=== PATIENT | female | born 1965 | race Caucasian/White ===

== ENCOUNTER 2021-04-25 08:10 | Inpatient (IN) | payer OTHER, SELFPAY ==
[2021-04-25] VITALS (8 sets, daily range): BP systolic 104–138; BP diastolic 52–86; PULSE 75–104; RESP 14–18; TEMP 36.2–36.9; O2SAT 98–100; BMI 27.8
--- NOTE | ~2021-04-25 | US_ITS ---
EXAMINATION: BILATERAL LOWER EXTREMITY ARTERIAL DUPLEX CLINICAL INFORMATION: Chronic lesions, question vascular disease. COMPARISON: None TECHNIQUE: Technically limited exam due to agitated patient could not cooperate with the exam. Arterial duplex imaging with chacon scale, color Doppler and spectral Doppler imaging was performed in both lower extremities. FINDINGS: Right lower extremity: Atherosclerotic plaque throughout the right lower extremity. The right common femoral artery is patent with monophasic waveform. The profunda femoral artery is not visualized. Normal velocities in the SFA with monophasic waveforms. The popliteal artery is patent. The posterior tibial artery is not seen on the right. Left lower extremity: Atherosclerotic plaque is present. The common femoral artery, profunda femoral artery and proximal SFA could not be visualized due to patient positioning and limited access on the portable exam. There is monophasic flow visualized in the mid and distal SFA as well as the popliteal artery. Posterior tibial artery is not visualized. US/US arterial duplex LE BI IMPRESSION: Markedly limited exam due to examination done portably in an agitated patient with limited access. Atherosclerotic plaque is present. There is monophasic flow within the visualized arteries of both lower extremities. The presence of high-grade stenoses/occlusions cannot be excluded on the current exam. Repeated time to exam when the patient is able to tolerate and follow questions recommended.
--- NOTE | ~2021-04-25 | XR_ITS ---
EXAMINATION: XR CHEST CLINICAL INFORMATION: Chest symptoms. Assess for pneumonia. COMPARISON: Chest radiographs 02/16/2020 TECHNIQUE: Portable upright AP view of the chest was obtained. FINDINGS: Patient is slightly rotated to the right and there are low lung volumes with inspiration to the posterior eighth ribs. There is no lobar or segmental airspace consolidation or definite groundglass opacity. The costophrenic sulci are clear. The heart is within normal size. The vascularity is normal. The hilar and mediastinal contours are unremarkable. No acute bony abnormality. XR/XR chest 1V IMPRESSION: Low lung volumes, poor inspiration. No airspace consolidation or effusion.
--- NOTE | ~2021-04-25 | CT_ITS ---
EXAMINATION: CT ABDOMEN AND PELVIS WITHOUT CONTRAST CLINICAL INFORMATION: Deep sacral ulcers. Rule out abscess. COMPARISON: None TECHNIQUE: Multidetector volumetric imaging was performed from the superior aspect of the liver through the pubic symphysis. Sagittal and coronal reformatted images were obtained on the technologist's workstation. This CT examination was performed using dose optimization techniques as appropriate, variously including the following: *Automated exposure control *Adjustment of mA and/or kV according to patient size (this includes techniques or standardized protocols for targeted exams where dose is matched to indication/reason for exam; i.e. extremities or head) *Use of iterative reconstruction technique DLP: 815 mGy-cm FINDINGS: LUNG BASES: The heart size is normal. The lung bases are clear. LIVER, GALLBLADDER, AND BILIARY TREE: The liver is normal in size, shape, and attenuation. No focal hepatic lesion or biliary ductal dilatation is present. The gallbladder is unremarkable with no evidence of radiopaque gallstones, gallbladder wall thickening, or obvious pericholecystic inflammatory changes. There is dependent hyperdensity bile. PANCREAS: Unremarkable. SPLEEN: The spleen is unremarkable. There is vascular calcification in the splenic hilum. ADRENAL GLANDS: Unremarkable. KIDNEYS AND URETERS: The kidneys are normal in size, shape, and attenuation. No hydronephrosis, hydroureter, or calculi seen. No perinephric stranding. BLADDER: There is bladder is undistended is a Toth's catheter within GASTROINTESTINAL TRACT: There is scattered stool and gas seen throughout the entire colon without any significant distention. The small bowel loops and normal multiple caliber. Appendix is not seen. No free fluid or free air seen. ABDOMINAL WALL: There is diffuse mid and lower abdominal wall edema/cellulitis. LYMPH NODES: Normal. VASCULAR: Unremarkable. PELVIC VISCERA: There is moderate presacral soft tissue thickening. Diffuse edema seen in both posterior buttocks and lower anterior bowel wall. There are bilateral diffuse ulcers extending to the periosteum. There is slight irregularity involving left posterior ischial periosteum. Moderate soft tissue edema is seen in the right buttock. There is no air-fluid or focal fluid collection in the buttock region. There are reactive small lymph nodes in the iliac region and the inguinal regions bilaterally. OSSEOUS STRUCTURES: There is vacuum disc phenomena L4-L5 and L5-S1 disc levels with loss of joint space and ventral and posterior spondylosis. Rest of the disc levels, all vertebral heights and alignment is normal. CT/CT abdomen pelvis wo con IMPRESSION: Bilateral buttock decubitus ulcers extending to the periosteum of both the ACL regions. There is mild irregularity of the left ischial periosteum suspicious for cellulitis. There is diffuse edema and/or cellulitis but no focal abscess, mass or collection. They do not extends into the entire abdominal wall surrounding the pelvis as well as the presacral space There is mild constipation.
--- NOTE | 2021-04-25 08:53 | ED.AMS ---
HPI - Altered Mental Status General Chief Complaint: Altered Mental Status Stated Complaint: AMS Time Seen by Provider: 04/25/21 08:19 Source: EMS Mode of arrival: EMS Limitations: altered mental status History of Present Illness HPI narrative: Patient comes emergency room via EMS from [facility]. According to the staff, patient seems to be altered more than usual, appears to have full, complaining of a lot of pain. Patient states that ?everything hurts?. Unable to pinpoint a specific location. Apparently staff, Dr. Murphy normally, conversational and alert. Related Data Allergies Allergy/AdvReac Type Severity Reaction Status Date / Time acetaminophen [Percocet] Allergy Unknown rash Verified 04/25/19 00:00 morphine [MORPHINE] Allergy Unknown RASH Verified 09/03/20 11:24 oxycodone [From PERCOCET] Allergy Unknown ITCHY RASH Unverified 06/13/20 15:05 Penicillins [PENICILLINS] Allergy Unknown RASH Verified 09/03/20 11:24 Review of Systems Review of Systems: Complaining of pain, screening, unable to localize the source of pain, states everything hurts Yes Unobtainable due to mental condition [facility] Past Medical History Surgical History (Updated 09/03/20 @ 11:25 by REBEL Weiss) History of total abdominal hysterectomy and bilateral salpingo-oophorectomy Family History Family History (Updated 09/03/20 @ 11:26 by REBEL Weiss) Father Colon cancer Hypertension Prostate cancer Mother Diabetes Hypertension Family/Other FH: mental illness Social History Social History Alcohol intake: never Patient Tobacco Use Status: Never used Tobacco Use of substances other than those prescribed or required for medical reasons: No Advance Directives: No Advance Directives Information Provided: No Patient : No Physical Exam Vital Signs: Vital Signs: Last Vital Signs Temp 98.4 F 04/25/21 08:17 Pulse 98 04/25/21 10:33 Resp 16 04/25/21 10:33 BP 104/56 L 04/25/21 10:33 Pulse Ox 98 04/25/21 10:33 Body Mass Index 27.8 Appearance: Alert. Screaming in pain Eyes: Pupils equal, round and reactive to light. ENT: Dry oral mucosa Neck: Normal inspection. Neck supple. No lymph nodes noted. No crepitus CVS: Normal heart rate and rhythm. Pulses normal. Normal S1 and S2, plus 4 systolic murmur left sternal border Respiratory: No respiratory distress. Breath sounds normal. No Wheezing. No rales Abdomen: Soft and nontender. No rigidity. No distention. Skin: Skin warm. Patient has a very large ulcer in both buttocks and sacral area, deep into the gluteal muscles, draining pus, foul-smelling discharge Extremities: Chronic bilateral lymphedema, +4 pitting edema, patient has wet gangrene bilaterally in both heels. venous stasis Neuro: Cranial nerves 2-12 grossly intact, moves all extremities, no slurred speech Course Course Course Narrative: I discussed the patient with Dr. Louie the patient will need debridement of the buttocks decubitus wounds and the heels Patient will be admitted to our hospitalist. MDM - Altered Mental Status Lab Data Result diagrams: 04/25/21 09:31 04/25/21 09:31 Labs: Lab Results 04/25/21 04/25/21 04/25/21 Range/Units 09:31 09:31 09:31 WBC 23.0 H (4.8-10.8) X10*3/uL RBC 2.87 L (4.20-5.50) X10*6/uL Hgb 7.7 L (12.0-16.0) g/dl Hct 26.1 L (37-47) % MCV 90.9 (80-98) fL MCH 26.8 L (27.0-33.0) pg MCHC 29.5 L (31.0-35.0) g/dl RDW 14.9 (11.0-16.0) % Plt Count 462 H (160-400) X10*3/uL MPV 9.3 L (9.4-12.3) fL Immature Gran % (Auto) Cancelled Neut % (Auto) Cancelled Lymph % (Auto) Cancelled [place] % (Auto) Cancelled Eos % (Auto) Cancelled Baso % (Auto) Cancelled Lymph # (Auto) Cancelled [place] # (Auto) Cancelled Eos # (Auto) Cancelled Baso # (Auto) Cancelled Abs Immat Gran (auto) Cancelled Absolute Neuts (auto) Cancelled Absolute Nucleated RBC 0.000 (0.0-0.012) X10*3/uL Nucleated RBC % (auto) 0.0 (0.0-0.2) /100WBC Neutrophils % (Manual) 83 H (45-73) % Band Neutrophils % 13 H (3-5) % Lymphocytes % (Manual) 1 L (20-40) % Monocytes % (Manual) 2 (2-11) % Metamyelocytes % 1 % Abs Neuts (Manual) 22.1 H (2.2-7.9) X10*3/uL Lymphocytes # (Manual) 0.2 L (0.6-4.8) X10*3/uL Monocytes # (Manual) 0.5 (0.0-1.2) X10*3/uL Metamyelocytes # 0.2 X10*3/uL Toxic Vacuolation PRESENT Platelet Estimate INCREASED (NORMAL) Plt Morphology Comment NORMAL RBC Morphology NORMAL PT 17.3 H (9.9-13.0) SEC INR 1.5 H (0.9-1.1) Sodium 133 L (135-145) mmol/L Potassium 4.9 (3.3-5.1) mmol/L Chloride 104 (96-108) mmol/L Carbon Dioxide 18 L (22-29) mmol/L Anion Gap 16 (12-20) BUN 72 H (9-16) mg/dL Creatinine 2.55 H (0.5-1.4) mg/dL Estim Creat Clear Calc 26.9 Estimated GFR 20 Random Glucose 79 (60-115) mg/dL Lactic Acid (0.5-2.0) mmol/L Calcium 8.9 (8.4-10.2) mg/dL Total Bilirubin 1.0 (0.0-1.0) mg/dL Direct Bilirubin 0.7 H (0.0-0.5) mg/dL AST 14 (5-31) U/L ALT 8 (0-31) U/L Alkaline Phosphatase 193 H (39-117) U/L Total Protein 7.5 (6.5-8.0) g/dL Albumin 2.0 L (3.5-5.0) g/dL Lipase < 4 L (8-78) U/L Urine Color Urine Appearance Urine pH (5.0-8.0) Ur Specific [place] (1.005-1.025) Urine Protein (NEG-TRACE) MG/DL Urine Glucose (UA) (NEG) MG/DL Urine Ketones (NEG) MG/DL Urine Blood (NEG) Urine Nitrite (NEG) Ur Leukocyte Esterase (NEG) Urine RBC (0) /HPF Urine WBC (0-4) /HPF Ur Squamous Epith Cells /LPF Amorphous Sediment /LPF Urine Bacteria /LPF 04/25/21 04/25/21 Range/Units 09:31 10:21 WBC (4.8-10.8) X10*3/uL RBC (4.20-5.50) X10*6/uL Hgb (12.0-16.0) g/dl Hct (37-47) % MCV (80-98) fL MCH (27.0-33.0) pg MCHC (31.0-35.0) g/dl RDW (11.0-16.0) % Plt Count (160-400) X10*3/uL MPV (9.4-12.3) fL Immature Gran % (Auto) Neut % (Auto) Lymph % (Auto) [place] % (Auto) Eos % (Auto) Baso % (Auto) Lymph # (Auto) [place] # (Auto) Eos # (Auto) Baso # (Auto) Abs Immat Gran (auto) Absolute Neuts (auto) Absolute Nucleated RBC (0.0-0.012) X10*3/uL Nucleated RBC % (auto) (0.0-0.2) /100WBC Neutrophils % (Manual) (45-73) % Band Neutrophils % (3-5) % Lymphocytes % (Manual) (20-40) % Monocytes % (Manual) (2-11) % Metamyelocytes % % Abs Neuts (Manual) (2.2-7.9) X10*3/uL Lymphocytes # (Manual) (0.6-4.8) X10*3/uL Monocytes # (Manual) (0.0-1.2) X10*3/uL Metamyelocytes # X10*3/uL Toxic Vacuolation Platelet Estimate (NORMAL) Plt Morphology Comment RBC Morphology PT (9.9-13.0) SEC INR (0.9-1.1) Sodium (135-145) mmol/L Potassium (3.3-5.1) mmol/L Chloride (96-108) mmol/L Carbon Dioxide (22-29) mmol/L Anion Gap (12-20) BUN (9-16) mg/dL Creatinine (0.5-1.4) mg/dL Estim Creat Clear Calc Estimated GFR Random Glucose (60-115) mg/dL Lactic Acid 0.6 (0.5-2.0) mmol/L Calcium (8.4-10.2) mg/dL Total Bilirubin (0.0-1.0) mg/dL Direct Bilirubin (0.0-0.5) mg/dL AST (5-31) U/L ALT (0-31) U/L Alkaline Phosphatase (39-117) U/L Total Protein (6.5-8.0) g/dL Albumin (3.5-5.0) g/dL Lipase (8-78) U/L Urine Color YELLOW Urine Appearance CLOUDY Urine pH 8.5 H (5.0-8.0) Ur Specific [place] 1.015 (1.005-1.025) Urine Protein 3+ H (NEG-TRACE) MG/DL Urine Glucose (UA) NEG (NEG) MG/DL Urine Ketones NEG (NEG) MG/DL Urine Blood TRACE (NEG) Urine Nitrite NEG (NEG) Ur Leukocyte Esterase 3+ H (NEG) Urine RBC 0-2 (0) /HPF Urine WBC 30-49 H (0-4) /HPF Ur Squamous Epith Cells 1+ /LPF Amorphous Sediment 2+ /LPF Urine Bacteria 2+ /LPF Critical Care Time Critical Care Time Total Critical Care Time: 60 Discharge Plan Discharge Clinical Impression: Decubitus ulcer, Wet gangrene, Acute kidney injury, UTI (urinary tract infection) Patient Disposition: Admitted As Inpatient
[2021-04-25] MEDS: Morphine Sulfate 4 MG/ML CARTRIDGE IVPUSH (08:56)
[2021-04-25 09:38] LABS: Hematocrit 26.1 % (37-47); Hemoglobin 7.7 g/dl (12.0-16.0); Mean Corpuscular HGB Conc 29.5 g/dl (31.0-35.0); Mean Corpuscular Hemoglobin 26.8 pg (27.0-33.0); Mean Corpuscular Volume 90.9 fL (80-98); Mean Platelet Volume 9.3 fL (9.4-12.3); Platelet Count 462 X10*3/uL (160-400); Red Blood Count 2.87 X10*6/uL (4.20-5.50); Red Cell Distribution Width 14.9 % (11.0-16.0)
[2021-04-25 09:47] LABS: INTERNATIONAL NORM RATIO 1.5 (0.9-1.1); Prothrombin Time 17.3 SEC (9.9-13.0)
[2021-04-25] MEDS: 0.9 % Sodium Chloride 1,000 ML 999 ML IVCONT ×3 (09:54)
[2021-04-25 09:58] LABS: Band Neutrophils Percent 13 % (3-5); Lymphocytes Absolute Manual 0.2 X10*3/uL (0.6-4.8); Lymphocytes Percent Manual 1 % (20-40); Metamyelocytes Absolute 0.2 X10*3/uL; Metamyelocytes Percent 1 %; Monocytes Absolute Manual 0.5 X10*3/uL (0.0-1.2); Monocytes Percent Manual 2 % (2-11); Neutrophils Absolute Manual 22.1 X10*3/uL (2.2-7.9); Neutrophils Percent Manual 83 % (45-73); Platelet Estimate INCREASED (NORMAL); Platelet Morphology Comment NORMAL; Toxic Vacuolation PRESENT
[2021-04-25 09:59] LABS: RBC Morphology NORMAL
[2021-04-25 10:03] LABS: Lactic Acid 0.6 mmol/L (0.5-2.0)
[2021-04-25 10:10] LABS: Alanine Aminotransferase 8 U/L (0-31); Alkaline Phosphatase 193 U/L (39-117); Anion Gap 16 (12-20); Aspartate Amino Transferase 14 U/L (5-31); Bilirubin Direct 0.7 mg/dL (0.0-0.5); Blood Urea Nitrogen 72 mg/dL (9-16); Calcium 8.9 mg/dL (8.4-10.2); Carbon Dioxide 18 mmol/L (22-29); Chloride 104 mmol/L (96-108); Creatinine Clr Calc Pharmacy 26.9; Estimated Glomerular Filt Rate 20; Glucose Random 79 mg/dL (60-115); Lipase < 4 U/L (8-78); Potassium 4.9 mmol/L (3.3-5.1); Sodium 133 mmol/L (135-145); Total Protein 7.5 g/dL (6.5-8.0)
[2021-04-25 10:28] LABS: Glucose Urine UA NEG (NEG); Leukocyte Esterase Urine 3+ (NEG); Nitrite Urine NEG (NEG); PH 8.5 (5.0-8.0); Specific Gravity - Urine 1.015 (1.005-1.025); UACC Culture Trigger YES; Urine Blood TRACE (NEG); Urine Ketones NEG (NEG)
--- NOTE | 2021-04-25 10:28 | PC.NURSE ---
pt arriving by ambulance from [facility], has chronic coccyx/perineum wounds, provider at bedside for immediate eval. pt vss. pt has ems line that appears infiltrated, pt is very difficult iv stick, requiring several attempts by multiple staff members for iv access and blood labs. pt is very tearful and stating distress w current positioning, pt offered positioning assistance and options, pt asked by this rn which positioning assists help and what works in intermediate care, pt not able to tell this rn what helps. pt medicated for pain, behaviors indicate some relief, although pt intermittently will begin yelling out and crying about pain at wound sites. urine sample obtained and sent from catheter port. [facility] for medication effect. awaiting blood cultures to start antibiotics, pct at bedside to obtain.
[2021-04-25 10:29] LABS: Appearance Urine CLOUDY; Color Urine YELLOW; Urine Protein 3+ MG/DL (NEG-TRACE)
[2021-04-25 10:34] LABS: Amorphous Sediment Urine 2+ /LPF; Bacteria Urine 2+ /LPF; RBC Urine 0-2 /HPF (0); Squamous Epithelial Cell Urine 1+ /LPF; WBC Urine 30-49 /HPF (0-4)
[2021-04-25] MEDS: Morphine Sulfate 2 MG/ML CARTRIDGE IVPUSH ×3 (10:59→22:01)
--- NOTE | 2021-04-25 11:28 | PC.NURSE ---
Multiple RNs tried for blood cultures and were unsuccessful. Per MD start antibiotics before blood cultures due to patient condition.
[2021-04-25] MEDS: cefTRIAXone sodium 1 GM in 0.9 % Sodium Chloride 50 ML IV (11:29)
[2021-04-25] MEDS: vancomycin HCL 1,000 MG in 0.9 % Sodium Chloride 250 ML 270 MG IV (12:04)
--- NOTE | 2021-04-25 12:24 | P.CONGS_ITS ---
History of Present Illness Consult details Consult date: 04/25/21 Reason for consult: other (Decubitus ulcers of bilateral buttocks and heels) Narrative: This is a 55-year-old female who presented [facility] the emergency room [facility] facility today for evaluation of complaints of diffuse pain. The surgical service was called for evaluation of bilateral buttock and heel ulcers. She has a history of vulvar carcinoma and is followed by the geotechnical department manager Oncology se dong at [facility]. She received treatment with chemotherapy and radiation therapy subsequently, she has required treatment for anemia and has been transfused with packed red cells on a number of occasions. She had known bilateral buttock and heel ulcers. Progressive worsening of the buttock ulcers has been noted. Today, she reports diffuse pain that involves the area of the buttock decubitus ulcers, but is not limited to that area. She is unable to provide any more specific information regarding her pain, but reports that it is severe and constant. She does not report fever or chills, nausea or vomiting. She has a chronic indwelling Toth catheter. White blood count is elevated at 23.0. BUN and creatinine are elevated, [address] scan of the abdomen and pelvis was obtained in the emergency department and demonstrated: IMPRESSION: Bilateral buttock decubitus ulcers extending to the periosteum of both the ACL regions. There is mild irregularity of the left ischial periosteum suspicious for cellulitis. There is diffuse edema and/or cellulitis but no focal abscess, mass or collection. They do not extends into the entire abdominal wall surrounding the pelvis as well as the presacral space ? There is mild constipation.? Dictated By: TIM ABBOTT MD Signed By: <Electronically signed by TIM ABBOTT MD in OV> 04/25/21 1104 Review of Systems Constitutional: Constitutional: Denies chills and Denies fever(s) Cardiovascular: Cardiovascular: Denies Abdominal Distension, Denies chest pain and Denies dyspnea Respiratory: Respiratory: Denies cough, Denies dyspnea and Denies wheezing Gastrointestinal: Gastrointestinal: Denies abdominal pain, Denies nausea and Denies vomiting Genitourinary: Genitourinary: Reports pelvic pain Comments: Chronic Toth Integumentary/Breasts: Skin/Breast: Reports wounds (Painful, bilateral buttocks) Psychiatric: Psychiatric: Reports anxiety Hematologic/Lymphatic: Hematologic/Lymphatic: Reports lymphadenopathy (Prior history and large flaquito aortic and pelvic lymph nodes) Allergic/Immunologic: Allergic/Immunologic: Denies wheezing PMFSH Past Medical History Medical History (Updated 04/25/21 @ 14:10 by Nohelia Louie MD) Diabetes mellitus type 2 in nonobese History of cancer of vulva Lymphedema Family History Family History Father Colon cancer Hypertension Prostate cancer Mother Diabetes Hypertension Family/Other FH: mental illness Surgical History Surgical History History of total abdominal hysterectomy and bilateral salpingo-oophorectomy S/P recurrent ventral herniorrhaphy Social History Social History Alcohol intake: never Patient Tobacco Use Status: Never used Tobacco Use of substances other than those prescribed or required for medical reasons: No Advance Directives: No Advance Directives Information Provided: No Patient : No Meds Allergies Allergy/AdvReac Type Severity Reaction Status Date / Time acetaminophen [Percocet] Allergy Unknown rash Verified 04/25/19 00:00 morphine [MORPHINE] Allergy Unknown RASH Verified 09/03/20 11:24 oxycodone [From PERCOCET] Allergy Unknown ITCHY RASH Unverified 06/13/20 15:05 Penicillins [PENICILLINS] Allergy Unknown RASH Verified 09/03/20 11:24 Active Medications: Current Medications Generic Name Dose Route Start Last Admin Trade Name Freq PRN Reason Stop Dose Admin Pharmacy Consult 1 each 04/25/21 11:48 Consult Rx Perform Med Rec MISCELLANE ONCE PRN Consult order Home Medications Medication Instructions Recorded Confirmed Last Taken Type acetaminophen 325 mg tablet 650 mg PO Q6H PRN 04/25/21 04/25/21 Unknown History ammonium lactate 12 % topical cream 1 appl TOPICAL BID 04/25/21 04/25/21 Unknown History ascorbic acid (vitamin C) 500 mg 500 mg PO DAILY 04/25/21 04/25/21 Unknown History tablet bisacodyl 10 mg rectal suppository 10 mg UT DAILY PRN 04/25/21 04/25/21 Unknown History diltiazem HCl 60 mg tablet 60 mg PO BID 04/25/21 04/25/21 Unknown History docusate sodium 50 mg capsule 50 mg PO BEDTIME PRN 04/25/21 04/25/21 Unknown History ferrous sulfate 325 mg (65 mg 325 mg PO TID 04/25/21 04/25/21 Unknown History iron) tablet insulin glargine 100 unit/mL 3 unit SUBCUT QPM 04/25/21 04/25/21 Unknown History subcutaneous solution lactulose 10 gram/15 mL oral 20 g PO BID PRN 04/25/21 04/25/21 Unknown History solution lorazepam 0.5 mg tablet 0.5 mg PO Q6H PRN 04/25/21 04/25/21 Unknown History magnesium citrate (Citrate of 150 ml PO DAILY PRN 04/25/21 04/25/21 Unknown History Magnesia) mirtazapine 30 mg tablet 30 mg PO BEDTIME 04/25/21 04/25/21 Unknown History morphine 15 mg tablet,extended 1 tab PO BID 04/25/21 04/25/21 Unknown History release (MS Contin) oxycodone 5 mg tablet 1 tab PO Q6H PRN 04/25/21 04/25/21 Unknown History polyethylene glycol 3350 17 gram 17 g PO DAILY PRN 04/25/21 04/25/21 Unknown History oral powder packet (Miralax) sennosides 8.6 mg tablet (senna) 17.2 mg PO BEDTIME PRN 04/25/21 04/25/21 Unknown History sodium hypochlorite 0.125 % 1 appl TOPICAL DAILY 04/25/21 04/25/21 Unknown History solution (Dakin's Solution) tamsulosin 0.4 mg capsule (Flomax) 0.4 mg PO DAILY 04/25/21 04/25/21 Unknown History Physical Exam Vital Signs: Vital Signs: Last Vital Signs Temp 98.4 F 04/25/21 08:17 Pulse 98 04/25/21 10:33 Resp 16 04/25/21 10:33 BP 104/56 L 04/25/21 10:33 Pulse Ox 98 04/25/21 10:33 Body Mass Index 27.8 Const: General: anxious and ill appearing Nutritional Appearance: thin HENMT: Head: Yes normocephalic and Yes atraumatic Neck: Neck: Yes trachea midline and Yes supple Resp: Effort & Inspection: normal respiratory effort Auscultation: clear to auscultation bilaterally Cardio: Other: Bilateral lower extremity lymphedema, pedal pulses not palpable Rate: regular rate Rhythm: regular rhythm GI: Other: Soft, nondistended, nontender Skin: Other: Bilateral stage IV buttock ulcers with patchy necrotic tissue present, area of tunneling on right with drainage of thick bloody and purulent- appearing material; bilateral posterior heel ulcers, unstageable, with moist, necrotic eschar present Extrem: Other: Bilateral lower extremity lymphedema, bilateral posterior heel ulcers as noted, unstageable Results Labs Result diagrams: 04/25/21 09:31 04/25/21 09:31 Labs: Abnormal lab results 04/25/21 04/25/21 04/25/21 Range/Units 09:31 09:31 09:31 WBC 23.0 H (4.8-10.8) X10*3/uL RBC 2.87 L (4.20-5.50) X10*6/uL Hgb 7.7 L (12.0-16.0) g/dl Hct 26.1 L (37-47) % MCH 26.8 L (27.0-33.0) pg MCHC 29.5 L (31.0-35.0) g/dl Plt Count 462 H (160-400) X10*3/uL MPV 9.3 L (9.4-12.3) fL Neutrophils % (Manual) 83 H (45-73) % Band Neutrophils % 13 H (3-5) % Lymphocytes % (Manual) 1 L (20-40) % Abs Neuts (Manual) 22.1 H (2.2-7.9) X10*3/uL Lymphocytes # (Manual) 0.2 L (0.6-4.8) X10*3/uL PT 17.3 H (9.9-13.0) SEC INR 1.5 H (0.9-1.1) Sodium 133 L (135-145) mmol/L Carbon Dioxide 18 L (22-29) mmol/L BUN 72 H (9-16) mg/dL Creatinine 2.55 H (0.5-1.4) mg/dL Direct Bilirubin 0.7 H (0.0-0.5) mg/dL Alkaline Phosphatase 193 H (39-117) U/L Albumin 2.0 L (3.5-5.0) g/dL Lipase < 4 L (8-78) U/L Urine pH (5.0-8.0) Urine Protein (NEG-TRACE) MG/DL Ur Leukocyte Esterase (NEG) Urine WBC (0-4) /HPF 04/25/21 Range/Units 10:21 WBC (4.8-10.8) X10*3/uL RBC (4.20-5.50) X10*6/uL Hgb (12.0-16.0) g/dl Hct (37-47) % MCH (27.0-33.0) pg MCHC (31.0-35.0) g/dl Plt Count (160-400) X10*3/uL MPV (9.4-12.3) fL Neutrophils % (Manual) (45-73) % Band Neutrophils % (3-5) % Lymphocytes % (Manual) (20-40) % Abs Neuts (Manual) (2.2-7.9) X10*3/uL Lymphocytes # (Manual) (0.6-4.8) X10*3/uL PT (9.9-13.0) SEC INR (0.9-1.1) Sodium (135-145) mmol/L Carbon Dioxide (22-29) mmol/L BUN (9-16) mg/dL Creatinine (0.5-1.4) mg/dL Direct Bilirubin (0.0-0.5) mg/dL Alkaline Phosphatase (39-117) U/L Albumin (3.5-5.0) g/dL Lipase (8-78) U/L Urine pH 8.5 H (5.0-8.0) Urine Protein 3+ H (NEG-TRACE) MG/DL Ur Leukocyte Esterase 3+ H (NEG) Urine WBC 30-49 H (0-4) /HPF Short CBC 04/25/21 Range/Units 09:31 WBC 23.0 H (4.8-10.8) X10*3/uL Hgb 7.7 L (12.0-16.0) g/dl Hct 26.1 L (37-47) % Plt Count 462 H (160-400) X10*3/uL BMP 04/25/21 09:31 Sodium 133 L Potassium 4.9 Chloride 104 Carbon Dioxide 18 L BUN 72 H Creatinine 2.55 H Calcium 8.9 Liver Function 04/25/21 Range/Units 09:31 Total Bilirubin 1.0 (0.0-1.0) mg/dL Direct Bilirubin 0.7 H (0.0-0.5) mg/dL AST 14 (5-31) U/L ALT 8 (0-31) U/L Alkaline Phosphatase 193 H (39-117) U/L Albumin 2.0 L (3.5-5.0) g/dL Urine 04/25/21 Range/Units 10:21 Urine Color YELLOW Urine Appearance CLOUDY Urine pH 8.5 H (5.0-8.0) Ur Specific [place] 1.015 (1.005-1.025) Urine Protein 3+ H (NEG-TRACE) MG/DL Urine Glucose (UA) NEG (NEG) MG/DL All other labs normal. Imaging Chest x-ray: report reviewed Abdomen CT scan report/results: report reviewed and image reviewed CT scan - pelvis: report reviewed and image reviewed Assessment and Plan (1) Decubitus ulcer: Qualifiers: Pressure injury location: sacral region Pressure injury stage: unstageable Qualified Code(s): L89.150 - Pressure ulcer of sacral region, unstageable Status: Acute (2) Acute kidney injury: Status: Acute (3) UTI (urinary tract infection): Status: Acute (4) Protein-calorie malnutrition, severe: Status: Acute (5) Soft tissue radionecrosis: Status: Acute 55-year-old female with complicated past medical history including type 2 diabetes mellitus, lower extremity lymphedema, and vulvar carcinoma treated with chemoradiation therapy. She has a history of bilateral buttock and heel ulcers with documented buttock ulcers present at least 6 months ago, followed at [facility] and also [facility]. She has a history of radiation therapy for treatment of vulvar carcinoma, and secondary effects of radiation likely contributing to poor healing. Also has severe malnutrition, albumin 2.0. Necrotic tissue is present in patchy areas involving both buttock ulcers. There is exposed bone present bilaterally, consistent with ischeal osteomyelitis. Bilateral heel ulcers with moist necrotic tissue present. Vascular status is difficult to assess due to presence of bilateral lower extremity lymphedema. She will be admitted to the medical service for treatment of UTI and acute kidney injury. She may benefit from noninvasive arterial vascular studies of the lower extremities. Because of her level of pain, debridement of the bilateral buttock and heel ulcers will be done in the operating room with Anesthesia support. May benefit from low air loss mattress. Continue pressure relief with heel elevation and q2h repositioning, nutritional support. Procedures Date of Service Date of Service: 04/25/21
[2021-04-25 13:02] LABS: COVID-19 Test Negative (Negative)
[2021-04-25 13:13] LABS: C Reactive Protein 30.22 mg/dL (< or = 0.50)
--- NOTE | 2021-04-25 13:58 | PM.IMHP ---
History of Present Illness Date of Service: 04/25/21 <JOSE Arnold - Last Filed: 04/25/21 14:49> Chief Complaint: altered mental status <JOSE Arnold - Last Filed: 04/25/21 14:49> This is a 55-year-old female with history lymphedema sent from [facility] due to altered mental status. Patient has a history vulvar cancer status post total abdominal hysterectomy and chemoradiation with resulting chronic bilateral lower extremity lymphedema currently bed-bound with chronic decubitus ulcers of bilateral heels and buttocks She has been followed by wound care and has had recent admission at [facility]. MRI done on 04/17 confirmed osteomyelitis. Documents from facility indicate lack of cooperation with wound care as well as multiple allergies making pain control difficult. She was reportedly sent in from the facility today because she is not acting at her baseline and appears ?off.? Workup in the emergency department revealed leukocytosis of 23, H/H 7.7/26.1. Patient was tachycardic but afebrile, lactic acid was within normal limits. Creatinine was elevated at 2.55. Imaging showed bilateral buttock decubitus ulcers extending to the periosteum. Patient was emotional, intermittently crying, reporting significant pain. She received multiple doses of morphine in the emergency department as well as IV antibiotics and IV fluid. She was evaluated by General surgery who recommended that the patient be admitted to the hospitalist service. <JOSE Arnold - Last Filed: 04/25/21 14:49> Review of Systems Review of Systems: Reports generalized pain <JOSE Arnold Last Filed: 04/25/21 14:49> Yes all other systems are reviewed and are negative <JOSE Arnold - Last Filed: 04/25/21 14:49> Constitutional: Constitutional: Denies chills and Denies fever(s) <JOSE Arnold Last Filed: 04/25/21 14:49> Cardiovascular: Cardiovascular: Denies chest pain <JOSE Arnold Last Filed: 04/25/21 14:49> Respiratory: Respiratory: Denies cough <JOSE Arnold Last Filed: 04/25/21 14:49> Gastrointestinal: Gastrointestinal: Denies abdominal pain <JOSE Arnold - Last Filed: 04/25/21 14:49> [facility] Medical History: Medical History Anemia Anxiety Chronic pain Depression Diabetes mellitus type 2 in nonobese History of cancer of vulva Hypertension Lymphedema PVD (peripheral vascular disease) <JOSE Arnold - Last Filed: 04/25/21 14:49> Functional capacity: bed bound <JOSE Arnold - Last Filed: 04/25/21 14:49> Family History: Family History Father Colon cancer Hypertension Prostate cancer Mother Diabetes Hypertension Family/Other FH: mental illness <JOSE Arnold - Last Filed: 04/25/21 14:49> Surgical History: Surgical History History of total abdominal hysterectomy and bilateral salpingo-oophorectomy S/P recurrent ventral herniorrhaphy <JOSE Arnold - Last Filed: 04/25/21 14:49> Social History: Social History Household Members: None Housing: Shelter Do you presently have visiting nurse or other home services: No Alcohol intake: never Patient Tobacco Use Status: Never used Tobacco Second Hand Smoke Exposure: No service: No Current occupational status: unemployed <JOSE Arnold - Last Filed: 04/25/21 14:49> Meds Allergies/Adverse reactions: Allergies Allergy/AdvReac Type Severity Reaction Status Date / Time acetaminophen [Percocet] Allergy Unknown rash Verified 04/25/19 00:00 morphine [MORPHINE] Allergy Unknown RASH Verified 09/03/20 11:24 oxycodone [From PERCOCET] Allergy Unknown ITCHY RASH Verified 04/25/21 18:39 Penicillins [PENICILLINS] Allergy Unknown RASH Verified 09/03/20 11:24 <JOSE Arnold - Last Filed: 04/25/21 14:49> Active Medications: Current Medications Generic Name Dose Route Start Last Admin Trade Name Luiz PRN Reason Stop Dose Admin Pharmacy Consult 1 each 04/25/21 11:48 Consult Rx Perform Med Rec MISCELLANE ONCE PRN Consult order <JOSE Arnold - Last Filed: 04/25/21 14:49> Home medications: Home Medications Medication Instructions Recorded Confirmed Last Taken Type acetaminophen 325 mg tablet 650 mg PO Q6H PRN 04/25/21 04/25/21 Unknown History ammonium lactate 12 % topical cream 1 appl TOPICAL BID 04/25/21 04/25/21 Unknown History ascorbic acid (vitamin C) 500 mg 500 mg PO DAILY 04/25/21 04/25/21 Unknown History tablet bisacodyl 10 mg rectal suppository 10 mg ND DAILY PRN 04/25/21 04/25/21 Unknown History diltiazem HCl 60 mg tablet 60 mg PO BID 04/25/21 04/25/21 Unknown History docusate sodium 50 mg capsule 50 mg PO BEDTIME PRN 04/25/21 04/25/21 Unknown History ferrous sulfate 325 mg (65 mg 325 mg PO TID 04/25/21 04/25/21 Unknown History iron) tablet lactulose 10 gram/15 mL oral 20 g PO BID PRN 04/25/21 04/25/21 Unknown History solution magnesium citrate (Citrate of 150 ml PO DAILY PRN 04/25/21 04/25/21 Unknown History Magnesia) mirtazapine 30 mg tablet 30 mg PO BEDTIME 04/25/21 04/25/21 Unknown History polyethylene glycol 3350 17 gram 17 g PO DAILY PRN 04/25/21 04/25/21 Unknown History oral powder packet (Miralax) sennosides 8.6 mg tablet (senna) 17.2 mg PO BEDTIME PRN 04/25/21 04/25/21 Unknown History sodium hypochlorite 0.125 % 1 appl TOPICAL DAILY 04/25/21 04/25/21 Unknown History solution (Dakin's Solution) tamsulosin 0.4 mg capsule (Flomax) 0.4 mg PO DAILY 04/25/21 04/25/21 Unknown History <JOSE Arnold - Last Filed: 04/25/21 14:49> Physical Exam Vital Signs and Narrative: Vital Signs: Last Vital Signs Temp 97.9 F 04/25/21 13:34 Pulse 97 04/25/21 13:34 Resp 16 04/25/21 13:34 BP 119/58 L 04/25/21 13:36 Pulse Ox 100 04/25/21 13:34 Body Mass Index 27.8 <JOSE Arnold - Last Filed: 04/25/21 14:49> Const: Other: Appears uncomfortable <JOSE Arnold - Last Filed: 04/25/21 14:49> General: alert and awake <JOSE Arnold - Last Filed: 04/25/21 14:49> HENMT: Head: Yes normocephalic and Yes atraumatic <JOSE Arnold - Last Filed: 04/25/21 14:49> Eyes: Sclerae: sclerae normal <JOSE Arnold - Last Filed: 04/25/21 14:49> Pupils: Equal, round and reactive pupils present <JOSE Arnold - Last Filed: 04/25/21 14:49> EOM: EOMs intact bilaterally <JOSE Arnold - Last Filed: 04/25/21 14:49> Chest: Chest palpation & inspection: normal inspection of the chest <JOSE Arnold - Last Filed: 04/25/21 14:49> Resp: Effort & Inspection: normal respiratory effort and no respiratory distress <JOSE Arnold Last Filed: 04/25/21 14:49> Cardio: Rate: regular rate <JOSE Arnold - Last Filed: 04/25/21 14:49> Rhythm: regular rhythm <JOSE Arnold - Last Filed: 04/25/21 14:49> GI: Palpation (GI): Soft to palpation and nontender <JOSE Arnold - Last Filed: 04/25/21 14:49> Skin: Other: <JOSE Arnold - Last Filed: 04/25/21 14:49> Neuro: Cranial nerves: Yes CN's II-XII intact bilaterally, Yes Equal, round and reactive pupils present and Yes Bilaterally intact EOM present <JOSE Arnold - Last Filed: 04/25/21 14:49> Results Labs CBC and Chem 7: : 05/06/21 07:57 05/08/21 08:20 <JOSE Arnold - Last Filed: 04/25/21 14:49> Labs: Laboratory Results - last 24 hr 04/25/21 04/25/21 04/25/21 09:31 09:31 09:31 MCV 90.9 MCH 26.8 L MCHC 29.5 L RDW 14.9 Plt Count 462 H MPV 9.3 L Immature Gran % (Auto) Cancelled Neut % (Auto) Cancelled Lymph % (Auto) Cancelled Moca % (Auto) Cancelled Eos % (Auto) Cancelled Baso % (Auto) Cancelled Lymph # (Auto) Cancelled Moca # (Auto) Cancelled Eos # (Auto) Cancelled Baso # (Auto) Cancelled Abs Immat Gran (auto) Cancelled Absolute Neuts (auto) Cancelled Absolute Nucleated RBC 0.000 Nucleated RBC % (auto) 0.0 Neutrophils % (Manual) 83 H Band Neutrophils % 13 H Lymphocytes % (Manual) 1 L Monocytes % (Manual) 2 Metamyelocytes % 1 Abs Neuts (Manual) 22.1 H Lymphocytes # (Manual) 0.2 L Monocytes # (Manual) 0.5 Metamyelocytes # 0.2 Toxic Vacuolation PRESENT Platelet Estimate INCREASED Plt Morphology Comment NORMAL RBC Morphology NORMAL PT 17.3 H INR 1.5 H Anion Gap 16 Estim Creat Clear Calc 26.9 Estimated GFR 20 Random Glucose 79 Lactic Acid Calcium 8.9 Total Bilirubin 1.0 Direct Bilirubin 0.7 H AST 14 ALT 8 Alkaline Phosphatase 193 H C-Reactive Protein 30.22 H Total Protein 7.5 Albumin 2.0 L Lipase < 4 L Urine Color Urine Appearance Urine pH Ur Specific [place] Urine Protein Urine Glucose (UA) Urine Ketones Urine Blood Urine Nitrite Ur Leukocyte Esterase Urine RBC Urine WBC Ur Squamous Epith Cells Amorphous Sediment Urine Bacteria COVID-19 ([facility]) COVID-19 Clin Com 04/25/21 04/25/21 04/25/21 09:31 10:21 12:30 MCV MCH MCHC RDW Plt Count MPV Immature Gran % (Auto) Neut % (Auto) Lymph % (Auto) Moca % (Auto) Eos % (Auto) Baso % (Auto) Lymph # (Auto) Moca # (Auto) Eos # (Auto) Baso # (Auto) Abs Immat Gran (auto) Absolute Neuts (auto) Absolute Nucleated RBC Nucleated RBC % (auto) Neutrophils % (Manual) Band Neutrophils % Lymphocytes % (Manual) Monocytes % (Manual) Metamyelocytes % Abs Neuts (Manual) Lymphocytes # (Manual) Monocytes # (Manual) Metamyelocytes # Toxic Vacuolation Platelet Estimate Plt Morphology Comment RBC Morphology PT INR Anion Gap Estim Creat Clear Calc Estimated GFR Random Glucose Lactic Acid 0.6 Calcium Total Bilirubin Direct Bilirubin AST ALT Alkaline Phosphatase C-Reactive Protein Total Protein Albumin Lipase Urine Color YELLOW Urine Appearance CLOUDY Urine pH 8.5 H Ur Specific [place] 1.015 Urine Protein 3+ H Urine Glucose (UA) NEG Urine Ketones NEG Urine Blood TRACE Urine Nitrite NEG Ur Leukocyte Esterase 3+ H Urine RBC 0-2 Urine WBC 30-49 H Ur Squamous Epith Cells 1+ Amorphous Sediment 2+ Urine Bacteria 2+ COVID-19 ([facility]) Negative COVID-19 Clin Com See Note <JOSE Arnold - Last Filed: 04/25/21 14:49> Imaging Radiologist's Impressions: Impressions Abdomen/Pelvis CT 04/25/21 08:45 IMPRESSION: Bilateral buttock decubitus ulcers extending to the periosteum of both the ACL regions. There is mild irregularity of the left ischial periosteum suspicious for cellulitis. There is diffuse edema and/or cellulitis but no focal abscess, mass or collection. They do not extends into the entire abdominal wall surrounding the pelvis as well as the presacral space There is mild constipation. Chest X-Ray 04/25/21 08:45 IMPRESSION: Low lung volumes, poor inspiration. No airspace consolidation or effusion. <JOSE Arnold - Last Filed: 04/25/21 14:49> Assessment and Plan (1) Decubitus ulcer: Qualifiers: Pressure injury location: sacral region Pressure injury stage: unstageable Qualified Code(s): L89.150 - Pressure ulcer of sacral region, unstageable <JOSE Arnold - Last Filed: 04/25/21 14:49> Status: Acute <JOSE Arnold Last Filed: 04/25/21 14:49> (2) Acute kidney injury: Status: Acute <JOSE Arnold - Last Filed: 04/25/21 14:49> This is a 55-year-old female with history of vulvar cancer status post chemo radiation, chronic lymphadenopathy currently bedbound, hypertension, diabetes anxiety, depression, chronic decubitus ulcers of buttocks and bilateral heels sent from [facility] for altered mental status found to have sepsis and LEIGH Sepsis Meets sepsis criteria with leukocytosis, tachycardia related to underlying buttock/heel wounds; possible UTI sepsis focused exam completed Lactic acid within normal limits Has received 30cc/kg bolus -continue IV antibiotics -continue IV fluid -follow-up blood cultures Chronic wounds to buttock and bilateral heels Osteomyelitis confirmed by outpatient MRI -surgical consult -ID consult -IV abx -airloss bed, frequent repositioning -pain control -local wound care Possible UTI chronic cheng -follow up urine culture LEIGH SCr 2.55 up from 0.84 -IVF -follow renal function Metabolic encephalopathy In the setting of sepsis, LEIGH -treat underlying infection, renal insufficiency Anemia chronic. h/o recurrent transfusions has had outpatient workup including recent EGD and colonoscopy thought to be r/t malnutrition No evidence of active bleeding -follow CBC DM -hold Lantus -SSI, POCs -ada diet HTN -continue diltiazem protein calorie malnutrition -nutrition consult dvt ppx - lovenox code status - MOLST form - full code Attending-Dr. Carlson <JOSE Arnold - Last Filed: 04/25/21 14:49> Quality Stroke Does the patient have a stroke diagnosis?: No <JOSE Arnold - Last Filed: 04/25/21 14:49> VTE Prior VTE?: No <JOSE Arnold - Last Filed: 04/25/21 14:49> VTE Risk Level:: Medical - moderate - high <JOSE Arnold - Last Filed: 04/25/21 14:49> VTE Device Contraindication: N/A - Device Ordered <JOSE Arnold - Last Filed: 04/25/21 14:49> VTE Drug Contraindication: N/A - Med Ordered <JOSE Arnold - Last Filed: 04/25/21 14:49>
[2021-04-25 14:21] LABS: Erythrocyte Sedimentation Rate 116 MM/HR (0-20)
[2021-04-25] MEDS: Lactated Ringers 1,000 ML 80 ML IVCONT (14:58)
--- NOTE | 2021-04-25 15:39 | PC.NURSE ---
RETURNS FROM US. TECH WAS UNABLE TO PERFORM IMAGING SECONDARY PTS PAIN.
[2021-04-25 16:42] LABS: Glucose, Whole Blood 70 mg/dL (60-115)
[2021-04-25] MEDS: Enoxaparin Sodium 30 MG/0.3 ML SYRINGE SUBCUT (16:58)
[2021-04-25] MEDS: 0.9 % Sodium Chloride Flush 3 ML SYRINGE IVFLUSH ×2 (16:59→20:26)
--- NOTE | 2021-04-25 16:59 | P.EN_ITS ---
Event Note Date of Service: 04/25/21 Event Note: She continues to report significant pain, primarily related to pel eusebio area and buttock wounds. We discussed plans for debridement in operating room and reviewed the technique and risks of infection, bleeding and nonhealing. We discussed the likely contribution of radiation damage to the soft tissues in the delay in healing, and the need for improved nutrition to allow for her wounds to heal. She reports that her oral intake has been fairly poor recently. She agrees to proceed with surgery. Surgery has been scheduled for tomorrow morning.
--- NOTE | 2021-04-25 17:11 | P.EN_ITS ---
Event Note Date of Service: 04/25/21 Event Note: Patient came with multiple ulcers specially on the heels as well as in the sacrum area -came for further evaluation, in addition patient had similar situation recently went to [facility] : [facility] recommended outpatient MRI for ruling out osteomyelitis-unclear if that was completed. She has a history of vulvar carcinoma and is followed by the public safety director Oncology service at [facility].? She received treatment with chemotherapy and radiation therapy subsequently, she has required treatment for anemia and has been transfused with packed red cells on a number of occasions.? She had known bilateral buttock and heel ulcers.? Progressive worsening of the buttock ulcers has been noted. Patient lab imaging reviewed: BUN and creatinine elevated CT scan shows: Question of cellulitis but no abscess in the back area Patient says that she has chronic pain in that area because of ulcers in the back and the heel. Physical exam: Cvs: rrr, [id number] , no murmur res: clear to auscultation ,no rhonchii or wheezing abd: no rebound or guarding ,nt, bs present. ext : Bilateral stage probable IV buttock ulcers with patchy necrotic tissue present, area of tunneling on right with drainage of thick bloody and purulent- appearing material; bilateral posterior heel ulcers, unstageable, with moist, necrotic eschar present neuro: axo3 , nonfocal. Assessment and plan coordinated in H&P note APC and agree with the plan Continue IV antibiotic-sepsis/cellulitis Blood culture pending In addition we will also add arterial duplex since has question of peripheral artery disease and has significant heel ulcers. Surgical evaluation, id evaluation Air loss bed Frequent turning, nutrition support
[2021-04-25] MEDS: Morphine Sulfate ER 15 MG TABLET.ER PO (20:24)
[2021-04-25] MEDS: dilTIAZem HCL 60 MG TABLET PO (20:25)
[2021-04-25] MEDS: Mirtazapine 30 MG TABLET PO (20:25)
[2021-04-25] MEDS: vancomycin HCL 750 MG in 0.9 % Sodium Chloride 250 ML 265 MG IV (20:26)
[2021-04-25] MEDS: Ferrous Sulfate 324 MG TABLET.DR PO (20:26)
[2021-04-25 21:09] LABS: Glucose, Whole Blood 72 mg/dL (60-115)
[2021-04-26] VITALS (16 sets, daily range): BP systolic 97–118; BP diastolic 50–64; PULSE 89–104; RESP 15–20; TEMP 36.4–37.3; O2SAT 95–100
[2021-04-26] MEDS: Lactated Ringers 1,000 ML 80 ML IVCONT (04:38)
[2021-04-26] MEDS: Morphine Sulfate 2 MG/ML CARTRIDGE IVPUSH (05:38)
[2021-04-26 06:21] LABS: Hematocrit 23.8 % (37-47); Mean Corpuscular HGB Conc 29.4 g/dl (31.0-35.0); Mean Corpuscular Hemoglobin 26.6 pg (27.0-33.0); Mean Corpuscular Volume 90.5 fL (80-98); Mean Platelet Volume 9.7 fL (9.4-12.3); Platelet Count 408 X10*3/uL (160-400); Red Blood Count 2.63 X10*6/uL (4.20-5.50); White Blood Count 22.6 X10*3/uL (4.8-10.8)
[2021-04-26 06:39] LABS: Anion Gap 14 (12-20); Blood Urea Nitrogen 73 mg/dL (9-16); Carbon Dioxide 20 mmol/L (22-29); Chloride 107 mmol/L (96-108); Creatinine Clr Calc Pharmacy 28.5; Estimated Glomerular Filt Rate 21; Glucose Random 67 mg/dL (60-115); Potassium 4.6 mmol/L (3.3-5.1); Sodium 136 mmol/L (135-145)
--- NOTE | 2021-04-26 06:39 | PM.EVENT ---
Event Note Date of Service: 04/26/21 Event Note: pt Hgb 7 this Am. no active bleed shes undergoing I&D this Am. will transfuse 1 unit of prbc
[2021-04-26 07:20] LABS: Glucose, Whole Blood 78 mg/dL (60-115)
[2021-04-26] MEDS: Morphine Sulfate ER 15 MG TABLET.ER PO ×2 (07:55→20:35)
[2021-04-26] MEDS: Tamsulosin HCL 0.4 MG CAPSULE PO (07:56)
[2021-04-26] MEDS: Ascorbic Acid 500 MG TABLET PO (07:56)
[2021-04-26] MEDS: Ferrous Sulfate 324 MG TABLET.DR PO ×3 (07:56→20:34)
[2021-04-26] MEDS: dilTIAZem HCL 60 MG TABLET PO ×2 (07:56→20:34)
--- NOTE | 2021-04-26 08:49 | HO.PM.IMPN ---
Subjective Subjective Date of Service: 04/26/21 <JOSE Arnold - Last Filed: 04/26/21 09:16> 04/26/21 <Monty Mccloud MD - Last Filed: 04/26/21 09:51> Interval History: seen and examined this morning looks more comfortable, still reporting pain tearful <JOSE Arnold - Last Filed: 04/26/21 09:16> Review of Systems Review of Systems: Yes all other systems are reviewed and are negative <JOSE Arnold - Last Filed: 04/26/21 09:16> Constitutional Constitutional: Denies chills and Denies fever(s) <JOSE Arnold - Last Filed: 04/26/21 09:16> Cardiovascular Cardiovascular: Denies chest pain <JOSE Arnold Last Filed: 04/26/21 09:16> Respiratory Respiratory: Denies cough <JOSE Arnold - Last Filed: 04/26/21 09:16> Gastrointestinal Gastrointestinal: Denies abdominal pain <JOSE Arnold - Last Filed: 04/26/21 09:16> Genitourinary Genitourinary: Denies dysuria <JOSE Arnold Last Filed: 04/26/21 09:16> Physical Exam Vital Signs: Vital Signs: Last Vital Signs Temp 98.4 F 04/26/21 08:19 Pulse 96 04/26/21 08:19 Resp 15 04/26/21 08:19 BP 110/55 L 04/26/21 08:19 Pulse Ox 95 04/26/21 06:58 Body Mass Index 27.8 <JOSE Arnold - Last Filed: 04/26/21 09:16> Const: Other: Appears uncomfortable <JOSE Arnold Last Filed: 04/26/21 09:16> General: alert, awake, anxious and ill appearing <JOSE Arnold Last Filed: 04/26/21 09:16> Nutritional Appearance: thin <JOSE Arnold Last Filed: 04/26/21 09:16> HENMT: Head: Yes normocephalic and Yes atraumatic <JOSE Arnold Last Filed: 04/26/21 09:16> Eyes: Sclerae: sclerae normal <JOSE Arnold - Last Filed: 04/26/21 09:16> Pupils: Equal, round and reactive pupils present <JOSE Arnold Last Filed: 04/26/21 09:16> EOM: EOMs intact bilaterally <JOSE Arnold - Last Filed: 04/26/21 09:16> Neck: Neck: Yes trachea midline and Yes supple <JOSE Arnold Last Filed: 04/26/21 09:16> Chest: Chest palpation & inspection: normal inspection of the chest <JOSE Arnold Last Filed: 04/26/21 09:16> Resp: Effort & Inspection: normal respiratory effort and no respiratory distress <JOSE Arnold - Last Filed: 04/26/21 09:16> Cardio: Rate: regular rate <JOSE Arnold Last Filed: 04/26/21 09:16> Rhythm: regular rhythm <JOSE Arnold - Last Filed: 04/26/21 09:16> GI: Palpation (GI): Soft to palpation and nontender <JOSE Arnold - Last Filed: 04/26/21 09:16> Skin: Other: <JOSE Arnold - Last Filed: 04/26/21 09:16> Neuro: Cranial nerves: Yes CN's II-XII intact bilaterally, Yes Equal, round and reactive pupils present and Yes Bilaterally intact EOM present <JOSE Arnold Last Filed: 04/26/21 09:16> Objective Data Current Medications Generic Name Dose Route Start Last Admin Trade Name Freq PRN Reason Stop Dose Admin Ascorbic Acid 500 mg 04/26/21 09:00 04/26/21 07:56 Ascorbic Acid 500 Mg Tablet PO 500 mg DAILY SYLWIA Administration Bisacodyl 10 mg 04/25/21 16:27 Bisacodyl 10 Mg Supp.Rect AL DAILY PRN Constipation Diltiazem HCl 60 mg 04/25/21 21:00 04/26/21 07:56 Diltiazem Hcl 60 Mg Tablet PO 60 mg BID SYLWIA Administration Protocol Docusate Sodium 50 mg 04/25/21 16:27 Docusate Sodium 100 Mg/10 Ml Liquid PO BEDTIME PRN Constipation Enoxaparin Sodium 30 mg 04/25/21 18:00 04/25/21 16:58 Enoxaparin Sodium 30 Mg/0.3 Ml Syringe SUBCUT 30 mg Q24H SYLWIA Administration Ferrous Sulfate 324 mg 04/25/21 21:00 04/26/21 07:56 Ferrous Sulfate 324 Mg Tablet.Dr PO 324 mg TID SYLWIA Administration Lactated Ringer's 1,000 mls @ 80 mls/hr 04/25/21 15:00 04/26/21 04:38 Lr IVCONT 80 mls/hr .[id number] [facility] Administration Ceftriaxone Sodium 1 gm/ 50 mls @ 100 mls/hr 04/26/21 08:00 Sodium Chloride IV Q24H SYLWIA Vancomycin HCl 750 mg/ Sodium 265 mls @ 265 mls/hr 04/25/21 20:00 04/25/21 21:30 Chloride IV Infused Q24H [facility] Infusion Insulin Human Lispro 0 unit 04/25/21 16:30 04/26/21 07:48 Insulin Lispro 100 Unit/Ml 3 Ml Vial SUBCUT Not Given QIDACHS [facility] Protocol Lactulose 20 gm 04/25/21 16:27 Lactulose 20 Gm/30 Ml Solution PO BID PRN Constipation Lorazepam 0.5 mg 04/25/21 16:27 Lorazepam 0.5 Mg Tablet PO Q6H PRN Anxiety Mirtazapine 30 mg 04/25/21 21:00 04/25/21 20:25 Mirtazapine 30 Mg Tablet PO 30 mg BEDTIME SYLWIA Administration Morphine Sulfate 15 mg 04/25/21 21:00 04/26/21 07:55 Morphine Sulfate Er 15 Mg Tablet.Er PO 15 mg BID [facility] Administration Morphine Sulfate 2 mg 04/25/21 16:27 04/26/21 05:38 Morphine Sulfate 2 Mg/Ml Cartridge IVPUSH 2 mg Q4H PRN Administration Pain, Severe (Pain Scale 7-10) Ondansetron HCl 4 mg 04/25/21 16:27 Ondansetron Hcl 4 Mg/2 Ml Vial IVPUSH Q8H PRN Nausea and Vomiting Pharmacy Consult 1 each 04/25/21 11:48 Consult Rx Perform Med Rec MISCELLANE ONCE PRN Consult order Pharmacy Consult 1 each 04/25/21 16:27 Consult Rx Vancomycin Dosing MISCELLANE DAILY PRN Consult order Polyethylene Glycol 17 gm 04/25/21 16:27 Polyethylene Glycol 3350 17 Gm Powd.Pack PO DAILY PRN Constipation Senna 17.2 mg 04/25/21 16:27 Sennosides 8.6 Mg Tablet PO BEDTIME PRN Constipation Sodium Chloride 3 ml 04/25/21 16:27 04/26/21 07:48 0.9 % Sodium Chloride Flush 3 Ml Syringe IVFLUSH Not Given QSHIFT SYLWIA Sodium Hypochlorite 1 appl 04/25/21 21:00 04/25/21 22:17 Sodium Hypochlorite 0.125% 473 Ml Solution TOPICAL Not Given BID SYLWIA Tamsulosin HCl 0.4 mg 04/26/21 09:00 04/26/21 07:56 Tamsulosin Hcl 0.4 Mg Capsule PO 0.4 mg DAILY SYLWIA Administration <JOSE Arnold - Last Filed: 04/26/21 09:16> Labs CBC & Chem 7: : 04/26/21 05:47 04/26/21 05:47 <JOSE Arnold - Last Filed: 04/26/21 09:16> Labs: Laboratory Results - last 24 hr 04/25/21 04/25/21 04/25/21 09:31 09:31 09:31 MCV 90.9 MCH 26.8 L MCHC 29.5 L RDW 14.9 Plt Count 462 H MPV 9.3 L Immature Gran % (Auto) Cancelled Neut % (Auto) Cancelled Lymph % (Auto) Cancelled [place] % (Auto) Cancelled Eos % (Auto) Cancelled Baso % (Auto) Cancelled Lymph # (Auto) Cancelled [place] # (Auto) Cancelled Eos # (Auto) Cancelled Baso # (Auto) Cancelled Abs Immat Gran (auto) Cancelled Absolute Neuts (auto) Cancelled Absolute Nucleated RBC 0.000 Nucleated RBC % (auto) 0.0 Neutrophils % (Manual) 83 H Band Neutrophils % 13 H Lymphocytes % (Manual) 1 L Monocytes % (Manual) 2 Metamyelocytes % 1 Abs Neuts (Manual) 22.1 H Lymphocytes # (Manual) 0.2 L Monocytes # (Manual) 0.5 Metamyelocytes # 0.2 Toxic Vacuolation PRESENT Platelet Estimate INCREASED Plt Morphology Comment NORMAL RBC Morphology NORMAL ESR PT 17.3 H INR 1.5 H Anion Gap 16 Estim Creat Clear Calc 26.9 Estimated GFR 20 POC Glucose Random Glucose 79 Lactic Acid Calcium 8.9 Total Bilirubin 1.0 Direct Bilirubin 0.7 H AST 14 ALT 8 Alkaline Phosphatase 193 H C-Reactive Protein 30.22 H Total Protein 7.5 Albumin 2.0 L Lipase < 4 L Urine Color Urine Appearance Urine pH Ur Specific [place] Urine Protein Urine Glucose (UA) Urine Ketones Urine Blood Urine Nitrite Ur Leukocyte Esterase Urine RBC Urine WBC Ur Squamous Epith Cells Amorphous Sediment Urine Bacteria COVID-19 ([facility]) COVID-19 [facility]Cha Com Blood Type Antibody Screen Crossmatch 04/25/21 04/25/21 04/25/21 09:31 09:31 10:21 MCV MCH MCHC RDW Plt Count MPV Immature Gran % (Auto) Neut % (Auto) Lymph % (Auto) [place] % (Auto) Eos % (Auto) Baso % (Auto) Lymph # (Auto) [place] # (Auto) Eos # (Auto) Baso # (Auto) Abs Immat Gran (auto) Absolute Neuts (auto) Absolute Nucleated RBC Nucleated RBC % (auto) Neutrophils % (Manual) Band Neutrophils % Lymphocytes % (Manual) Monocytes % (Manual) Metamyelocytes % Abs Neuts (Manual) Lymphocytes # (Manual) Monocytes # (Manual) Metamyelocytes # Toxic Vacuolation Platelet Estimate Plt Morphology Comment RBC Morphology ESR 116 H PT INR Anion Gap Estim Creat Clear Calc Estimated GFR POC Glucose Random Glucose Lactic Acid 0.6 Calcium Total Bilirubin Direct Bilirubin AST ALT Alkaline Phosphatase C-Reactive Protein Total Protein Albumin Lipase Urine Color YELLOW Urine Appearance CLOUDY Urine pH 8.5 H Ur Specific [place] 1.015 Urine Protein 3+ H Urine Glucose (UA) NEG Urine Ketones NEG Urine Blood TRACE Urine Nitrite NEG Ur Leukocyte Esterase 3+ H Urine RBC 0-2 Urine WBC 30-49 H Ur Squamous Epith Cells 1+ Amorphous Sediment 2+ Urine Bacteria 2+ COVID-19 ([facility]) COVID-19 Clin Com Blood Type Antibody Screen Crossmatch 04/25/21 04/25/21 04/25/21 12:30 14:32 16:26 MCV MCH MCHC RDW Plt Count MPV Immature Gran % (Auto) Neut % (Auto) Lymph % (Auto) [place] % (Auto) Eos % (Auto) Baso % (Auto) Lymph # (Auto) [place] # (Auto) Eos # (Auto) Baso # (Auto) Abs Immat Gran (auto) Absolute Neuts (auto) Absolute Nucleated RBC Nucleated RBC % (auto) Neutrophils % (Manual) Band Neutrophils % Lymphocytes % (Manual) Monocytes % (Manual) Metamyelocytes % Abs Neuts (Manual) Lymphocytes # (Manual) Monocytes # (Manual) Metamyelocytes # Toxic Vacuolation Platelet Estimate Plt Morphology Comment RBC Morphology ESR PT INR Anion Gap Estim Creat Clear Calc Estimated GFR POC Glucose 70 Random Glucose Lactic Acid Calcium Total Bilirubin Direct Bilirubin AST ALT Alkaline Phosphatase C-Reactive Protein Total Protein Albumin Lipase Urine Color Urine Appearance Urine pH Ur Specific [place] Urine Protein Urine Glucose (UA) Urine Ketones Urine Blood Urine Nitrite Ur Leukocyte Esterase Urine RBC Urine WBC Ur Squamous Epith Cells Amorphous Sediment Urine Bacteria COVID-19 ([facility]) Negative COVID-19 Clin Com See Note Blood Type O Positive Antibody Screen NEGATIVE Crossmatch See Detail 04/25/21 04/26/21 04/26/21 21:05 05:47 05:47 MCV 90.5 MCH 26.6 L MCHC 29.4 L RDW 15.0 Plt Count 408 H MPV 9.7 Immature Gran % (Auto) Neut % (Auto) Lymph % (Auto) [place] % (Auto) Eos % (Auto) Baso % (Auto) Lymph # (Auto) [place] # (Auto) Eos # (Auto) Baso # (Auto) Abs Immat Gran (auto) Absolute Neuts (auto) Absolute Nucleated RBC 0.000 Nucleated RBC % (auto) 0.0 Neutrophils % (Manual) Band Neutrophils % Lymphocytes % (Manual) Monocytes % (Manual) Metamyelocytes % Abs Neuts (Manual) Lymphocytes # (Manual) Monocytes # (Manual) Metamyelocytes # Toxic Vacuolation Platelet Estimate Plt Morphology Comment RBC Morphology ESR PT INR Anion Gap 14 Estim Creat Clear Calc 28.5 Estimated GFR 21 POC Glucose 72 Random Glucose 67 Lactic Acid Calcium 8.0 L D Total Bilirubin Direct Bilirubin AST ALT Alkaline Phosphatase C-Reactive Protein Total Protein Albumin Lipase Urine Color Urine Appearance Urine pH Ur Specific [place] Urine Protein Urine Glucose (UA) Urine Ketones Urine Blood Urine Nitrite Ur Leukocyte Esterase Urine RBC Urine WBC Ur Squamous Epith Cells Amorphous Sediment Urine Bacteria COVID-19 ([facility]) COVID-19 ChaCha Com Blood Type Antibody Screen Crossmatch 04/26/21 06:58 MCV MCH MCHC RDW Plt Count MPV Immature Gran % (Auto) Neut % (Auto) Lymph % (Auto) [place] % (Auto) Eos % (Auto) Baso % (Auto) Lymph # (Auto) [place] # (Auto) Eos # (Auto) Baso # (Auto) Abs Immat Gran (auto) Absolute Neuts (auto) Absolute Nucleated RBC Nucleated RBC % (auto) Neutrophils % (Manual) Band Neutrophils % Lymphocytes % (Manual) Monocytes % (Manual) Metamyelocytes % Abs Neuts (Manual) Lymphocytes # (Manual) Monocytes # (Manual) Metamyelocytes # Toxic Vacuolation Platelet Estimate Plt Morphology Comment RBC Morphology ESR PT INR Anion Gap Estim Creat Clear Calc Estimated GFR POC Glucose 78 Random Glucose Lactic Acid Calcium Total Bilirubin Direct Bilirubin AST ALT Alkaline Phosphatase C-Reactive Protein Total Protein Albumin Lipase Urine Color Urine Appearance Urine pH Ur Specific [place] Urine Protein Urine Glucose (UA) Urine Ketones Urine Blood Urine Nitrite Ur Leukocyte Esterase Urine RBC Urine WBC Ur Squamous Epith Cells Amorphous Sediment Urine Bacteria COVID-19 ([facility]) COVID-19 ChaCha Com Blood Type Antibody Screen Crossmatch <JOSE Arnold - Last Filed: 04/26/21 09:16> Microbiology Microbiology Results: Microbiology 04/25/21 00:00 Urine Culture - Preliminary Urine Catheterized - Straight Catheter Culture in progress. 04/25/21 10:21 Blood Culture - Final Blood - Venous 04/25/21 10:08 Blood Culture - Final Blood - Venous <JOSE Arnold - Last Filed: 04/26/21 09:16> Assessment and Plan (1) Decubitus ulcer: Status: Acute <JOSE Arnold - Last Filed: 04/26/21 09:16> (2) Acute kidney injury: Status: Acute <JOSE Arnold - Last Filed: 04/26/21 09:16> Assessment and Plan: This is a 55-year-old female with history of vulvar cancer status post chemo radiation, chronic lymphadenopathy currently bedbound, hypertension, diabetes anxiety, depression, chronic decubitus ulcers of buttocks and bilateral heels sent from [facility] for altered mental status found to have sepsis and LEIGH Sepsis.poa Meets sepsis criteria with leukocytosis, tachycardia related to underlying buttock/heel wounds; possible UTI sepsis focused exam completed Lactic acid within normal limits Has received 30cc/kg bolus -continue IV antibiotics -continue IV fluid -follow-up blood cultures Chronic wounds to buttock and bilateral heels. poa Osteomyelitis confirmed by outpatient MRI -seen by surgery, plan for debridement today -ID consult -continue IV ceftriazone, vanco -airloss bed, frequent repositioning -pain control. continue home ms contin, will continue morphine for severe pain -local wound care -pt declined arterial dopplers Possible UTI chronic cheng -follow up urine culture LEIGH SCr trending down slightly to 2.41 (no baseline labs since 03/2020) -Continue IVF -follow renal function -if no significant improvement by tomorrow will get nephrology consult Metabolic encephalopathy Resolved, seems at baseline In the setting of sepsis, LEIGH -treat underlying infection, renal insufficiency Anemia H/H trending down, will transfuse 1 unit chronic. h/o recurrent transfusions has had outpatient workup including recent EGD and colonoscopy thought to be r/t malnutrition No evidence of active bleeding -follow CBC Mood pt tearful, seems depressed -care team consult -continue ativan, remeron DM -Lantus on hold -SSI, POCs -ada diet HTN -continue diltiazem protein calorie malnutrition -formal nutrition consult dvt ppx - [facility] Attending-Dr. Mccloud <JOSE Arnold - Last Filed: 04/26/21 09:16> Quality Stroke Does the patient have a stroke diagnosis?: No <JOSE Arnold - Last Filed: 04/26/21 09:16> VTE Prior VTE?: No <JOSE Arnold - Last Filed: 04/26/21 09:16> VTE Risk Level:: Medical - moderate - high <JOSE Arnold - Last Filed: 04/26/21 09:16> VTE Device Contraindication: N/A - Device Ordered <JOSE Arnold - Last Filed: 04/26/21 09:16> VTE Drug Contraindication: N/A - Med Ordered <JOSE Arnold - Last Filed: 04/26/21 09:16>
--- NOTE | 2021-04-26 08:52 | P.CONAN_ITS ---
[facility] Active Problems Active Problems: All Active Problems (Updated 04/25/21 @ 14:29 by JOSE Zamudio) Soft tissue radionecrosis (Acute) Protein-calorie malnutrition, severe (Acute) Decubitus ulcer (Acute) Wet gangrene (Acute) Acute kidney injury (Acute) UTI (urinary tract infection) (Acute) Past Medical History Medical History (Updated 04/25/21 @ 14:29 by JOSE Arnold) Anemia Anxiety Chronic pain Depression Diabetes mellitus type 2 in nonobese History of cancer of vulva Hypertension Lymphedema PVD (peripheral vascular disease) Functional capacity: bed bound Family History Family History Father Colon cancer Hypertension Prostate cancer Mother Diabetes Hypertension Family/Other FH: mental illness Family history of problems with anesthesia: No Surgical History Surgical History History of total abdominal hysterectomy and bilateral salpingo-oophorectomy S/P recurrent ventral herniorrhaphy History of Problems with Anesthesia: No Social History Social History Household Members: None Housing: Skilled Nursing Do you presently have visiting nurse or other home services: No Alcohol intake: never Patient Tobacco Use Status: Never used Tobacco Meds Allergies Allergy/AdvReac Type Severity Reaction Status Date / Time acetaminophen [Percocet] Allergy Unknown rash Verified 04/25/19 00:00 morphine [MORPHINE] Allergy Unknown RASH Verified 09/03/20 11:24 oxycodone [From PERCOCET] Allergy Unknown ITCHY RASH Verified 04/25/21 18:39 Penicillins [PENICILLINS] Allergy Unknown RASH Verified 09/03/20 11:24 Active Medications: Current Medications Generic Name Dose Route Start Last Admin Trade Name Freq PRN Reason Stop Dose Admin Ascorbic Acid 500 mg 04/26/21 09:00 04/26/21 07:56 Ascorbic Acid 500 Mg Tablet PO 500 mg DAILY SYLWIA Administration Bisacodyl 10 mg 04/25/21 16:27 Bisacodyl 10 Mg Supp.Rect [place] DAILY PRN Constipation Diltiazem HCl 60 mg 04/25/21 21:00 04/26/21 07:56 Diltiazem Hcl 60 Mg Tablet PO 60 mg BID SYLWIA Administration Protocol Docusate Sodium 50 mg 04/25/21 16:27 Docusate Sodium 100 Mg/10 Ml Liquid PO BEDTIME PRN Constipation Enoxaparin Sodium 30 mg 04/25/21 18:00 04/25/21 16:58 Enoxaparin Sodium 30 Mg/0.3 Ml Syringe SUBCUT 30 mg Q24H SYLWIA Administration Ferrous Sulfate 324 mg 04/25/21 21:00 04/26/21 07:56 Ferrous Sulfate 324 Mg Tablet.Dr PO 324 mg TID SYLWIA Administration Lactated Ringer's 1,000 mls @ 80 mls/hr 04/25/21 15:00 04/26/21 04:38 Lr IVCONT 80 mls/hr .[id number] [facility] Administration Ceftriaxone Sodium 1 gm/ 50 mls @ 100 mls/hr 04/26/21 08:00 Sodium Chloride IV Q24H SYLWIA Vancomycin HCl 750 mg/ Sodium 265 mls @ 265 mls/hr 04/25/21 20:00 04/25/21 21:30 Chloride IV Infused Q24H [facility] Infusion Insulin Human Lispro 0 unit 04/25/21 16:30 04/26/21 07:48 Insulin Lispro 100 Unit/Ml 3 Ml Vial SUBCUT Not Given QIDACHS [facility] Protocol Lactulose 20 gm 04/25/21 16:27 Lactulose 20 Gm/30 Ml Solution PO BID PRN Constipation Lorazepam 0.5 mg 04/25/21 16:27 Lorazepam 0.5 Mg Tablet PO Q6H PRN Anxiety Mirtazapine 30 mg 04/25/21 21:00 04/25/21 20:25 Mirtazapine 30 Mg Tablet PO 30 mg BEDTIME SYLWIA Administration Morphine Sulfate 15 mg 04/25/21 21:00 04/26/21 07:55 Morphine Sulfate Er 15 Mg Tablet.Er PO 15 mg BID [facility] Administration Morphine Sulfate 2 mg 04/25/21 16:27 04/26/21 05:38 Morphine Sulfate 2 Mg/Ml Cartridge IVPUSH 2 mg Q4H PRN Administration Pain, Severe (Pain Scale 7-10) Ondansetron HCl 4 mg 04/25/21 16:27 Ondansetron Hcl 4 Mg/2 Ml Vial IVPUSH Q8H PRN Nausea and Vomiting Pharmacy Consult 1 each 04/25/21 11:48 Consult Rx Perform Med Rec MISCELLANE ONCE PRN Consult order Pharmacy Consult 1 each 04/25/21 16:27 Consult Rx Vancomycin Dosing MISCELLANE DAILY PRN Consult order Polyethylene Glycol 17 gm 04/25/21 16:27 Polyethylene Glycol 3350 17 Gm Powd.Pack PO DAILY PRN Constipation Senna 17.2 mg 04/25/21 16:27 Sennosides 8.6 Mg Tablet PO BEDTIME PRN Constipation Sodium Chloride 3 ml 04/25/21 16:27 04/26/21 07:48 0.9 % Sodium Chloride Flush 3 Ml Syringe IVFLUSH Not Given QSHIFT SYLWIA Sodium Hypochlorite 1 appl 04/25/21 21:00 04/25/21 22:17 Sodium Hypochlorite 0.125% 473 Ml Solution TOPICAL Not Given BID SYLWIA Tamsulosin HCl 0.4 mg 04/26/21 09:00 04/26/21 07:56 Tamsulosin Hcl 0.4 Mg Capsule PO 0.4 mg DAILY [facility] Administration Home Medications Medication Instructions Recorded Confirmed Last Taken Type acetaminophen 325 mg tablet 650 mg PO Q6H PRN 04/25/21 04/25/21 Unknown History ammonium lactate 12 % topical cream 1 appl TOPICAL BID 04/25/21 04/25/21 Unknown History ascorbic acid (vitamin C) 500 mg 500 mg PO DAILY 04/25/21 04/25/21 Unknown History tablet bisacodyl 10 mg rectal suppository 10 mg [place] DAILY PRN 04/25/21 04/25/21 Unknown History diltiazem HCl 60 mg tablet 60 mg PO BID 04/25/21 04/25/21 Unknown History docusate sodium 50 mg capsule 50 mg PO BEDTIME PRN 04/25/21 04/25/21 Unknown History ferrous sulfate 325 mg (65 mg 325 mg PO TID 04/25/21 04/25/21 Unknown History iron) tablet insulin glargine 100 unit/mL 3 unit SUBCUT QPM 04/25/21 04/25/21 Unknown History subcutaneous solution lactulose 10 gram/15 mL oral 20 g PO BID PRN 04/25/21 04/25/21 Unknown History solution lorazepam 0.5 mg tablet 0.5 mg PO Q6H PRN 04/25/21 04/25/21 Unknown History magnesium citrate (Citrate of 150 ml PO DAILY PRN 04/25/21 04/25/21 Unknown History Magnesia) mirtazapine 30 mg tablet 30 mg PO BEDTIME 04/25/21 04/25/21 Unknown History morphine 15 mg tablet,extended 1 tab PO BID 04/25/21 04/25/21 Unknown History release (MS Contin) oxycodone 5 mg tablet 1 tab PO Q6H PRN 04/25/21 04/25/21 Unknown History polyethylene glycol 3350 17 gram 17 g PO DAILY PRN 04/25/21 04/25/21 Unknown History oral powder packet (Miralax) sennosides 8.6 mg tablet (senna) 17.2 mg PO BEDTIME PRN 04/25/21 04/25/21 Unkno wn History sodium hypochlorite 0.125 % 1 appl TOPICAL DAILY 04/25/21 04/25/21 Unknown History solution (Dakin's Solution) tamsulosin 0.4 mg capsule (Flomax) 0.4 mg PO DAILY 04/25/21 04/25/21 Unknown History Exam Exam Date and Time: April 26, 2021 0852 Height,Weight and Vital Signs: Height 5 ft 6 in Weight 78.4 kg Last Vital Signs Temp 98.4 F 04/26/21 08:19 Pulse 96 04/26/21 08:19 Resp 15 04/26/21 08:19 BP 110/55 L 04/26/21 08:19 Pulse Ox 95 04/26/21 06:58 Pertinent Lab Results Pertinent Lab Results: Laboratory Tests 04/25/21 04/25/21 04/25/21 09:31 09:31 09:31 WBC 23.0 H RBC 2.87 L Hgb 7.7 L Hct 26.1 L MCV 90.9 MCH 26.8 L MCHC 29.5 L RDW 14.9 Plt Count 462 H MPV 9.3 L Immature Gran % (Auto) Cancelled Neut % (Auto) Cancelled Lymph % (Auto) Cancelled Wharton % (Auto) Cancelled Eos % (Auto) Cancelled Baso % (Auto) Cancelled Lymph # (Auto) Cancelled Wharton # (Auto) Cancelled Eos # (Auto) Cancelled Baso # (Auto) Cancelled Abs Immat Gran (auto) Cancelled Absolute Neuts (auto) Cancelled Absolute Nucleated RBC 0.000 Nucleated RBC % (auto) 0.0 Neutrophils % (Manual) 83 H Band Neutrophils % 13 H Lymphocytes % (Manual) 1 L Monocytes % (Manual) 2 Metamyelocytes % 1 Abs Neuts (Manual) 22.1 H Lymphocytes # (Manual) 0.2 L Monocytes # (Manual) 0.5 Metamyelocytes # 0.2 Toxic Vacuolation PRESENT Platelet Estimate INCREASED Plt Morphology Comment NORMAL RBC Morphology NORMAL ESR PT 17.3 H INR 1.5 H Sodium 133 L Potassium 4.9 Chloride 104 Carbon Dioxide 18 L Anion Gap 16 BUN 72 H Creatinine 2.55 H Estim Creat Clear Calc 26.9 Estimated GFR 20 POC Glucose Random Glucose 79 Lactic Acid Calcium 8.9 Total Bilirubin 1.0 Direct Bilirubin 0.7 H AST 14 ALT 8 Alkaline Phosphatase 193 H C-Reactive Protein 30.22 H Total Protein 7.5 Albumin 2.0 L Lipase < 4 L Urine Color Urine Appearance Urine pH Ur Specific [place] Urine Protein Urine Glucose (UA) Urine Ketones Urine Blood Urine Nitrite Ur Leukocyte Esterase Urine RBC Urine WBC Ur Squamous Epith Cells Amorphous Sediment Urine Bacteria COVID-19 ([facility]BEL) COVID-19 Clin Com Blood Type Antibody Screen Crossmatch 04/25/21 04/25/21 04/25/21 09:31 09:31 10:21 WBC RBC Hgb Hct MCV MCH MCHC RDW Plt Count MPV Immature Gran % (Auto) Neut % (Auto) Lymph % (Auto) Wharton % (Auto) Eos % (Auto) Baso % (Auto) Lymph # (Auto) Wharton # (Auto) Eos # (Auto) Baso # (Auto) Abs Immat Gran (auto) Absolute Neuts (auto) Absolute Nucleated RBC Nucleated RBC % (auto) Neutrophils % (Manual) Band Neutrophils % Lymphocytes % (Manual) Monocytes % (Manual) Metamyelocytes % Abs Neuts (Manual) Lymphocytes # (Manual) Monocytes # (Manual) Metamyelocytes # Toxic Vacuolation Platelet Estimate Plt Morphology Comment RBC Morphology ESR 116 H PT INR Sodium Potassium Chloride Carbon Dioxide Anion Gap BUN Creatinine Estim Creat Clear Calc Estimated GFR POC Glucose Random Glucose Lactic Acid 0.6 Calcium Total Bilirubin Direct Bilirubin AST ALT Alkaline Phosphatase C-Reactive Protein Total Protein Albumin Lipase Urine Color YELLOW Urine Appearance CLOUDY Urine pH 8.5 H Ur Specific [place]ray 1.015 Urine Protein 3+ H Urine Glucose (UA) NEG Urine Ketones NEG Urine Blood TRACE Urine Nitrite NEG Ur Leukocyte Esterase 3+ H Urine RBC 0-2 Urine WBC 30-49 H Ur Squamous Epith Cells 1+ Amorphous Sediment 2+ Urine Bacteria 2+ COVID-19 ([facility]BEL) COVID-19 Clin Com Blood Type Antibody Screen Crossmatch 04/25/21 04/25/21 04/25/21 12:30 14:32 16:26 WBC RBC Hgb Hct MCV MCH MCHC RDW Plt Count MPV Immature Gran % (Auto) Neut % (Auto) Lymph % (Auto) Wharton % (Auto) Eos % (Auto) Baso % (Auto) Lymph # (Auto) Wharton # (Auto) Eos # (Auto) Baso # (Auto) Abs Immat Gran (auto) Absolute Neuts (auto) Absolute Nucleated RBC Nucleated RBC % (auto) Neutrophils % (Manual) Band Neutrophils % Lymphocytes % (Manual) Monocytes % (Manual) Metamyelocytes % Abs Neuts (Manual) Lymphocytes # (Manual) Monocytes # (Manual) Metamyelocytes # Toxic Vacuolation Platelet Estimate Plt Morphology Comment RBC Morphology ESR PT INR Sodium Potassium Chloride Carbon Dioxide Anion Gap BUN Creatinine Estim Creat Clear Calc Estimated GFR POC Glucose 70 Random Glucose Lactic Acid Calcium Total Bilirubin Direct Bilirubin AST ALT Alkaline Phosphatase C-Reactive Protein Total Protein Albumin Lipase Urine Color Urine Appearance Urine pH Ur Specific [place]ray Urine Protein Urine Glucose (UA) Urine Ketones Urine Blood Urine Nitrite Ur Leukocyte Esterase Urine RBC Urine WBC Ur Squamous Epith Cells Amorphous Sediment Urine Bacteria COVID-19 (ANABEL) Negative COVID-19 Clin Com See Note Blood Type O Positive Antibody Screen NEGATIVE Crossmatch See Detail 04/25/21 04/26/21 04/26/21 21:05 05:47 05:47 WBC 22.6 H RBC 2.63 L Hgb 7.0 L* Hct 23.8 L MCV 90.5 MCH 26.6 L MCHC 29.4 L RDW 15.0 Plt Count 408 H MPV 9.7 Immature Gran % (Auto) Neut % (Auto) Lymph % (Auto) Wharton % (Auto) Eos % (Auto) Baso % (Auto) Lymph # (Auto) Wharton # (Auto) Eos # (Auto) Baso # (Auto) Abs Immat Gran (auto) Absolute Neuts (auto) Absolute Nucleated RBC 0.000 Nucleated RBC % (auto) 0.0 Neutrophils % (Manual) Band Neutrophils % Lymphocytes % (Manual) Monocytes % (Manual) Metamyelocytes % Abs Neuts (Manual) Lymphocytes # (Manual) Monocytes # (Manual) Metamyelocytes # Toxic Vacuolation Platelet Estimate Plt Morphology Comment RBC Morphology ESR PT INR Sodium 136 Potassium 4.6 Chloride 107 Carbon Dioxide 20 L Anion Gap 14 BUN 73 H Creatinine 2.41 H Estim Creat Clear Calc 28.5 Estimated GFR 21 POC Glucose 72 Random Glucose 67 Lactic Acid Calcium 8.0 L D Total Bilirubin Direct Bilirubin AST ALT Alkaline Phosphatase C-Reactive Protein Total Protein Albumin Lipase Urine Color Urine Appearance Urine pH Ur Specific [place] Urine Protein Urine Glucose (UA) Urine Ketones Urine Blood Urine Nitrite Ur Leukocyte Esterase Urine RBC Urine WBC Ur Squamous Epith Cells Amorphous Sediment Urine Bacteria COVID-19 ([facility]BEL) COVID-19 [facility] Com Blood Type Antibody Screen Crossmatch 04/26/21 06:58 WBC RBC Hgb Hct MCV MCH MCHC RDW Plt Count MPV Immature Gran % (Auto) Neut % (Auto) Lymph % (Auto) Wharton % (Auto) Eos % (Auto) Baso % (Auto) Lymph # (Auto) Wharton # (Auto) Eos # (Auto) Baso # (Auto) Abs Immat Gran (auto) Absolute Neuts (auto) Absolute Nucleated RBC Nucleated RBC % (auto) Neutrophils % (Manual) Band Neutrophils % Lymphocytes % (Manual) Monocytes % (Manual) Metamyelocytes % Abs Neuts (Manual) Lymphocytes # (Manual) Monocytes # (Manual) Metamyelocytes # Toxic Vacuolation Platelet Estimate Plt Morphology Comment RBC Morphology ESR PT INR Sodium Potassium Chloride Carbon Dioxide Anion Gap BUN Creatinine Estim Creat Clear Calc Estimated GFR POC Glucose 78 Random Glucose Lactic Acid Calcium Total Bilirubin Direct Bilirubin AST ALT Alkaline Phosphatase C-Reactive Protein Total Protein Albumin Lipase Urine Color Urine Appearance Urine pH Ur Specific [place]ray Urine Protein Urine Glucose (UA) Urine Ketones Urine Blood Urine Nitrite Ur Leukocyte Esterase Urine RBC Urine WBC Ur Squamous Epith Cells Amorphous Sediment Urine Bacteria COVID-19 (ANABEL) COVID-19 [facility] Com Blood Type Antibody Screen Crossmatch Airway Mallampati Class: II TM Dist: >3cm Loose/Missing/Broken Teeth: No Heart: RRR Lungs: CTA Assessment and Plan Assessment Anesthesia Assessment: Anesthesia Plan Discussed and Chart Reviewed Final Anesthetic Review Family History of Problems with Anesthesia: No History of Problems with Anesthesia: No NPO: Yes ASA Class: II Final Preanesthetic Review: No Changes in Pt Med Stat, Meds/Allgs Chart Reviewed, Consent Obtained/Reviewed and Anes Risks/Benef Reviewed Patient Risk: High Procedure Risk: Low Anesthetic Plan Anesthetic Plan: GA (LMA) Disposition: Standard PACU
--- NOTE | 2021-04-26 11:47 | P.OP_ITS ---
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 An eschar was also noted on examination in the operating room overlying the sacral area. Procedure in detail: With the patient in left lateral decubitus position after obtaining adequate general anesthesia, time-out procedure was performed. She was on scheduled antibiotic therapy and no additional antibiotics were administered. The lower back, sacral and buttock areas were prepped with Betadine solution and were draped sterilely. The right buttock wound was addressed initially. There was significant undermining superiorly and medially with a pocket of blood-tinged purulence material present. This area was easily opened with gentle finger dissection. The wound was irrigated with saline solution. Necrotic tissue was then excised from the wound surface using sharp dissection with Paige scissors and a dermal curette. Minimal bleeding was encountered and was controlled using the cautery and pressure. The ischial tuberosity was noted to be exposed. The tuberosity was debrided using a rongeur. Cultures were taken. Debridement was carried back to healthy appearing bone with good bleeding present. Wound measurement including undermining 14 x 9 by 0.5 cm. Next, the left buttock ulcer was debrided in the same fashion using excision all debridement with Paige scissors and a dermal curette. The ischial tuberosity was exposed on the left as well with some dark discoloration present and was debrided back to healthy appearing bone with good bleeding using the rongeur. 10 x 8 x 0.3 cm. The sacral eschar was sharply excised using a 15. Scalpel. Dissection extended into the subcutaneous tissue. 2.5 x 2.2 x 0.2 cm. Following this, the area was cleansed with saline solution. Extra thick protective cream was placed around tacked skin edges. An Alevyn foam dressing was placed over the sacral wound. The area of undermining on the right buttock was loosely packed with saline moistened Kerlix roll and saline moistened Kerlix gauze was placed over the remainder of the open wound followed by dry sterile dressing. A saline gauze dressing was applied to the left buttock wound and covered with dry sterile dressing. Following this, the bilateral heel ulcers and surrounding skin were prepped with Betadine solution and were draped sterilely. Gloves gowns and instruments were changed. The loose eschar and necrotic tissue was excised from both heels using sharp excisional technique with a 15. Scalpel and dermal curette. Minimal bleeding was encountered and was controlled using pressure and the electric cautery. Wounds were cleansed with saline solution. Silver alginate was applied to both heels followed by saline gauze and dry sterile dressings. Heel protectors were applied. She tolerated the procedure well and was transported to the recovery room in stable condition. There were no immediate complications. Sponge and instrument counts were correct.
[2021-04-26 13:06] LABS: Glucose, Whole Blood 71 mg/dL (60-115)
[2021-04-26] MEDS: cefTRIAXone sodium 1 GM in 0.9 % Sodium Chloride 50 ML IV (13:06)
--- NOTE | 2021-04-26 15:23 | MHC.CM.PN ---
PT IS A LTC RESIDENT OF [facility] [place]. [facility] HAS CONFIRMED PT IS A BEDHOLD. CM REQUESTED PT HCP TO BE FAXED, AWAITING RESPONSE FROM [facility] CURRENT DC PLAN IS RETURN TO [facility] [place] VIA S
[2021-04-26 16:09] LABS: Glucose, Whole Blood 70 mg/dL (60-115)
[2021-04-26] MEDS: Enoxaparin Sodium 30 MG/0.3 ML SYRINGE SUBCUT (16:47)
[2021-04-26] MEDS: 0.9 % Sodium Chloride Flush 3 ML SYRINGE IVFLUSH (16:48)
[2021-04-26] MEDS: LORazepam 0.5 MG TABLET PO (17:00)
[2021-04-26] MEDS: Morphine Sulfate 2 MG/ML CARTRIDGE 4 MG IVPUSH (17:00)
--- NOTE | 2021-04-26 17:14 | MHC.CARE ---
CARE team consult received. Per 1st shift- spoke with [facility] [place] [place] nurse Yumiko, pt had surgery this morning and is in pain and irritable. CARE team will follow up tomorrow 04/27/21.
[2021-04-26] MEDS: vancomycin HCL 750 MG in 0.9 % Sodium Chloride 250 ML 265 MG IV (20:34)
[2021-04-26 20:35] LABS: Glucose, Whole Blood 92 mg/dL (60-115)
[2021-04-26] MEDS: Mirtazapine 30 MG TABLET PO (20:35)
[2021-04-26] MEDS: Sennosides 8.6 MG TABLET 17.2 MG PO (20:36)
[2021-04-27] VITALS (10 sets, daily range): BP systolic 100–119; BP diastolic 52–61; PULSE 91–99; RESP 15–18; TEMP 36.1–37.1; O2SAT 94–98
[2021-04-27] MEDS: Morphine Sulfate 2 MG/ML CARTRIDGE 4 MG IVPUSH ×3 (00:11→10:59)
[2021-04-27] MEDS: Dextrose 5 % and Lactated Ring 1,000 ML 80 ML IVCONT ×2 (00:18→13:17)
[2021-04-27 05:34] LABS: Hematocrit 26.1 % (37-47); Hemoglobin 7.9 g/dl (12.0-16.0); Mean Corpuscular HGB Conc 30.3 g/dl (31.0-35.0); Mean Corpuscular Hemoglobin 27.6 pg (27.0-33.0); Mean Corpuscular Volume 91.3 fL (80-98); Mean Platelet Volume 9.4 fL (9.4-12.3); Platelet Count 370 X10*3/uL (160-400); Red Blood Count 2.86 X10*6/uL (4.20-5.50); Red Cell Distribution Width 15.1 % (11.0-16.0); White Blood Count 18.6 X10*3/uL (4.8-10.8)
[2021-04-27 06:05] LABS: Anion Gap 13 (12-20); Blood Urea Nitrogen 73 mg/dL (9-16); Calcium 7.9 mg/dL (8.4-10.2); Carbon Dioxide 19 mmol/L (22-29); Chloride 109 mmol/L (96-108); Creatinine Clr Calc Pharmacy 28.8; Estimated Glomerular Filt Rate 21; Glucose Random 90 mg/dL (60-115); Potassium 4.7 mmol/L (3.3-5.1); Sodium 136 mmol/L (135-145)
[2021-04-27 07:10] LABS: Glucose, Whole Blood 104 mg/dL (60-115)
[2021-04-27] MEDS: cefTRIAXone sodium 1 GM in 0.9 % Sodium Chloride 50 ML IV (07:52)
[2021-04-27] MEDS: Ferrous Sulfate 324 MG TABLET.DR PO ×3 (07:53→21:23)
[2021-04-27] MEDS: Morphine Sulfate ER 15 MG TABLET.ER PO ×2 (07:53→21:21)
[2021-04-27] MEDS: Tamsulosin HCL 0.4 MG CAPSULE PO (07:53)
[2021-04-27] MEDS: Ascorbic Acid 500 MG TABLET PO (07:53)
[2021-04-27] MEDS: dilTIAZem HCL 60 MG TABLET PO ×2 (07:54→21:23)
[2021-04-27] MEDS: 0.9 % Sodium Chloride Flush 3 ML SYRINGE IVFLUSH ×3 (07:57→23:41)
--- NOTE | 2021-04-27 09:03 | HO.PM.IMPN ---
Subjective Subjective Date of Service: 04/27/21 <JOSE Arnold - Last Filed: 04/27/21 09:26> 04/28/21 <Monty Mccloud MD - Last Filed: 04/28/21 16:02> Interval History: seen and examined this morning. s/p debridement yesterday denies fever/chills reports ongoing pain <JOSE Arnold - Last Filed: 04/27/21 09:26> Review of Systems Review of Systems: Yes all other systems are reviewed and are negative <JOSE Arnold - Last Filed: 04/27/21 09:26> Constitutional Constitutional: Denies chills and Denies fever(s) <JOSE Arnold - Last Filed: 04/27/21 09:26> Cardiovascular Cardiovascular: Denies chest pain <JOSE Arnold - Last Filed: 04/27/21 09:26> Respiratory Respiratory: Denies cough <JOSE Arnold Last Filed: 04/27/21 09:26> Gastrointestinal Gastrointestinal: Denies abdominal pain <JOSE Arnold Last Filed: 04/27/21 09:26> Physical Exam Vital Signs: Vital Signs: Last Vital Signs Temp 97 F 04/27/21 06:58 Pulse 94 04/27/21 07:54 Resp 18 04/27/21 06:58 BP 116/58 L 04/27/21 07:54 Pulse Ox 98 04/27/21 06:58 Body Mass Index 27.8 <JOSE Arnold - Last Filed: 04/27/21 09:26> Const: Other: Appears uncomfortable <JOSE Arnold Last Filed: 04/27/21 09:26> General: alert, awake, anxious and ill appearing <JOSE Arnold Last Filed: 04/27/21 09:26> Nutritional Appearance: thin <JOSE Arnold Last Filed: 04/27/21 09:26> HENMT: Head: Yes normocephalic and Yes atraumatic <JOSE Arnold Last Filed: 04/27/21 09:26> Eyes: Sclerae: sclerae normal <JOSE Arnold Last Filed: 04/27/21 09:26> Pupils: Equal, round and reactive pupils present <JOSE Arnold Last Filed: 04/27/21 09:26> EOM: EOMs intact bilaterally <JOSE Arnold Last Filed: 04/27/21 09:26> Neck: Neck: Yes trachea midline and Yes supple <JOSE Arnold Last Filed: 04/27/21 09:26> Chest: Chest palpation & inspection: normal inspection of the chest <JOSE Arnold Last Filed: 04/27/21 09:26> Resp: Effort & Inspection: normal respiratory effort and no respiratory distress <JOSE Arnold Last Filed: 04/27/21 09:26> Cardio: Rate: regular rate <JOSE Arnold Last Filed: 04/27/21 09:26> Rhythm: regular rhythm <JOSE Arnold Last Filed: 04/27/21 09:26> GI: Palpation (GI): Soft to palpation and nontender <JOSE Arnold Last Filed: 04/27/21 09:26> : Other: cheng present draining yellow urine <JOSE Arnold Last Filed: 04/27/21 09:26> Skin: Other: heels b/l offloading boots <JOSE Arnold Last Filed: 04/27/21 09:26> Neuro: Cranial nerves: Yes CN's II-XII intact bilaterally, Yes Equal, round and reactive pupils present and Yes Bilaterally intact EOM present <JOSE Arnold Last Filed: 04/27/21 09:26> Objective Data Current Medications Generic Name Dose Route Start Last Admin Trade Name Freq PRN Reason Stop Dose Admin Ascorbic Acid 500 mg 04/26/21 09:00 04/27/21 07:53 Ascorbic Acid 500 Mg Tablet PO 500 mg DAILY SYLWIA Administration Bisacodyl 10 mg 04/25/21 16:27 Bisacodyl 10 Mg Supp.Rect MD DAILY PRN Constipation Diltiazem HCl 60 mg 04/25/21 21:00 04/27/21 07:54 Diltiazem Hcl 60 Mg Tablet PO 60 mg BID SYLWIA Administration Protocol Docusate Sodium 50 mg 04/25/21 16:27 Docusate Sodium 100 Mg/10 Ml Liquid PO BEDTIME PRN Constipation Enoxaparin Sodium 30 mg 04/25/21 18:00 04/26/21 16:47 Enoxaparin Sodium 30 Mg/0.3 Ml Syringe SUBCUT 30 mg Q24H SYLWIA Administration Ferrous Sulfate 324 mg 04/25/21 21:00 04/27/21 07:53 Ferrous Sulfate 324 Mg Tablet.Dr PO 324 mg TID SYLWIA Administration Ceftriaxone Sodium 1 gm/ 50 mls @ 100 mls/hr 04/26/21 08:00 04/27/21 07:52 Sodium Chloride IV 100 mls/hr Q24H SYLWIA Administration Vancomycin HCl 750 mg/ Sodium 265 mls @ 265 mls/hr 04/25/21 20:00 04/26/21 21:30 Chloride IV Infused Q24H SYLWIA Infusion Promethazine HCl 12.5 mg/ 50.5 mls @ 202 mls/hr 04/26/21 10:10 Sodium Chloride IV ONCE PRN Nausea and Vomiting Dextrose/Lactated Ringer's 1,000 mls @ 80 mls/hr 04/26/21 23:45 04/27/21 00:18 D5lr IVCONT 80 mls/hr .[id number] SYLWIA Administration Insulin Human Lispro 0 unit 04/25/21 16:30 04/26/21 20:36 Insulin Lispro 100 Unit/Ml 3 Ml Vial SUBCUT Not Given QIDACHS [facility] Protocol Lactulose 20 gm 04/25/21 16:27 Lactulose 20 Gm/30 Ml Solution PO BID PRN Constipation Lorazepam 0.5 mg 04/25/21 16:27 04/26/21 17:00 Lorazepam 0.5 Mg Tablet PO 0.5 mg Q6H PRN Administration Anxiety Mirtazapine 30 mg 04/25/21 21:00 04/26/21 20:35 Mirtazapine 30 Mg Tablet PO 30 mg BEDTIME SYLWIA Administration Morphine Sulfate 15 mg 04/25/21 21:00 04/27/21 07:53 Morphine Sulfate Er 15 Mg Tablet.Er PO 15 mg BID SYLWIA Administration Morphine Sulfate 4 mg 04/26/21 08:56 04/27/21 05:56 Morphine Sulfate 2 Mg/Ml Cartridge IVPUSH 4 mg Q4H PRN Administration Pain, Severe (Pain Scale 7-10) Ondansetron HCl 4 mg 04/25/21 16:27 Ondansetron Hcl 4 Mg/2 Ml Vial IVPUSH Q8H PRN Nausea and Vomiting Pharmacy Consult 1 each 04/25/21 11:48 Consult Rx Perform Med Rec MISCELLANE ONCE PRN Consult order Pharmacy Consult 1 each 04/25/21 16:27 Consult Rx Vancomycin Dosing MISCELLANE DAILY PRN Consult order Polyethylene Glycol 17 gm 04/25/21 16:27 Polyethylene Glycol 3350 17 Gm Powd.Pack PO DAILY PRN Constipation Senna 17.2 mg 04/26/21 21:00 04/26/21 20:36 Sennosides 8.6 Mg Tablet PO 17.2 mg BEDTIME SYLWIA Administration Sodium Chloride 3 ml 04/25/21 16:27 04/27/21 07:57 0.9 % Sodium Chloride Flush 3 Ml Syringe IVFLUSH 3 ml QSHIFT SYLWIA Administration Sodium Hypochlorite 1 appl 04/25/21 21:00 04/26/21 10:07 Sodium Hypochlorite 0.125% 473 Ml Solution TOPICAL Not Given BID SYLWIA Tamsulosin HCl 0.4 mg 04/26/21 09:00 04/27/21 07:53 Tamsulosin Hcl 0.4 Mg Capsule PO 0.4 mg DAILY SYLWIA Administration <JOSE Arnold - Last Filed: 04/27/21 09:26> Labs CBC & Chem 7: : 04/28/21 04:24 04/28/21 04:24 <JOSE Arnold - Last Filed: 04/27/21 09:26> Labs: Laboratory Results - last 24 hr 04/26/21 04/26/21 04/26/21 12:55 16:02 20:31 MCV MCH MCHC RDW Plt Count MPV Absolute Nucleated RBC Nucleated RBC % (auto) Anion Gap Estim Creat Clear Calc Estimated GFR POC Glucose 71 70 92 Random Glucose Calcium 04/27/21 04/27/21 04/27/21 04:47 04:47 06:57 MCV 91.3 MCH 27.6 MCHC 30.3 L RDW 15.1 Plt Count 370 MPV 9.4 Absolute Nucleated RBC 0.000 Nucleated RBC % (auto) 0.0 Anion Gap 13 Estim Creat Clear Calc 28.8 Estimated GFR 21 POC Glucose 104 Random Glucose 90 Calcium 7.9 L <JOSE Arnold - Last Filed: 04/27/21 09:26> Microbiology Microbiology Results: Microbiology 04/26/21 Unknown Gram Stain - Final Decubitus Ulcer Routine Culture - Preliminary Culture in progress. Anaerobic Culture - Preliminary No growth to date. 04/25/21 00:00 Urine Culture - Preliminary Urine Catheterized - Straight Catheter Gram negative neisha Gram negative neisha#2 04/25/21 12:27 Blood Culture - Preliminary Blood - Venous No growth after 24 hours. 04/25/21 12:27 Blood Culture - Preliminary Blood - Venous No growth after 24 hours. <JOSE Arnold - Last Filed: 04/27/21 09:26> Assessment and Plan (1) Decubitus ulcer: Status: Acute <JOSE Arnold - Last Filed: 04/27/21 09:26> (2) Acute kidney injury: Status: Acute <JOSE Arnold - Last Filed: 04/27/21 09:26> (3) UTI (urinary tract infection): Status: Acute <JOSE Arnold - Last Filed: 04/27/21 09:26> (4) Sepsis: Status: Acute <JOSE Arnold - Last Filed: 04/27/21 09:26> Assessment and Plan: This is a 55-year-old female with history of vulvar cancer status post chemo radiation, chronic lymphadenopathy currently bedbound, hypertension, diabetes anxiety, depression, chronic decubitus ulcers of buttocks and bilateral heels sent from [facility] for altered mental status found to have sepsis and LEIGH Sepsis.poa leukocytosis trening down slowly related to underlying buttock/heel wounds; possible UTI -continue IV ceftriaxone, vancomycin -Blood cultures negative to date Chronic wounds to buttock and bilateral heels. poa Osteomyelitis confirmed by outpatient MRI s/p debridement of wounds 04/26 -surgery following -ID consult -continue IV ceftriazone, vanco (started on 04/25) -airloss bed, frequent repositioning -pain control. continue home ms contin, will continue morphine for severe pain -continue local wound care -pt declined arterial dopplers -follow wound culture Possible UTI chronic cheng -UCx growing gram neg rods, follow final sensitivities -continue iv ceftriaxone LEIGH Metabolic acidosis SCr trending down slightly to 2.38 (no baseline labs since 03/2020) -Continue IVF -nephrology consult -follow renal function Anemia s/p 1Unit rbc on 04/26. h/h stable chronic. h/o recurrent transfusions has had outpatient workup including recent EGD and colonoscopy thought to be r/t malnutrition No evidence of active bleeding -follow CBC Mood pt tearful, seems depressed -care team consult -continue ativan, remeron Metabolic encephalopathy Resolved, seems at baseline In the setting of sepsis, LEIGH -treat underlying infection, renal insufficiency DM -Lantus on hold -SSI, POCs -ada diet HTN -continue diltiazem protein calorie malnutrition albumin 2.0 -formal nutrition consult -will add supplements dvt ppx - lovenox code status - MOLST form in chart- full code Attending-Dr. Mccloud Dispo - to return to [facility] when medically ready <JOSE Arnold - Last Filed: 04/27/21 09:26> Quality Stroke Does the patient have a stroke diagnosis?: No <JOSE Arnold - Last Filed: 04/27/21 09:26> VTE Prior VTE?: No <JOSE Arnold - Last Filed: 04/27/21 09:26> VTE Risk Level:: Medical - moderate - high <JOSE Arnold - Last Filed: 04/27/21 09:26> VTE Device Contraindication: N/A - Device Ordered <JOSE Arnold - Last Filed: 04/27/21 09:26> VTE Drug Contraindication: N/A - Med Ordered <JOSE Arnold - Last Filed: 04/27/21 09:26>
--- NOTE | 2021-04-27 09:04 | PM.PNNEP ---
Subjective Subjective Date of Service: 04/27/21 Interval history: Patient seen and examined consult dictated Physical Exam Vital Signs: Vital Signs: Last Vital Signs Temp 97 F 04/27/21 06:58 Pulse 94 04/27/21 07:54 Resp 18 04/27/21 06:58 BP 116/58 L 04/27/21 07:54 Pulse Ox 98 04/27/21 06:58 Body Mass Index 27.8 Objective Data Labs CBC & Chem 7: 04/27/21 04:47 04/27/21 04:47 Labs: Laboratory Results - last 24 hr 04/26/21 04/26/21 04/26/21 12:55 16:02 20:31 WBC RBC Hgb Hct MCV MCH MCHC RDW Plt Count MPV Absolute Nucleated RBC Nucleated RBC % (auto) Sodium Potassium Chloride Carbon Dioxide Anion Gap BUN Creatinine Estim Creat Clear Calc Estimated GFR POC Glucose 71 70 92 Random Glucose Calcium 04/27/21 04/27/21 04/27/21 04:47 04:47 06:57 WBC 18.6 H RBC 2.86 L Hgb 7.9 L Hct 26.1 L MCV 91.3 MCH 27.6 MCHC 30.3 L RDW 15.1 Plt Count 370 MPV 9.4 Absolute Nucleated RBC 0.000 Nucleated RBC % (auto) 0.0 Sodium 136 Potassium 4.7 Chloride 109 H Carbon Dioxide 19 L Anion Gap 13 BUN 73 H Creatinine 2.38 H Estim Creat Clear Calc 28.8 Estimated GFR 21 POC Glucose 104 Random Glucose 90 Calcium 7.9 L Microbiology Microbiology Results: Microbiology 04/26/21 Unknown Decubitus Ulcer Gram Stain - Final 04/26/21 Unknown Decubitus Ulcer Routine Culture - Preliminary Culture in progress. 04/26/21 Unknown Decubitus Ulcer Anaerobic Culture - Preliminary No growth to date. 04/25/21 00:00 Urine Catheterized - Straight Catheter Urine Culture - Preliminary Gram negative neisha Gram negative neisha#2 04/25/21 12:27 Blood - Venous Blood Culture - Preliminary No growth after 24 hours. 04/25/21 12:27 Blood - Venous Blood Culture - Preliminary No growth after 24 hours. 04/25/21 10:21 Blood - Venous Blood Culture - Final 04/25/21 10:08 Blood - Venous Blood Culture - Final Procedures Date of Service Date of Service: 04/27/21 Assessment & Plan Assessment and plan (1) Acute kidney injury: Status: Acute (2) Metabolic acidosis: Status: Acute Assessment and Plan: LEIGH probably due to acute tubular injury no hematuria doubt flaquito infectious nephritis CT scan negative for obstruction history of macroscopic proteinuria (~ 1 gram) probably due to DM/HTN REC urine sodium LR follow kidney function and electrolytes Time Spent With Patient Time: Total time spent is greater than 50% in coordination of care (as documented) at patient's floor/unit and/or counseling patient: Progress Note: Quality Stroke Does the patient have a stroke diagnosis?: No
[2021-04-27 11:12] LABS: Glucose, Whole Blood 113 mg/dL (60-115)
--- NOTE | 2021-04-27 11:35 | PM.PNGS ---
Subjective Subjective Date of Service: 04/27/21 Interval history: Reports ongoing pain in buttocks and heels. Physical Exam Vital Signs: Vital Signs: Last Vital Signs Temp 98 F 04/27/21 11:01 Pulse 91 04/27/21 11:01 Resp 18 04/27/21 11:01 BP 100/61 04/27/21 11:01 Pulse Ox 94 04/27/21 11:01 Body Mass Index 27.8 Const: Other: Appears sleepy, but is appropriately responsive Resp: Effort & Inspection: normal respiratory effort Auscultation: clear to auscultation bilaterally Cardio: Rate: regular rate Rhythm: regular rhythm Skin: Other: Bilateral buttock wounds are generally clean with exposed bone, muscle in subcutaneous tissue, significant superior and medial undermining on right. Stage III sacral ulcer wound bed dry. Heel wounds appear clean posteriorly but show further progression with eschar present along plantar aspects Psych: Affect: Anxious affect present Procedures Date of Service Date of Service: 04/27/21 Progress Note: A&P Assessment and plan (1) Protein-calorie malnutrition, severe: Status: Acute (2) Decubitus ulcer: Status: Acute (3) Soft tissue radionecrosis: Status: Acute Assessment and Plan: 55-year-old female status post chemo radiation therapy for treatment of vulvar carcinoma, limited mobility, admitted from alf facility for treatment of change in mental status. 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 A bone culture of the right ischium was obtained during surgery yesterday and is pending, labeled as culture of decubitus ulcer. She has multiple significant problems. The buttock ulcers closely approached the rectum. She may benefit from a temporary colostomy. It nutrition is poor. There are changes in the skin and soft tissue in the area of the buttock ulcers consistent with soft tissue radionecrosis. Additionally, she was unable to cooperate with arterial duplex scanning. Right dorsalis pedis pulses palpable but remaining pedal pulses are not and there likely is a significant contribution of peripheral vascular disease to the progression of her heel wounds. I discussed all of this with her. She does not wish to undergo temporary diverting colostomy at this time. Dietary consult pending. Supplements have been ordered. Recommend vascular consultation. [facility]. She has been seen at the [facility] in the past. Fall Risk Details Current Medications: Current Medications Generic Name Dose Route Start Last Admin Trade Name Freq PRN Reason Stop Dose Admin Ascorbic Acid 500 mg 04/26/21 09:00 04/27/21 07:53 Ascorbic Acid 500 Mg Tablet PO 500 mg DAILY SYLWIA Administration Bisacodyl 10 mg 04/25/21 16:27 Bisacodyl 10 Mg Supp.Rect [place] DAILY PRN Constipation Diltiazem HCl 60 mg 04/25/21 21:00 04/27/21 07:54 Diltiazem Hcl 60 Mg Tablet PO 60 mg BID SYLWIA Administration Protocol Docusate Sodium 50 mg 04/25/21 16:27 Docusate Sodium 100 Mg/10 Ml Liquid PO BEDTIME PRN Constipation Enoxaparin Sodium 30 mg 04/25/21 18:00 04/26/21 16:47 Enoxaparin Sodium 30 Mg/0.3 Ml Syringe SUBCUT 30 mg Q24H SYLWIA Administration Ferrous Sulfate 324 mg 04/25/21 21:00 04/27/21 07:53 Ferrous Sulfate 324 Mg Tablet.Dr PO 324 mg TID SYLWIA Administration Ceftriaxone Sodium 1 gm/ 50 mls @ 100 mls/hr 04/26/21 08:00 04/27/21 09:42 Sodium Chloride IV Infused Q24H SYLWIA Infusion Vancomycin HCl 750 mg/ Sodium 265 mls @ 265 mls/hr 04/25/21 20:00 04/26/21 21:30 Chloride IV Infused Q24H SYLWIA Infusion Promethazine HCl 12.5 mg/ 50.5 mls @ 202 mls/hr 04/26/21 10:10 Sodium Chloride IV ONCE PRN Nausea and Vomiting Dextrose/Lactated Ringer's 1,000 mls @ 80 mls/hr 04/26/21 23:45 04/27/21 13:17 D5lr IVCONT 80 mls/hr .[id number] SYLWIA Administration Insulin Human Lispro 0 unit 04/25/21 16:30 04/27/21 13:00 Insulin Lispro 100 Unit/Ml 3 Ml Vial SUBCUT Not Given QIDACHS [facility] Protocol Lactulose 20 gm 04/25/21 16:27 Lactulose 20 Gm/30 Ml Solution PO BID PRN Constipation Lorazepam 0.5 mg 04/25/21 16:27 04/26/21 17:00 Lorazepam 0.5 Mg Tablet PO 0.5 mg Q6H PRN Administration Anxiety Mirtazapine 30 mg 04/25/21 21:00 04/26/21 20:35 Mirtazapine 30 Mg Tablet PO 30 mg BEDTIME SYLWIA Administration Morphine Sulfate 15 mg 04/25/21 21:00 04/27/21 07:53 Morphine Sulfate Er 15 Mg Tablet.Er PO 15 mg BID SYLWIA Administration Morphine Sulfate 4 mg 04/26/21 08:56 04/27/21 10:59 Morphine Sulfate 2 Mg/Ml Cartridge IVPUSH 4 mg Q4H PRN Administration Pain, Severe (Pain Scale 7-10) Ondansetron HCl 4 mg 04/25/21 16:27 Ondansetron Hcl 4 Mg/2 Ml Vial IVPUSH Q8H PRN Nausea and Vomiting Pharmacy Consult 1 each 04/25/21 11:48 Consult Rx Perform Med Rec MISCELLANE ONCE PRN Consult order Pharmacy Consult 1 each 04/25/21 16:27 Consult Rx Vancomycin Dosing MISCELLANE DAILY PRN Consult order Polyethylene Glycol 17 gm 04/25/21 16:27 Polyethylene Glycol 3350 17 Gm Powd.Pack PO DAILY PRN Constipation Senna 17.2 mg 04/26/21 21:00 04/26/21 20:36 Sennosides 8.6 Mg Tablet PO 17.2 mg BEDTIME SYLWIA Administration Sodium Chloride 3 ml 04/25/21 16:27 04/27/21 07:57 0.9 % Sodium Chloride Flush 3 Ml Syringe IVFLUSH 3 ml QSHIFT SYLWIA Administration Sodium Hypochlorite 1 appl 04/25/21 21:00 04/26/21 10:07 Sodium Hypochlorite 0.125% 473 Ml Solution TOPICAL Not Given BID SYLWIA Tamsulosin HCl 0.4 mg 04/26/21 09:00 04/27/21 07:53 Tamsulosin Hcl 0.4 Mg Capsule PO 0.4 mg DAILY SYLWIA Administration Time Spent With Patient Time: Total time spent is greater than 50% in coordination of care (as documented) at patient's floor/unit and/or counseling patient: Time with patient: 15 - 24 minutes Quality Stroke Does the patient have a stroke diagnosis?: No VTE Prior VTE?: No VTE Risk Level:: Medical - moderate - high VTE Device Contraindication: N/A - Device Ordered VTE Drug Contraindication: N/A - Med Ordered
--- NOTE | 2021-04-27 11:39 | HO.POSTANES ---
Post Anesthesia Evaluation Post Anesthesia Evaluation Vital Signs: Vital Signs Temp Pulse Resp BP Pulse Ox 04/27/21 11:01 98 F 91 18 100/61 94 04/27/21 10:59 16 04/27/21 07:54 94 116/58 L 04/27/21 06:58 97 F 94 18 116/58 L 98 04/27/21 03:50 97.5 F 92 18 111/56 L 98 04/27/21 00:00 97 F 93 18 115/55 L 97 Anesthesia: General LMA Mental Status: Awake Pain Control: Satisfactory Nausea/Vomiting: None Hydration: Adequate Anesthesia-Related Issues: No Anes. Related Issues
--- NOTE | 2021-04-27 12:09 | MHC.CARE ---
CARE Team met briefly with patient in room 460, she was sitting up in bed, awake but drowsy. Stated she was doing, ?ok, just in a lot of pain, don?t need to talk.? Speech slightly slurred and mumbled, unable to maintain eye contact or engage meaningfully, was dozing off. ? Spoke to patient?s RN, CARE Team is available if patient becomes more alert and would like to talk.
--- NOTE | 2021-04-27 14:19 | MHC.CM.PN ---
CM ATTEMPTED TO MEET WITH PT THIS MORNING HOWEVER PT DROWSY AND DIFFICULT TO ENGAGE. CM RECEIVED A COPY OF PTS HCP FROM [facility] AND ATTEMPTED TO CONTACT HER PRIMARY AGENT, DANIAL MORTON ([phone]) A MESSAGE WAS LEFT REQUESTING A CALL BACK. DC PLAN REMAINS RETURN TO [facility] AT VIA BLS
[2021-04-27] MEDS: Enoxaparin Sodium 30 MG/0.3 ML SYRINGE SUBCUT (15:46)
[2021-04-27] MEDS: LORazepam 0.5 MG TABLET PO (15:47)
--- NOTE | 2021-04-27 16:06 | PC.NURSE ---
Around 11:00 Dr. Louie at bedside for dressing change to coccyx, bilateral buttocks and heels. Patient pre medicated with ordered PRN Morphine with good effect. Bilateral air boots reapplied after dressing change and heels elevated on pillows. This RN placed patient on prevalon air tap mat system with wedges to better reposition patient, for patient comfort, and to minimize risk of shearing. Patient also placed on speciality mattress for true air loss capability. Obtained InterDry and applied to bilateral groin and abdominal folds. Full bedbath given with hair washing and skin care. Patient mostly tolerated with occasional whimpering but patient was able to be settled with verbal pain management techniques and distraction. Repositioned patient q2h and prn for pressure reduction and comfort. Scheduled medication and prn medication for pain given as ordered, see MAR. Family at bedside and updated on plan of care.
[2021-04-27 16:24] LABS: Glucose, Whole Blood 117 mg/dL (60-115)
[2021-04-27 19:33] LABS: Vancomycin Trough 18.5 mcg/mL (10.0-20.0)
[2021-04-27] MEDS: vancomycin HCL 500 MG in 0.9 % Sodium Chloride 100 ML 110 MG IV (19:55)
[2021-04-27 20:30] LABS: Glucose, Whole Blood 142 mg/dL (60-115)
[2021-04-27] MEDS: Mirtazapine 30 MG TABLET PO (21:23)
[2021-04-27] MEDS: Sennosides 8.6 MG TABLET 17.2 MG PO (21:23)
[2021-04-28] VITALS (9 sets, daily range): BP systolic 105–149; BP diastolic 57–78; PULSE 96–103; RESP 18–20; TEMP 36.1–37.2; O2SAT 96–99; BMI 27.8
[2021-04-28] MEDS: Dextrose 5 % and Lactated Ring 1,000 ML 80 ML IVCONT (02:32)
[2021-04-28 04:54] LABS: Hematocrit 21.3 % (37-47); Mean Corpuscular HGB Conc 29.6 g/dl (31.0-35.0); Mean Corpuscular Hemoglobin 27.3 pg (27.0-33.0); Mean Corpuscular Volume 92.2 fL (80-98); Mean Platelet Volume 9.8 fL (9.4-12.3); Platelet Count 308 X10*3/uL (160-400); Red Blood Count 2.31 X10*6/uL (4.20-5.50); Red Cell Distribution Width 15.2 % (11.0-16.0)
[2021-04-28 05:06] LABS: Hemoglobin 6.3 g/dl (12.0-16.0)
[2021-04-28 05:28] LABS: Anion Gap 13 (12-20); Blood Urea Nitrogen 71 mg/dL (9-16); Calcium 7.7 mg/dL (8.4-10.2); Carbon Dioxide 20 mmol/L (22-29); Chloride 109 mmol/L (96-108); Creatinine Clr Calc Pharmacy 29.1; Estimated Glomerular Filt Rate 22; Glucose Random 129 mg/dL (60-115); Potassium 4.5 mmol/L (3.3-5.1); Sodium 137 mmol/L (135-145)
--- NOTE | 2021-04-28 05:30 | MHC.PIE ---
P.HGB 6.3 I.CRITICAL HGB OF 6.3 RECEIVED FROM LAB.UNABLE TO OBTAIN IV ACCESS.SEVERAL ATTEMPTS MADE BY COORDINATOR,ED NURSE AND ICU NURSE.DR JASMINE UPDATED. STATES WILL UPDATE DAY TEAM FOR POSSIBLE LINE PLACEMENT. E.CONT TO MONITOR.
[2021-04-28 07:23] LABS: Glucose, Whole Blood 130 mg/dL (60-115)
--- NOTE | 2021-04-28 07:30 | PM.CNGS ---
History of Present Illness Consult details Consult date: 04/28/21 Narrative: 55 yo female presented to ER with altered mental status. Upon workup was found to have n onhealing ulcers Of but a lateral heels. She was seen by General surgery over the weekend. An attempt was made for noninvasive arterial testing but was not complete. Of note she has decreased H&H this morning Review of Systems Constitutional: Constitutional: Reports as per HPI ENT: Reports system reviewed and no additional complaints, except as documented Cardiovascular: Cardiovascular: Denies chest pain, Denies chest pain at rest and Denies chest pain with activity Respiratory: Respiratory: Denies chest congestion and Denies cough Gastrointestinal: Gastrointestinal: Reports no additional gastrointestinal complaints Musculoskeletal: Musculoskeletal: Denies abnormal gait Integumentary/Breasts: Skin/Breast: Reports pruritus and Denies wounds Neurologic: Reports system reviewed and no additional complaints, except as documented and Denies abnormal gait Psychiatric: Psychiatric: Denies no additional psychiatric complaints PMFSH Past Medical History Medical History (Updated 04/28/21 @ 07:34 by Kt Parish MD) Anemia Anxiety Chronic pain Depression Diabetes mellitus type 2 in nonobese History of cancer of vulva Hypertension Lymphedema PVD (peripheral vascular disease) Functional capacity: bed bound Family History Family History Father Colon cancer Hypertension Prostate cancer Mother Diabetes Hypertension Family/Other FH: mental illness Surgical History Surgical History History of total abdominal hysterectomy and bilateral salpingo-oophorectomy S/P recurrent ventral herniorrhaphy Social History Social History Household Members: None Housing: Skilled Nursing Do you presently have visiting nurse or other home services: No Alcohol intake: never Patient Tobacco Use Status: Never used Tobacco service: No Current occupational status: unemployed Meds Allergies Allergy/AdvReac Type Severity Reaction Status Date / Time acetaminophen [Percocet] Allergy Unknown rash Verified 04/25/19 00:00 morphine [MORPHINE] Allergy Unknown RASH Verified 09/03/20 11:24 oxycodone [From PERCOCET] Allergy Unknown ITCHY RASH Verified 04/25/21 18:39 Penicillins [PENICILLINS] Allergy Unknown RASH Verified 09/03/20 11:24 Active Medications: Current Medications Generic Name Dose Route Start Last Admin Trade Name Evanq PRN Reason Stop Dose Admin Ascorbic Acid 500 mg 04/26/21 09:00 04/27/21 07:53 Ascorbic Acid 500 Mg Tablet PO 500 mg DAILY SYLWIA Administration Bisacodyl 10 mg 04/25/21 16:27 Bisacodyl 10 Mg Supp.Rect [place] DAILY PRN Constipation Diltiazem HCl 60 mg 04/25/21 21:00 04/27/21 21:23 Diltiazem Hcl 60 Mg Tablet PO 60 mg BID SYLWIA Administration Protocol Docusate Sodium 50 mg 04/25/21 16:27 Docusate Sodium 100 Mg/10 Ml Liquid PO BEDTIME PRN Constipation Enoxaparin Sodium 30 mg 04/25/21 18:00 04/27/21 15:46 Enoxaparin Sodium 30 Mg/0.3 Ml Syringe SUBCUT 30 mg Q24H SYLWIA Administration Ferrous Sulfate 324 mg 04/25/21 21:00 04/27/21 21:23 Ferrous Sulfate 324 Mg Tablet.Dr PO 324 mg TID SYLWIA Administration Ceftriaxone Sodium 1 gm/ 50 mls @ 100 mls/hr 04/26/21 08:00 04/27/21 09:42 Sodium Chloride IV Infused Q24H SYLWIA Infusion Promethazine HCl 12.5 mg/ 50.5 mls @ 202 mls/hr 04/26/21 10:10 Sodium Chloride IV ONCE PRN Nausea and Vomiting Dextrose/Lactated Ringer's 1,000 mls @ 80 mls/hr 04/26/21 23:45 04/28/21 02:32 D5lr IVCONT 80 mls/hr .[id number] SYLWIA Administration Vancomycin HCl 500 mg/ Sodium 110 mls @ 110 mls/hr 04/27/21 20:00 04/27/21 21:17 Chloride IV Infused Q24H SYLWIA Infusion Insulin Human Lispro 0 unit 04/25/21 16:30 04/27/21 21:40 Insulin Lispro 100 Unit/Ml 3 Ml Vial SUBCUT Not Given QIDACHS [facility] Protocol Lactulose 20 gm 04/25/21 16:27 Lactulose 20 Gm/30 Ml Solution PO BID PRN Constipation Lorazepam 0.5 mg 04/25/21 16:27 04/27/21 15:47 Lorazepam 0.5 Mg Tablet PO 0.5 mg Q6H PRN Administration Anxiety Mirtazapine 30 mg 04/25/21 21:00 04/27/21 21:23 Mirtazapine 30 Mg Tablet PO 30 mg BEDTIME SYLWIA Administration Morphine Sulfate 15 mg 04/25/21 21:00 04/27/21 21:21 Morphine Sulfate Er 15 Mg Tablet.Er PO 15 mg BID SYLWIA Administration Morphine Sulfate 4 mg 04/26/21 08:56 04/27/21 10:59 Morphine Sulfate 2 Mg/Ml Cartridge IVPUSH 4 mg Q4H PRN Administration Pain, Severe (Pain Scale 7-10) Ondansetron HCl 4 mg 04/25/21 16:27 Ondansetron Hcl 4 Mg/2 Ml Vial IVPUSH Q8H PRN Nausea and Vomiting Pharmacy Consult 1 each 04/25/21 11:48 Consult Rx Perform Med Rec MISCELLANE ONCE PRN Consult order Pharmacy Consult 1 each 04/25/21 16:27 Consult Rx Vancomycin Dosing MISCELLANE DAILY PRN Consult order Polyethylene Glycol 17 gm 04/25/21 16:27 Polyethylene Glycol 3350 17 Gm Powd.Pack PO DAILY PRN Constipation Senna 17.2 mg 04/26/21 21:00 04/27/21 21:23 Sennosides 8.6 Mg Tablet PO 17.2 mg BEDTIME SYLWIA Administration Sodium Chloride 3 ml 04/25/21 16:27 04/27/21 23:41 0.9 % Sodium Chloride Flush 3 Ml Syringe IVFLUSH 3 ml QSHIFT SYLWIA Administration Sodium Hypochlorite 1 appl 04/25/21 21:00 04/26/21 10:07 Sodium Hypochlorite 0.125% 473 Ml Solution TOPICAL Not Given BID SYLWIA Tamsulosin HCl 0.4 mg 04/26/21 09:00 04/27/21 07:53 Tamsulosin Hcl 0.4 Mg Capsule PO 0.4 mg DAILY SYLWIA Administration Home Medications Medication Instructions Recorded Confirmed Last Taken Type acetaminophen 325 mg tablet 650 mg PO Q6H PRN 04/25/21 04/25/21 Unknown History ammonium lactate 12 % topical cream 1 appl TOPICAL BID 04/25/21 04/25/21 Unknown History ascorbic acid (vitamin C) 500 mg 500 mg PO DAILY 04/25/21 04/25/21 Unknown History tablet bisacodyl 10 mg rectal suppository 10 mg [place] DAILY PRN 04/25/21 04/25/21 Unknown History diltiazem HCl 60 mg tablet 60 mg PO BID 04/25/21 04/25/21 Unknown History docusate sodium 50 mg capsule 50 mg PO BEDTIME PRN 04/25/21 04/25/21 Unknown History ferrous sulfate 325 mg (65 mg 325 mg PO TID 04/25/21 04/25/21 Unknown History iron) tablet insulin glargine 100 unit/mL 3 unit SUBCUT QPM 04/25/21 04/25/21 Unknown History subcutaneous solution lactulose 10 gram/15 mL oral 20 g PO BID PRN 04/25/21 04/25/21 Unknown History solution lorazepam 0.5 mg tablet 0.5 mg PO Q6H PRN 04/25/21 04/25/21 Unknown History magnesium citrate (Citrate of 150 ml PO DAILY PRN 04/25/21 04/25/21 Unknown History Magnesia) mirtazapine 30 mg tablet 30 mg PO BEDTIME 04/25/21 04/25/21 Unknown History morphine 15 mg tablet,extended 1 tab PO BID 04/25/21 04/25/21 Unknown History release (MS Contin) oxycodone 5 mg tablet 1 tab PO Q6H PRN 04/25/21 04/25/21 Unknown History polyethylene glycol 3350 17 gram 17 g PO DAILY PRN 04/25/21 04/25/21 Unknown History oral powder packet (Miralax) sennosides 8.6 mg tablet (senna) 17.2 mg PO BEDTIME PRN 04/25/21 04/25/21 Unknown History sodium hypochlorite 0.125 % 1 appl TOPICAL DAILY 04/25/21 04/25/21 Unknown History solution (Dakin's Solution) tamsulosin 0.4 mg capsule (Flomax) 0.4 mg PO DAILY 04/25/21 04/25/21 Unknown History Physical Exam Vital Signs: Vital Signs: Last Vital Signs Temp 98.3 F 04/28/21 07:15 Pulse 97 04/28/21 07:15 Resp 18 04/28/21 07:15 BP 105/59 L 04/28/21 07:15 Pulse Ox 97 04/28/21 07:15 Body Mass Index 27.8 Const: General: cooperative, healthy appearing and comfortable Orientation/consciousness: oriented to person, oriented to place and oriented to time Neck: Carotids: no bruits Chest: Chest palpation & inspection: normal inspection of the chest and normal palpation of entire chest wall Resp: Effort & Inspection: normal respiratory effort and able to speak in complete sentences Cardio: Rate: regular rate Heart sounds: S1 normal heart sound present and S2 normal heart sound present Peripheral pulses: Peripheral pulses 2+ throughout GI: Inspection: Yes normal to inspection Skin: Other: +2 edema, pretibial skin discoloration, bilateral heel ulceration General skin exam: dry skin Neuro: General: oriented to person, oriented to place and oriented to time Extrem: General: Yes edema Right lower extremity: full ROM, normal capillary refill and edema Left lower extremity: full ROM, normal capillary refill and edema Psych: Mental Status: mental status grossly normal Results Labs Result diagrams: 04/28/21 04:24 04/28/21 04:24 Labs: Abnormal lab results 04/27/21 04/27/21 04/28/21 Range/Units 16:16 20:25 04:24 WBC 14.0 H (4.8-10.8) X10*3/uL RBC 2.31 L (4.20-5.50) X10*6/uL Hgb 6.3 L* D (12.0-16.0) g/dl Hct 21.3 L (37-47) % MCHC 29.6 L (31.0-35.0) g/dl Chloride (96-108) mmol/L Carbon Dioxide (22-29) mmol/L BUN (9-16) mg/dL Creatinine (0.5-1.4) mg/dL POC Glucose 117 H 142 H (60-115) mg/dL Random Glucose (60-115) mg/dL Calcium (8.4-10.2) mg/dL 04/28/21 04/28/21 Range/Units 04:24 07:14 WBC (4.8-10.8) X10*3/uL RBC (4.20-5.50) X10*6/uL Hgb (12.0-16.0) g/dl Hct (37-47) % MCHC (31.0-35.0) g/dl Chloride 109 H (96-108) mmol/L Carbon Dioxide 20 L (22-29) mmol/L BUN 71 H (9-16) mg/dL Creatinine 2.36 H (0.5-1.4) mg/dL POC Glucose 130 H (60-115) mg/dL Random Glucose 129 H D (60-115) mg/dL Calcium 7.7 L (8.4-10.2) mg/dL Short CBC 04/28/21 Range/Units 04:24 WBC 14.0 H (4.8-10.8) X10*3/uL Hgb 6.3 L* D (12.0-16.0) g/dl Hct 21.3 L (37-47) % Plt Count 308 (160-400) X10*3/uL BMP 04/28/21 04:24 Sodium 137 Potassium 4.5 Chloride 109 H Carbon Dioxide 20 L BUN 71 H Creatinine 2.36 H Calcium 7.7 L Urine 04/25/21 Range/Units 10:21 Urine Color YELLOW Urine Appearance CLOUDY Urine pH 8.5 H (5.0-8.0) Ur Specific [place] 1.015 (1.005-1.025) Urine Protein 3+ H (NEG-TRACE) MG/DL Urine Glucose (UA) NEG (NEG) MG/DL All other labs normal. Assessment and Plan (1) PAD (peripheral artery disease): Status: Acute In short patient has PA D. although the exam was incomplete it does suggest that there is a blood flow issue. She will need to stabilize in terms of her H&H. It is unclear what her ambulatory status is. One she does stabilize will try to readdress and see what the best options for the patient's our. She will require repeat arterial testing. Thank you for allowing us to assist in her care. Procedures Date of Service Date of Service: 04/28/21
[2021-04-28] MEDS: Morphine Sulfate ER 15 MG TABLET.ER PO ×2 (08:46→21:38)
[2021-04-28] MEDS: Ferrous Sulfate 324 MG TABLET.DR PO ×3 (08:47→21:39)
[2021-04-28] MEDS: dilTIAZem HCL 60 MG TABLET PO ×2 (08:47→21:39)
[2021-04-28] MEDS: Ascorbic Acid 500 MG TABLET PO (08:47)
[2021-04-28] MEDS: Tamsulosin HCL 0.4 MG CAPSULE PO (08:47)
--- NOTE | 2021-04-28 10:10 | P.PNNP_ITS ---
Subjective Subjective Date of Service: 04/28/21 Principal diagnosis: kylah Interval history: seen and examined this morning. Sleepy this am Physical Exam Vital Signs: Vital Signs: Last Vital Signs Temp 98.3 F 04/28/21 07:15 Pulse 97 04/28/21 08:47 Resp 18 04/28/21 07:15 BP 105/59 L 04/28/21 08:47 Pulse Ox 97 04/28/21 07:15 Body Mass Index 27.8 Resp: Auscultation: breath sounds absent and vesicular breath sounds bilateral Objective Data Labs CBC & Chem 7: 04/28/21 04:24 04/28/21 04:24 Labs: Laboratory Results - last 24 hr 04/27/21 04/27/21 04/27/21 11:01 16:16 18:57 WBC RBC Hgb Hct MCV MCH MCHC RDW Plt Count MPV Absolute Nucleated RBC Nucleated RBC % (auto) Sodium Potassium Chloride Carbon Dioxide Anion Gap BUN Creatinine Estim Creat Clear Calc Estimated GFR POC Glucose 113 117 H Random Glucose Calcium Vancomycin Trough 18.5 04/27/21 04/28/21 04/28/21 20:25 04:24 04:24 WBC 14.0 H RBC 2.31 L Hgb 6.3 L* D Hct 21.3 L MCV 92.2 MCH 27.3 MCHC 29.6 L RDW 15.2 Plt Count 308 MPV 9.8 Absolute Nucleated RBC 0.000 Nucleated RBC % (auto) 0.0 Sodium 137 Potassium 4.5 Chloride 109 H Carbon Dioxide 20 L Anion Gap 13 BUN 71 H Creatinine 2.36 H Estim Creat Clear Calc 29.1 Estimated GFR 22 POC Glucose 142 H Random Glucose 129 H D Calcium 7.7 L Vancomycin Trough 04/28/21 07:14 WBC RBC Hgb Hct MCV MCH MCHC RDW Plt Count MPV Absolute Nucleated RBC Nucleated RBC % (auto) Sodium Potassium Chloride Carbon Dioxide Anion Gap BUN Creatinine Estim Creat Clear Calc Estimated GFR POC Glucose 130 H Random Glucose Calcium Vancomycin Trough Microbiology Microbiology Results: Microbiology 04/25/21 00:00 Urine Catheterized - Straight Catheter Urine Culture - Final Proteus mirabilis Escherichia coli 04/26/21 Unknown Decubitus Ulcer Gram Stain - Final 04/26/21 Unknown Decubitus Ulcer Routine Culture - Preliminary 04/26/21 Unknown Decubitus Ulcer Anaerobic Culture - Preliminary No growth to date. 04/25/21 12:27 Blood - Venous Blood Culture - Preliminary No growth after 48 hours. 04/25/21 12:27 Blood - Venous Blood Culture - Preliminary No growth after 48 hours. 04/25/21 10:21 Blood - Venous Blood Culture - Final 04/25/21 10:08 Blood - Venous Blood Culture - Final Procedures Date of Service Date of Service: 04/28/21 Assessment & Plan Assessment and plan (1) Acute kidney injury: Status: Acute Assessment and Plan: 1. 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 Anemia: Fe and epod def with cont dropping Hb 3. AMS: ques related to pain meds; ques bsl 4. Proteinuria: c/w DN; r/o dysproteinemia 5. 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
[2021-04-28 11:05] LABS: Glucose, Whole Blood 107 mg/dL (60-115)
--- NOTE | 2021-04-28 11:31 | MHC.CLN ---
RE: CONSULT PT IS MODERATELY MALNOURISHED PT WITH MILD DEPLETION IN SUBCUTANEOUS FAT AND MUSCLE MASS, 14% NONSIGNIFICANT WT LOSS X 1 YEAR WITH CHRONIC WOUNDS INCREASING NUTRITION NEEDS PREVIOUS WT HX REVEALS UBW 200# (04/07/20) 14% NONSIGNIFICANT WT LOSS X 1 YEAR PO INTAKE VARIABLE DIET RX: 2200DM-APPROPRIATE PT RECEIVING GLUCERNA TID TO INCREASE PO RECOMMEND ADDING RICARDO TO PROMOTE WOUND HEALING SUPPLEMENTS TO PROVIDE 871KCALS, 35G PROTEIN MONITOR PO INTAKE CLOSELY SEE ALSO CLINICAL NUTRITION ASSESSMENT
--- NOTE | 2021-04-28 12:15 | P.PNGS_ITS ---
Subjective Subjective Date of Service: 04/28/21 Interval history: pt depressed does not talk much; answers some questions underwent debridement of buttock ulcers over the weekend with Dr. Louie also has bilateral heel ulcers Physical Exam Vital Signs: Vital Signs: Last Vital Signs Temp 97.6 F 04/28/21 11:19 Pulse 96 04/28/21 11:19 Resp 18 04/28/21 11:19 BP 115/57 L 04/28/21 11:19 Pulse Ox 97 04/28/21 11:19 Body Mass Index 27.8 Const: Other: appears frail and depressed with minimal verbal output PT 17.3 SEC (9.9-13. 0) H 04/25/21 09:31 Resp: Effort & Inspection: normal respiratory effort Cardio: Rate: regular rate GI: Palpation (GI): Soft to palpation, not firm and nontender Skin: Other: bilateral stage IV buttock ulcers, heel ulcers Procedures Date of Service Date of Service: 04/28/21 Progress Note: A&P Assessment and plan (1) Decubitus ulcer: Status: Acute Assessment and Plan: has severe buttock ulcers, stage IV I explained to pt option of diverting colostomy to help with perineal care, and healing of the ulcers this will simplify her care and allow better hygiene she does not wants to proceed at this time I will revisit with her regarding this option dressings had been changed earlier by nurse - continue wound care, alginate dressings push oral intake for nutrition Fall Risk Details Current Medications: Current Medications Generic Name Dose Route Start Last Admin Trade Name Freq PRN Reason Stop Dose Admin Ascorbic Acid 500 mg 04/26/21 09:00 04/28/21 08:47 Ascorbic Acid 500 Mg Tablet PO 500 mg DAILY SYLWIA Administration Bisacodyl 10 mg 04/25/21 16:27 Bisacodyl 10 Mg Supp.Rect [place] DAILY PRN Constipation Diltiazem HCl 60 mg 04/25/21 21:00 04/28/21 08:47 Diltiazem Hcl 60 Mg Tablet PO 60 mg BID SYLWIA Administration Protocol Docusate Sodium 50 mg 04/25/21 16:27 Docusate Sodium 100 Mg/10 Ml Liquid PO BEDTIME PRN Constipation Enoxaparin Sodium 30 mg 04/25/21 18:00 04/27/21 15:46 Enoxaparin Sodium 30 Mg/0.3 Ml Syringe SUBCUT 30 mg Q24H SYLWIA Administration Ferrous Sulfate 324 mg 04/25/21 21:00 04/28/21 08:47 Ferrous Sulfate 324 Mg Tablet.Dr PO 324 mg TID SYLWIA Administration Ceftriaxone Sodium 1 gm/ 50 mls @ 100 mls/hr 04/26/21 08:00 04/27/21 09:42 Sodium Chloride IV Infused Q24H SYLWIA Infusion Promethazine HCl 12.5 mg/ 50.5 mls @ 202 mls/hr 04/26/21 10:10 Sodium Chloride IV ONCE PRN Nausea and Vomiting Dextrose/Lactated Ringer's 1,000 mls @ 80 mls/hr 04/26/21 23:45 04/28/21 11:58 D5lr IVCONT Not Given .[id number] SYLWIA Vancomycin HCl 500 mg/ Sodium 110 mls @ 110 mls/hr 04/27/21 20:00 04/27/21 21:17 Chloride IV Infused Q24H SYLWIA Infusion Insulin Human Lispro 0 unit 04/25/21 16:30 04/28/21 11:11 Insulin Lispro 100 Unit/Ml 3 Ml Vial SUBCUT Not Given QIDACHS [facility] Protocol Lactulose 20 gm 04/25/21 16:27 Lactulose 20 Gm/30 Ml Solution PO BID PRN Constipation Lorazepam 0.5 mg 04/25/21 16:27 04/27/21 15:47 Lorazepam 0.5 Mg Tablet PO 0.5 mg Q6H PRN Administration Anxiety Mirtazapine 30 mg 04/25/21 21:00 04/27/21 21:23 Mirtazapine 30 Mg Tablet PO 30 mg BEDTIME SYLWIA Administration Morphine Sulfate 15 mg 04/25/21 21:00 04/28/21 08:46 Morphine Sulfate Er 15 Mg Tablet.Er PO 15 mg BID SYLWIA Administration Morphine Sulfate 4 mg 04/26/21 08:56 04/27/21 10:59 Morphine Sulfate 2 Mg/Ml Cartridge IVPUSH 4 mg Q4H PRN Administration Pain, Severe (Pain Scale 7-10) Ondansetron HCl 4 mg 04/25/21 16:27 Ondansetron Hcl 4 Mg/2 Ml Vial IVPUSH Q8H PRN Nausea and Vomiting Pharmacy Consult 1 each 04/25/21 11:48 Consult Rx Perform Med Rec MISCELLANE ONCE PRN Consult order Pharmacy Consult 1 each 04/25/21 16:27 Consult Rx Vancomycin Dosing MISCELLANE DAILY PRN Consult order Polyethylene Glycol 17 gm 04/25/21 16:27 Polyethylene Glycol 3350 17 Gm Powd.Pack PO DAILY PRN Constipation Senna 17.2 mg 04/26/21 21:00 04/27/21 21:23 Sennosides 8.6 Mg Tablet PO 17.2 mg BEDTIME SYLWIA Administration Sodium Chloride 3 ml 04/25/21 16:27 04/28/21 07:50 0.9 % Sodium Chloride Flush 3 Ml Syringe IVFLUSH Not Given QSHIFT SYLWIA Sodium Hypochlorite 1 appl 04/25/21 21:00 04/26/21 10:07 Sodium Hypochlorite 0.125% 473 Ml Solution TOPICAL Not Given BID SYLWIA Tamsulosin HCl 0.4 mg 04/26/21 09:00 04/28/21 08:47 Tamsulosin Hcl 0.4 Mg Capsule PO 0.4 mg DAILY SYLWIA Administration Time Spent With Patient Time: Total time spent is greater than 50% in coordination of care (as documented) at patient's floor/unit and/or counseling patient: Time with patient: 15 - 24 minutes Quality Stroke Does the patient have a stroke diagnosis?: No VTE Prior VTE?: No VTE Risk Level:: Medical - moderate - high VTE Device Contraindication: N/A - Device Ordered VTE Drug Contraindication: N/A - Med Ordered
[2021-04-28] MEDS: Morphine Sulfate 2 MG/ML CARTRIDGE 4 MG IVPUSH ×2 (14:42→18:01)
[2021-04-28] MEDS: cefTRIAXone sodium 1 GM in 0.9 % Sodium Chloride 50 ML IV (14:42)
[2021-04-28] MEDS: 0.9 % Sodium Chloride Flush 3 ML SYRINGE IVFLUSH (14:44)
--- NOTE | 2021-04-28 15:07 | MHC.CM.PN ---
per rounds pt will be transfused today no dc
[2021-04-28 16:02] LABS: Glucose, Whole Blood 103 mg/dL (60-115)
--- NOTE | 2021-04-28 16:11 | HO.PM.IMPN ---
Subjective Subjective Date of Service: 04/28/21 Interval History: seen and examined this am, persistent pain frum decub ulcer, H/H lower, no IV access Review of Systems Reports generalized pain Physical Exam Vital Signs: Vital Signs: Last Vital Signs Temp 97.6 F 04/28/21 15:13 Pulse 97 04/28/21 15:13 Resp 20 04/28/21 15:13 BP 109/66 04/28/21 15:13 Pulse Ox 96 04/28/21 15:13 Body Mass Index 27.8 Const: General: alert, awake and anxious Orientation/consciousness: oriented to person, oriented to place and oriented to time Eyes: Pupils: Equal, round and reactive pupils present Chest: Chest palpation & inspection: normal inspection of the chest and normal palpation of entire chest wall Resp: Effort & Inspection: normal respiratory effort, able to speak in complete sentences and no respiratory distress Auscultation: clear to auscultation bilaterally, breath sounds absent and vesicular breath sounds bilateral Cardio: Other: Bilateral lower extremity lymphedema, pedal pulses not palpable Rate: regular rate Rhythm: regular rhythm Heart sounds: S1 normal heart sound present and S2 normal heart sound present Peripheral pulses: Peripheral pulses 2+ throughout GI: Other: Soft, nondistended, nontender Palpation (GI): Soft to palpation and nontender : Other: cheng present draining yellow urine Skin: Other: bilateral stage IV buttock ulcers, heel ulcers General skin exam: dry skin Neuro: General: oriented to person, oriented to place and oriented to time Cranial nerves: Yes CN's II-XII intact bilaterally, Yes Equal, round and reactive pupils present and Yes Bilaterally intact EOM present Psych: Mental Status: mental status grossly normal Affect: Anxious affect present Objective Data Current Medications Generic Name Dose Route Start Last Admin Trade Name Evanq PRN Reason Stop Dose Admin Ascorbic Acid 500 mg 04/26/21 09:00 04/28/21 08:47 Ascorbic Acid 500 Mg Tablet PO 500 mg DAILY SYLWIA Administration Bisacodyl 10 mg 04/25/21 16:27 Bisacodyl 10 Mg Supp.Rect [place] DAILY PRN Constipation Diltiazem HCl 60 mg 04/25/21 21:00 04/28/21 08:47 Diltiazem Hcl 60 Mg Tablet PO 60 mg BID SYLWIA Administration Protocol Docusate Sodium 50 mg 04/25/21 16:27 Docusate Sodium 100 Mg/10 Ml Liquid PO BEDTIME PRN Constipation Enoxaparin Sodium 30 mg 04/25/21 18:00 04/27/21 15:46 Enoxaparin Sodium 30 Mg/0.3 Ml Syringe SUBCUT 30 mg Q24H SYLWIA Administration Ferrous Sulfate 324 mg 04/25/21 21:00 04/28/21 14:43 Ferrous Sulfate 324 Mg Tablet.Dr PO 324 mg TID SYLWIA Administration Ceftriaxone Sodium 1 gm/ 50 mls @ 100 mls/hr 04/26/21 08:00 04/28/21 14:42 Sodium Chloride IV 20 mls/hr Q24H SYLWIA Administration Promethazine HCl 12.5 mg/ 50.5 mls @ 202 mls/hr 04/26/21 10:10 Sodium Chloride IV ONCE PRN Nausea and Vomiting Dextrose/Lactated Ringer's 1,000 mls @ 80 mls/hr 04/26/21 23:45 04/28/21 15:57 D5lr IVCONT Infused .[id number] SYLWIA Infusion Vancomycin HCl 500 mg/ Sodium 110 mls @ 110 mls/hr 04/27/21 20:00 04/27/21 21:17 Chloride IV Infused Q24H SYLWIA Infusion Insulin Human Lispro 0 unit 04/25/21 16:30 04/28/21 16:07 Insulin Lispro 100 Unit/Ml 3 Ml Vial SUBCUT Not Given QIDACHS [facility] Protocol Lactulose 20 gm 04/25/21 16:27 Lactulose 20 Gm/30 Ml Solution PO BID PRN Constipation Lorazepam 0.5 mg 04/25/21 16:27 04/27/21 15:47 Lorazepam 0.5 Mg Tablet PO 0.5 mg Q6H PRN Administration Anxiety Mirtazapine 30 mg 04/25/21 21:00 04/27/21 21:23 Mirtazapine 30 Mg Tablet PO 30 mg BEDTIME SYLWIA Administration Morphine Sulfate 15 mg 04/25/21 21:00 04/28/21 08:46 Morphine Sulfate Er 15 Mg Tablet.Er PO 15 mg BID SYLWIA Administration Morphine Sulfate 4 mg 04/26/21 08:56 04/28/21 14:42 Morphine Sulfate 2 Mg/Ml Cartridge IVPUSH 4 mg Q4H PRN Administration Pain, Severe (Pain Scale 7-10) Ondansetron HCl 4 mg 04/25/21 16:27 Ondansetron Hcl 4 Mg/2 Ml Vial IVPUSH Q8H PRN Nausea and Vomiting Pharmacy Consult 1 each 04/25/21 11:48 Consult Rx Perform Med Rec MISCELLANE ONCE PRN Consult order Pharmacy Consult 1 each 04/25/21 16:27 Consult Rx Vancomycin Dosing MISCELLANE DAILY PRN Consult order Polyethylene Glycol 17 gm 04/25/21 16:27 Polyethylene Glycol 3350 17 Gm Powd.Pack PO DAILY PRN Constipation Senna 17.2 mg 04/26/21 21:00 04/27/21 21:23 Sennosides 8.6 Mg Tablet PO 17.2 mg BEDTIME SYLWIA Administration Sodium Chloride 3 ml 04/25/21 16:27 04/28/21 14:44 0.9 % Sodium Chloride Flush 3 Ml Syringe IVFLUSH 3 ml QSHIFT SYLWIA Administration Sodium Hypochlorite 1 appl 04/25/21 21:00 04/26/21 10:07 Sodium Hypochlorite 0.125% 473 Ml Solution TOPICAL Not Given BID SYLWIA Tamsulosin HCl 0.4 mg 04/26/21 09:00 04/28/21 08:47 Tamsulosin Hcl 0.4 Mg Capsule PO 0.4 mg DAILY SYLWIA Administration Labs CBC & Chem 7: 04/28/21 04:24 04/28/21 04:24 Labs: Laboratory Results - last 24 hr 04/27/21 04/27/21 04/27/21 16:16 18:57 20:25 MCV MCH MCHC RDW Plt Count MPV Absolute Nucleated RBC Nucleated RBC % (auto) Smear Path Review Anion Gap Estim Creat Clear Calc Estimated GFR POC Glucose 117 H 142 H Random Glucose Calcium Vancomycin Trough 18.5 04/28/21 04/28/21 04/28/21 04:24 04:24 07:14 MCV 92.2 MCH 27.3 MCHC 29.6 L RDW 15.2 Plt Count 308 MPV 9.8 Absolute Nucleated RBC 0.000 Nucleated RBC % (auto) 0.0 Smear Path Review SEE NOTE Anion Gap 13 Estim Creat Clear Calc 29.1 Estimated GFR 22 POC Glucose 130 H Random Glucose 129 H D Calcium 7.7 L Vancomycin Trough 04/28/21 04/28/21 10:59 15:58 MCV MCH MCHC RDW Plt Count MPV Absolute Nucleated RBC Nucleated RBC % (auto) Smear Path Review Anion Gap Estim Creat Clear Calc Estimated GFR POC Glucose 107 103 Random Glucose Calcium Vancomycin Trough Microbiology Microbiology Results: Microbiology 04/25/21 00:00 Urine Culture - Final Urine Catheterized - Straight Catheter Proteus mirabilis Escherichia coli 04/26/21 Unknown Gram Stain - Final Decubitus Ulcer Routine Culture - Preliminary Anaerobic Culture - Preliminary No growth to date. 04/25/21 12:27 Blood Culture - Preliminary Blood - Venous No growth after 48 hours. 04/25/21 12:27 Blood Culture - Preliminary Blood - Venous No growth after 48 hours. Assessment and Plan (1) Sepsis: Status: Acute Assessment and Plan: 55-year-old female with history of vulvar cancer status post chemo radiation, chronic lymphadenopathy currently bedbound, hypertension, diabetes anxiety, depression, chronic decubitus ulcers of buttocks and bilateral heels sent from [facility] for altered mental status found to have sepsis and LEIGH Sepsis.poa leukocytosis trening down slowly related to underlying buttock/heel wounds; possible UTI -continue IV ceftriaxone, vancomycin -Blood cultures negative to date -ID to coment on Abx Chronic wounds to buttock and bilateral heels. poa Osteomyelitis confirmed by outpatient MRI s/p debridement of wounds 04/26 -surgery following -ID consult -continue IV ceftriazone, vanco (started on 04/25) -airloss bed, frequent repositioning -pain control. continue home ms taylor, will continue morphine for severe pain -continue local wound care -pt declined arterial dopplers -follow wound culture Possible UTI chronic cheng -UCx growing gram neg rods, follow final sensitivities -continue iv ceftriaxone LEIGH Metabolic acidosis SCr trending down slightly to 2.38 (no baseline labs since 03/2020) -Continue IVF -nephrology consult -follow renal function Anemia s/p 1Unit rbc on 04/26, H/H is lower, will offer 1 more unit of transfusion Mood, seems depressed -care team consult -continue ativan, remeron Metabolic encephalopathy Resolved, seems at baseline In the setting of sepsis, LEIGH -treat underlying infection, renal insufficiency DM -Lantus on hold -SSI, POCs -ada diet HTN -continue diltiazem protein calorie malnutrition albumin 2.0 -formal nutrition consult -will add supplements dvt ppx - lovenox code status - MOLST form in chart- full code Attending-Dr. Mccloud Dispo - to return to [facility] when medically ready Quality Stroke Does the patient have a stroke diagnosis?: No VTE Prior VTE?: No VTE Risk Level:: Medical - moderate - high VTE Device Contraindication: N/A - Device Ordered VTE Drug Contraindication: N/A - Med Ordered
[2021-04-28] MEDS: Enoxaparin Sodium 30 MG/0.3 ML SYRINGE SUBCUT (18:01)
--- NOTE | 2021-04-28 18:03 | HO.MIDLINE ---
PICC Line Insertion MIDLINE INSERTION Diagnosis: [Decubitus ulcer] Indication: [IV antibx/blood draws] Pertinent Labs: [Reviewed] Technique: Using sterile technique including cap and mask,gloves and drape. The RIGHT arm was prepped with a sterile drape with a full barrier technique with CHG. Using Ultrasound guidance, Right Basilic vein was accessed on the second attemp by Indiana Adams RN. A SINGLE LUMEN NON-PASV ([id number]) midline was placed. The procedure was performed in Ultrasound IR rm. Ultrasound was used to document vein patency and for needle entry, where a picture was recorded. V[employer] Welding [employer] has released the line for use, and it is currently dressed with Statlock,Tegaderm, and CHG Disc. Checked for patency which was performed by blood return and flushed with Normal Saline. [place] FOR VENOUS FLUSHING ORDERS AT 1754. Arm Circumference: [24CM] Equipment: [[employer] POWERGLIDE PRO MIDLINE] Catheter Type: SINGLE LUMEN,NON-PASV ([id number] Lot #: [[id number]]
[2021-04-28 20:09] LABS: Glucose, Whole Blood 108 mg/dL (60-115)
[2021-04-28] MEDS: Mirtazapine 30 MG TABLET PO (21:39)
[2021-04-28] MEDS: Sennosides 8.6 MG TABLET 17.2 MG PO (21:39)
--- NOTE | 2021-04-28 21:39 | P.CNID_ITS ---
History of Present Illness Data of Consult Service Date: 04/28/21 Requesting physician: Monty Mccloud Primary Care Provider: Mora Denton MD HPI Reason for consult: decubiti sacral ulcers She presents to hospital with lethargy and found to have decubiti sacral ulcers She has CT scan shows area of cellulitis extending to periosteum She has no fever or chills Review of Systems Review of Systems: Yes Unobtainable due to mental condition PMFSH Past Medical History Medical History Anemia Anxiety Chronic pain Depression Diabetes mellitus type 2 in nonobese History of cancer of vulva Hypertension Lymphedema Metabolic acidosis PAD (peripheral artery disease) PVD (peripheral vascular disease) Soft tissue radionecrosis Functional capacity: bed bound Family History Family History Father Colon cancer Hypertension Prostate cancer Mother Diabetes Hypertension Family/Other FH: mental illness Family history: reviewed and not pertinent Surgical History Surgical History (Updated 06/03/21 @ 11:53 by Mike Knott MD) History of total abdominal hysterectomy and bilateral salpingo-oophorectomy S/P recurrent ventral herniorrhaphy Status post colostomy Social History Social History Household Members: None Housing: Care Home Do you presently have visiting nurse or other home services: No Alcohol intake: never Patient Tobacco Use Status: Never used Tobacco Second Hand Smoke Exposure: No service: No Current occupational status: unemployed Meds Allergies Allergy/AdvReac Type Severity Reaction Status Date / Time acetaminophen [Percocet] Allergy Unknown rash Verified 05/29/21 16:21 morphine [MORPHINE] Allergy Unknown RASH Verified 05/29/21 16:21 oxycodone [From PERCOCET] Allergy Unknown ITCHY RASH Verified 05/29/21 16:21 Penicillins [PENICILLINS] Allergy Unknown RASH Verified 05/29/21 16:21 Active Medications: Current Medications Generic Name Dose Route Start Last Admin Trade Name Freq PRN Reason Stop Dose Admin Ascorbic Acid 500 mg 04/26/21 09:00 04/28/21 08:47 Ascorbic Acid 500 Mg Tablet PO 500 mg DAILY SYLWIA Administration Bisacodyl 10 mg 04/25/21 16:27 Bisacodyl 10 Mg Supp.Rect [place] DAILY PRN Constipation Diltiazem HCl 60 mg 04/25/21 21:00 04/28/21 08:47 Diltiazem Hcl 60 Mg Tablet PO 60 mg BID SYLWIA Administration Protocol Docusate Sodium 50 mg 04/25/21 16:27 Docusate Sodium 100 Mg/10 Ml Liquid PO BEDTIME PRN Constipation Enoxaparin Sodium 30 mg 04/25/21 18:00 04/28/21 18:01 Enoxaparin Sodium 30 Mg/0.3 Ml Syringe SUBCUT 30 mg Q24H SYLWIA Administration Ferrous Sulfate 324 mg 04/25/21 21:00 04/28/21 14:43 Ferrous Sulfate 324 Mg Tablet.Dr PO 324 mg TID SYLWIA Administration Ceftriaxone Sodium 1 gm/ 50 mls @ 100 mls/hr 04/26/21 08:00 04/28/21 17:26 Sodium Chloride IV Infused Q24H SYLWIA Infusion Promethazine HCl 12.5 mg/ 50.5 mls @ 202 mls/hr 04/26/21 10:10 Sodium Chloride IV ONCE PRN Nausea and Vomiting Dextrose/Lactated Ringer's 1,000 mls @ 80 mls/hr 04/26/21 23:45 04/28/21 15:57 D5lr IVCONT Infused .[id number] SYLWIA Infusion Vancomycin HCl 500 mg/ Sodium 110 mls @ 110 mls/hr 04/27/21 20:00 04/27/21 21:17 Chloride IV Infused Q24H SYLWIA Infusion Insulin Human Lispro 0 unit 04/25/21 16:30 04/28/21 16:07 Insulin Lispro 100 Unit/Ml 3 Ml Vial SUBCUT Not Given QIDACHS [facility] Protocol Lactulose 20 gm 04/25/21 16:27 Lactulose 20 Gm/30 Ml Solution PO BID PRN Constipation Lorazepam 0.5 mg 04/25/21 16:27 04/27/21 15:47 Lorazepam 0.5 Mg Tablet PO 0.5 mg Q6H PRN Administration Anxiety Mirtazapine 30 mg 04/25/21 21:00 04/27/21 21:23 Mirtazapine 30 Mg Tablet PO 30 mg BEDTIME SYLWIA Administration Morphine Sulfate 15 mg 04/25/21 21:00 04/28/21 08:46 Morphine Sulfate Er 15 Mg Tablet.Er PO 15 mg BID SYLWIA Administration Morphine Sulfate 4 mg 04/26/21 08:56 04/28/21 18:01 Morphine Sulfate 2 Mg/Ml Cartridge IVPUSH 4 mg Q4H PRN Administration Pain, Severe (Pain Scale 7-10) Ondansetron HCl 4 mg 04/25/21 16:27 Ondansetron Hcl 4 Mg/2 Ml Vial IVPUSH Q8H PRN Nausea and Vomiting Pharmacy Consult 1 each 04/25/21 11:48 Consult Rx Perform Med Rec MISCELLANE ONCE PRN Consult order Pharmacy Consult 1 each 04/25/21 16:27 Consult Rx Vancomycin Dosing MISCELLANE DAILY PRN Consult order Polyethylene Glycol 17 gm 04/25/21 16:27 Polyethylene Glycol 3350 17 Gm Powd.Pack PO DAILY PRN Constipation Senna 17.2 mg 04/26/21 21:00 04/27/21 21:23 Sennosides 8.6 Mg Tablet PO 17.2 mg BEDTIME SYLWIA Administration Sodium Chloride 3 ml 04/25/21 16:27 04/28/21 14:44 0.9 % Sodium Chloride Flush 3 Ml Syringe IVFLUSH 3 ml QSHIFT SYLWIA Administration Sodium Hypochlorite 1 appl 04/25/21 21:00 04/26/21 10:07 Sodium Hypochlorite 0.125% 473 Ml Solution TOPICAL Not Given BID SYLWIA Tamsulosin HCl 0.4 mg 04/26/21 09:00 04/28/21 08:47 Tamsulosin Hcl 0.4 Mg Capsule PO 0.4 mg DAILY SYLWIA Administration Home Medications Medication Instructions Recorded Confirmed Last Taken Type acetaminophen 325 mg tablet 650 mg PO Q6H PRN 04/25/21 04/25/21 Unknown History ammonium lactate 12 % topical cream 1 appl TOPICAL BID 04/25/21 04/25/21 Unknown History ascorbic acid (vitamin C) 500 mg 500 mg PO DAILY 04/25/21 04/25/21 Unknown History tablet bisacodyl 10 mg rectal suppository 10 mg [place] DAILY PRN 04/25/21 04/25/21 Unknown History diltiazem HCl 60 mg tablet 60 mg PO BID 04/25/21 04/25/21 Unknown History docusate sodium 50 mg capsule 50 mg PO BEDTIME PRN 04/25/21 04/25/21 Unknown History ferrous sulfate 325 mg (65 mg 325 mg PO TID 04/25/21 04/25/21 Unknown History iron) tablet lactulose 10 gram/15 mL oral 20 g PO BID PRN 04/25/21 04/25/21 Unknown History solution magnesium citrate (Citrate of 150 ml PO DAILY PRN 04/25/21 04/25/21 Unknown History Magnesia) mirtazapine 30 mg tablet 30 mg PO BEDTIME 04/25/21 04/25/21 Unknown History polyethylene glycol 3350 17 gram 17 g PO DAILY PRN 04/25/21 04/25/21 Unknown History oral powder packet (Miralax) sennosides 8.6 mg tablet (senna) 17.2 mg PO BEDTIME PRN 04/25/21 04/25/21 Unknown History sodium hypochlorite 0.125 % 1 appl TOPICAL DAILY 04/25/21 04/25/21 Unknown History solution (Dakin's Solution) tamsulosin 0.4 mg capsule (Flomax) 0.4 mg PO DAILY 04/25/21 04/25/21 Unknown History Physical Exam Vital Signs: Vital Signs: Last Vital Signs Temp 97.6 F 04/28/21 19: Pulse 100 04/28/21 19:21 Resp 20 04/28/21 19:21 BP 120/68 04/28/21 19:21 Pulse Ox 98 04/28/21 19:21 Body Mass Index 27.8 Const: General: cooperative HENMT: Head: Yes normal to inspection Mouth: Normal oral and palatal mucosa present Resp: Effort & Inspection: normal respiratory effort Cardio: Rate: regular rate Rhythm: regular rhythm GI: Palpation (GI): Soft to palpation and nontender Back/Spine/Pelvis: Other: sacral decubiti Results Labs CBC & Chem 7: 05/06/21 07:57 05/08/21 08:20 Labs: Short CBC 04/28/21 Range/Units 04:24 WBC 14.0 H (4.8-10.8) X10*3/uL Hgb 6.3 L* D (12.0-16.0) g/dl Hct 21.3 L (37-47) % Plt Count 308 (160-400) X10*3/uL BMP 04/28/21 04:24 Sodium 137 Potassium 4.5 Chloride 109 H Carbon Dioxide 20 L BUN 71 H Creatinine 2.36 H Calcium 7.7 L Microbiology Microbiology Results: Microbiology 04/25/21 00:00 Urine Catheterized - Straight Catheter Urine Culture - Final Proteus mirabilis Escherichia coli 04/26/21 Unknown Decubitus Ulcer Gram Stain - Final 04/26/21 Unknown Decubitus Ulcer Routine Culture - Preliminary 04/26/21 Unknown Decubitus Ulcer Anaerobic Culture - Preliminary No growth to date. 04/25/21 12:27 Blood - Venous Blood Culture - Preliminary No growth after 48 hours. 04/25/21 12:27 Blood - Venous Blood Culture - Preliminary No growth after 48 hours. 04/25/21 10:21 Blood - Venous Blood Culture - Final 04/25/21 10:08 Blood - Venous Blood Culture - Final Assessment and Plan (1) Sepsis: Status: Resolved (2) Decubitus ulcer: Qualifiers: Pressure injury location: sacral region Pressure injury stage: unstageable Qualified Code(s): L89.150 - Pressure ulcer of sacral region, unstageable Status: Acute She has concern over developing osteomyelitis There are multiple organisms concern Suggest IV Ertapenem for 6 weeks unless MRSA shown Debridement per Surgery (3) Wet gangrene: Status: Acute
[2021-04-28] MEDS: vancomycin HCL 500 MG in 0.9 % Sodium Chloride 100 ML 110 MG IV (21:40)
[2021-04-29] VITALS (7 sets, daily range): BP systolic 125–139; BP diastolic 63–79; PULSE 82–88; RESP 18–20; TEMP 35.9–37.1; O2SAT 96–100
[2021-04-29] MEDS: Dextrose 5 % and Lactated Ring 1,000 ML 80 ML IVCONT ×2 (02:00→16:28)
[2021-04-29] MEDS: Morphine Sulfate 2 MG/ML CARTRIDGE 4 MG IVPUSH ×4 (05:26→23:34)
[2021-04-29 07:41] LABS: Glucose, Whole Blood 106 mg/dL (60-115)
[2021-04-29] MEDS: Tamsulosin HCL 0.4 MG CAPSULE PO (08:00)
[2021-04-29] MEDS: cefTRIAXone sodium 1 GM in 0.9 % Sodium Chloride 50 ML IV (08:00)
[2021-04-29] MEDS: dilTIAZem HCL 60 MG TABLET PO ×2 (08:00→22:04)
[2021-04-29] MEDS: Ascorbic Acid 500 MG TABLET PO (08:00)
[2021-04-29] MEDS: Morphine Sulfate ER 15 MG TABLET.ER PO ×2 (08:00→22:03)
[2021-04-29] MEDS: Ferrous Sulfate 324 MG TABLET.DR PO ×3 (08:00→22:04)
[2021-04-29 08:45] LABS: Hematocrit 23.6 % (37-47); Hemoglobin 7.1 g/dl (12.0-16.0); Mean Corpuscular HGB Conc 30.1 g/dl (31.0-35.0); Mean Corpuscular Hemoglobin 27.5 pg (27.0-33.0); Mean Corpuscular Volume 91.5 fL (80-98); Mean Platelet Volume 9.5 fL (9.4-12.3); Platelet Count 301 X10*3/uL (160-400); Red Blood Count 2.58 X10*6/uL (4.20-5.50); Red Cell Distribution Width 15.2 % (11.0-16.0); White Blood Count 15.5 X10*3/uL (4.8-10.8)
[2021-04-29 10:54] LABS: Glucose, Whole Blood 135 mg/dL (60-115)
--- NOTE | 2021-04-29 12:44 | HO.PM.IMPN ---
Subjective Subjective Date of Service: 04/29/21 Interval History: seen and examined this am, persistent pain frum decub ulcer, seem more comfortable today Review of Systems Reports generalized pain Constitutional Constitutional: Reports as per HPI, Denies chills and Denies fever(s) ENT Ears, Nose, Mouth, and Throat: Reports system reviewed and no additional complaints, except as documented Cardiovascular Cardiovascular: Denies Abdominal Distension, Denies chest pain, Denies chest pain at rest, Denies chest pain with activity and Denies dyspnea Respiratory Respiratory: Denies chest congestion, Denies cough, Denies dyspnea and Denies wheezing Gastrointestinal Gastrointestinal: Reports no additional gastrointestinal complaints, Denies abdominal pain, Denies nausea and Denies vomiting Musculoskeletal Musculoskeletal: Denies abnormal gait Integumentary/Breasts Skin/Breast: Reports pruritus and Denies wounds Neurologic Neurologic: Reports system reviewed and no additional complaints, except as documented and Denies abnormal gait Psychiatric Psychiatric: Denies no additional psychiatric complaints and Reports anxiety Hematologic/Lymphatic Hematologic/Lymphatic: Reports lymphadenopathy (Prior history and large flaquito aortic and pelvic lymph nodes) Allergic/Immunologic Allergic/Immunologic: Denies wheezing Physical Exam Vital Signs: Vital Signs: Last Vital Signs Temp 97.4 F 04/29/21 07:25 Pulse 88 04/29/21 08:00 Resp 20 04/29/21 07:25 BP 125/63 04/29/21 08:00 Pulse Ox 96 04/29/21 10:00 Body Mass Index 27.8 Const: General: alert, awake and anxious Orientation/consciousness: oriented to person, oriented to place and oriented to time Eyes: Pupils: Equal, round and reactive pupils present Chest: Chest palpation & inspection: normal inspection of the chest and normal palpation of entire chest wall Resp: Effort & Inspection: normal respiratory effort, able to speak in complete sentences and no respiratory distress Auscultation: clear to auscultation bilaterally, breath sounds absent and vesicular breath sounds bilateral Cardio: Other: Bilateral lower extremity lymphedema, pedal pulses not palpable Rate: regular rate Rhythm: regular rhythm Heart sounds: S1 normal heart sound present and S2 normal heart sound present Peripheral pulses: Peripheral pulses 2+ throughout GI: Other: Soft, nondistended, nontender Palpation (GI): Soft to palpation and nontender : Other: cheng present draining yellow urine Skin: Other: bilateral stage IV buttock ulcers, heel ulcers General skin exam: dry skin Neuro: General: oriented to person, oriented to place and oriented to time Cranial nerves: Yes CN's II-XII intact bilaterally, Yes Equal, round and reactive pupils present and Yes Bilaterally intact EOM present Psych: Mental Status: mental status grossly normal Affect: Anxious affect present Objective Data Current Medications Generic Name Dose Route Start Last Admin Trade Name Freq PRN Reason Stop Dose Admin Ascorbic Acid 500 mg 04/26/21 09:00 04/29/21 08:00 Ascorbic Acid 500 Mg Tablet PO 500 mg DAILY SYLWIA Administration Bisacodyl 10 mg 04/25/21 16:27 Bisacodyl 10 Mg Supp.Rect NV DAILY PRN Constipation Diltiazem HCl 60 mg 04/25/21 21:00 04/29/21 08:00 Diltiazem Hcl 60 Mg Tablet PO 60 mg BID SYLWIA Administration Protocol Docusate Sodium 50 mg 04/25/21 16:27 Docusate Sodium 100 Mg/10 Ml Liquid PO BEDTIME PRN Constipation Enoxaparin Sodium 30 mg 04/25/21 18:00 04/28/21 18:01 Enoxaparin Sodium 30 Mg/0.3 Ml Syringe SUBCUT 30 mg Q24H SYLWIA Administration Ferrous Sulfate 324 mg 04/25/21 21:00 04/29/21 08:00 Ferrous Sulfate 324 Mg Tablet.Dr PO 324 mg TID SYLWIA Administration Ceftriaxone Sodium 1 gm/ 50 mls @ 100 mls/hr 04/26/21 08:00 04/29/21 09:19 Sodium Chloride IV Infused Q24H SYLWIA Infusion Promethazine HCl 12.5 mg/ 50.5 mls @ 202 mls/hr 04/26/21 10:10 Sodium Chloride IV ONCE PRN Nausea and Vomiting Dextrose/Lactated Ringer's 1,000 mls @ 80 mls/hr 04/26/21 23:45 04/29/21 02:00 D5lr IVCONT 80 mls/hr .[id number] SYLWIA Administration Vancomycin HCl 500 mg/ Sodium 110 mls @ 110 mls/hr 04/27/21 20:00 04/28/21 22:48 Chloride IV Infused Q24H SYLWIA Infusion Insulin Human Lispro 0 unit 04/25/21 16:30 04/29/21 11:02 Insulin Lispro 100 Unit/Ml 3 Ml Vial SUBCUT Not Given QIDACHS SYLWIA Protocol Lactulose 20 gm 04/25/21 16:27 Lactulose 20 Gm/30 Ml Solution PO BID PRN Constipation Lorazepam 0.5 mg 04/25/21 16:27 04/27/21 15:47 Lorazepam 0.5 Mg Tablet PO 0.5 mg Q6H PRN Administration Anxiety Mirtazapine 30 mg 04/25/21 21:00 04/28/21 21:39 Mirtazapine 30 Mg Tablet PO 30 mg BEDTIME SYLWIA Administration Morphine Sulfate 15 mg 04/25/21 21:00 04/29/21 08:00 Morphine Sulfate Er 15 Mg Tablet.Er PO 15 mg BID YSLWIA Administration Morphine Sulfate 4 mg 04/26/21 08:56 04/29/21 10:20 Morphine Sulfate 2 Mg/Ml Cartridge IVPUSH 4 mg Q4H PRN Administration Pain, Severe (Pain Scale 7-10) Ondansetron HCl 4 mg 04/25/21 16:27 04/28/21 22:10 Ondansetron Hcl 4 Mg/2 Ml Vial IVPUSH 4 mg Q8H PRN Administration Nausea and Vomiting Pharmacy Consult 1 each 04/25/21 11:48 Consult Rx Perform Med Rec MISCELLANE ONCE PRN Consult order Pharmacy Consult 1 each 04/25/21 16:27 Consult Rx Vancomycin Dosing MISCELLANE DAILY PRN Consult order Polyethylene Glycol 17 gm 04/25/21 16:27 Polyethylene Glycol 3350 17 Gm Powd.Pack PO DAILY PRN Constipation Senna 17.2 mg 04/26/21 21:00 04/28/21 21:39 Sennosides 8.6 Mg Tablet PO 17.2 mg BEDTIME SYLWIA Administration Sodium Chloride 3 ml 04/25/21 16:27 04/29/21 07:51 0.9 % Sodium Chloride Flush 3 Ml Syringe IVFLUSH Not Given QSHIFT SYLWIA Sodium Hypochlorite 1 appl 04/25/21 21:00 04/26/21 10:07 Sodium Hypochlorite 0.125% 473 Ml Solution TOPICAL Not Given BID SYLWIA Tamsulosin HCl 0.4 mg 04/26/21 09:00 04/29/21 08:00 Tamsulosin Hcl 0.4 Mg Capsule PO 0.4 mg DAILY SYLWIA Administration Labs CBC & Chem 7: 04/29/21 08:21 04/28/21 04:24 Labs: Laboratory Results - last 24 hr 04/28/21 04/28/21 04/29/21 15:58 20:07 07:36 MCV MCH MCHC RDW Plt Count MPV Absolute Nucleated RBC Nucleated RBC % (auto) POC Glucose 103 108 106 Blood Type Antibody Screen 04/29/21 04/29/21 04/29/21 08:21 08:21 10:48 MCV 91.5 MCH 27.5 MCHC 30.1 L RDW 15.2 Plt Count 301 MPV 9.5 Absolute Nucleated RBC 0.000 Nucleated RBC % (auto) 0.0 POC Glucose 135 H Blood Type O Positive Antibody Screen NEGATIVE Microbiology Microbiology Results: Microbiology 04/26/21 Unknown Gram Stain - Final Decubitus Ulcer Routine Culture - Preliminary Culture in progress. Anaerobic Culture - Preliminary No growth to date. 04/25/21 00:00 Urine Culture - Final Urine Catheterized - Straight Catheter Proteus mirabilis Escherichia coli Assessment and Plan (1) Decubitus ulcer: Status: Acute (2) Sepsis: Status: Acute Assessment and Plan: 55-year-old female with history of vulvar cancer status post chemo radiation, chronic lymphadenopathy currently bedbound, hypertension, diabetes anxiety, depression, chronic decubitus ulcers of buttocks and bilateral heels sent from [facility] for altered mental status found to have sepsis and LEIGH Sepsis.poa leukocytosis trening down slowly related to underlying buttock/heel wounds; possible UTI -continue IV ceftriaxone, vancomycin..ID recommend Ertapenem at discharge -Blood cultures negative to date -ID to coment on Abx Chronic wounds to buttock and bilateral heels. poa Osteomyelitis confirmed by outpatient MRI s/p debridement of wounds 04/26 -surgery following -ID consult -continue IV ceftriazone, vanco (started on 04/25) -airloss bed, frequent repositioning -pain control. continue home ms caludia, will continue morphine for severe pain -continue local wound care -pt declined arterial dopplers -follow wound culture Possible UTI chronic cheng -UCx growing Klebsiela and Proteus LEIGH on CDK stable Metabolic acidosis SCr trending down slightly to 2.38 (no baseline labs since 03/2020) -Continue IVF -nephrology following -follow renal function Anemia s/p 1Unit rbc on 04/26, H/H is better today, hold transfusion Mood, seems depressed -care team consult -continue ativan, remeron Metabolic encephalopathy d/t sepsis Resolved, seems at baseline DM -Lantus on hold -SSI, POCs -ada diet HTN -continue diltiazem protein calorie malnutrition albumin 2.0 -formal nutrition consult -will add supplements dvt ppx - lovenox code status - MOLST form in chart- full code Dispo - to return to [facility] when medically ready Quality Stroke Does the patient have a stroke diagnosis?: No VTE Prior VTE?: No VTE Risk Level:: Medical - moderate - high VTE Device Contraindication: N/A - Device Ordered VTE Drug Contraindication: N/A - Med Ordered
--- NOTE | 2021-04-29 13:08 | CONS_ITS ---
DATE OF SERVICE: 04/27/2021 HISTORY OF PRESENT ILLNESS: I was asked to assist in the management of this 55-year-old patient who was admitted with altered mental status, noted to have elevated serum creatinine. The patient has a history of vulvar cancer, status post total abdominal hysterectomy and is currently bed bound with chronic decubitus ulcers. Recently had an MRI, which showed evidence for osteomyelitis. At the time of the consultation, she is confused, unable to give any appropriate history, although she denies any chest pain, shortness of breath. Denies nausea, vomiting, diarrhea of pain. The patient noted to have a low blood pressure with systolic blood pressure down to the high 90s and low 100. She had a CT scan of the abdomen that did not show any obstruction in the kidney. The patient also noted to have elevated white count and was tachycardic in the emergency room. PAST MEDICAL HISTORY: Remarkable for proteinuria, diabetes mellitus, hypertension, vulvar cancer, lymphedema, peripheral vascular disease, anxiety, anemia. PAST SURGICAL HISTORY: Notable for hysterectomy. MEDICATIONS: As an outpatient reviewed, included diltiazem, iron sulfate, insulin, lorazepam, mirtazapine, , tamsulosin. ALLERGIES: SHE IS ALLERGIC TO ACETAMINOPHEN, MORPHINE, OXYCODONE, PENICILLIN. SOCIAL HISTORY: Does not smoke. FAMILY HISTORY: Negative for kidney disease. REVIEW OF SYSTEMS: 10-point review of systems negative except for pertinent in the History of Present Illness. PHYSICAL EXAMINATION: VITAL SIGNS: The blood pressure is 116/58, heart rate 94, respiratory rate of 20, afebrile. CONSTITUTIONAL: Looks her stated age, in no acute distress. NEUROLOGIC: Alert and awake. HEAD: Atraumatic and normocephalic. NECK: Supple. LUNGS: Decreased breath sounds. CARDIOVASCULAR: S1 and S2. No rub. ABDOMEN: Soft, nontender. EXTREMITIES: No peripheral edema. LABORATORY DATA: Labs showed a white count 18.6, hemoglobin 7.9, platelet count is 370. Sodium 136, potassium 4.7, chloride 109, CO2 19, BUN 73, creatinine 2.38. Urinalysis with a pH of 8.5, 30 to 49 wbc's, 0 to 2 rbc's. IMPRESSION: 1. Acute kidney injury. 2. Metabolic acidosis. 3. Anemia. This is a patient who presented with acute kidney injury, most likely due to an acute tubular injury in the setting of underlying infection. Her urine sediment does not show hematuria, and she is less likely to have infectious nephritis. The CT scan of the abdomen was negative for obstruction, and she currently has a Toth catheter. The patient has probably underlying chronic kidney disease as she had microscopic heavy proteins in the range of 1 g previously, probably due to diabetic and hypertensive kidney disease. My recommendation would be to check a urinalysis and urine sodium. I will continue with IV fluid, and I would check a random vancomycin level. We will continue to follow closely her kidney function and electrolytes along with the medical team. Thank you for allowing me to participate in the care of your patient. MD ERIK Mendez/MODL / [id number]
[2021-04-29 16:20] LABS: Glucose, Whole Blood 135 mg/dL (60-115)
--- NOTE | 2021-04-29 17:21 | PM.PNGS ---
Subjective Subjective Date of Service: 04/29/21 Interval history: c/o pain on buttock ulcers seems more alert today no events reported Physical Exam Vital Signs: Vital Signs: Last Vital Signs Temp 98.7 F 04/29/21 15:20 Pulse 83 04/29/21 15:20 Resp 19 04/29/21 15:20 BP 139/79 04/29/21 15:20 Pulse Ox 100 04/29/21 15:20 Body Mass Index 27.8 Const: Other: very frail looking Resp: Effort & Inspection: normal respiratory effort GI: Inspection: No distended Palpation (GI): Soft to palpation Back/Spine/Pelvis: Other: large open ulcers both buttocks down to bone, some drainage Procedures Date of Service Date of Service: 04/29/21 Progress Note: A&P Assessment and plan (1) Decubitus ulcer: Status: Acute Assessment and Plan: dressings changed by nurse earlier today continue silver algninate pt says she does not want diverting stoma which will help with wound care/perineal hygiene change position every 2 hours Fall Risk Details Current Medications: Current Medications Generic Name Dose Route Start Last Admin Trade Name Freq PRN Reason Stop Dose Admin Ascorbic Acid 500 mg 04/26/21 09:00 04/29/21 08:00 Ascorbic Acid 500 Mg Tablet PO 500 mg DAILY SYLWIA Administration Bisacodyl 10 mg 04/25/21 16:27 Bisacodyl [address] DAILY PRN Constipation Diltiazem HCl 60 mg 04/25/21 21:00 04/29/21 08:00 Diltiazem Hcl 60 Mg Tablet PO 60 mg BID SYLWIA Administration Protocol Docusate Sodium 50 mg 04/25/21 16:27 Docusate Sodium 100 Mg/10 Ml Liquid PO BEDTIME PRN Constipation Enoxaparin Sodium 30 mg 04/25/21 18:00 04/28/21 18:01 Enoxaparin Sodium 30 Mg/0.3 Ml Syringe SUBCUT 30 mg Q24H SYLWIA Administration Ferrous Sulfate 324 mg 04/25/21 21:00 04/29/21 16:27 Ferrous Sulfate 324 Mg Tablet.Dr PO 324 mg TID SYLWIA Administration Promethazine HCl 12.5 mg/ 50.5 mls @ 202 mls/hr 04/26/21 10:10 Sodium Chloride IV ONCE PRN Nausea and Vomiting Dextrose/Lactated Ringer's 1,000 mls @ 80 mls/hr 04/26/21 23:45 04/29/21 16:28 D5lr IVCONT 80 mls/hr .[id number] SYLWIA Administration Insulin Human Lispro 0 unit 04/25/21 16:30 04/29/21 16:27 Insulin Lispro 100 Unit/Ml 3 Ml Vial SUBCUT Not Given QIDACHS [facility] Protocol Lactulose 20 gm 04/25/21 16:27 Lactulose 20 Gm/30 Ml Solution PO BID PRN Constipation Lorazepam 0.5 mg 04/25/21 16:27 04/27/21 15:47 Lorazepam 0.5 Mg Tablet PO 0.5 mg Q6H PRN Administration Anxiety Mirtazapine 30 mg 04/25/21 21:00 04/28/21 21:39 Mirtazapine 30 Mg Tablet PO 30 mg BEDTIME SYLWIA Administration Morphine Sulfate 15 mg 04/25/21 21:00 04/29/21 08:00 Morphine Sulfate Er 15 Mg Tablet.Er PO 15 mg BID SYLWIA Administration Morphine Sulfate 4 mg 04/26/21 08:56 04/29/21 16:27 Morphine Sulfate 2 Mg/Ml Cartridge IVPUSH 4 mg Q4H PRN Administration Pain, Severe (Pain Scale 7-10) Ondansetron HCl 4 mg 04/25/21 16:27 04/29/21 12:58 Ondansetron Hcl 4 Mg/2 Ml Vial IVPUSH 4 mg Q8H PRN Administration Nausea and Vomiting Pharmacy Consult 1 each 04/25/21 11:48 Consult Rx Perform Med Rec MISCELLANE ONCE PRN Consult order Pharmacy Consult 1 each 04/25/21 16:27 Consult Rx Vancomycin Dosing MISCELLANE DAILY PRN Consult order Polyethylene Glycol 17 gm 04/25/21 16:27 Polyethylene Glycol 3350 17 Gm Powd.Pack PO DAILY PRN Constipation Senna 17.2 mg 04/26/21 21:00 04/28/21 21:39 Sennosides 8.6 Mg Tablet PO 17.2 mg BEDTIME SYLWIA Administration Sodium Chloride 3 ml 04/25/21 16:27 04/29/21 15:12 0.9 % Sodium Chloride Flush 3 Ml Syringe IVFLUSH Not Given QSHIFT SYLWIA Sodium Hypochlorite 1 appl 04/25/21 21:00 04/26/21 10:07 Sodium Hypochlorite 0.125% 473 Ml Solution TOPICAL Not Given BID SYLWIA Tamsulosin HCl 0.4 mg 04/26/21 09:00 04/29/21 08:00 Tamsulosin Hcl 0.4 Mg Capsule PO 0.4 mg DAILY SYLWIA Administration Time Spent With Patient Time: Total time spent is greater than 50% in coordination of care (as documented) at patient's floor/unit and/or counseling patient: Time with patient: 15 - 24 minutes Quality Stroke Does the patient have a stroke diagnosis?: No VTE Prior VTE?: No VTE Risk Level:: Medical - moderate - high VTE Device Contraindication: N/A - Device Ordered VTE Drug Contraindication: N/A - Med Ordered
[2021-04-29 20:41] LABS: Glucose, Whole Blood 152 mg/dL (60-115)
[2021-04-29] MEDS: Sennosides 8.6 MG TABLET 17.2 MG PO (22:04)
[2021-04-29] MEDS: Mirtazapine 30 MG TABLET PO (22:04)
[2021-04-30] VITALS (10 sets, daily range): BP systolic 109–146; BP diastolic 59–72; PULSE 79–101; RESP 16–19; TEMP 35.8–37; O2SAT 94–100
[2021-04-30 07:19] LABS: Glucose, Whole Blood 121 mg/dL (60-115)
[2021-04-30] MEDS: dilTIAZem HCL 60 MG TABLET PO ×2 (09:08→21:43)
[2021-04-30] MEDS: Morphine Sulfate ER 15 MG TABLET.ER PO (09:09)
[2021-04-30] MEDS: Ascorbic Acid 500 MG TABLET PO (09:09)
[2021-04-30] MEDS: Tamsulosin HCL 0.4 MG CAPSULE PO (09:09)
[2021-04-30] MEDS: Ferrous Sulfate 324 MG TABLET.DR PO ×3 (09:10→21:42)
[2021-04-30] MEDS: 0.9 % Sodium Chloride Flush 3 ML SYRINGE IVFLUSH ×3 (09:10→21:44)
--- NOTE | 2021-04-30 09:38 | PM.PNNEP ---
Subjective Subjective Date of Service: 04/30/21 Principal diagnosis: kylah Interval history: seen and examined events noted this am, persistent pain frum decub ulcer, seem more comfortable today Physical Exam Vital Signs: Vital Signs: Last Vital Signs Temp 96.5 F L 04/30/21 07:36 Pulse 84 04/30/21 09:08 Resp 16 04/30/21 07:36 BP 109/59 L 04/30/21 09:08 Pulse Ox 100 04/30/21 07:36 Body Mass Index 27.8 Resp: Auscultation: breath sounds absent and vesicular breath sounds bilateral Objective Data Labs CBC & Chem 7: 04/29/21 08:21 04/28/21 04:24 Labs: Laboratory Results - last 24 hr 04/29/21 04/29/21 04/29/21 10:48 16:10 20:36 POC Glucose 135 H 135 H 152 H 04/30/21 07:11 POC Glucose 121 H Microbiology Microbiology Results: Microbiology 04/26/21 Unknown Decubitus Ulcer Gram Stain - Final 04/26/21 Unknown Decubitus Ulcer Routine Culture - Final Methicillin Res Staph Aureus 04/26/21 Unknown Decubitus Ulcer Anaerobic Culture - Final 04/25/21 00:00 Urine Catheterized - Straight Catheter Urine Culture - Final Proteus mirabilis Escherichia coli 04/25/21 12:27 Blood - Venous Blood Culture - Preliminary No growth after 48 hours. 04/25/21 12:27 Blood - Venous Blood Culture - Preliminary No growth after 48 hours. 04/25/21 10:21 Blood - Venous Blood Culture - Final 04/25/21 10:08 Blood - Venous Blood Culture - Final Procedures Date of Service Date of Service: 04/30/21 Assessment & Plan Assessment and plan (1) Acute kidney injury: Status: Acute Assessment and Plan: 1. 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 Anemia: Fe and epod def with cont dropping Hb 3. AMS: improved; ques related to pain meds; ques bsl 4. Proteinuria: c/w DN; r/o dysproteinemia 5. CKD issues: check PTH/vit D to manage MBD of CKD; protect non-dominat arm fro future AVF Disc: overall doing poorly and GOC re treatment moving forward REC: xfues as needed and will start epo; check Serum IFix, PTH, vit D ( ordered) OK to place pic line buut please use non-dominat arm vs Mendoza for IV access Time Spent With Patient Time: Total time spent is greater than 50% in coordination of care (as documented) at patient's floor/unit and/or counseling patient: Progress Note: Quality Stroke Does the patient have a stroke diagnosis?: No
[2021-04-30 11:08] LABS: Glucose, Whole Blood 109 mg/dL (60-115)
--- NOTE | 2021-04-30 11:36 | MHC.CM.PN ---
PER MULTIDISCIPLINARY ROUNDS ANTICIPATE PT WILL BE READY FOR D/C TOMORROW 05/01/2021, CM HAS NOT RECEIVED RESPONSE FROM [facility] AND PT WILL MOST LIKELY RETURN TO [facility]. CM TO CON'T TO FOLLOW D/C NEEDS.
--- NOTE | 2021-04-30 12:00 | MHC.CLN ---
F/U PO INTAKE REMAINS VARIABLE DIET RX: 2200DM-APPROPRIATE PT RECEIVING GLUCERNA TID AND RICARDO TO INCREASE PO AND PROMOTE WOUND HEALING SUPPLEMENTS PROVIDE 871KCALS (45% EST KCAL NEEDS), 35G PROTEIN (36% EST PROTEIN NEEDS) MONITOR PO INTAKE CLOSELY
[2021-04-30] MEDS: Morphine Sulfate 2 MG/ML CARTRIDGE 4 MG IVPUSH ×2 (14:06→21:42)
--- NOTE | 2021-04-30 15:49 | HO.PM.IMPN ---
Subjective Subjective Date of Service: 04/30/21 Interval History: seen and examined this am, persistent pain frum decub ulcer, still with pain but overall more comfortable Physical Exam Vital Signs: Vital Signs: Last Vital Signs Temp 98.5 F 04/30/21 15:23 Pulse 90 04/30/21 15:23 Resp 18 04/30/21 15:23 BP 120/70 04/30/21 15:23 Pulse Ox 99 04/30/21 15:23 Body Mass Index 27.8 Const: General: alert, awake and anxious Orientation/consciousness: oriented to person, oriented to place and oriented to time Eyes: Pupils: Equal, round and reactive pupils present Chest: Chest palpation & inspection: normal inspection of the chest and normal palpation of entire chest wall Resp: Effort & Inspection: normal respiratory effort, able to speak in complete sentences and no respiratory distress Auscultation: clear to auscultation bilaterally, breath sounds absent and vesicular breath sounds bilateral Cardio: Other: Bilateral lower extremity lymphedema, pedal pulses not palpable Rate: regular rate Rhythm: regular rhythm Heart sounds: S1 normal heart sound present and S2 normal heart sound present Peripheral pulses: Peripheral pulses 2+ throughout GI: Other: Soft, nondistended, nontender Palpation (GI): Soft to palpation and nontender : Other: cheng present draining yellow urine Skin: Other: bilateral stage IV buttock ulcers, heel ulcers--see picture for details General skin exam: dry skin Neuro: General: oriented to person, oriented to place and oriented to time Cranial nerves: Yes Equal, round and reactive pupils present Psych: Mental Status: mental status grossly normal Affect: Anxious affect present Objective Data Current Medications Generic Name Dose Route Start Last Admin Trade Name Luiz PRN Reason Stop Dose Admin Ascorbic Acid 500 mg 04/26/21 09:00 04/30/21 09:09 Ascorbic Acid 500 Mg Tablet PO 500 mg DAILY SYLWIA Administration Bisacodyl 10 mg 04/25/21 16:27 Bisacodyl 10 Mg Supp.Rect [place] DAILY PRN Constipation Diltiazem HCl 60 mg 04/25/21 21:00 04/30/21 09:08 Diltiazem Hcl 60 Mg Tablet PO 60 mg BID SYLWIA Administration Protocol Docusate Sodium 50 mg 04/25/21 16:27 Docusate Sodium 100 Mg/10 Ml Liquid PO BEDTIME PRN Constipation Enoxaparin Sodium 30 mg 04/25/21 18:00 04/29/21 19:30 Enoxaparin Sodium 30 Mg/0.3 Ml Syringe SUBCUT Not Given Q24H [facility] Ferrous Sulfate 324 mg 04/25/21 21:00 04/30/21 09:10 Ferrous Sulfate 324 Mg Tablet.Dr PO 324 mg TID SYLWIA Administration Promethazine HCl 12.5 mg/ 50.5 mls @ 202 mls/hr 04/26/21 10:10 Sodium Chloride IV ONCE PRN Nausea and Vomiting Insulin Human Lispro 0 unit 04/25/21 16:30 04/30/21 11:56 Insulin Lispro 100 Unit/Ml 3 Ml Vial SUBCUT Not Given QIDACHS [facility] Protocol Lactulose 20 gm 04/25/21 16:27 Lactulose 20 Gm/30 Ml Solution PO BID PRN Constipation Lorazepam 0.5 mg 04/25/21 16:27 04/27/21 15:47 Lorazepam 0.5 Mg Tablet PO 0.5 mg Q6H PRN Administration Anxiety Mirtazapine 30 mg 04/25/21 21:00 04/29/21 22:04 Mirtazapine 30 Mg Tablet PO 30 mg BEDTIME SYLWIA Administration Morphine Sulfate 15 mg 04/25/21 21:00 04/30/21 09:09 Morphine Sulfate Er 15 Mg Tablet.Er PO 15 mg BID SYLWIA Administration Morphine Sulfate 4 mg 04/26/21 08:56 04/30/21 14:06 Morphine Sulfate 2 Mg/Ml Cartridge IVPUSH 4 mg Q4H PRN Administration Pain, Severe (Pain Scale 7-10) Ondansetron HCl 4 mg 04/25/21 16:27 04/29/21 12:58 Ondansetron Hcl 4 Mg/2 Ml Vial IVPUSH 4 mg Q8H PRN Administration Nausea and Vomiting Pharmacy Consult 1 each 04/25/21 11:48 Consult Rx Perform Med Rec MISCELLANE ONCE PRN Consult order Pharmacy Consult 1 each 04/25/21 16:27 Consult Rx Vancomycin Dosing MISCELLANE DAILY PRN Consult order Polyethylene Glycol 17 gm 04/25/21 16:27 Polyethylene Glycol 3350 17 Gm Powd.Pack PO DAILY PRN Constipation Senna 17.2 mg 04/26/21 21:00 04/29/21 22:04 Sennosides 8.6 Mg Tablet PO 17.2 mg BEDTIME SYLWIA Administration Sodium Chloride 3 ml 04/25/21 16:27 04/30/21 09:10 0.9 % Sodium Chloride Flush 3 Ml Syringe IVFLUSH 3 ml QSHIFT SYLWIA Administration Sodium Hypochlorite 1 appl 04/25/21 21:00 04/26/21 10:07 Sodium Hypochlorite 0.125% 473 Ml Solution TOPICAL Not Given BID SYLWIA Tamsulosin HCl 0.4 mg 04/26/21 09:00 04/30/21 09:09 Tamsulosin Hcl 0.4 Mg Capsule PO 0.4 mg DAILY SYLWIA Administration Labs CBC & Chem 7: 04/29/21 08:21 04/28/21 04:24 Labs: Laboratory Results - last 24 hr 04/29/21 04/29/21 04/30/21 16:10 20:36 07:11 POC Glucose 135 H 152 H 121 H 04/30/21 11:05 POC Glucose 109 Microbiology Microbiology Results: Microbiology 04/25/21 12:27 Blood Culture - Final Blood - Venous No growth after 5 days. 04/25/21 12:27 Blood Culture - Final Blood - Venous No growth after 5 days. 04/26/21 Unknown Gram Stain - Final Decubitus Ulcer Routine Culture - Final Methicillin Res Staph Aureus Anaerobic Culture - Final Assessment and Plan (1) Soft tissue radionecrosis: Status: Acute Assessment and Plan: 55-year-old female with history of vulvar cancer status post chemo radiation, chronic lymphadenopathy currently bedbound, hypertension, diabetes anxiety, depression, chronic decubitus ulcers of buttocks and bilateral heels sent from [facility] for altered mental status found to have sepsis and LEIGH Sepsis.poa leukocytosis trening down slowly related to underlying buttock/heel wounds; possible UTI -continue IV ceftriaxone, vancomycin..ID recommend Ertapenem at discharge -Blood cultures negative to date -Has midline Chronic wounds to buttock and bilateral heels. poa Osteomyelitis confirmed by outpatient MRI s/p debridement of wounds 04/26 -surgery following -ID consult -continue IV ceftriazone, vanco (started on 04/25) -airloss bed, frequent repositioning -pain control. continue home ms contin, will continue morphine for severe pain -continue local wound care -pt declined arterial dopplers -follow wound culture -Has declined diverting colostomy Possible UTI chronic cheng -UCx growing Klebsiela and Proteus--same Abx as above LEIGH on CDK stable Metabolic acidosis SCr trending down slightly to 2.38 (no baseline labs since 03/2020) -nephrology following -follow renal function -check labs tomorrow Anemia s/p 1Unit rbc on 04/26, H/H is better today, hold transfusion, recheck CBC tomorrow Mood, seems depressed -care team consult -continue ativan, remeron Metabolic encephalopathy d/t sepsis Resolved, seems at baseline DM -Lantus on hold -SSI, POCs -ada diet HTN -continue diltiazem protein calorie malnutrition albumin 2.0 -formal nutrition consult -will add supplements dvt ppx - lovenox code status - MOLST form in chart- full code Dispo - to return SNF tomorrow Quality Stroke Does the patient have a stroke diagnosis?: No VTE Prior VTE?: No VTE Risk Level:: Medical - moderate - high VTE Device Contraindication: N/A - Device Ordered VTE Drug Contraindication: N/A - Med Ordered
[2021-04-30 16:18] LABS: Glucose, Whole Blood 98 mg/dL (60-115)
[2021-04-30] MEDS: Enoxaparin Sodium 30 MG/0.3 ML SYRINGE SUBCUT (17:06)
[2021-04-30 20:04] LABS: Glucose, Whole Blood 91 mg/dL (60-115)
[2021-04-30] MEDS: Mirtazapine 30 MG TABLET PO (21:42)
[2021-04-30] MEDS: Sennosides 8.6 MG TABLET 17.2 MG PO (21:42)
[2021-05-01] VITALS (14 sets, daily range): BP systolic 102–146; BP diastolic 54–75; PULSE 80–93; RESP 17–20; TEMP 36.2–37.2; O2SAT 95–100
[2021-05-01] MEDS: cefTRIAXone sodium 1 GM in 0.9 % Sodium Chloride 50 ML IV ×2 (01:07→23:30)
[2021-05-01] MEDS: vancomycin HCL 1,000 MG in 0.9 % Sodium Chloride 250 ML 270 MG IV (01:51)
[2021-05-01 07:26] LABS: Glucose, Whole Blood 83 mg/dL (60-115)
--- NOTE | 2021-05-01 08:37 | P.CDIC_ITS ---
CDI Concurrent Query Service Date: 05/01/21 Documentation Clarification: Please clarify if you are treating a proba ble/suspected/likely or confirmed: Mild protein calorie malnutrition Moderate protein calorie malnutrition Severe protein calorie malnutrition Other, please specify if known or undetermined Provider Response: Moderate Protein-Calorie Malnutrition Other Diagnosis: Moderate protein calorie malnutrition PLEASE DO NOT DELETE/MODIFY EXISTING CONTENT Additional information is needed in order to code to the highest accuracy and appropriate Severity of Illness (SOI). Please clarify the information noted below in your progress notes and discharge summary. Risk Factors/Clinical Indicators/Treatments Dx: protein calorie malnutrition chronic wounds Nutrition assessment - moderate malnutrition Mild depletion of subcutaneous fat and muscle mass. Gio, Glucerna TID CDS: Jacquelyn Gomez CCS, CDIS Contact Number: [phone] Please Review the information above and exercise your independent professional judgment in responding to the query. If you concur, pleas document in the PROGRESS NOTES and DISCHARGE SUMMARY. If you do not agree with the query, please document in the query above. THIS QUERY IS PART OF THE PERMANENT MEDICAL RECORD
[2021-05-01 09:13] LABS: Hematocrit 22.8 % (37-47); Mean Corpuscular HGB Conc 29.8 g/dl (31.0-35.0); Mean Corpuscular Hemoglobin 27.4 pg (27.0-33.0); Mean Corpuscular Volume 91.9 fL (80-98); Mean Platelet Volume 9.8 fL (9.4-12.3); Platelet Count 270 X10*3/uL (160-400); Red Blood Count 2.48 X10*6/uL (4.20-5.50); Red Cell Distribution Width 15.1 % (11.0-16.0); White Blood Count 11.4 X10*3/uL (4.8-10.8)
[2021-05-01 09:22] LABS: Hemoglobin 6.8 g/dl (12.0-16.0)
[2021-05-01] MEDS: Ascorbic Acid 500 MG TABLET PO (09:36)
[2021-05-01] MEDS: Ferrous Sulfate 324 MG TABLET.DR PO ×3 (09:36→22:24)
[2021-05-01] MEDS: Tamsulosin HCL 0.4 MG CAPSULE PO (09:36)
[2021-05-01] MEDS: 0.9 % Sodium Chloride Flush 3 ML SYRINGE IVFLUSH ×2 (09:36→22:24)
[2021-05-01] MEDS: dilTIAZem HCL 60 MG TABLET PO ×2 (09:37→22:23)
[2021-05-01 09:40] LABS: Anion Gap 11 (12-20); Blood Urea Nitrogen 56 mg/dL (9-16); Calcium 7.7 mg/dL (8.4-10.2); Carbon Dioxide 20 mmol/L (22-29); Chloride 110 mmol/L (96-108); Creatinine Clr Calc Pharmacy 36.7; Estimated Glomerular Filt Rate 28; Glucose Random 83 mg/dL (60-115); Sodium 137 mmol/L (135-145)
[2021-05-01 11:14] LABS: Glucose, Whole Blood 84 mg/dL (60-115)
--- NOTE | 2021-05-01 11:53 | PM.PNNEP ---
Subjective Subjective Date of Service: 05/01/21 Principal diagnosis: kylah Interval history: Seen and examined, events noted Physical Exam Vital Signs: Vital Signs: Last Vital Signs Temp 98.0 F 05/01/21 11:16 Pulse 80 05/01/21 11:16 Resp 18 05/01/21 11:16 BP 102/54 L 05/01/21 11:16 Pulse Ox 98 05/01/21 11:16 Body Mass Index 27.8 Resp: Auscultation: breath sounds absent and vesicular breath sounds bilateral Objective Data Labs CBC & Chem 7: 05/01/21 08:57 05/01/21 08:57 Labs: Laboratory Results - last 24 hr 04/30/21 04/30/21 05/01/21 16:12 20:01 07:21 WBC RBC Hgb Hct MCV MCH MCHC RDW Plt Count MPV Absolute Nucleated RBC Nucleated RBC % (auto) Sodium Potassium Chloride Carbon Dioxide Anion Gap BUN Creatinine Estim Creat Clear Calc Estimated GFR POC Glucose 98 91 83 Random Glucose Calcium 05/01/21 05/01/21 05/01/21 08:57 08:57 11:10 WBC 11.4 H RBC 2.48 L Hgb 6.8 L* Hct 22.8 L MCV 91.9 MCH 27.4 MCHC 29.8 L RDW 15.1 Plt Count 270 MPV 9.8 Absolute Nucleated RBC 0.000 Nucleated RBC % (auto) 0.0 Sodium 137 Potassium 4.0 Chloride 110 H Carbon Dioxide 20 L Anion Gap 11 L BUN 56 H Creatinine 1.87 H Estim Creat Clear Calc 36.7 Estimated GFR 28 POC Glucose 84 Random Glucose 83 D Calcium 7.7 L Microbiology Microbiology Results: Microbiology 04/25/21 12:27 Blood - Venous Blood Culture - Final No growth after 5 days. 04/25/21 12:27 Blood - Venous Blood Culture - Final No growth after 5 days. 04/26/21 Unknown Decubitus Ulcer Gram Stain - Final 04/26/21 Unknown Decubitus Ulcer Routine Culture - Final Methicillin Res Staph Aureus 04/26/21 Unknown Decubitus Ulcer Anaerobic Culture - Final 04/25/21 00:00 Urine Catheterized - Straight Catheter Urine Culture - Final Proteus mirabilis Escherichia coli 04/25/21 10:21 Blood - Venous Blood Culture - Final 04/25/21 10:08 Blood - Venous Blood Culture - Final Procedures Date of Service Date of Service: 05/01/21 Assessment & Plan Assessment and plan (1) Acute kidney injury: Status: Acute Assessment and Plan: 1. 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 Anemia: Fe and epod def with cont dropping Hb 3. AMS: improved; ques related to pain meds; ques bsl 4. Proteinuria: c/w DN; r/o dysproteinemia 5. CKD issues: check PTH/vit D to manage MBD of CKD; protect non-dominat arm fro future AVF Disc: overall doing poorly and GOC re treatment moving forward REC: xfues as needed and cont epo; check Serum IFix, PTH, vit D (pending ); no IV Fe at this time d/t infectious issues OK to place pic line buut please use non-dominat arm vs Mendoza for IV access Time Spent With Patient Time: Total time spent is greater than 50% in coordination of care (as documented) at patient's floor/unit and/or counseling patient: Progress Note: Quality Stroke Does the patient have a stroke diagnosis?: No
--- NOTE | 2021-05-01 14:10 | P.PNIM_ITS ---
Subjective Subjective Date of Service: 05/01/21 Interval History: seen and examined this am, persistent pain frum decub ulcer, overall seem more comfotable, H/H is down Physical Exam Vital Signs: Vital Signs: Last Vital Signs Temp 98.0 F 05/01/21 11:16 Pulse 80 05/01/21 11:16 Resp 18 05/01/21 11:16 BP 102/54 L 05/01/21 11:16 Pulse Ox 98 05/01/21 11:16 Body Mass Index 27.8 Const: General: alert, awake and anxious Orientation/consciousness: alexx ented to person, oriented to place and oriented to time Eyes: Pupils: Equal, round and reactive pupils present Chest: Chest palpation & inspection: normal inspection of the chest and normal palpation of entire chest wall Resp: Effort & Inspection: normal respiratory effort, able to speak in complete sentences and no respiratory distress Auscultation: clear to auscultation bilaterally, breath sounds absent and vesicular breath sounds bilateral Cardio: Other: Bilateral lower extremity lymphedema, pedal pulses not palpable Rate: regular rate Rhythm: regular rhythm Heart sounds: S1 normal heart sound present and S2 normal heart sound present Peripheral pulses: Peripheral pulses 2+ throughout GI: Other: Soft, nondistended, nontender Palpation (GI): Soft to palpation and nontender : Other: cheng present draining yellow urine Skin: Other: bilateral stage IV buttock ulcers, heel ulcers--see picture for details General skin exam: dry skin Neuro: General: oriented to person, oriented to place and oriented to time Cranial nerves: Yes CN's II-XII intact bilaterally, Yes Equal, round and reactive pupils present and Yes Bilaterally intact EOM present Psych: Mental Status: mental status grossly normal Affect: Anxious affect present Objective Data Current Medications Generic Name Dose Route Start Last Admin Trade Name Freq PRN Reason Stop Dose Admin Ascorbic Acid 500 mg 04/26/21 09:00 05/01/21 09:36 Ascorbic Acid 500 Mg Tablet PO 500 mg DAILY SYLWIA Administration Bisacodyl 10 mg 04/25/21 16:27 Bisacodyl 10 Mg Supp.Rect [place] DAILY PRN Constipation Diltiazem HCl 60 mg 04/25/21 21:00 05/01/21 09:37 Diltiazem Hcl 60 Mg Tablet PO 60 mg BID SYLWIA Administration Protocol Docusate Sodium 50 mg 04/25/21 16:27 Docusate Sodium 100 Mg/10 Ml Liquid PO BEDTIME PRN Constipation Enoxaparin Sodium 30 mg 04/25/21 18:00 04/30/21 17:06 Enoxaparin Sodium 30 Mg/0.3 Ml Syringe SUBCUT 30 mg Q24H SYLWIA Administration Ferrous Sulfate 324 mg 04/25/21 21:00 05/01/21 09:36 Ferrous Sulfate 324 Mg Tablet.Dr PO 324 mg TID SYLWIA Administration Promethazine HCl 12.5 mg/ 50.5 mls @ 202 mls/hr 04/26/21 10:10 Sodium Chloride IV ONCE PRN Nausea and Vomiting Ceftriaxone Sodium 1 gm/ 50 mls @ 100 mls/hr 05/01/21 00:45 05/01/21 02:08 Sodium Chloride IV Infused Q24H [facility] Infusion Vancomycin HCl 500 mg/ Sodium 110 mls @ 110 mls/hr 05/02/21 06:00 Chloride IV Q24H [facility] Insulin Human Lispro 0 unit 04/25/21 16:30 05/01/21 11:20 Insulin Lispro 100 Unit/Ml 3 Ml Vial SUBCUT Not Given QIDACHS [facility] Protocol Lactulose 20 gm 04/25/21 16:27 Lactulose 20 Gm/30 Ml Solution PO BID PRN Constipation Mirtazapine 30 mg 04/25/21 21:00 04/30/21 21:42 Mirtazapine 30 Mg Tablet PO 30 mg BEDTIME SYLWIA Administration Ondansetron HCl 4 mg 04/25/21 16:27 04/29/21 12:58 Ondansetron Hcl 4 Mg/2 Ml Vial IVPUSH 4 mg Q8H PRN Administration Nausea and Vomiting Pharmacy Consult 1 each 04/25/21 11:48 Consult Rx Perform Med Rec MISCELLANE ONCE PRN Consult order Pharmacy Consult 1 each 04/25/21 16:27 Consult Rx Vancomycin Dosing MISCELLANE DAILY PRN Consult order Pharmacy Consult 1 each 05/01/21 00:31 Consult Rx Vancomycin Dosing MISCELLANE DAILY PRN Consult order Polyethylene Glycol 17 gm 04/25/21 16:27 Polyethylene Glycol 3350 17 Gm Powd.Pack PO DAILY PRN Constipation Senna 17.2 mg 04/26/21 21:00 04/30/21 21:42 Sennosides 8.6 Mg Tablet PO 17.2 mg BEDTIME SYLWIA Administration Sodium Chloride 3 ml 04/25/21 16:27 05/01/21 09:36 0.9 % Sodium Chloride Flush 3 Ml Syringe IVFLUSH 3 ml QSHIFT SYLWIA Administration Sodium Hypochlorite 1 appl 04/25/21 21:00 04/26/21 10:07 Sodium Hypochlorite 0.125% 473 Ml Solution TOPICAL Not Given BID SYLWIA Tamsulosin HCl 0.4 mg 04/26/21 09:00 05/01/21 09:36 Tamsulosin Hcl 0.4 Mg Capsule PO 0.4 mg DAILY SYLWIA Administration Labs CBC & Chem 7: 05/01/21 08:57 05/01/21 08:57 Labs: Laboratory Results - last 24 hr 04/29/21 04/30/21 04/30/21 08:21 16:12 20:01 MCV MCH MCHC RDW Plt Count MPV Absolute Nucleated RBC Nucleated RBC % (auto) Anion Gap Estim Creat Clear Calc Estimated GFR POC Glucose 98 91 Random Glucose Calcium Blood Type O Positive Antibody Screen NEGATIVE Crossmatch See Detail 05/01/21 05/01/21 05/01/21 07:21 08:57 08:57 MCV 91.9 MCH 27.4 MCHC 29.8 L RDW 15.1 Plt Count 270 MPV 9.8 Absolute Nucleated RBC 0.000 Nucleated RBC % (auto) 0.0 Anion Gap 11 L Estim Creat Clear Calc 36.7 Estimated GFR 28 POC Glucose 83 Random Glucose 83 D Calcium 7.7 L Blood Type Antibody Screen Crossmatch 05/01/21 11:10 MCV MCH MCHC RDW Plt Count MPV Absolute Nucleated RBC Nucleated RBC % (auto) Anion Gap Estim Creat Clear Calc Estimated GFR POC Glucose 84 Random Glucose Calcium Blood Type Antibody Screen Crossmatch Microbiology Microbiology Results: Microbiology 04/25/21 12:27 Blood Culture - Final Blood - Venous No growth after 5 days. 04/25/21 12:27 Blood Culture - Final Blood - Venous No growth after 5 days. Assessment and Plan (1) Sepsis: Status: Acute (2) Metabolic acidosis: Status: Acute (3) PAD (peripheral artery disease): Status: Acute (4) Soft tissue radionecrosis: Status: Acute (5) Protein-calorie malnutrition, severe: Status: Acute (6) Decubitus ulcer: Status: Acute Assessment and Plan: 55-year-old female with history of vulvar cancer status post chemo radiation, chronic lymphadenopathy currently bedbound, hypertension, diabetes anxiety, depression, chronic decubitus ulcers of buttocks and bilateral heels sent from [facility] for altered mental status found to have sepsis and LEIGH Sepsis.poa--related to underlying buttock/heel wounds; possible UTI leukocytosis has trended down slowly -continue IV ceftriaxone, vancomycin..ID recommend Ertapenem at discharge -Blood cultures negative to date -Has midline Chronic wounds to buttock and bilateral heels. poa Osteomyelitis confirmed by outpatient MRI s/p debridement of wounds 04/26 -surgery following -ID consult -continue IV ceftriazone, vanco (started on 04/25) -airloss bed, frequent repositioning -pain control. continue home ms contin, will continue morphine for severe pain -continue local wound care -pt declined arterial dopplers -follow wound culture -Has declined diverting colostomy, but now is reconsidering--will inform surgeon Possible UTI chronic cheng -UCx growing Klebsiela and Proteus--same Abx as above LEIGH on CDK stable Metabolic acidosis SCr trending down slightly to 1.87 (no baseline labs since 03/2020) -nephrology following -follow renal function -check labs tomorrow Anemia s/p 1Unit rbc on 04/26, hemoglobin is 6.8 today, transfuse 1 unit Mood, seems depressed -care team consult -continue ativan, remeron Metabolic encephalopathy d/t sepsis Resolved, seems at baseline DM -Lantus on hold -SSI, POCs -ada diet HTN -continue diltiazem Moderate protein calorie malnutrition albumin 2.0 -formal nutrition consult -will add supplements Quality Stroke Does the patient have a stroke diagnosis?: No VTE Prior VTE?: No VTE Risk Level:: Medical - moderate - high VTE Device Contraindication: N/A - Device Ordered VTE Drug Contraindication: N/A - Med Ordered
--- NOTE | 2021-05-01 16:03 | P.PNGS_ITS ---
Subjective Subjective Date of Service: 05/01/21 Interval history: Has pain on ulcers No new complaints Physical Exam Vital Signs: Vital Signs: Last Vital Signs Temp 97.3 F 05/01/21 15:48 Pulse 85 05/01/21 15:48 Resp 18 05/01/21 15:48 BP 112/58 L 05/01/21 15:48 Pulse Ox 100 05/01/21 14:59 Body Mass Index 27.8 Const: Other: Appears more alert, frail looking however GI: Other: Soft, nontender nondistended Back/Spine/Pelvis: Other: Large deep decubitus ulcers on both buttocks, no pus, Procedures Date of Service Date of Service: 05/01/21 Progress Note: A&P Assessment and plan (1) Decubitus ulcer: Status: Acute Assessment and Plan: Dressings have been changed Continue wound care Change position every 2 hours Patient does not want diverting stoma at this time Fall Risk Details Current Medications: Current Medications Generic Name Dose Route Start Last Admin Trade Name Freq PRN Reason Stop Dose Admin Ascorbic Acid 500 mg 04/26/21 09:00 05/01/21 09:36 Ascorbic Acid 500 Mg Tablet PO 500 mg DAILY SYLWIA Administration Bisacodyl 10 mg 04/25/21 16:27 Bisacodyl 10 Mg Supp.Rect [place] DAILY PRN Constipation Diltiazem HCl 60 mg 04/25/21 21:00 05/01/21 09:37 Diltiazem Hcl 60 Mg Tablet PO 60 mg BID SYLWIA Administration Protocol Docusate Sodium 50 mg 04/25/21 16:27 Docusate Sodium 100 Mg/10 Ml Liquid PO BEDTIME PRN Constipation Enoxaparin Sodium 30 mg 04/25/21 18:00 04/30/21 17:06 Enoxaparin Sodium 30 Mg/0.3 Ml Syringe SUBCUT 30 mg Q24H SYLWIA Administration Ferrous Sulfate 324 mg 04/25/21 21:00 05/01/21 09:36 Ferrous Sulfate 324 Mg Tablet.Dr PO 324 mg TID SYLWIA Administration Promethazine HCl 12.5 mg/ 50.5 mls @ 202 mls/hr 04/26/21 10:10 Sodium Chloride IV ONCE PRN Nausea and Vomiting Ceftriaxone Sodium 1 gm/ 50 mls @ 100 mls/hr 05/01/21 00:45 05/01/21 02:08 Sodium Chloride IV Infused Q24H SYLWIA Infusion Vancomycin HCl 500 mg/ Sodium 110 mls @ 110 mls/hr 05/02/21 06:00 Chloride IV Q24H SYLWIA Insulin Human Lispro 0 unit 04/25/21 16:30 05/01/21 11:20 Insulin Lispro 100 Unit/Ml 3 Ml Vial SUBCUT Not Given QIDACHS [facility] Protocol Lactulose 20 gm 04/25/21 16:27 Lactulose 20 Gm/30 Ml Solution PO BID PRN Constipation Mirtazapine 30 mg 04/25/21 21:00 04/30/21 21:42 Mirtazapine 30 Mg Tablet PO 30 mg BEDTIME SYLWIA Administration Ondansetron HCl 4 mg 04/25/21 16:27 04/29/21 12:58 Ondansetron Hcl 4 Mg/2 Ml Vial IVPUSH 4 mg Q8H PRN Administration Nausea and Vomiting Pharmacy Consult 1 each 04/25/21 11:48 Consult Rx Perform Med Rec MISCELLANE ONCE PRN Consult order Pharmacy Consult 1 each 04/25/21 16:27 Consult Rx Vancomycin Dosing MISCELLANE DAILY PRN Consult order Pharmacy Consult 1 each 05/01/21 00:31 Consult Rx Vancomycin Dosing MISCELLANE DAILY PRN Consult order Polyethylene Glycol 17 gm 04/25/21 16:27 Polyethylene Glycol 3350 17 Gm Powd.Pack PO DAILY PRN Constipation Senna 17.2 mg 04/26/21 21:00 04/30/21 21:42 Sennosides 8.6 Mg Tablet PO 17.2 mg BEDTIME SYLWIA Administration Sodium Chloride 3 ml 04/25/21 16:27 05/01/21 09:36 0.9 % Sodium Chloride Flush 3 Ml Syringe IVFLUSH 3 ml QSHIFT SYLWIA Administration Sodium Hypochlorite 1 appl 04/25/21 21:00 04/26/21 10:07 Sodium Hypochlorite 0.125% 473 Ml Solution TOPICAL Not Given BID SYLWIA Tamsulosin HCl 0.4 mg 04/26/21 09:00 05/01/21 09:36 Tamsulosin Hcl 0.4 Mg Capsule PO 0.4 mg DAILY SYLWIA Administration Time Spent With Patient Time: Total time spent is greater than 50% in coordination of care (as documented) at patient's floor/unit and/or counseling patient: Time with patient: 15 - 24 minutes Quality Stroke Does the patient have a stroke diagnosis?: No VTE Prior VTE?: No VTE Risk Level:: Medical - moderate - high VTE Device Contraindication: N/A - Device Ordered VTE Drug Contraindication: N/A - Med Ordered
[2021-05-01 16:14] LABS: Glucose, Whole Blood 105 mg/dL (60-115)
--- NOTE | 2021-05-01 20:06 | PC.NURSE ---
On 04/26 the patient was receiving blood when she went to the OR. The blood was never ended in the TAR. On 05/01 the patient was due for 2 units of RBCs; although the 04/26 unit had not been completed in the TAR I was told that I could to give the unit but to not end the 04/26 transfusion. Working with the nurse group home supervisor we administered the unit but the TAR may not reflect this correctly.
[2021-05-01 20:17] LABS: Glucose, Whole Blood 123 mg/dL (60-115)
[2021-05-01] MEDS: Sennosides 8.6 MG TABLET 17.2 MG PO (22:23)
[2021-05-01] MEDS: Mirtazapine 30 MG TABLET PO (22:23)
[2021-05-01] MEDS: oxyCODONE HCl Immed Release 5 MG TABLET PO (22:24)
[2021-05-02] VITALS (10 sets, daily range): BP systolic 121–146; BP diastolic 61–75; PULSE 77–89; RESP 18–20; TEMP 36.1–37.2; O2SAT 95–100
[2021-05-02 04:21] LABS: MANUAL DIFF FLAG NO
[2021-05-02 04:40] LABS: Basophils Percent Auto 0.2 % (0-2); Eosinophils Absolute Auto 0.1 X10*3/uL (0.0-0.4); Eosinophils Percent Auto 0.9 % (0-4); Hemoglobin 8.5 g/dl (12.0-16.0); Imm Gran Abs Auto 0.13 X10*3/uL (0.00-0.03); Imm Gran Pct Auto 1.1 % (0.0-0.4); Lymphocytes Percent Auto 8.3 % (20-40); Mean Corpuscular HGB Conc 31.5 g/dl (31.0-35.0); Mean Corpuscular Hemoglobin 28.7 pg (27.0-33.0); Mean Corpuscular Volume 91.2 fL (80-98); Mean Platelet Volume 9.5 fL (9.4-12.3); Monocytes Absolute Auto 0.5 X10*3/uL (0.1-1.2); Monocytes Percent Auto 4.3 % (2-11); Neutrophils Absolute Auto 10.1 X10*3/uL (2.0-8.3); Neutrophils Percent Auto 85.2 % (45-73); Platelet Count 251 X10*3/uL (160-400); Red Blood Count 2.96 X10*6/uL (4.20-5.50); Red Cell Distribution Width 14.6 % (11.0-16.0); White Blood Count 11.8 X10*3/uL (4.8-10.8)
[2021-05-02] MEDS: vancomycin HCL 500 MG in 0.9 % Sodium Chloride 100 ML 110 MG IV (05:08)
[2021-05-02] MEDS: oxyCODONE HCl Immed Release 5 MG TABLET PO (05:08)
[2021-05-02 07:32] LABS: Glucose, Whole Blood 82 mg/dL (60-115)
[2021-05-02] MEDS: Ferrous Sulfate 324 MG TABLET.DR PO ×3 (08:55→22:19)
[2021-05-02] MEDS: dilTIAZem HCL 60 MG TABLET PO ×2 (08:56→22:18)
[2021-05-02] MEDS: Ascorbic Acid 500 MG TABLET PO (08:57)
[2021-05-02] MEDS: Tamsulosin HCL 0.4 MG CAPSULE PO (08:57)
[2021-05-02] MEDS: 0.9 % Sodium Chloride Flush 3 ML SYRINGE IVFLUSH ×3 (08:59→22:19)
[2021-05-02 09:20] LABS: Creatinine Clr Calc Pharmacy 39.4; Estimated Glomerular Filt Rate 31
[2021-05-02 11:09] LABS: Glucose, Whole Blood 109 mg/dL (60-115)
--- NOTE | 2021-05-02 11:28 | MHC.CLN ---
F/U PT POSSIBLY PENDING COLOSTOMY PER MD PO INTAKE REMAINS VARIABLE DIET RX: 2200DM-APPROPRIATE PT RECEIVING GLUCERNA TID AND RICARDO TO INCREASE PO AND PROMOTE WOUND HEALING SUPPLEMENTS PROVIDE 871KCALS (45% EST KCAL NEEDS), 35G PROTEIN (36% EST PROTEIN NEEDS) CONTINUE TO MONITOR PO INTAKE CLOSELY
[2021-05-02 11:41] LABS: PTHI 8 pg/mL (14-64)
--- NOTE | 2021-05-02 12:57 | HO.PM.IMPN ---
Subjective Subjective Date of Service: 05/02/21 Interval History: seen and examined this am, persistent pain, but reasonably comfortable, H/H is better with transfusion. She nw wants diverting colostomy Physical Exam Vital Signs: Vital Signs: Last Vital Signs Temp 97.9 F 05/02/21 11:21 Pulse 78 05/02/21 11:21 Resp 20 05/02/21 11:21 BP 121/64 05/02/21 11:21 Pulse Ox 99 05/02/21 11:21 Body Mass Index 27.8 Const: General: alert, awake and anxious Orientation/consciousness: oriented to person, oriented to place and oriented to time Eyes: Pupils: Equal, round and reactive pupils present Chest: Chest palpation & inspection: normal inspection of the chest and normal palpation of entire chest wall Resp: Effort & Inspection: normal respiratory effort, able to speak in complete sentences and no respiratory distress Auscultation: clear to auscultation bilaterally, breath sounds absent and vesicular breath sounds bilateral Cardio: Other: Bilateral lower extremity lymphedema, pedal pulses not palpable Rate: regular rate Rhythm: regular rhythm Heart sounds: S1 normal heart sound present and S2 normal heart sound present Peripheral pulses: Peripheral pulses 2+ throughout GI: Other: Soft, nondistended, nontender Palpation (GI): Soft to palpation and nontender : Other: cheng present draining yellow urine Skin: Other: bilateral stage IV buttock ulcers, heel ulcers--see picture for details General skin exam: dry skin Neuro: General: oriented to person, oriented to place and oriented to time Cranial nerves: Yes CN's II-XII intact bilaterally, Yes Equal, round and reactive pupils present and Yes Bilaterally intact EOM present Psych: Mental Status: mental status grossly normal Affect: Anxious affect present Objective Data Current Medications Generic Name Dose Route Start Last Admin Trade Name Freq PRN Reason Stop Dose Admin Ascorbic Acid 500 mg 04/26/21 09:00 05/02/21 08:57 Ascorbic Acid 500 Mg Tablet PO 500 mg DAILY [facility] Administration Bisacodyl 10 mg 04/25/21 16:27 Bisacodyl 10 Mg Supp.Rect MO DAILY PRN Constipation Diltiazem HCl 60 mg 04/25/21 21:00 05/02/21 08:56 Diltiazem Hcl 60 Mg Tablet PO 60 mg BID [facility] Administration Protocol Docusate Sodium 50 mg 04/25/21 16:27 Docusate Sodium 100 Mg/10 Ml Liquid PO BEDTIME PRN Constipation Enoxaparin Sodium 30 mg 04/25/21 18:00 05/01/21 20:11 Enoxaparin Sodium 30 Mg/0.3 Ml Syringe SUBCUT Not Given Q24H [facility] Ferrous Sulfate 324 mg 04/25/21 21:00 05/02/21 08:55 Ferrous Sulfate 324 Mg Tablet.Dr PO 324 mg TID [facility] Administration Promethazine HCl 12.5 mg/ 50.5 mls @ 202 mls/hr 04/26/21 10:10 Sodium Chloride IV ONCE PRN Nausea and Vomiting Ceftriaxone Sodium 1 gm/ 50 mls @ 100 mls/hr 05/01/21 00:45 05/02/21 00:11 Sodium Chloride IV Infused Q24H [facility] Infusion Vancomycin HCl 750 mg/ Sodium 265 mls @ 265 mls/hr 05/03/21 06:00 Chloride IV Q24H [facility] Insulin Human Lispro 0 unit 04/25/21 16:30 05/02/21 11:47 Insulin Lispro 100 Unit/Ml 3 Ml Vial SUBCUT Not Given QIDACHS [facility] Protocol Lactulose 20 gm 04/25/21 16:27 Lactulose 20 Gm/30 Ml Solution PO BID PRN Constipation Mirtazapine 30 mg 04/25/21 21:00 05/01/21 22:23 Mirtazapine 30 Mg Tablet PO 30 mg BEDTIME [facility] Administration Morphine Sulfate 4 mg 05/02/21 11:16 Morphine Sulfate 2 Mg/Ml Cartridge IVPUSH Q4H PRN Pain, Severe (Pain Scale 7-10) Morphine Sulfate 15 mg 05/02/21 21:00 Morphine Sulfate Er 15 Mg Tablet.Er PO BID [facility] Ondansetron HCl 4 mg 04/25/21 16:27 05/02/21 12:14 Ondansetron Hcl 4 Mg/2 Ml Vial IVPUSH 4 mg Q8H PRN Administration Nausea and Vomiting Oxycodone HCl 5 mg 05/01/21 21:59 05/02/21 05:08 Oxycodone Hcl Immed Release 5 Mg Tablet PO 5 mg Q6H PRN Administration [facility] Consult 1 each 04/25/21 11:48 Consult Rx Perform Med Rec MISCELLANE ONCE PRN Consult order Pharmacy Consult 1 each 04/25/21 16:27 Consult Rx Vancomycin Dosing MISCELLANE DAILY PRN Consult order Pharmacy Consult 1 each 05/01/21 00:31 Consult Rx Vancomycin Dosing MISCELLANE DAILY PRN Consult order Polyethylene Glycol 17 gm 04/25/21 16:27 Polyethylene Glycol 3350 17 Gm Powd.Pack PO DAILY PRN Constipation Senna 17.2 mg 04/26/21 21:00 05/01/21 22:23 Sennosides 8.6 Mg Tablet PO 17.2 mg BEDTIME [facility] Administration Sodium Chloride 3 ml 04/25/21 16:27 05/02/21 08:59 0.9 % Sodium Chloride Flush 3 Ml Syringe IVFLUSH 3 ml QSHIFT [facility] Administration Sodium Hypochlorite 1 appl 04/25/21 21:00 04/26/21 10:07 Sodium Hypochlorite 0.125% 473 Ml Solution TOPICAL Not Given BID [facility] Tamsulosin HCl 0.4 mg 04/26/21 09:00 05/02/21 08:57 Tamsulosin Hcl 0.4 Mg Capsule PO 0.4 mg DAILY [facility] Administration Labs CBC & Chem 7: 05/02/21 04:17 05/02/21 08:28 Labs: Laboratory Results - last 24 hr 04/25/21 04/29/21 04/29/21 14:32 06:07 08:21 MCV MCH MCHC RDW Plt Count MPV Immature Gran % (Auto) Neut % (Auto) Lymph % (Auto) [place] % (Auto) Eos % (Auto) Baso % (Auto) Lymph # (Auto) [place] # (Auto) Eos # (Auto) Baso # (Auto) Abs Immat Gran (auto) Absolute Neuts (auto) Absolute Nucleated RBC Nucleated RBC % (auto) Estim Creat Clear Calc Estimated GFR POC Glucose PTH Intact 8 L Calcium (PTH Intact) 8.0 L Blood Type O Positive Antibody Screen NEGATIVE Crossmatch See Detail See Detail 05/01/21 05/01/21 05/02/21 16:10 19:53 04:17 MCV 91.2 MCH 28.7 MCHC 31.5 RDW 14.6 Plt Count 251 MPV 9.5 Immature Gran % (Auto) 1.1 H Neut % (Auto) 85.2 H Lymph % (Auto) 8.3 L [place] % (Auto) 4.3 Eos % (Auto) 0.9 Baso % (Auto) 0.2 Lymph # (Auto) 1.0 L [place] # (Auto) 0.5 Eos # (Auto) 0.1 Baso # (Auto) 0.0 Abs Immat Gran (auto) 0.13 H Absolute Neuts (auto) 10.1 H Absolute Nucleated RBC 0.000 Nucleated RBC % (auto) 0.0 Estim Creat Clear Calc Estimated GFR POC Glucose 105 123 H PTH Intact Calcium (PTH Intact) Blood Type Antibody Screen Crossmatch 05/02/21 05/02/21 05/02/21 07:07 08:28 11:02 MCV MCH MCHC RDW Plt Count MPV Immature Gran % (Auto) Neut % (Auto) Lymph % (Auto) [place] % (Auto) Eos % (Auto) Baso % (Auto) Lymph # (Auto) [place] # (Auto) Eos # (Auto) Baso # (Auto) Abs Immat Gran (auto) Absolute Neuts (auto) Absolute Nucleated RBC Nucleated RBC % (auto) Estim Creat Clear Calc 39.4 Estimated GFR 31 POC Glucose 82 109 PTH Intact Calcium (PTH Intact) Blood Type Antibody Screen Crossmatch Assessment and Plan (1) Sepsis: Status: Acute (2) Metabolic acidosis: Status: Acute (3) Soft tissue radionecrosis: Status: Acute (4) Protein-calorie malnutrition, severe: Status: Acute (5) Decubitus ulcer: Status: Acute (6) Wet gangrene: Status: Acute Assessment and Plan: 55-year-old female with history of vulvar cancer status post chemo radiation, chronic lymphadenopathy currently bedbound, hypertension, diabetes anxiety, depression, chronic decubitus ulcers of buttocks and bilateral heels sent from [facility] for altered mental status found to have sepsis and LEIGH Sepsis.poa--related to underlying buttock/heel wounds, culture growing MRSA, possible UTI leukocytosis has trended down slowly -continue IV ceftriaxone, vancomycin..ID recommend Ertapenem at discharge -Blood cultures negative to date -Has midline Chronic wounds to buttock and bilateral heels. poa Osteomyelitis confirmed by outpatient MRI s/p debridement of wounds 04/26 -surgery following -continue IV ceftriazone, vanco (started on 04/25)--MRSA from wound culture -airloss bed, frequent repositioning -pain control. continue home ms claudia, will continue morphine for severe pain -continue local wound care -She now wants diverting colostomy: discussed with Dr. Knott and will arrage for next week Possible UTI--Treated with ceftriaxone, should be enough. DC LEIGH on CDK stable Metabolic acidosis SCr trending down slightly to 1.74 (no baseline labs since 03/2020) -nephrology following -follow renal function Anemia s/p 1Unit rbc on 04/26, hemoglobin is 6.8 today, transfuse 2 units on 05/01, Hgb 8.5 today Mood, seems depressed -care team consult -continue ativan, remeron Metabolic encephalopathy d/t sepsis Resolved, seems at baseline DM -Lantus on hold -SSI, POCs -ada diet HTN -continue diltiazem Moderate protein calorie malnutrition albumin 2.0 -Nutrition following, -Supplement Quality Stroke Does the patient have a stroke diagnosis?: No VTE Prior VTE?: No VTE Risk Level:: Medical - moderate - high VTE Device Contraindication: N/A - Device Ordered VTE Drug Contraindication: N/A - Med Ordered
--- NOTE | 2021-05-02 13:08 | P.PNID_ITS ---
Subjective Subjective Date of Service: 05/02/21 Critical Care Time (minutes): 15 Comment: she has Ecoli 04/25 urine and MRSA decubitus no complaints Objective Data Labs CBC & Chem 7: 05/06/21 07:57 05/08/21 08:20 Labs: Laboratory Results - last 24 hr 04/25/21 04/29/21 04/29/21 14:32 06:07 08:21 WBC RBC Hgb Hct MCV MCH MCHC RDW Plt Count MPV Immature Gran % (Auto) Neut % (Auto) Lymph % (Auto) [place] % (Auto) Eos % (Auto) Baso % (Auto) Lymph # (Auto) [place] # (Auto) Eos # (Auto) Baso # (Auto) Abs Immat Gran (auto) Absolute Neuts (auto) Absolute Nucleated RBC Nucleated RBC % (auto) Creatinine Estim Creat Clear Calc Estimated GFR POC Glucose PTH Intact 8 L Calcium (PTH Intact) 8.0 L Blood Type O Positive Antibody Screen NEGATIVE Crossmatch See Detail See Detail 05/01/21 05/01/21 05/02/21 16:10 19:53 04:17 WBC 11.8 H RBC 2.96 L Hgb 8.5 L D Hct 27.0 L MCV 91.2 MCH 28.7 MCHC 31.5 RDW 14.6 Plt Count 251 MPV 9.5 Immature Gran % (Auto) 1.1 H Neut % (Auto) 85.2 H Lymph % (Auto) 8.3 L [place] % (Auto) 4.3 Eos % (Auto) 0.9 Baso % (Auto) 0.2 Lymph # (Auto) 1.0 L [place] # (Auto) 0.5 Eos # (Auto) 0.1 Baso # (Auto) 0.0 Abs Immat Gran (auto) 0.13 H Absolute Neuts (auto) 10.1 H Absolute Nucleated RBC 0.000 Nucleated RBC % (auto) 0.0 Creatinine Estim Creat Clear Calc Estimated GFR POC Glucose 105 123 H PTH Intact Calcium (PTH Intact) Blood Type Antibody Screen Crossmatch 05/02/21 05/02/21 05/02/21 07:07 08:28 11:02 WBC RBC Hgb Hct MCV MCH MCHC RDW Plt Count MPV Immature Gran % (Auto) Neut % (Auto) Lymph % (Auto) [place] % (Auto) Eos % (Auto) Baso % (Auto) Lymph # (Auto) [place] # (Auto) Eos # (Auto) Baso # (Auto) Abs Immat Gran (auto) Absolute Neuts (auto) Absolute Nucleated RBC Nucleated RBC % (auto) Creatinine 1.74 H Estim Creat Clear Calc 39.4 Estimated GFR 31 POC Glucose 82 109 PTH Intact Calcium (PTH Intact) Blood Type Antibody Screen Crossmatch Microbiology Microbiology Results: Microbiology 04/25/21 12:27 Blood - Venous Blood Culture - Final No growth after 5 days. 04/25/21 12:27 Blood - Venous Blood Culture - Final No growth after 5 days. 04/26/21 Unknown Decubitus Ulcer Gram Stain - Final 04/26/21 Unknown Decubitus Ulcer Routine Culture - Final Methicillin Res Staph Aureus 04/26/21 Unknown Decubitus Ulcer Anaerobic Culture - Final 04/25/21 00:00 Urine Catheterized - Straight Catheter Urine Culture - Final Proteus mirabilis Escherichia coli 04/25/21 10:21 Blood - Venous Blood Culture - Final 04/25/21 10:08 Blood - Venous Blood Culture - Final Physical Exam Vital Signs: Vital Signs: Last Vital Signs Temp 97.9 F 05/02/21 11:21 Pulse 78 05/02/21 11:21 Resp 20 05/02/21 11:21 BP 121/64 05/02/21 11:21 Pulse Ox 99 05/02/21 11:21 Body Mass Index 27.8 Const: General: cooperative HENMT: Head: Yes normal to inspection Mouth: Normal oral and palatal mucosa present Resp: Effort & Inspection: normal respiratory effort Cardio: Rate: regular rate Rhythm: regular rhythm GI: Palpation (GI): Soft to palpation and nontender Assessment and Plan Assessment and plan (1) UTI (urinary tract infection): Status: Resolved Assessment and Plan: She has E coli 04/25 Stop antibiotics ,day 8 stop Ceftriaxone (2) Decubitus ulcer: Status: Acute Assessment and Plan: MRSA decubitus area Continue Vancomycin 6 week total and then possible some po Time Spent With Patient Time: Total time spent is greater than 50% in coordination of care (as documented) at patient's floor/unit and/or counseling patient: Time with patient: 15 - 24 minutes
--- NOTE | 2021-05-02 14:33 | P.PNGS_ITS ---
Subjective Subjective Date of Service: 05/02/21 Interval history: No new events Patient more alert Now stating that she is waiting to undergo diverting stoma to help with her severe decubitus ulcers Physical Exam Vital Signs: Vital Signs: Last Vital Signs Temp 97.9 F 05/02/21 11:21 Pulse 78 05/02/21 11:21 Resp 20 05/02/21 11:21 BP 121/64 05/02/21 11:21 Pulse Ox 99 05/02/21 11:21 Body Mass Index 27.8 Laboratory Results - last 24 hr 04/25/21 04/29/21 04/29/21 14:32 06:07 08:21 WBC RBC Hgb Hct MCV MCH MCHC RDW Plt Count MPV Immature Gran % (A uto) Neut % (Auto) Lymph % (Auto) [place] % (Auto) Eos % (Auto) Baso % (Auto) Lymph # (Auto) [place] # (Auto) Eos # (Auto) Baso # (Auto) Abs Immat Gran (au to) Absolute Neuts (au to) Absolute Nucleated RBC Nucleated RBC % (a uto) Creatinine Estim Creat Clear Calc Estimated GFR POC Glucose PTH Intact 8 L Calcium (PTH Intac t) 8.0 L Blood Type O Positive Antibody Screen NEGATIVE Crossmatch See Detail See Detail 05/01/21 05/01/21 05/02/21 16:10 19:53 04:17 WBC 11.8 H RBC 2.96 L Hgb 8.5 L D Hct 27.0 L MCV 91.2 MCH 28.7 MCHC 31.5 RDW 14.6 Plt Count 251 MPV 9.5 Immature Gran % (A uto) 1.1 H Neut % (Auto) 85.2 H Lymph % (Auto) 8.3 L [place] % (Auto) 4.3 Eos % (Auto) 0.9 Baso % (Auto) 0.2 Lymph # (Auto) 1.0 L [place] # (Auto) 0.5 Eos # (Auto) 0.1 Baso # (Auto) 0.0 Abs Immat Gran (au to) 0.13 H Absolute Neuts (au to) 10.1 H Absolute Nucleated RBC 0.000 Nucleated RBC % (a uto) 0.0 Creatinine Estim Creat Clear Calc Estimated GFR POC Glucose 105 123 H PTH Intact Calcium (PTH Intac t) Blood Type Antibody Screen Crossmatch 05/02/21 05/02/21 05/02/21 07:07 08:28 11:02 WBC RBC Hgb Hct MCV MCH MCHC RDW Plt Count MPV Immature Gran % (A uto) Neut % (Auto) Lymph % (Auto) [place] % (Auto) Eos % (Auto) Baso % (Auto) Lymph # (Auto) [place] # (Auto) Eos # (Auto) Baso # (Auto) Abs Immat Gran (au to) Absolute Neuts (au to) Absolute Nucleated RBC Nucleated RBC % (a uto) Creatinine 1.74 H Estim Creat Clear Calc 39.4 Estimated GFR 31 POC Glucose 82 109 PTH Intact Calcium (PTH Intac t) Blood Type Antibody Screen Crossmatch Const: Other: Frail looking but more communicative General: no acute distress Resp: Effort & Inspection: normal respiratory effort Cardio: Rate: regular rate GI: Inspection: No distended Palpation (GI): Soft to palpation, not firm, nontender and no guarding Back/Spine/Pelvis: Other: Deep stage IV ulcers on the buttocks Extrem: Other: Bilateral stage 3 ulcers on the heel Procedures Date of Service Date of Service: 05/02/21 Progress Note: A&P Assessment and plan (1) Decubitus ulcer: Status: Acute Assessment and Plan: She now states that she is waiting to undergo waiting stoma to help with care of her ulcers in for perineal hygiene. She is bed-bound and has difficulty with regards to nursing care for her decubitus ulcers due to frequent soiling She had been offered the option of proceeding with a diverting stoma with colostomy for better perineal care Explained to her the technique of assisted end-colostomy from the sigmoid with possible loop stoma from the transverse I reviewed the risks including but not limited to bleeding, infections, bowel injury, stoma complications, inherent risks of anesthesia She seems to understand well. Her aunt Naomi Bueno who is also her healthcare proxy was present in the room during the discussion and was in agreement as well - her phone number is [phone] plan for lap assisted endcolostomy,poss. transverse loop colostomy on Wednesday NPO after Wednesday night Fall Risk Details Current Medications: Current Medications Generic Name Dose Route Start Last Admin Trade Name Freq PRN Reason Stop Dose Admin Ascorbic Acid 500 mg 04/26/21 09:00 05/02/21 08:57 Ascorbic Acid 500 Mg Tablet PO 500 mg DAILY [facility] Administration Bisacodyl 10 mg 04/25/21 16:27 Bisacodyl 10 Mg Supp.Rect MA DAILY PRN Constipation Diltiazem HCl 60 mg 04/25/21 21:00 05/02/21 08:56 Diltiazem Hcl 60 Mg Tablet PO 60 mg BID [facility] Administration Protocol Docusate Sodium 50 mg 04/25/21 16:27 Docusate Sodium 100 Mg/10 Ml Liquid PO BEDTIME PRN Constipation Enoxaparin Sodium 30 mg 04/25/21 18:00 05/01/21 20:11 Enoxaparin Sodium 30 Mg/0.3 Ml Syringe SUBCUT Not Given Q24H [facility] Ferrous Sulfate 324 mg 04/25/21 21:00 05/02/21 08:55 Ferrous Sulfate 324 Mg Tablet.Dr PO 324 mg TID [facility] Administration Promethazine HCl 12.5 mg/ 50.5 mls @ 202 mls/hr 04/26/21 10:10 Sodium Chloride IV ONCE PRN Nausea and Vomiting Vancomycin HCl 750 mg/ Sodium 265 mls @ 265 mls/hr 05/03/21 06:00 Chloride IV Q24H [facility] Insulin Human Lispro 0 unit 04/25/21 16:30 05/02/21 11:47 Insulin Lispro 100 Unit/Ml 3 Ml Vial SUBCUT Not Given QIDACHS [facility] Protocol Lactulose 20 gm 04/25/21 16:27 Lactulose 20 Gm/30 Ml Solution PO BID PRN Constipation Mirtazapine 30 mg 04/25/21 21:00 05/01/21 22:23 Mirtazapine 30 Mg Tablet PO 30 mg BEDTIME [facility] Administration Morphine Sulfate 4 mg 05/02/21 11:16 Morphine Sulfate 2 Mg/Ml Cartridge IVPUSH Q4H PRN Pain, Severe (Pain Scale 7-10) Morphine Sulfate 15 mg 05/02/21 21:00 Morphine Sulfate Er 15 Mg Tablet.Er PO BID [facility] Ondansetron HCl 4 mg 04/25/21 16:27 05/02/21 12:14 Ondansetron Hcl 4 Mg/2 Ml Vial IVPUSH 4 mg Q8H PRN Administration Nausea and Vomiting Oxycodone HCl 5 mg 05/01/21 21:59 05/02/21 05:08 Oxycodone Hcl Immed Release 5 Mg Tablet PO 5 mg Q6H PRN Administration [facility] Consult 1 each 04/25/21 11:48 Consult Rx Perform Med Rec MISCELLANE ONCE PRN Consult order Pharmacy Consult 1 each 04/25/21 16:27 Consult Rx Vancomycin Dosing MISCELLANE DAILY PRN Consult order Pharmacy Consult 1 each 05/01/21 00:31 Consult Rx Vancomycin Dosing MISCELLANE DAILY PRN Consult order Polyethylene Glycol 17 gm 04/25/21 16:27 Polyethylene Glycol 3350 17 Gm Powd.Pack PO DAILY PRN Constipation Senna 17.2 mg 04/26/21 21:00 05/01/21 22:23 Sennosides 8.6 Mg Tablet PO 17.2 mg BEDTIME [facility] Administration Sodium Chloride 3 ml 04/25/21 16:27 05/02/21 08:59 0.9 % Sodium Chloride Flush 3 Ml Syringe IVFLUSH 3 ml QSHIFT [facility] Administration Sodium Hypochlorite 1 appl 04/25/21 21:00 04/26/21 10:07 Sodium Hypochlorite 0.125% 473 Ml Solution TOPICAL Not Given BID [facility] Tamsulosin HCl 0.4 mg 04/26/21 09:00 05/02/21 08:57 Tamsulosin Hcl 0.4 Mg Capsule PO 0.4 mg DAILY [facility] Administration Time Spent With Patient Time: Total time spent is greater than 50% in coordination of care (as documented) at patient's floor/unit and/or counseling patient: Time with patient: 15 - 24 minutes Quality Stroke Does the patient have a stroke diagnosis?: No VTE Prior VTE?: No VTE Risk Level:: Medical - moderate - high VTE Device Contraindication: N/A - Device Ordered VTE Drug Contraindication: N/A - Med Ordered
[2021-05-02] MEDS: Morphine Sulfate 2 MG/ML CARTRIDGE 4 MG IVPUSH (14:51)
[2021-05-02 16:37] LABS: Glucose, Whole Blood 119 mg/dL (60-115)
[2021-05-02] MEDS: Enoxaparin Sodium 30 MG/0.3 ML SYRINGE SUBCUT (18:19)
[2021-05-02 19:34] LABS: Glucose, Whole Blood 124 mg/dL (60-115)
--- NOTE | 2021-05-02 20:38 | PM.PNNEP ---
Subjective Subjective Date of Service: 05/02/21 Principal diagnosis: kylah Interval history: seen and examined, events noted Physical Exam Vital Signs: Vital Signs: Last Vital Signs Temp 97.2 F 05/02/21 18:53 Pulse 83 05/02/21 18:53 Resp 18 05/02/21 18:53 BP 141/62 H 05/02/21 18:53 Pulse Ox 95 05/02/21 18:53 Body Mass Index 27.8 Resp: Auscultation: breath sounds absent and vesicular breath sounds bilateral Objective Data Labs CBC & Chem 7: 05/02/21 04:17 05/02/21 08:28 Labs: Laboratory Results - last 24 hr 04/25/21 04/29/21 04/29/21 14:32 06:07 08:21 WBC RBC Hgb Hct MCV MCH MCHC RDW Plt Count MPV Immature Gran % (Auto) Neut % (Auto) Lymph % (Auto) [place] % (Auto) Eos % (Auto) Baso % (Auto) Lymph # (Auto) [place] # (Auto) Eos # (Auto) Baso # (Auto) Abs Immat Gran (auto) Absolute Neuts (auto) Absolute Nucleated RBC Nucleated RBC % (auto) Creatinine Estim Creat Clear Calc Estimated GFR POC Glucose PTH Intact 8 L Calcium (PTH Intact) 8.0 L Blood Type O Positive Antibody Screen NEGATIVE Crossmatch See Detail See Detail 05/02/21 05/02/21 05/02/21 04:17 07:07 08:28 WBC 11.8 H RBC 2.96 L Hgb 8.5 L D Hct 27.0 L MCV 91.2 MCH 28.7 MCHC 31.5 RDW 14.6 Plt Count 251 MPV 9.5 Immature Gran % (Auto) 1.1 H Neut % (Auto) 85.2 H Lymph % (Auto) 8.3 L [place] % (Auto) 4.3 Eos % (Auto) 0.9 Baso % (Auto) 0.2 Lymph # (Auto) 1.0 L [place] # (Auto) 0.5 Eos # (Auto) 0.1 Baso # (Auto) 0.0 Abs Immat Gran (auto) 0.13 H Absolute Neuts (auto) 10.1 H Absolute Nucleated RBC 0.000 Nucleated RBC % (auto) 0.0 Creatinine 1.74 H Estim Creat Clear Calc 39.4 Estimated GFR 31 POC Glucose 82 PTH Intact Calcium (PTH Intact) Blood Type Antibody Screen Crossmatch 05/02/21 05/02/21 05/02/21 11:02 16:34 19:31 WBC RBC Hgb Hct MCV MCH MCHC RDW Plt Count MPV Immature Gran % (Auto) Neut % (Auto) Lymph % (Auto) [place] % (Auto) Eos % (Auto) Baso % (Auto) Lymph # (Auto) [place] # (Auto) Eos # (Auto) Baso # (Auto) Abs Immat Gran (auto) Absolute Neuts (auto) Absolute Nucleated RBC Nucleated RBC % (auto) Creatinine Estim Creat Clear Calc Estimated GFR POC Glucose 109 119 H 124 H PTH Intact Calcium (PTH Intact) Blood Type Antibody Screen Crossmatch Microbiology Microbiology Results: Microbiology 04/25/21 12:27 Blood - Venous Blood Culture - Final No growth after 5 days. 04/25/21 12:27 Blood - Venous Blood Culture - Final No growth after 5 days. 04/26/21 Unknown Decubitus Ulcer Gram Stain - Final 04/26/21 Unknown Decubitus Ulcer Routine Culture - Final Methicillin Res Staph Aureus 04/26/21 Unknown Decubitus Ulcer Anaerobic Culture - Final 04/25/21 00:00 Urine Catheterized - Straight Catheter Urine Culture - Final Proteus mirabilis Escherichia coli 04/25/21 10:21 Blood - Venous Blood Culture - Final 04/25/21 10:08 Blood - Venous Blood Culture - Final Procedures Date of Service Date of Service: 05/02/21 Assessment & Plan Assessment and plan (1) Acute kidney injury: Status: Acute Assessment and Plan: 1. CKD 4: Scr mid 2's since adm now grd decr; and appears to be her new bsl; previous Scr 03/2020 was 0.8 h/o DM and heavy albuminuira c/w DN No Renal Obs on CT 2. Anemia: Fe and epod def with cont dropping Hb 3. AMS: improved; ques related to pain meds; ques bsl 4. Proteinuria: c/w DN; r/o dysproteinemia 5. 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
[2021-05-02] MEDS: Sennosides 8.6 MG TABLET 17.2 MG PO (22:18)
[2021-05-02] MEDS: Morphine Sulfate ER 15 MG TABLET.ER PO (22:18)
[2021-05-02] MEDS: Mirtazapine 30 MG TABLET PO (22:19)
[2021-05-03] VITALS (7 sets, daily range): BP systolic 116–138; BP diastolic 60–74; PULSE 76–87; RESP 15–18; TEMP 36.3–37.3; O2SAT 99
[2021-05-03] MEDS: vancomycin HCL 750 MG in 0.9 % Sodium Chloride 250 ML 265 MG IV (05:19)
[2021-05-03 05:26] LABS: Creatinine Clr Calc Pharmacy 39.7; Estimated Glomerular Filt Rate 31
[2021-05-03 07:25] LABS: Glucose, Whole Blood 94 mg/dL (60-115)
[2021-05-03] MEDS: dilTIAZem HCL 60 MG TABLET PO ×2 (08:24→20:29)
[2021-05-03] MEDS: Ascorbic Acid 500 MG TABLET PO (08:25)
[2021-05-03] MEDS: Tamsulosin HCL 0.4 MG CAPSULE PO (08:25)
[2021-05-03] MEDS: Ferrous Sulfate 324 MG TABLET.DR PO ×3 (08:25→20:28)
[2021-05-03] MEDS: Morphine Sulfate ER 15 MG TABLET.ER PO ×2 (08:26→20:28)
[2021-05-03] MEDS: 0.9 % Sodium Chloride Flush 3 ML SYRINGE IVFLUSH ×3 (08:47→20:30)
[2021-05-03 11:08] LABS: Glucose, Whole Blood 109 mg/dL (60-115)
[2021-05-03] MEDS: Morphine Sulfate 2 MG/ML CARTRIDGE 4 MG IVPUSH (11:34)
--- NOTE | 2021-05-03 12:59 | P.PNIM_ITS ---
Subjective Subjective Date of Service: 05/03/21 Interval History: seen and examined this am, persistent pain, but reasonably comfortable, H/H is better with transfusion. doing better with no new complaint Review of Systems Reports generalized pain Physical Exam Vital Signs: Vital Signs: Last Vital Signs Temp 99.2 F 05/03/21 12:00 Pulse 78 05/03/21 12:00 Resp 18 05/03/21 12:00 BP 116/61 05/03/21 12:00 Pulse Ox 99 05/03/21 12:00 Body Mass Index 27.8 Const: General: alert, awake and anxious Orientation/consciousness: oriented to person, oriented to place and oriented to time Eyes: Pupils: Equal, round and reactive pupils present Chest: Chest palpation & inspection: normal inspection of the chest and normal palpation of entire chest wall Resp: Effort & Inspection: normal respiratory effort, able to speak in complete sentences and no respiratory distress Auscultation: clear to auscultation bilaterally, breath sounds absent and vesicular breath sounds bilateral Cardio: Other: Bilateral lower extremity lymphedema, pedal pulses not palpable Rate: regular rate Rhythm: regular rhythm Heart sounds: S1 normal heart sound present and S2 normal heart sound present Peripheral pulses: Peripheral pulses 2+ throughout GI: Other: Soft, nondistended, nontender Palpation (GI): Soft to palpation and nontender : Other: cheng present draining yellow urine Skin: Other: bilateral stage IV buttock ulcers, heel ulcers--see picture for details General skin exam: dry skin Neuro: General: oriented to person, oriented to place and oriented to time Cranial nerves: Yes CN's II-XII intact bilaterally, Yes Equal, round and reactive pupils present and Yes Bilaterally intact EOM present Psych: Mental Status: mental status grossly normal Affect: Anxious affect present Objective Data Current Medications Generic Name Dose Route Start Last Admin Trade Name Freq PRN Reason Stop Dose Admin Ascorbic Acid 500 mg 04/26/21 09:00 05/03/21 08:25 Ascorbic Acid 500 Mg Tablet PO 500 mg DAILY SYLWIA Administration Bisacodyl 10 mg 04/25/21 16:27 Bisacodyl 10 Mg Supp.Rect ID DAILY PRN Constipation Diltiazem HCl 60 mg 04/25/21 21:00 05/03/21 08:24 Diltiazem Hcl 60 Mg Tablet PO 60 mg BID SYLWIA Administration Protocol Docusate Sodium 50 mg 04/25/21 16:27 Docusate Sodium 100 Mg/10 Ml Liquid PO BEDTIME PRN Constipation Enoxaparin Sodium 30 mg 04/25/21 18:00 05/02/21 18:19 Enoxaparin Sodium 30 Mg/0.3 Ml Syringe SUBCUT 30 mg Q24H SYLWIA Administration Ferrous Sulfate 324 mg 04/25/21 21:00 05/03/21 08:25 Ferrous Sulfate 324 Mg Tablet.Dr PO 324 mg TID [facility] Administration Promethazine HCl 12.5 mg/ 50.5 mls @ 202 mls/hr 04/26/21 10:10 Sodium Chloride IV ONCE PRN Nausea and Vomiting Vancomycin HCl 750 mg/ Sodium 265 mls @ 265 mls/hr 05/03/21 06:00 05/03/21 06:44 Chloride IV Infused Q24H [facility] Infusion Insulin Human Lispro 0 unit 04/25/21 16:30 05/03/21 12:16 Insulin Lispro 100 Unit/Ml 3 Ml Vial SUBCUT Not Given QIDACHS [facility] Protocol Lactulose 20 gm 04/25/21 16:27 Lactulose 20 Gm/30 Ml Solution PO BID PRN Constipation Mirtazapine 30 mg 04/25/21 21:00 05/02/21 22:19 Mirtazapine 30 Mg Tablet PO 30 mg BEDTIME [facility] Administration Morphine Sulfate 4 mg 05/02/21 11:16 05/03/21 11:34 Morphine Sulfate 2 Mg/Ml Cartridge IVPUSH 4 mg Q4H PRN Administration Pain, Severe (Pain Scale 7-10) Morphine Sulfate 15 mg 05/02/21 21:00 05/03/21 08:26 Morphine Sulfate Er 15 Mg Tablet.Er PO 15 mg BID SYLWIA Administration Ondansetron HCl 4 mg 04/25/21 16:27 05/02/21 12:14 Ondansetron Hcl 4 Mg/2 Ml Vial IVPUSH 4 mg Q8H PRN Administration Nausea and Vomiting Oxycodone HCl 5 mg 05/01/21 21:59 05/02/21 05:08 Oxycodone Hcl Immed Release 5 Mg Tablet PO 5 mg Q6H PRN Administration [facility] Consult 1 each 04/25/21 11:48 Consult Rx Perform Med Rec MISCELLANE ONCE PRN Consult order Pharmacy Consult 1 each 05/01/21 00:31 Consult Rx Vancomycin Dosing MISCELLANE DAILY PRN Consult order Polyethylene Glycol 17 gm 04/25/21 16:27 Polyethylene Glycol 3350 17 Gm Powd.Pack PO DAILY PRN Constipation Senna 17.2 mg 04/26/21 21:00 05/02/21 22:18 Sennosides 8.6 Mg Tablet PO 17.2 mg BEDTIME SYLWIA Administration Sodium Chloride 3 ml 04/25/21 16:27 05/03/21 08:47 0.9 % Sodium Chloride Flush 3 Ml Syringe IVFLUSH 3 ml QSHIFT SYLWIA Administration Sodium Hypochlorite 1 appl 04/25/21 21:00 04/26/21 10:07 Sodium Hypochlorite 0.125% 473 Ml Solution TOPICAL Not Given BID SYLWIA Tamsulosin HCl 0.4 mg 04/26/21 09:00 05/03/21 08:25 Tamsulosin Hcl 0.4 Mg Capsule PO 0.4 mg DAILY SYLWIA Administration Labs CBC & Chem 7: 05/02/21 04:17 05/03/21 04:55 Labs: Laboratory Results - last 24 hr 05/02/21 05/02/21 05/03/21 16:34 19:31 04:55 Estim Creat Clear Calc 39.7 Estimated GFR 31 POC Glucose 119 H 124 H 05/03/21 05/03/21 07:18 11:04 Estim Creat Clear Calc Estimated GFR POC Glucose 94 109 Assessment and Plan (1) PAD (peripheral artery disease): Status: Acute (2) Protein-calorie malnutrition, severe: Status: Acute (3) Acute kidney injury: Status: Acute (4) Wet gangrene: Status: Acute Assessment and Plan: 55-year-old female with history of vulvar cancer status post chemo radiation, chronic lymphadenopathy currently bedbound, hypertension, diabetes anxiety, depression, chronic decubitus ulcers of buttocks and bilateral heels sent from [facility] for altered mental status found to have sepsis and LEIGH Sepsis.poa--related to underlying buttock/heel wounds, culture growing MRSA, possible UTI leukocytosis has trended down slowly -continue vancomycin..ID recommend Ertapenem at discharge -Blood cultures negative to date -Has midline Chronic wounds to buttock and bilateral heels. poa Osteomyelitis confirmed by outpatient MRI s/p debridement of wounds 04/26 -surgery following -continuevanco (started on 04/25)--MRSA from wound culture -airloss bed, frequent repositioning -pain control. continue home ms claudia, will continue morphine for severe pain -continue local wound care -She now wants diverting colostomy: discussed with Dr. Knott and will arrage for next week Possible UTI--Treated with ceftriaxone, should be enough. LEIGH on CDK stable Metabolic acidosis SCr trending down slightly to 1.74 (no baseline labs since 03/2020) -nephrology following -follow renal function Anemia s/p 1Unit rbc on 04/26, hemoglobin is 6.8 today, transfuse 2 units on 05/01, Hgb 8.5 today, check H/H Wednesday Mood, seems depressed -care team consult -continue ativan, remeron Metabolic encephalopathy d/t sepsis Resolved, seems at baseline DM -Lantus on hold -SSI, POCs -ada diet HTN -continue diltiazem Moderate protein calorie malnutrition albumin 2.0 -Nutrition following, -Supplement Quality Stroke Does the patient have a stroke diagnosis?: No VTE Prior VTE?: No VTE Risk Level:: Medical - moderate - high VTE Device Contraindication: N/A - Device Ordered VTE Drug Contraindication: N/A - Med Ordered
[2021-05-03 16:33] LABS: Glucose, Whole Blood 99 mg/dL (60-115)
[2021-05-03] MEDS: Enoxaparin Sodium 30 MG/0.3 ML SYRINGE SUBCUT (17:39)
--- NOTE | 2021-05-03 18:47 | PM.PNNEP ---
Subjective Subjective Date of Service: 05/03/21 Principal diagnosis: kylah Interval history: seen and examined this am,evertsharon notedt Physical Exam Vital Signs: Vital Signs: Last Vital Signs Temp 98 F 05/03/21 16:00 Pulse 82 05/03/21 16:00 Resp 15 05/03/21 16:00 BP 124/64 05/03/21 16:00 Pulse Ox 99 05/03/21 16:00 Body Mass Index 27.8 Resp: Auscultation: breath sounds absent and vesicular breath sounds bilateral Objective Data Labs CBC & Chem 7: 05/02/21 04:17 05/03/21 04:55 Labs: Laboratory Results - last 24 hr 05/02/21 05/03/21 05/03/21 19:31 04:55 07:18 Creatinine 1.73 H Estim Creat Clear Calc 39.7 Estimated GFR 31 POC Glucose 124 H 94 05/03/21 05/03/21 11:04 16:29 Creatinine Estim Creat Clear Calc Estimated GFR POC Glucose 109 99 Microbiology Microbiology Results: Microbiology 04/25/21 12:27 Blood - Venous Blood Culture - Final No growth after 5 days. 04/25/21 12:27 Blood - Venous Blood Culture - Final No growth after 5 days. 04/26/21 Unknown Decubitus Ulcer Gram Stain - Final 04/26/21 Unknown Decubitus Ulcer Routine Culture - Final Methicillin Res Staph Aureus 04/26/21 Unknown Decubitus Ulcer Anaerobic Culture - Final 04/25/21 00:00 Urine Catheterized - Straight Catheter Urine Culture - Final Proteus mirabilis Escherichia coli 04/25/21 10:21 Blood - Venous Blood Culture - Final 04/25/21 10:08 Blood - Venous Blood Culture - Final Procedures Date of Service Date of Service: 05/03/21 Assessment & Plan Assessment and plan (1) Acute kidney injury: Status: Acute Assessment and Plan: 1. CKD 4: Scr mid 2's since adm now grd decr; and appears to be her new bsl; previous Scr 03/2020 was 0.8 h/o DM and heavy albuminuira c/w DN No Renal Obs on CT 2. Anemia: Fe and epod def with cont dropping Hb 3. AMS: improved; ques related to pain meds; ques bsl 4. Proteinuria: c/w DN; r/o dysproteinemia 5. 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
[2021-05-03] MEDS: Sennosides 8.6 MG TABLET 17.2 MG PO (20:28)
[2021-05-03] MEDS: Mirtazapine 30 MG TABLET PO (20:28)
[2021-05-03 20:42] LABS: Glucose, Whole Blood 99 mg/dL (60-115)
[2021-05-04] VITALS (7 sets, daily range): BP systolic 119–145; BP diastolic 65–82; PULSE 76–91; RESP 18–19; TEMP 36.2–36.6; O2SAT 98–100
[2021-05-04] MEDS: Morphine Sulfate 2 MG/ML CARTRIDGE 4 MG IVPUSH ×2 (05:28→12:59)
[2021-05-04 05:30] LABS: Vancomycin Trough 20.1 mcg/mL (10.0-20.0)
[2021-05-04 07:26] LABS: Glucose, Whole Blood 111 mg/dL (60-115)
[2021-05-04] MEDS: Ascorbic Acid 500 MG TABLET PO (08:15)
[2021-05-04] MEDS: Tamsulosin HCL 0.4 MG CAPSULE PO (08:16)
[2021-05-04] MEDS: Ferrous Sulfate 324 MG TABLET.DR PO ×3 (08:16→21:52)
[2021-05-04] MEDS: dilTIAZem HCL 60 MG TABLET PO ×2 (08:16→21:52)
[2021-05-04] MEDS: Morphine Sulfate ER 15 MG TABLET.ER PO ×2 (08:17→21:53)
[2021-05-04] MEDS: 0.9 % Sodium Chloride Flush 3 ML SYRINGE IVFLUSH ×3 (08:19→21:52)
[2021-05-04 08:33] LABS: Creatinine Clr Calc Pharmacy 40.9; Estimated Glomerular Filt Rate 32
[2021-05-04 11:23] LABS: Glucose, Whole Blood 94 mg/dL (60-115)
[2021-05-04] MEDS: vancomycin HCL 500 MG in 0.9 % Sodium Chloride 100 ML 110 MG IV (11:35)
--- NOTE | 2021-05-04 11:41 | P.PNIM_ITS ---
Subjective Subjective Date of Service: 05/04/21 Interval History: seen and examined this am, persistent pain, but reasonably comfortable, H/H is better with transfusion. No new issues, Creat is improving, Vanco level 20 Review of Systems Pain in coccyx area, no fever, no sob, no chest pain Physical Exam Vital Signs: Vital Signs: Last Vital Signs Temp 97.7 F 05/04/21 10:58 Pulse 76 05/04/21 10:58 Resp 18 05/04/21 10:58 BP 119/74 05/04/21 10:58 Pulse Ox 100 05/04/21 10:58 Body Mass Index 27.8 Const: General: alert, awake and anxious Orientation/consciousness: oriented to person, oriented to place and oriented to time Eyes: Pupils: Equal, round and reactive pupils present Chest: Chest palpation & inspection: normal inspection of the chest and normal palpation of entire chest wall Resp: Effort & Inspection: normal respiratory effort, able to speak in complete sentences and no respiratory distress Auscultation: clear to auscultation bilaterally, breath sounds absent and vesicular breath sounds b ilateral Cardio: Other: Bilateral lower extremity lymphedema, pedal pulses not palpable Rate: regular rate Rhythm: regular rhythm Heart sounds: S1 normal heart sound present and S2 normal heart sound present Peripheral pulses: Peripheral pulses 2+ throughout GI: Other: Soft, nondistended, nontender Palpation (GI): Soft to palpation and nontender : Other: cheng present draining yellow urine Skin: Other: bilateral stage IV buttock ulcers, heel ulcers--see picture for details General skin exam: dry skin Neuro: General: oriented to person, oriented to place and oriented to time Cranial nerves: Yes CN's II-XII intact bilaterally, Yes Equal, round and reactive pupils present and Yes Bilaterally intact EOM present Psych: Mental Status: mental status grossly normal Affect: Anxious affect present Objective Data Current Medications Generic Name Dose Route Start Last Admin Trade Name Freq PRN Reason Stop Dose Admin Ascorbic Acid 500 mg 04/26/21 09:00 05/04/21 08:15 Ascorbic Acid 500 Mg Tablet PO 500 mg DAILY SYLWIA Administration Bisacodyl 10 mg 04/25/21 16:27 Bisacodyl 10 Mg Supp.Rect DE DAILY PRN Constipation Diltiazem HCl 60 mg 04/25/21 21:00 05/04/21 08:16 Diltiazem Hcl 60 Mg Tablet PO 60 mg BID SYLWIA Administration Protocol Docusate Sodium 50 mg 04/25/21 16:27 Docusate Sodium 100 Mg/10 Ml Liquid PO BEDTIME PRN Constipation Enoxaparin Sodium 30 mg 04/25/21 18:00 05/03/21 17:39 Enoxaparin Sodium 30 Mg/0.3 Ml Syringe SUBCUT 30 mg Q24H SYLWIA Administration Ferrous Sulfate 324 mg 04/25/21 21:00 05/04/21 08:16 Ferrous Sulfate 324 Mg Tablet.Dr PO 324 mg TID SYLWIA Administration Promethazine HCl 12.5 mg/ 50.5 mls @ 202 mls/hr 04/26/21 10:10 Sodium Chloride IV ONCE PRN Nausea and Vomiting Vancomycin HCl 500 mg/ Sodium 110 mls @ 110 mls/hr 05/04/21 12:00 05/04/21 11:35 Chloride IV 110 mls/hr Q18H SYLWIA Administration Insulin Human Lispro 0 unit 04/25/21 16:30 05/04/21 08:15 Insulin Lispro 100 Unit/Ml 3 Ml Vial SUBCUT Not Given QIDACHS [facility] Protocol Lactulose 20 gm 04/25/21 16:27 Lactulose 20 Gm/30 Ml Solution PO BID PRN Constipation Mirtazapine 30 mg 04/25/21 21:00 05/03/21 20:28 Mirtazapine 30 Mg Tablet PO 30 mg BEDTIME SYLWIA Administration Morphine Sulfate 4 mg 05/02/21 11:16 05/04/21 05:28 Morphine Sulfate 2 Mg/Ml Cartridge IVPUSH 4 mg Q4H PRN Administration Pain, Severe (Pain Scale 7-10) Morphine Sulfate 15 mg 05/02/21 21:00 05/04/21 08:17 Morphine Sulfate Er 15 Mg Tablet.Er PO 15 mg BID SYLWIA Administration Ondansetron HCl 4 mg 04/25/21 16:27 05/02/21 12:14 Ondansetron Hcl 4 Mg/2 Ml Vial IVPUSH 4 mg Q8H PRN Administration Nausea and Vomiting Oxycodone HCl 5 mg 05/01/21 21:59 05/02/21 05:08 Oxycodone Hcl Immed Release 5 Mg Tablet PO 5 mg Q6H PRN Administration [facility] Consult 1 each 04/25/21 11:48 Consult Rx Perform Med Rec MISCELLANE ONCE PRN Consult order Pharmacy Consult 1 each 05/01/21 00:31 Consult Rx Vancomycin Dosing MISCELLANE DAILY PRN Consult order Polyethylene Glycol 17 gm 04/25/21 16:27 Polyethylene Glycol 3350 17 Gm Powd.Pack PO DAILY PRN Constipation Senna 17.2 mg 04/26/21 21:00 05/03/21 20:28 Sennosides 8.6 Mg Tablet PO 17.2 mg BEDTIME SYLWIA Administration Sodium Chloride 3 ml 04/25/21 16:27 05/04/21 08:19 0.9 % Sodium Chloride Flush 3 Ml Syringe IVFLUSH 3 ml QSHIFT SYLWIA Administration Sodium Hypochlorite 1 appl 04/25/21 21:00 04/26/21 10:07 Sodium Hypochlorite 0.125% 473 Ml Solution TOPICAL Not Given BID SYLWIA Tamsulosin HCl 0.4 mg 04/26/21 09:00 05/04/21 08:16 Tamsulosin Hcl 0.4 Mg Capsule PO 0.4 mg DAILY SYLWIA Administration Labs CBC & Chem 7: 05/02/21 04:17 05/04/21 07:48 Labs: Laboratory Results - last 24 hr 05/03/21 05/03/21 05/04/21 16:29 20:11 04:50 Estim Creat Clear Calc Estimated GFR POC Glucose 99 99 Vancomycin Trough 20.1 H 05/04/21 05/04/21 05/04/21 07:12 07:48 11:00 Estim Creat Clear Calc 40.9 Estimated GFR 32 POC Glucose 111 94 Vancomycin Trough Assessment and Plan (1) PAD (peripheral artery disease): Status: Acute (2) Sepsis: Status: Acute (3) Metabolic acidosis: Status: Acute (4) Soft tissue radionecrosis: Status: Acute (5) Protein-calorie malnutrition, severe: Status: Acute (6) Decubitus ulcer: Status: Acute (7) Wet gangrene: Status: Acute (8) Acute kidney injury: Status: Acute (9) UTI (urinary tract infection): Status: Acute Assessment and Plan: 55-year-old female with history of vulvar cancer status post chemo radiation, chronic lymphadenopathy currently bedbound, hypertension, diabetes anxiety, depression, chronic decubitus ulcers of buttocks and bilateral heels sent from [facility] for altered mental status found to have sepsis and LEIGH Sepsis.poa--related to underlying buttock/heel wounds, culture growing MRSA leukocytosis has trended down slowly -continue vancomycin..ID recommend Ertapenem at discharge that may changes -Blood cultures negative to date -Has midline Chronic wounds to buttock and bilateral heels. poa Osteomyelitis confirmed by outpatient MRI s/p debridement of wounds 04/26 -surgery following -continue vanco (started on 04/25)--MRSA from wound culture -airloss bed, frequent repositioning -pain control. continue home ms taylor, will continue morphine for severe pain -continue local wound care -She now wants diverting colostomy: discussed with Dr. Knott and will arrage for next week UTII--completed course of Ceftriaxone LEIGH on CDK--stable Metabolic acidosis SCr trending down slightly to 1.68 (no baseline labs since 03/2020) -nephrology following -follow renal function Anemia s/p 1Unit rbc on 04/26, hemoglobin is 6.8 today, transfuse 2 units on 05/01, Hgb 8.5 today, check H/H Wednesday Mood, seems depressed -care team consult -continue ativan, remeron Metabolic encephalopathy d/t sepsis Resolved, seems at baseline DM -Lantus on hold -SSI, POCs -ada diet HTN -continue diltiazem Moderate protein calorie malnutrition albumin 2.0 -Nutrition following, -Supplement Quality Stroke Does the patient have a stroke diagnosis?: No VTE Prior VTE?: No VTE Risk Level:: Medical - moderate - high VTE Device Contraindication: N/A - Device Ordered VTE Drug Contraindication: N/A - Med Ordered
[2021-05-04 16:23] LABS: Glucose, Whole Blood 117 mg/dL (60-115)
[2021-05-04] MEDS: Enoxaparin Sodium 30 MG/0.3 ML SYRINGE SUBCUT (17:27)
--- NOTE | 2021-05-04 19:26 | PM.PNNEP ---
Subjective Subjective Date of Service: 05/04/21 Principal diagnosis: kylah Interval history: seen and examined this am, persistent pain, but reasonably comfortable, H/H is better with transfusion. No new issues, Creat is improving, Vanco level 20 Physical Exam Vital Signs: Vital Signs: Last Vital Signs Temp 97.2 F 05/04/21 19:22 Pulse 91 05/04/21 19:22 Resp 19 05/04/21 19:22 BP 145/77 H 05/04/21 19:22 Pulse Ox 99 05/04/21 19:22 Body Mass Index 27.8 Resp: Auscultation: breath sounds absent and vesicular breath sounds bilateral Objective Data Labs CBC & Chem 7: 05/02/21 04:17 05/04/21 07:48 Labs: Laboratory Results - last 24 hr 05/03/21 05/04/21 05/04/21 20:11 04:50 07:12 Creatinine Estim Creat Clear Calc Estimated GFR POC Glucose 99 111 Vancomycin Trough 20.1 H 05/04/21 05/04/21 05/04/21 07:48 11:00 16:16 Creatinine 1.68 H Estim Creat Clear Calc 40.9 Estimated GFR 32 POC Glucose 94 117 H Vancomycin Trough Microbiology Microbiology Results: Microbiology 04/25/21 12:27 Blood - Venous Blood Culture - Final No growth after 5 days. 04/25/21 12:27 Blood - Venous Blood Culture - Final No growth after 5 days. 04/26/21 Unknown Decubitus Ulcer Gram Stain - Final 04/26/21 Unknown Decubitus Ulcer Routine Culture - Final Methicillin Res Staph Aureus 04/26/21 Unknown Decubitus Ulcer Anaerobic Culture - Final 04/25/21 00:00 Urine Catheterized - Straight Catheter Urine Culture - Final Proteus mirabilis Escherichia coli 04/25/21 10:21 Blood - Venous Blood Culture - Final 04/25/21 10:08 Blood - Venous Blood Culture - Final Procedures Date of Service Date of Service: 05/04/21 Assessment & Plan Assessment and plan (1) Acute kidney injury: Status: Acute Assessment and Plan: 1. CKD 4: Scr mid 2's since adm now grd decr; and appears to be her new bsl; previous Scr 03/2020 was 0.8 h/o DM and heavy albuminuira c/w DN No Renal Obs on CT 2. Anemia: Fe and epod def with cont dropping Hb 3. AMS: improved; ques related to pain meds; ques bsl 4. Proteinuria: c/w DN; r/o dysproteinemia 5. 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
[2021-05-04 20:08] LABS: Glucose, Whole Blood 120 mg/dL (60-115)
[2021-05-04] MEDS: Sennosides 8.6 MG TABLET 17.2 MG PO (21:51)
[2021-05-04] MEDS: Mirtazapine 30 MG TABLET PO (21:51)
[2021-05-05] VITALS (16 sets, daily range): BP systolic 119–147; BP diastolic 60–94; PULSE 73–91; RESP 12–20; TEMP 36.1–36.7; O2SAT 94–100
[2021-05-05] MEDS: Morphine Sulfate 2 MG/ML CARTRIDGE 4 MG IVPUSH ×3 (06:06→17:14)
[2021-05-05] MEDS: vancomycin HCL 500 MG in 0.9 % Sodium Chloride 100 ML 110 MG IV ×2 (06:06→23:57)
[2021-05-05 07:30] LABS: Glucose, Whole Blood 115 mg/dL (60-115)
--- NOTE | 2021-05-05 07:36 | PC.NURSE ---
Pt noted to have many areas with severe pressure injuries. Pt encouraged to be repositioned. Pt is very resistive to care, stating that she has already been turned when she has not been. This RN attempted to placed pillows in between legs due to worsening redness to groin and perineal area, though patient refuses this as well. Pt educated on severity of wounds and importance of repositioning and wound healing. Will continue to re-educate and pass to oncoming RN.
--- NOTE | 2021-05-05 08:18 | PM.PNNEP ---
Subjective Subjective Date of Service: 05/05/21 Principal diagnosis: kylah Interval history: seen and examined this am, persistent pain, but reasonably comfortable, H/H is better with transfusion. No new issues, Creat is improving, Vanco level 20 Physical Exam Vital Signs: Vital Signs: Last Vital Signs Temp 98.0 F 05/05/21 07:12 Pulse 91 05/05/21 07:12 Resp 18 05/05/21 07:12 BP 129/70 05/05/21 07:12 Pulse Ox 100 05/05/21 07:12 Body Mass Index 27.8 Const: Other: Frail looking but more communicative General: cooperative, healthy appearing, comfortable, no acute distress, alert, awake, anxious and ill appearing Nutritional Appearance: thin Orientation/consciousness: oriented to person, oriented to place and oriented to time HENMT: Head: Yes normal to inspection, Yes normocephalic and Yes atraumatic Mouth: Normal oral and palatal mucosa present Eyes: Sclerae: sclerae normal Pupils: Equal, round and reactive pupils present EOM: EOMs intact bilaterally Neck: Neck: Yes trachea midline and Yes supple Carotids: no bruits Chest: Chest palpation & inspection: normal inspection of the chest and normal palpation of entire chest wall Resp: Effort & Inspection: normal respiratory effort, able to speak in complete sentences and no respiratory distress Auscultation: clear to auscultation bilaterally, breath sounds absent and vesicular breath sounds bilateral Cardio: Other: Bilateral lower extremity lymphedema, pedal pulses not palpable Rate: regular rate Rhythm: regular rhythm Heart sounds: S1 normal heart sound present and S2 normal heart sound present Peripheral pulses: Peripheral pulses 2+ throughout GI: Other: Soft, nondistended, nontender Inspection: Yes normal to inspection and No distended Palpation (GI): Soft to palpation, not firm, nontender and no guarding : Other: cheng present draining yellow urine Back/Spine/Pelvis: Other: Deep stage IV ulcers on the buttocks Skin: Other: bilateral stage IV buttock ulcers, heel ulcers--see picture for details General skin exam: dry skin Neuro: General: oriented to person, oriented to place and oriented to time Cranial nerves: Yes CN's II-XII intact bilaterally, Yes Equal, round and reactive pupils present and Yes Bilaterally intact EOM present Extrem: Other: Bilateral stage 3 ulcers on the heel General: Yes edema Right lower extremity: full ROM, normal capillary refill and edema Left lower extremity: full ROM, normal capillary refill and edema Psych: Mental Status: mental status grossly normal Affect: Anxious affect present Objective Data Labs CBC & Chem 7: 05/02/21 04:17 05/04/21 07:48 Labs: Laboratory Results - last 24 hr 05/04/21 05/04/21 05/04/21 07:48 11:00 16:16 Creatinine 1.68 H Estim Creat Clear Calc 40.9 Estimated GFR 32 POC Glucose 94 117 H 05/04/21 05/05/21 20:04 07:10 Creatinine Estim Creat Clear Calc Estimated GFR POC Glucose 120 H 115 Microbiology Microbiology Results: Microbiology 04/25/21 12:27 Blood - Venous Blood Culture - Final No growth after 5 days. 04/25/21 12:27 Blood - Venous Blood Culture - Final No growth after 5 days. 04/26/21 Unknown Decubitus Ulcer Gram Stain - Final 04/26/21 Unknown Decubitus Ulcer Routine Culture - Final Methicillin Res Staph Aureus 04/26/21 Unknown Decubitus Ulcer Anaerobic Culture - Final 04/25/21 00:00 Urine Catheterized - Straight Catheter Urine Culture - Final Proteus mirabilis Escherichia coli 04/25/21 10:21 Blood - Venous Blood Culture - Final 04/25/21 10:08 Blood - Venous Blood Culture - Final Procedures Date of Service Date of Service: 05/05/21 Assessment & Plan Assessment and plan (1) Acute kidney injury: Status: Acute Assessment and Plan: 1. 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 Anemia: Fe and epo def with cont dropping Hb 3. AMS: improved; related to pain meds 4. Proteinuria: c/w DN; r/o dysproteinemia 5. 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
[2021-05-05] MEDS: Ferrous Sulfate 324 MG TABLET.DR PO ×3 (08:37→21:57)
[2021-05-05] MEDS: 0.9 % Sodium Chloride Flush 3 ML SYRINGE IVFLUSH ×3 (08:37→21:58)
[2021-05-05] MEDS: Tamsulosin HCL 0.4 MG CAPSULE PO (08:37)
[2021-05-05] MEDS: Ascorbic Acid 500 MG TABLET PO (08:37)
[2021-05-05] MEDS: dilTIAZem HCL 60 MG TABLET PO ×2 (08:37→21:57)
[2021-05-05] MEDS: Morphine Sulfate ER 15 MG TABLET.ER PO ×2 (08:37→21:57)
[2021-05-05 09:42] LABS: Glucose, Whole Blood 96 mg/dL (60-115)
--- NOTE | 2021-05-05 09:47 | P.CONAN_ITS ---
[facility] Active Problems Active Problems: All Active Problems (Updated 04/28/21 @ 07:34 by Kt Parish MD) PAD (peripheral artery disease) (Acute) Sepsis (Acute) Metabolic acidosis (Acute) Soft tissue radionecrosis (Acute) Protein-calorie malnutrition, severe (Acute) Decubitus ulcer (Acute) Wet gangrene (Acute) Acute kidney injury (Acute) UTI (urinary tract infection) (Acute) Past Medical History Medical History Anemia Anxiety Chronic pain Depression Diabetes mellitus type 2 in nonobese History of cancer of vulva Hypertension Lymphedema PVD (peripheral vascular disease) Functional capacity: bed bound Family History Family History Father Colon cancer Hypertension Prostate cancer Mother Diabetes Hypertension Family/Other FH: mental illness Family history of problems with anesthesia: No Surgical History Surgical History History of total abdominal hysterectomy and bilateral salpingo-oophorectomy S/P recurrent ventral herniorrhaphy History of Problems with Anesthesia: No Social History Social History Household Members: None Housing: Assisted Do you presently have visiting nurse or other home services: No Alcohol intake: never Patient Tobacco Use Status: Never used Tobacco Second Hand Smoke Exposure: No service: No Current occupational status: unemployed Meds Allergies Allergy/AdvReac Type Severity Reaction Status Date / Time acetaminophen [Percocet] Allergy Unknown rash Verified 04/25/19 00:00 morphine [MORPHINE] Allergy Unknown RASH Verified 09/03/20 11:24 oxycodone [From PERCOCET] Allergy Unknown ITCHY RASH Verified 04/25/21 18:39 Penicillins [PENICILLINS] Allergy Unknown RASH Verified 09/03/20 11:24 Active Medications: Current Medications Generic Name Dose Route Start Last Admin Trade Name Freq PRN Reason Stop Dose Admin Ascorbic Acid 500 mg 04/26/21 09:00 05/05/21 08:37 Ascorbic Acid 500 Mg Tablet PO 500 mg DAILY SYLWIA Administration Bisacodyl 10 mg 04/25/21 16:27 Bisacodyl 10 Mg Supp.Rect OK DAILY PRN Constipation Diltiazem HCl 60 mg 04/25/21 21:00 05/05/21 08:37 Diltiazem Hcl 60 Mg Tablet PO 60 mg BID SYLWIA Administration Protocol Docusate Sodium 50 mg 04/25/21 16:27 Docusate Sodium 100 Mg/10 Ml Liquid PO BEDTIME PRN Constipation Enoxaparin Sodium 30 mg 04/25/21 18:00 05/04/21 17:27 Enoxaparin Sodium 30 Mg/0.3 Ml Syringe SUBCUT 30 mg Q24H SYLWIA Administration Ferrous Sulfate 324 mg 04/25/21 21:00 05/05/21 08:37 Ferrous Sulfate 324 Mg Tablet.Dr PO 324 mg TID [facility] Administration Promethazine HCl 12.5 mg/ 50.5 mls @ 202 mls/hr 04/26/21 10:10 Sodium Chloride IV ONCE PRN Nausea and Vomiting Vancomycin HCl 500 mg/ Sodium 110 mls @ 110 mls/hr 05/04/21 12:00 05/05/21 07:27 Chloride IV Infused Q18H [facility] Infusion Insulin Human Lispro 0 unit 04/25/21 16:30 05/05/21 08:12 Insulin Lispro 100 Unit/Ml 3 Ml Vial SUBCUT Not Given QIDACHS [facility] Protocol Lactulose 20 gm 04/25/21 16:27 Lactulose 20 Gm/30 Ml Solution PO BID PRN Constipation Mirtazapine 30 mg 04/25/21 21:00 05/04/21 21:51 Mirtazapine 30 Mg Tablet PO 30 mg BEDTIME [facility] Administration Morphine Sulfate 4 mg 05/02/21 11:16 05/05/21 06:06 Morphine Sulfate 2 Mg/Ml Cartridge IVPUSH 4 mg Q4H PRN Administration Pain, Severe (Pain Scale 7-10) Morphine Sulfate 15 mg 05/02/21 21:00 05/05/21 08:37 Morphine Sulfate Er 15 Mg Tablet.Er PO 15 mg BID SYLWIA Administration Ondansetron HCl 4 mg 04/25/21 16:27 05/02/21 12:14 Ondansetron Hcl 4 Mg/2 Ml Vial IVPUSH 4 mg Q8H PRN Administration Nausea and Vomiting Oxycodone HCl 5 mg 05/01/21 21:59 05/02/21 05:08 Oxycodone Hcl Immed Release 5 Mg Tablet PO 5 mg Q6H PRN Administration [facility] Consult 1 each 04/25/21 11:48 Consult Rx Perform Med Rec MISCELLANE ONCE PRN Consult order Pharmacy Consult 1 each 05/01/21 00:31 Consult Rx Vancomycin Dosing MISCELLANE DAILY PRN Consult order Polyethylene Glycol 17 gm 04/25/21 16:27 Polyethylene Glycol 3350 17 Gm Powd.Pack PO DAILY PRN Constipation Senna 17.2 mg 04/26/21 21:00 05/04/21 21:51 Sennosides 8.6 Mg Tablet PO 17.2 mg BEDTIME SYLWIA Administration Sodium Chloride 3 ml 04/25/21 16:27 05/05/21 08:37 0.9 % Sodium Chloride Flush 3 Ml Syringe IVFLUSH 3 ml QSHIFT SYLWIA Administration Sodium Hypochlorite 1 appl 04/25/21 21:00 04/26/21 10:07 Sodium Hypochlorite 0.125% 473 Ml Solution TOPICAL Not Given BID SYLWIA Tamsulosin HCl 0.4 mg 04/26/21 09:00 05/05/21 08:37 Tamsulosin Hcl 0.4 Mg Capsule PO 0.4 mg DAILY SYLWIA Administration Home Medications Medication Instructions Recorded Confirmed Last Taken Type acetaminophen 325 mg tablet 650 mg PO Q6H PRN 04/25/21 04/25/21 Unknown History ammonium lactate 12 % topical cream 1 appl TOPICAL BID 04/25/21 04/25/21 Unknown History ascorbic acid (vitamin C) 500 mg 500 mg PO DAILY 04/25/21 04/25/21 Unknown History tablet bisacodyl 10 mg rectal suppository 10 mg OK DAILY PRN 04/25/21 04/25/21 Unknown History diltiazem HCl 60 mg tablet 60 mg PO BID 04/25/21 04/25/21 Unknown History docusate sodium 50 mg capsule 50 mg PO BEDTIME PRN 04/25/21 04/25/21 Unknown History ferrous sulfate 325 mg (65 mg 325 mg PO TID 04/25/21 04/25/21 Unknown History iron) tablet insulin glargine 100 unit/mL 3 unit SUBCUT QPM 04/25/21 04/25/21 Unknown History subcutaneous solution lactulose 10 gram/15 mL oral 20 g PO BID PRN 04/25/21 04/25/21 Unknown History solution lorazepam 0.5 mg tablet 0.5 mg PO Q6H PRN 04/25/21 04/25/21 Unknown History magnesium citrate (Citrate of 150 ml PO DAILY PRN 04/25/21 04/25/21 Unknown History Magnesia) mirtazapine 30 mg tablet 30 mg PO BEDTIME 04/25/21 04/25/21 Unknown History morphine 15 mg tablet,extended 1 tab PO BID 04/25/21 04/25/21 Unknown History release (MS Contin) oxycodone 5 mg tablet 1 tab PO Q6H PRN 04/25/21 04/25/21 Unknown History polyethylene glycol 3350 17 gram 17 g PO DAILY PRN 04/25/21 04/25/21 Unknown History oral powder packet (Miralax) sennosides 8.6 mg tablet (senna) 17.2 mg PO BEDTIME PRN 04/25/21 04/25/21 Unknown History sodium hypochlorite 0.125 % 1 appl TOPICAL DAILY 04/25/21 04/25/21 Unknown History solution (Dakin's Solution) tamsulosin 0.4 mg capsule (Flomax) 0.4 mg PO DAILY 04/25/21 04/25/21 Unknown History Exam Exam Date and Time: May 05, 2021 0947 Height,Weight and Vital Signs: Height 5 ft 6 in Weight 78.4 kg Last Vital Signs Temp 98.0 F 05/05/21 07:12 Pulse 91 05/05/21 08:37 Resp 18 05/05/21 07:12 BP 129/70 05/05/21 08:37 Pulse Ox 100 05/05/21 07:12 Pertinent Lab Results Pertinent Lab Results: Laboratory Tests 04/25/21 04/25/21 04/25/21 09:31 09:31 09:31 WBC 23.0 H RBC 2.87 L Hgb 7.7 L Hct 26.1 L MCV 90.9 MCH 26.8 L MCHC 29.5 L RDW 14.9 Plt Count 462 H MPV 9.3 L Immature Gran % (Auto) Cancelled Neut % (Auto) Cancelled Lymph % (Auto) Cancelled [place] % (Auto) Cancelled Eos % (Auto) Cancelled Baso % (Auto) Cancelled Lymph # (Auto) Cancelled [place] # (Auto) Cancelled Eos # (Auto) Cancelled Baso # (Auto) Cancelled Abs Immat Gran (auto) Cancelled Absolute Neuts (auto) Cancelled Absolute Nucleated RBC 0.000 Nucleated RBC % (auto) 0.0 Neutrophils % (Manual) 83 H Band Neutrophils % 13 H Lymphocytes % (Manual) 1 L Monocytes % (Manual) 2 Metamyelocytes % 1 Abs Neuts (Manual) 22.1 H Lymphocytes # (Manual) 0.2 L Monocytes # (Manual) 0.5 Metamyelocytes # 0.2 Toxic Vacuolation PRESENT Platelet Estimate INCREASED Plt Morphology Comment NORMAL RBC Morphology NORMAL Smear Path Review ESR PT 17.3 H INR 1.5 H Sodium 133 L Potassium 4.9 Chloride 104 Carbon Dioxide 18 L Anion Gap 16 BUN 72 H Creatinine 2.55 H Estim Creat Clear Calc 26.9 Estimated GFR 20 POC Glucose Random Glucose 79 Lactic Acid Calcium 8.9 Total Bilirubin 1.0 Direct Bilirubin 0.7 H AST 14 ALT 8 Alkaline Phosphatase 193 H C-Reactive Protein 30.22 H Total Protein 7.5 Albumin 2.0 L Lipase < 4 L PTH Intact Calcium (PTH Intact) Urine Color Urine Appearance Urine pH Ur Specific [place] Urine Protein Urine Glucose (UA) Urine Ketones Urine Blood Urine Nitrite Ur Leukocyte Esterase Urine RBC Urine WBC Ur Squamous Epith Cells Amorphous Sediment Urine Bacteria Vancomycin Trough COVID-19 ([facility]) COVID-19 Clin Com Blood Type Antibody Screen Crossmatch 04/25/21 04/25/21 04/25/21 09:31 09:31 10:21 WBC RBC Hgb Hct MCV MCH MCHC RDW Plt Count MPV Immature Gran % (Auto) Neut % (Auto) Lymph % (Auto) [place] % (Auto) Eos % (Auto) Baso % (Auto) Lymph # (Auto) [place] # (Auto) Eos # (Auto) Baso # (Auto) Abs Immat Gran (auto) Absolute Neuts (auto) Absolute Nucleated RBC Nucleated RBC % (auto) Neutrophils % (Manual) Band Neutrophils % Lymphocytes % (Manual) Monocytes % (Manual) Metamyelocytes % Abs Neuts (Manual) Lymphocytes # (Manual) Monocytes # (Manual) Metamyelocytes # Toxic Vacuolation Platelet Estimate Plt Morphology Comment RBC Morphology Smear Path Review ESR 116 H PT INR Sodium Potassium Chloride Carbon Dioxide Anion Gap BUN Creatinine Estim Creat Clear Calc Estimated GFR POC Glucose Random Glucose Lactic Acid 0.6 Calcium Total Bilirubin Direct Bilirubin AST ALT Alkaline Phosphatase C-Reactive Protein Total Protein Albumin Lipase PTH Intact Calcium (PTH Intact) Urine Color YELLOW Urine Appearance CLOUDY Urine pH 8.5 H Ur Specific [place] 1.015 Urine Protein 3+ H Urine Glucose (UA) NEG Urine Ketones NEG Urine Blood TRACE Urine Nitrite NEG Ur Leukocyte Esterase 3+ H Urine RBC 0-2 Urine WBC 30-49 H Ur Squamous Epith Cells 1+ Amorphous Sediment 2+ Urine Bacteria 2+ Vancomycin Trough COVID-19 ([facility]) COVID-19 Clin Com Blood Type Antibody Screen Crossmatch 04/25/21 04/25/21 04/25/21 12:30 14:32 16:26 WBC RBC Hgb Hct MCV MCH MCHC RDW Plt Count MPV Immature Gran % (Auto) Neut % (Auto) Lymph % (Auto) [place] % (Auto) Eos % (Auto) Baso % (Auto) Lymph # (Auto) [place] # (Auto) Eos # (Auto) Baso # (Auto) Abs Immat Gran (auto) Absolute Neuts (auto) Absolute Nucleated RBC Nucleated RBC % (auto) Neutrophils % (Manual) Band Neutrophils % Lymphocytes % (Manual) Monocytes % (Manual) Metamyelocytes % Abs Neuts (Manual) Lymphocytes # (Manual) Monocytes # (Manual) Metamyelocytes # Toxic Vacuolation Platelet Estimate Plt Morphology Comment RBC Morphology Smear Path Review ESR PT INR Sodium Potassium Chloride Carbon Dioxide Anion Gap BUN Creatinine Estim Creat Clear Calc Estimated GFR POC Glucose 70 Random Glucose Lactic Acid Calcium Total Bilirubin Direct Bilirubin AST ALT Alkaline Phosphatase C-Reactive Protein Total Protein Albumin Lipase PTH Intact Calcium (PTH Intact) Urine Color Urine Appearance Urine pH Ur Specific [place] Urine Protein Urine Glucose (UA) Urine Ketones Urine Blood Urine Nitrite Ur Leukocyte Esterase Urine RBC Urine WBC Ur Squamous Epith Cells Amorphous Sediment Urine Bacteria Vancomycin Trough COVID-19 ([facility]) Negative COVID-19 Clin Com See Note Blood Type O Positive Antibody Screen NEGATIVE Crossmatch See Detail 04/25/21 04/26/21 04/26/21 21:05 05:47 05:47 WBC 22.6 H RBC 2.63 L Hgb 7.0 L* Hct 23.8 L MCV 90.5 MCH 26.6 L MCHC 29.4 L RDW 15.0 Plt Count 408 H MPV 9.7 Immature Gran % (Auto) Neut % (Auto) Lymph % (Auto) [place] % (Auto) Eos % (Auto) Baso % (Auto) Lymph # (Auto) [place] # (Auto) Eos # (Auto) Baso # (Auto) Abs Immat Gran (auto) Absolute Neuts (auto) Absolute Nucleated RBC 0.000 Nucleated RBC % (auto) 0.0 Neutrophils % (Manual) Band Neutrophils % Lymphocytes % (Manual) Monocytes % (Manual) Metamyelocytes % Abs Neuts (Manual) Lymphocytes # (Manual) Monocytes # (Manual) Metamyelocytes # Toxic Vacuolation Platelet Estimate Plt Morphology Comment RBC Morphology Smear Path Review ESR PT INR Sodium 136 Potassium 4.6 Chloride 107 Carbon Dioxide 20 L Anion Gap 14 BUN 73 H Creatinine 2.41 H Estim Creat Clear Calc 28.5 Estimated GFR 21 POC Glucose 72 Random Glucose 67 Lactic Acid Calcium 8.0 L D Total Bilirubin Direct Bilirubin AST ALT Alkaline Phosphatase C-Reactive Protein Total Protein Albumin Lipase PTH Intact Calcium (PTH Intact) Urine Color Urine Appearance Urine pH Ur Specific [place] Urine Protein Urine Glucose (UA) Urine Ketones Urine Blood Urine Nitrite Ur Leukocyte Esterase Urine RBC Urine WBC Ur Squamous Epith Cells Amorphous Sediment Urine Bacteria Vancomycin Trough COVID-19 ([facility]) COVID-19 [facility] Blood Type Antibody Screen Crossmatch 04/26/21 04/26/21 04/26/21 06:58 12:55 16:02 WBC RBC Hgb Hct MCV MCH MCHC RDW Plt Count MPV Immature Gran % (Auto) Neut % (Auto) Lymph % (Auto) [place] % (Auto) Eos % (Auto) Baso % (Auto) Lymph # (Auto) [place] # (Auto) Eos # (Auto) Baso # (Auto) Abs Immat Gran (auto) Absolute Neuts (auto) Absolute Nucleated RBC Nucleated RBC % (auto) Neutrophils % (Manual) Band Neutrophils % Lymphocytes % (Manual) Monocytes % (Manual) Metamyelocytes % Abs Neuts (Manual) Lymphocytes # (Manual) Monocytes # (Manual) Metamyelocytes # Toxic Vacuolation Platelet Estimate Plt Morphology Comment RBC Morphology Smear Path Review ESR PT INR Sodium Potassium Chloride Carbon Dioxide Anion Gap BUN Creatinine Estim Creat Clear Calc Estimated GFR POC Glucose 78 71 70 Random Glucose Lactic Acid Calcium Total Bilirubin Direct Bilirubin AST ALT Alkaline Phosphatase C-Reactive Protein Total Protein Albumin Lipase PTH Intact Calcium (PTH Intact) Urine Color Urine Appearance Urine pH Ur Specific [place] Urine Protein Urine Glucose (UA) Urine Ketones Urine Blood Urine Nitrite Ur Leukocyte Esterase Urine RBC Urine WBC Ur Squamous Epith Cells Amorphous Sediment Urine Bacteria Vancomycin Trough COVID-19 ([facility]) COVID-19 [facility] Blood Type Antibody Screen Crossmatch 04/26/21 04/27/21 04/27/21 20:31 04:47 04:47 WBC 18.6 H RBC 2.86 L Hgb 7.9 L Hct 26.1 L MCV 91.3 MCH 27.6 MCHC 30.3 L RDW 15.1 Plt Count 370 MPV 9.4 Immature Gran % (Auto) Neut % (Auto) Lymph % (Auto) [place] % (Auto) Eos % (Auto) Baso % (Auto) Lymph # (Auto) [place] # (Auto) Eos # (Auto) Baso # (Auto) Abs Immat Gran (auto) Absolute Neuts (auto) Absolute Nucleated RBC 0.000 Nucleated RBC % (auto) 0.0 Neutrophils % (Manual) Band Neutrophils % Lymphocytes % (Manual) Monocytes % (Manual) Metamyelocytes % Abs Neuts (Manual) Lymphocytes # (Manual) Monocytes # (Manual) Metamyelocytes # Toxic Vacuolation Platelet Estimate Plt Morphology Comment RBC Morphology Smear Path Review ESR PT INR Sodium 136 Potassium 4.7 Chloride 109 H Carbon Dioxide 19 L Anion Gap 13 BUN 73 H Creatinine 2.38 H Estim Creat Clear Calc 28.8 Estimated GFR 21 POC Glucose 92 Random Glucose 90 Lactic Acid Calcium 7.9 L Total Bilirubin Direct Bilirubin AST ALT Alkaline Phosphatase C-Reactive Protein Total Protein Albumin Lipase PTH Intact Calcium (PTH Intact) Urine Color Urine Appearance Urine pH Ur Specific [place] Urine Protein Urine Glucose (UA) Urine Ketones Urine Blood Urine Nitrite Ur Leukocyte Esterase Urine RBC Urine WBC Ur Squamous Epith Cells Amorphous Sediment Urine Bacteria Vancomycin Trough COVID-19 ([facility]) COVID-19 Clin Com Blood Type Antibody Screen Crossmatch 04/27/21 04/27/21 04/27/21 06:57 11:01 16:16 WBC RBC Hgb Hct MCV MCH MCHC RDW Plt Count MPV Immature Gran % (Auto) Neut % (Auto) Lymph % (Auto) [place] % (Auto) Eos % (Auto) Baso % (Auto) Lymph # (Auto) [place] # (Auto) Eos # (Auto) Baso # (Auto) Abs Immat Gran (auto) Absolute Neuts (auto) Absolute Nucleated RBC Nucleated RBC % (auto) Neutrophils % (Manual) Band Neutrophils % Lymphocytes % (Manual) Monocytes % (Manual) Metamyelocytes % Abs Neuts (Manual) Lymphocytes # (Manual) Monocytes # (Manual) Metamyelocytes # Toxic Vacuolation Platelet Estimate Plt Morphology Comment RBC Morphology Smear Path Review ESR PT INR Sodium Potassium Chloride Carbon Dioxide Anion Gap BUN Creatinine Estim Creat Clear Calc Estimated GFR POC Glucose 104 113 117 H Random Glucose Lactic Acid Calcium Total Bilirubin Direct Bilirubin AST ALT Alkaline Phosphatase C-Reactive Protein Total Protein Albumin Lipase PTH Intact Calcium (PTH Intact) Urine Color Urine Appearance Urine pH Ur Specific [place] Urine Protein Urine Glucose (UA) Urine Ketones Urine Blood Urine Nitrite Ur Leukocyte Esterase Urine RBC Urine WBC Ur Squamous Epith Cells Amorphous Sediment Urine Bacteria Vancomycin Trough COVID-19 ([facility]) COVID-19 [facility] Blood Type Antibody Screen Crossmatch 04/27/21 04/27/21 04/28/21 18:57 20:25 04:24 WBC 14.0 H RBC 2.31 L Hgb 6.3 L* D Hct 21.3 L MCV 92.2 MCH 27.3 MCHC 29.6 L RDW 15.2 Plt Count 308 MPV 9.8 Immature Gran % (Auto) Neut % (Auto) Lymph % (Auto) [place] % (Auto) Eos % (Auto) Baso % (Auto) Lymph # (Auto) [place] # (Auto) Eos # (Auto) Baso # (Auto) Abs Immat Gran (auto) Absolute Neuts (auto) Absolute Nucleated RBC 0.000 Nucleated RBC % (auto) 0.0 Neutrophils % (Manual) Band Neutrophils % Lymphocytes % (Manual) Monocytes % (Manual) Metamyelocytes % Abs Neuts (Manual) Lymphocytes # (Manual) Monocytes # (Manual) Metamyelocytes # Toxic Vacuolation Platelet Estimate Plt Morphology Comment RBC Morphology Smear Path Review SEE NOTE ESR PT INR Sodium Potassium Chloride Carbon Dioxide Anion Gap BUN Creatinine Estim Creat Clear Calc Estimated GFR POC Glucose 142 H Random Glucose Lactic Acid Calcium Total Bilirubin Direct Bilirubin AST ALT Alkaline Phosphatase C-Reactive Protein Total Protein Albumin Lipase PTH Intact Calcium (PTH Intact) Urine Color Urine Appearance Urine pH Ur Specific [place] Urine Protein Urine Glucose (UA) Urine Ketones Urine Blood Urine Nitrite Ur Leukocyte Esterase Urine RBC Urine WBC Ur Squamous Epith Cells Amorphous Sediment Urine Bacteria Vancomycin Trough 18.5 COVID-19 ([facility]) COVID-19 [facility] Com Blood Type Antibody Screen Crossmatch 04/28/21 04/28/21 04/28/21 04:24 07:14 10:59 WBC RBC Hgb Hct MCV MCH MCHC RDW Plt Count MPV Immature Gran % (Auto) Neut % (Auto) Lymph % (Auto) [place] % (Auto) Eos % (Auto) Baso % (Auto) Lymph # (Auto) [place] # (Auto) Eos # (Auto) Baso # (Auto) Abs Immat Gran (auto) Absolute Neuts (auto) Absolute Nucleated RBC Nucleated RBC % (auto) Neutrophils % (Manual) Band Neutrophils % Lymphocytes % (Manual) Monocytes % (Manual) Metamyelocytes % Abs Neuts (Manual) Lymphocytes # (Manual) Monocytes # (Manual) Metamyelocytes # Toxic Vacuolation Platelet Estimate Plt Morphology Comment RBC Morphology Smear Path Review ESR PT INR Sodium 137 Potassium 4.5 Chloride 109 H Carbon Dioxide 20 L Anion Gap 13 BUN 71 H Creatinine 2.36 H Estim Creat Clear Calc 29.1 Estimated GFR 22 POC Glucose 130 H 107 Random Glucose 129 H D Lactic Acid Calcium 7.7 L Total Bilirubin Direct Bilirubin AST ALT Alkaline Phosphatase C-Reactive Protein Total Protein Albumin Lipase PTH Intact Calcium (PTH Intact) Urine Color Urine Appearance Urine pH Ur Specific [place] Urine Protein Urine Glucose (UA) Urine Ketones Urine Blood Urine Nitrite Ur Leukocyte Esterase Urine RBC Urine WBC Ur Squamous Epith Cells Amorphous Sediment Urine Bacteria Vancomycin Trough COVID-19 ([facility]) COVID-19 Clin Com Blood Type Antibody Screen Crossmatch 04/28/21 04/28/21 04/29/21 15:58 20:07 06:07 WBC RBC Hgb Hct MCV MCH MCHC RDW Plt Count MPV Immature Gran % (Auto) Neut % (Auto) Lymph % (Auto) [place] % (Auto) Eos % (Auto) Baso % (Auto) Lymph # (Auto) [place] # (Auto) Eos # (Auto) Baso # (Auto) Abs Immat Gran (auto) Absolute Neuts (auto) Absolute Nucleated RBC Nucleated RBC % (auto) Neutrophils % (Manual) Band Neutrophils % Lymphocytes % (Manual) Monocytes % (Manual) Metamyelocytes % Abs Neuts (Manual) Lymphocytes # (Manual) Monocytes # (Manual) Metamyelocytes # Toxic Vacuolation Platelet Estimate Plt Morphology Comment RBC Morphology Smear Path Review ESR PT INR Sodium Potassium Chloride Carbon Dioxide Anion Gap BUN Creatinine Estim Creat Clear Calc Estimated GFR POC Glucose 103 108 Random Glucose Lactic Acid Calcium Total Bilirubin Direct Bilirubin AST ALT Alkaline Phosphatase C-Reactive Protein Total Protein Albumin Lipase PTH Intact 8 L Calcium (PTH Intact) 8.0 L Urine Color Urine Appearance Urine pH Ur Specific [place] Urine Protein Urine Glucose (UA) Urine Ketones Urine Blood Urine Nitrite Ur Leukocyte Esterase Urine RBC Urine WBC Ur Squamous Epith Cells Amorphous Sediment Urine Bacteria Vancomycin Trough COVID-19 ([facility]) COVID-19 Clin Com Blood Type Antibody Screen Crossmatch 04/29/21 04/29/21 04/29/21 07:36 08:21 08:21 WBC 15.5 H RBC 2.58 L Hgb 7.1 L Hct 23.6 L MCV 91.5 MCH 27.5 MCHC 30.1 L RDW 15.2 Plt Count 301 MPV 9.5 Immature Gran % (Auto) Neut % (Auto) Lymph % (Auto) [place] % (Auto) Eos % (Auto) Baso % (Auto) Lymph # (Auto) [place] # (Auto) Eos # (Auto) Baso # (Auto) Abs Immat Gran (auto) Absolute Neuts (auto) Absolute Nucleated RBC 0.000 Nucleated RBC % (auto) 0.0 Neutrophils % (Manual) Band Neutrophils % Lymphocytes % (Manual) Monocytes % (Manual) Metamyelocytes % Abs Neuts (Manual) Lymphocytes # (Manual) Monocytes # (Manual) Metamyelocytes # Toxic Vacuolation Platelet Estimate Plt Morphology Comment RBC Morphology Smear Path Review ESR PT INR Sodium Potassium Chloride Carbon Dioxide Anion Gap BUN Creatinine Estim Creat Clear Calc Estimated GFR POC Glucose 106 Random Glucose Lactic Acid Calcium Total Bilirubin Direct Bilirubin AST ALT Alkaline Phosphatase C-Reactive Protein Total Protein Albumin Lipase PTH Intact Calcium (PTH Intact) Urine Color Urine Appearance Urine pH Ur Specific [place] Urine Protein Urine Glucose (UA) Urine Ketones Urine Blood Urine Nitrite Ur Leukocyte Esterase Urine RBC Urine WBC Ur Squamous Epith Cells Amorphous Sediment Urine Bacteria Vancomycin Trough COVID-19 ([facility]) COVID-19 Clin Com Blood Type O Positive Antibody Screen NEGATIVE Crossmatch See Detail 04/29/21 04/29/21 04/29/21 10:48 16:10 20:36 WBC RBC Hgb Hct MCV MCH MCHC RDW Plt Count MPV Immature Gran % (Auto) Neut % (Auto) Lymph % (Auto) [place] % (Auto) Eos % (Auto) Baso % (Auto) Lymph # (Auto) [place] # (Auto) Eos # (Auto) Baso # (Auto) Abs Immat Gran (auto) Absolute Neuts (auto) Absolute Nucleated RBC Nucleated RBC % (auto) Neutrophils % (Manual) Band Neutrophils % Lymphocytes % (Manual) Monocytes % (Manual) Metamyelocytes % Abs Neuts (Manual) Lymphocytes # (Manual) Monocytes # (Manual) Metamyelocytes # Toxic Vacuolation Platelet Estimate Plt Morphology Comment RBC Morphology Smear Path Review ESR PT INR Sodium Potassium Chloride Carbon Dioxide Anion Gap BUN Creatinine Estim Creat Clear Calc Estimated GFR POC Glucose 135 H 135 H 152 H Random Glucose Lactic Acid Calcium Total Bilirubin Direct Bilirubin AST ALT Alkaline Phosphatase C-Reactive Protein Total Protein Albumin Lipase PTH Intact Calcium (PTH Intact) Urine Color Urine Appearance Urine pH Ur Specific [place] Urine Protein Urine Glucose (UA) Urine Ketones Urine Blood Urine Nitrite Ur Leukocyte Esterase Urine RBC Urine WBC Ur Squamous Epith Cells Amorphous Sediment Urine Bacteria Vancomycin Trough COVID-19 ([facility]) COVID-19 [facility] Com Blood Type Antibody Screen Crossmatch 04/30/21 04/30/21 04/30/21 07:11 11:05 16:12 WBC RBC Hgb Hct MCV MCH MCHC RDW Plt Count MPV Immature Gran % (Auto) Neut % (Auto) Lymph % (Auto) [place] % (Auto) Eos % (Auto) Baso % (Auto) Lymph # (Auto) [place] # (Auto) Eos # (Auto) Baso # (Auto) Abs Immat Gran (auto) Absolute Neuts (auto) Absolute Nucleated RBC Nucleated RBC % (auto) Neutrophils % (Manual) Band Neutrophils % Lymphocytes % (Manual) Monocytes % (Manual) Metamyelocytes % Abs Neuts (Manual) Lymphocytes # (Manual) Monocytes # (Manual) Metamyelocytes # Toxic Vacuolation Platelet Estimate Plt Morphology Comment RBC Morphology Smear Path Review ESR PT INR Sodium Potassium Chloride Carbon Dioxide Anion Gap BUN Creatinine Estim Creat Clear Calc Estimated GFR POC Glucose 121 H 109 98 Random Glucose Lactic Acid Calcium Total Bilirubin Direct Bilirubin AST ALT Alkaline Phosphatase C-Reactive Protein Total Protein Albumin Lipase PTH Intact Calcium (PTH Intact) Urine Color Urine Appearance Urine pH Ur Specific [place] Urine Protein Urine Glucose (UA) Urine Ketones Urine Blood Urine Nitrite Ur Leukocyte Esterase Urine RBC Urine WBC Ur Squamous Epith Cells Amorphous Sediment Urine Bacteria Vancomycin Trough COVID-19 ([facility]) COVID-19 [facility] Com Blood Type Antibody Screen Crossmatch 04/30/21 05/01/21 05/01/21 20:01 07:21 08:57 WBC 11.4 H RBC 2.48 L Hgb 6.8 L* Hct 22.8 L MCV 91.9 MCH 27.4 MCHC 29.8 L RDW 15.1 Plt Count 270 MPV 9.8 Immature Gran % (Auto) Neut % (Auto) Lymph % (Auto) [place] % (Auto) Eos % (Auto) Baso % (Auto) Lymph # (Auto) [place] # (Auto) Eos # (Auto) Baso # (Auto) Abs Immat Gran (auto) Absolute Neuts (auto) Absolute Nucleated RBC 0.000 Nucleated RBC % (auto) 0.0 Neutrophils % (Manual) Band Neutrophils % Lymphocytes % (Manual) Monocytes % (Manual) Metamyelocytes % Abs Neuts (Manual) Lymphocytes # (Manual) Monocytes # (Manual) Metamyelocytes # Toxic Vacuolation Platelet Estimate Plt Morphology Comment RBC Morphology Smear Path Review ESR PT INR Sodium Potassium Chloride Carbon Dioxide Anion Gap BUN Creatinine Estim Creat Clear Calc Estimated GFR POC Glucose 91 83 Random Glucose Lactic Acid Calcium Total Bilirubin Direct Bilirubin AST ALT Alkaline Phosphatase C-Reactive Protein Total Protein Albumin Lipase PTH Intact Calcium (PTH Intact) Urine Color Urine Appearance Urine pH Ur Specific [place] Urine Protein Urine Glucose (UA) Urine Ketones Urine Blood Urine Nitrite Ur Leukocyte Esterase Urine RBC Urine WBC Ur Squamous Epith Cells Amorphous Sediment Urine Bacteria Vancomycin Trough COVID-19 ([facility]) COVID-19 Clin Com Blood Type Antibody Screen Crossmatch 05/01/21 05/01/21 05/01/21 08:57 11:10 16:10 WBC RBC Hgb Hct MCV MCH MCHC RDW Plt Count MPV Immature Gran % (Auto) Neut % (Auto) Lymph % (Auto) [place] % (Auto) Eos % (Auto) Baso % (Auto) Lymph # (Auto) [place] # (Auto) Eos # (Auto) Baso # (Auto) Abs Immat Gran (auto) Absolute Neuts (auto) Absolute Nucleated RBC Nucleated RBC % (auto) Neutrophils % (Manual) Band Neutrophils % Lymphocytes % (Manual) Monocytes % (Manual) Metamyelocytes % Abs Neuts (Manual) Lymphocytes # (Manual) Monocytes # (Manual) Metamyelocytes # Toxic Vacuolation Platelet Estimate Plt Morphology Comment RBC Morphology Smear Path Review ESR PT INR Sodium 137 Potassium 4.0 Chloride 110 H Carbon Dioxide 20 L Anion Gap 11 L BUN 56 H Creatinine 1.87 H Estim Creat Clear Calc 36.7 Estimated GFR 28 POC Glucose 84 105 Random Glucose 83 D Lactic Acid Calcium 7.7 L Total Bilirubin Direct Bilirubin AST ALT Alkaline Phosphatase C-Reactive Protein Total Protein Albumin Lipase PTH Intact Calcium (PTH Intact) Urine Color Urine Appearance Urine pH Ur Specific [place] Urine Protein Urine Glucose (UA) Urine Ketones Urine Blood Urine Nitrite Ur Leukocyte Esterase Urine RBC Urine WBC Ur Squamous Epith Cells Amorphous Sediment Urine Bacteria Vancomycin Trough COVID-19 ([facility]) COVID-19 [place] Com Blood Type Antibody Screen Crossmatch 05/01/21 05/02/21 05/02/21 19:53 04:17 07:07 WBC 11.8 H RBC 2.96 L Hgb 8.5 L D Hct 27.0 L MCV 91.2 MCH 28.7 MCHC 31.5 RDW 14.6 Plt Count 251 MPV 9.5 Immature Gran % (Auto) 1.1 H Neut % (Auto) 85.2 H Lymph % (Auto) 8.3 L [place] % (Auto) 4.3 Eos % (Auto) 0.9 Baso % (Auto) 0.2 Lymph # (Auto) 1.0 L [place] # (Auto) 0.5 Eos # (Auto) 0.1 Baso # (Auto) 0.0 Abs Immat Gran (auto) 0.13 H Absolute Neuts (auto) 10.1 H Absolute Nucleated RBC 0.000 Nucleated RBC % (auto) 0.0 Neutrophils % (Manual) Band Neutrophils % Lymphocytes % (Manual) Monocytes % (Manual) Metamyelocytes % Abs Neuts (Manual) Lymphocytes # (Manual) Monocytes # (Manual) Metamyelocytes # Toxic Vacuolation Platelet Estimate Plt Morphology Comment RBC Morphology Smear Path Review ESR PT INR Sodium Potassium Chloride Carbon Dioxide Anion Gap BUN Creatinine Estim Creat Clear Calc Estimated GFR POC Glucose 123 H 82 Random Glucose Lactic Acid Calcium Total Bilirubin Direct Bilirubin AST ALT Alkaline Phosphatase C-Reactive Protein Total Protein Albumin Lipase PTH Intact Calcium (PTH Intact) Urine Color Urine Appearance Urine pH Ur Specific [place] Urine Protein Urine Glucose (UA) Urine Ketones Urine Blood Urine Nitrite Ur Leukocyte Esterase Urine RBC Urine WBC Ur Squamous Epith Cells Amorphous Sediment Urine Bacteria Vancomycin Trough COVID-19 ([facility]) COVID-19 [place] Com Blood Type Antibody Screen Crossmatch 05/02/21 05/02/21 05/02/21 08:28 11:02 16:34 WBC RBC Hgb Hct MCV MCH MCHC RDW Plt Count MPV Immature Gran % (Auto) Neut % (Auto) Lymph % (Auto) [place] % (Auto) Eos % (Auto) Baso % (Auto) Lymph # (Auto) [place] # (Auto) Eos # (Auto) Baso # (Auto) Abs Immat Gran (auto) Absolute Neuts (auto) Absolute Nucleated RBC Nucleated RBC % (auto) Neutrophils % (Manual) Band Neutrophils % Lymphocytes % (Manual) Monocytes % (Manual) Metamyelocytes % Abs Neuts (Manual) Lymphocytes # (Manual) Monocytes # (Manual) Metamyelocytes # Toxic Vacuolation Platelet Estimate Plt Morphology Comment RBC Morphology Smear Path Review ESR PT INR Sodium Potassium Chloride Carbon Dioxide Anion Gap BUN Creatinine 1.74 H Estim Creat Clear Calc 39.4 Estimated GFR 31 POC Glucose 109 119 H Random Glucose Lactic Acid Calcium Total Bilirubin Direct Bilirubin AST ALT Alkaline Phosphatase C-Reactive Protein Total Protein Albumin Lipase PTH Intact Calcium (PTH Intact) Urine Color Urine Appearance Urine pH Ur Specific [place] Urine Protein Urine Glucose (UA) Urine Ketones Urine Blood Urine Nitrite Ur Leukocyte Esterase Urine RBC Urine WBC Ur Squamous Epith Cells Amorphous Sediment Urine Bacteria Vancomycin Trough COVID-19 ([facility]) COVID-19 Clin Com Blood Type Antibody Screen Crossmatch 05/02/21 05/03/21 05/03/21 19:31 04:55 07:18 WBC RBC Hgb Hct MCV MCH MCHC RDW Plt Count MPV Immature Gran % (Auto) Neut % (Auto) Lymph % (Auto) [place] % (Auto) Eos % (Auto) Baso % (Auto) Lymph # (Auto) [place] # (Auto) Eos # (Auto) Baso # (Auto) Abs Immat Gran (auto) Absolute Neuts (auto) Absolute Nucleated RBC Nucleated RBC % (auto) Neutrophils % (Manual) Band Neutrophils % Lymphocytes % (Manual) Monocytes % (Manual) Metamyelocytes % Abs Neuts (Manual) Lymphocytes # (Manual) Monocytes # (Manual) Metamyelocytes # Toxic Vacuolation Platelet Estimate Plt Morphology Comment RBC Morphology Smear Path Review ESR PT INR Sodium Potassium Chloride Carbon Dioxide Anion Gap BUN Creatinine 1.73 H Estim Creat Clear Calc 39.7 Estimated GFR 31 POC Glucose 124 H 94 Random Glucose Lactic Acid Calcium Total Bilirubin Direct Bilirubin AST ALT Alkaline Phosphatase C-Reactive Protein Total Protein Albumin Lipase PTH Intact Calcium (PTH Intact) Urine Color Urine Appearance Urine pH Ur Specific [place] Urine Protein Urine Glucose (UA) Urine Ketones Urine Blood Urine Nitrite Ur Leukocyte Esterase Urine RBC Urine WBC Ur Squamous Epith Cells Amorphous Sediment Urine Bacteria Vancomycin Trough COVID-19 ([facility]) COVID-19 Clin Com Blood Type Antibody Screen Crossmatch 0805/03/21 05/03/21 11:04 16:29 20:11 WBC RBC Hgb Hct MCV MCH MCHC RDW Plt Count MPV Immature Gran % (Auto) Neut % (Auto) Lymph % (Auto) [place] % (Auto) Eos % (Auto) Baso % (Auto) Lymph # (Auto) [place] # (Auto) Eos # (Auto) Baso # (Auto) Abs Immat Gran (auto) Absolute Neuts (auto) Absolute Nucleated RBC Nucleated RBC % (auto) Neutrophils % (Manual) Band Neutrophils % Lymphocytes % (Manual) Monocytes % (Manual) Metamyelocytes % Abs Neuts (Manual) Lymphocytes # (Manual) Monocytes # (Manual) Metamyelocytes # Toxic Vacuolation Platelet Estimate Plt Morphology Comment RBC Morphology Smear Path Review ESR PT INR Sodium Potassium Chloride Carbon Dioxide Anion Gap BUN Creatinine Estim Creat Clear Calc Estimated GFR POC Glucose 109 99 99 Random Glucose Lactic Acid Calcium Total Bilirubin Direct Bilirubin AST ALT Alkaline Phosphatase C-Reactive Protein Total Protein Albumin Lipase PTH Intact Calcium (PTH Intact) Urine Color Urine Appearance Urine pH Ur Specific [place] Urine Protein Urine Glucose (UA) Urine Ketones Urine Blood Urine Nitrite Ur Leukocyte Esterase Urine RBC Urine WBC Ur Squamous Epith Cells Amorphous Sediment Urine Bacteria Vancomycin Trough COVID-19 ([facility]) COVID-19 Clin Com Blood Type Antibody Screen Crossmatch 05/04/21 05/04/21 05/04/21 04:50 07:12 07:48 WBC RBC Hgb Hct MCV MCH MCHC RDW Plt Count MPV Immature Gran % (Auto) Neut % (Auto) Lymph % (Auto) [place] % (Auto) Eos % (Auto) Baso % (Auto) Lymph # (Auto) [place] # (Auto) Eos # (Auto) Baso # (Auto) Abs Immat Gran (auto) Absolute Neuts (auto) Absolute Nucleated RBC Nucleated RBC % (auto) Neutrophils % (Manual) Band Neutrophils % Lymphocytes % (Manual) Monocytes % (Manual) Metamyelocytes % Abs Neuts (Manual) Lymphocytes # (Manual) Monocytes # (Manual) Metamyelocytes # Toxic Vacuolation Platelet Estimate Plt Morphology Comment RBC Morphology Smear Path Review ESR PT INR Sodium Potassium Chloride Carbon Dioxide Anion Gap BUN Creatinine 1.68 H Estim Creat Clear Calc 40.9 Estimated GFR 32 POC Glucose 111 Random Glucose Lactic Acid Calcium Total Bilirubin Direct Bilirubin AST ALT Alkaline Phosphatase C-Reactive Protein Total Protein Albumin Lipase PTH Intact Calcium (PTH Intact) Urine Color Urine Appearance Urine pH Ur Specific [place] Urine Protein Urine Glucose (UA) Urine Ketones Urine Blood Urine Nitrite Ur Leukocyte Esterase Urine RBC Urine WBC Ur Squamous Epith Cells Amorphous Sediment Urine Bacteria Vancomycin Trough 20.1 H COVID-19 ([facility]) COVID-19 [facility] Blood Type Antibody Screen Crossmatch 05/04/21 05/04/21 05/04/21 11:00 16:16 20:04 WBC RBC Hgb Hct MCV MCH MCHC RDW Plt Count MPV Immature Gran % (Auto) Neut % (Auto) Lymph % (Auto) [place] % (Auto) Eos % (Auto) Baso % (Auto) Lymph # (Auto) [place] # (Auto) Eos # (Auto) Baso # (Auto) Abs Immat Gran (auto) Absolute Neuts (auto) Absolute Nucleated RBC Nucleated RBC % (auto) Neutrophils % (Manual) Band Neutrophils % Lymphocytes % (Manual) Monocytes % (Manual) Metamyelocytes % Abs Neuts (Manual) Lymphocytes # (Manual) Monocytes # (Manual) Metamyelocytes # Toxic Vacuolation Platelet Estimate Plt Morphology Comment RBC Morphology Smear Path Review ESR PT INR Sodium Potassium Chloride Carbon Dioxide Anion Gap BUN Creatinine Estim Creat Clear Calc Estimated GFR POC Glucose 94 117 H 120 H Random Glucose Lactic Acid Calcium Total Bilirubin Direct Bilirubin AST ALT Alkaline Phosphatase C-Reactive Protein Total Protein Albumin Lipase PTH Intact Calcium (PTH Intact) Urine Color Urine Appearance Urine pH Ur Specific [place] Urine Protein Urine Glucose (UA) Urine Ketones Urine Blood Urine Nitrite Ur Leukocyte Esterase Urine RBC Urine WBC Ur Squamous Epith Cells Amorphous Sediment Urine Bacteria Vancomycin Trough COVID-19 ([facility]) COVID-19 [facility] Com Blood Type Antibody Screen Crossmatch 05/05/21 05/05/21 05/05/21 07:10 09:02 09:39 WBC RBC Hgb Hct MCV MCH MCHC RDW Plt Count MPV Immature Gran % (Auto) Neut % (Auto) Lymph % (Auto) [place] % (Auto) Eos % (Auto) Baso % (Auto) Lymph # (Auto) [place] # (Auto) Eos # (Auto) Baso # (Auto) Abs Immat Gran (auto) Absolute Neuts (auto) Absolute Nucleated RBC Nucleated RBC % (auto) Neutrophils % (Manual) Band Neutrophils % Lymphocytes % (Manual) Monocytes % (Manual) Metamyelocytes % Abs Neuts (Manual) Lymphocytes # (Manual) Monocytes # (Manual) Metamyelocytes # Toxic Vacuolation Platelet Estimate Plt Morphology Comment RBC Morphology Smear Path Review ESR PT INR Sodium Potassium Chloride Carbon Dioxide Anion Gap BUN Creatinine Estim Creat Clear Calc Estimated GFR POC Glucose 115 96 Random Glucose Lactic Acid Calcium Total Bilirubin Direct Bilirubin AST ALT Alkaline Phosphatase C-Reactive Protein Total Protein Albumin Lipase PTH Intact Calcium (PTH Intact) Urine Color Urine Appearance Urine pH Ur Specific [place] Urine Protein Urine Glucose (UA) Urine Ketones Urine Blood Urine Nitrite Ur Leukocyte Esterase Urine RBC Urine WBC Ur Squamous Epith Cells Amorphous Sediment Urine Bacteria Vancomycin Trough COVID-19 ([facility]) COVID-19 Clin Com Blood Type O Positive Antibody Screen Crossmatch Airway Mallampati Class: II TM Dist: >3cm Neck ROM: Full Assessment and Plan Final Anesthetic Review Family History of Problems with Anesthesia: No History of Problems with Anesthesia: No
--- NOTE | 2021-05-05 10:58 | MHC.CM.PN ---
Per ROUNDS discussion, Patient is not yet medically cleared for dc/return to LTC @ [facility] (Diverting Colostomy today, still requiring IV Morphine). CM will continue to follow for dc planning.
--- NOTE | 2021-05-05 11:41 | MHC.CLN ---
F/U PT IS CURRENTLY NPO AT THIS TIME PENDING O.R. TODAY PO INTAKE HX REMAINS VARIABLE 25-50% WHEN DIET TO ADVANCE, RECOMMEND RE-STARTING GLUCERNA TID AND RICARDO TO INCREASE PO AND PROMOTE WOUND HEALING SUPPLEMENTS PROVIDE 871KCALS (45% EST KCAL NEEDS), 35G PROTEIN (36% EST PROTEIN NEEDS) CONTINUE TO MONITOR PO INTAKE CLOSELY
--- NOTE | 2021-05-05 11:48 | W.PM.OPN ---
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 She had been referred to me for diverting stoma to simplify perianal hygiene care of the ulcers. She had initially been resistant but had eventually agreed to proceed. She understood the technique of the procedure and was aware of the risks, benefits, and alternatives. I would be discussing this with her healthcare proxy Naomi Bueno as well. Review of her CT scan shows that there was note of large amounts of small bowel loops that appeared to be intimately adherent to the lower abdominal wall with the presence of a mesh from her previous hysterectomy and oophorectomy. I therefore felt that there was a likelihood that we were being able to safely achieve exposure of the lower abdomen to mobilize the sigmoid colon and placed an end-colostomy. However, I decided that it worthwhile to try this as a lap assisted approach The patient is therefore brought to the operating room and placed supine on table under general anesthesia via endotracheal tube. The abdomen is prepped draped usual sterile fashion. I had marked possible ideal locations for stoma I made of very short low midline incision at the level of the like us using a blade 15 and this carried down through the full-thickness of skin and subcutaneous fat. There was note of fibrotic changes from her previous low midline incision for hysterectomy and oophorectomy. I was able to however exposed the fascia and incised this gently starting from the lower part of the incision. I was able to find a window where there were no adherent bowel loops so I entered the peritoneum at this area. I applied Christina clamps to both fascial edges to allow me to retract the abdominal wall and directly visualize while incising the fascia to lengthen the incision. Eventually, I reached part of the fascia were in there was note of a lot of adherent small bowel loops. I attempted to lyse these by the use of the Metzenbaum scissors. There was mesh in this area and the further I exposed, the more I saw intimately adherent small bowel that were seen attached the mesh. I continued to attempt to dissect with the Metzenbaum scissors but I continued to encounter very densely adherent small bowel loops to the mesh. I was able to review the CT scan again which was consistent with this picture. I therefore felt that at this point, there was a high risk of enterotomy if we continue to aggressively attempt to release the small bowel loops from the fascia and the mesh. I therefore decided to do transverse loop colostomy. I made a short paramedian incision on the right side using blade 15.. This carried down through the full-thickness skin subcutaneous fat. The anterior fascial was incised all the way down the posterior sheath until the peritoneum was entered. I applied retractors on the fascial opening and by doing so was able to visualize the transverse colon. I pulled up the transverse colon out into field and this was noted to be distended with stool. I identified the mesentery and the tenia and the transverse colon loop from the rest of the adherent omentum using sharp dissection with electrocautery. With a clear loop of the transverse colon identified, I proceeded to create a mesenteric window. I reduced more length of the transverse loop back into the peritoneal cavity and applied the stoma bridge through the mesentericdefect. I then closed part of the fascia to make this a little more snug around the loop of transverse colon. This fascial closure involving both the anterior and posterior sheaths was achieved with Maxon 1 sutures to make the opening snug around the stoma loop. I then proceeded to close the short midline incision that we had created earlier using Maxon 1 stitch, with care being taken so as to make sure that were not catching any bowel loops as we applied the sutures and tighten this. I closed the skin with skin eduard. After the low midline incision had been closed completely, proceeded to mature the loop colostomy. I made a transverse incision on the anterior wall of the transverse colon using electrocautery. The lumen was therefore entered and there was note of large amount of thick stools that we had to evacuate. I matured the stoma using full-thickness 2-0 Polysorb sutures through the edges of the enterotomy through the subdermal layer circumferentially. We applied multiple of these sutures. I then probed both apparent and efferent limbs and these both allowed my finger through past the fascial level. All incisions were therefore infiltrated with Marcaine 0.5% for postop analgesia. Dressings were applied. The stoma appliance was also placed and the procedure was completed. The patient tolerated the procedure well. There were no complications noted. Initial and final counts of sponges and instruments were correct. Estimated blood loss about 30 cc. The patient was extubated without difficulty and transferred to the recovery room with stable vital signs.
--- NOTE | 2021-05-05 12:01 | PM.OP ---
Brief Operative Note Date of Service: 05/05/21 Pre-op diagnosis: Severe decubitus ulcers, with difficult perineal care Post-op diagnosis: same Procedure: Transverse loop colostomy after attempted assisted end sigmoid colostomy Surgeon: Mike Knott MD Anesthesia: GETA Was an Speech Language Pathologist Travel used for this Procedure?: Yes Speech Language Pathologist Travel: Emma Harley Estimated blood loss (mL): 30 Pathology: none sent Condition: stable Disposition: PACU
[2021-05-05 12:11] LABS: IgA 466 mg/dL (47-310); IgG 3005 mg/dL (600-1640); IgM 68 mg/dL (50-300)
[2021-05-05 13:13] LABS: Glucose, Whole Blood 101 mg/dL (60-115)
--- NOTE | 2021-05-05 14:59 | PM.EVENT ---
Event Note Date of Service: 05/05/21 Event Note: Seen postop Appears comfortable Awake, answering questions Stable vital signs Abdomen soft Stoma viable Pain management Family Naomi Bueno updated by phone Advance diet as tolerated Continue wound care for decubitus ulcers
[2021-05-05] MEDS: oxyCODONE HCl Immed Release 5 MG TABLET PO (15:34)
[2021-05-05 16:08] LABS: Glucose, Whole Blood 106 mg/dL (60-115)
[2021-05-05] MEDS: Enoxaparin Sodium 30 MG/0.3 ML SYRINGE SUBCUT (17:15)
--- NOTE | 2021-05-05 19:42 | PC.NURSE ---
Several attempts were made during day shift to turn and reposition patient. Pt repositioned to side and then began to cry and say that she is too uncomfortable and wants to return back to supine. Encouragement was provided, but patient refused many attempts to lie sideling. Patient education regarding skin care and health status was provided.
[2021-05-05 19:53] LABS: Glucose, Whole Blood 154 mg/dL (60-115)
[2021-05-05] MEDS: Mirtazapine 30 MG TABLET PO (21:57)
[2021-05-05] MEDS: Sennosides 8.6 MG TABLET 17.2 MG PO (21:57)
[2021-05-06] VITALS (9 sets, daily range): BP systolic 110–143; BP diastolic 60–81; PULSE 68–86; RESP 16–20; TEMP 36.1–36.8; O2SAT 96–100
[2021-05-06] MEDS: Morphine Sulfate 2 MG/ML CARTRIDGE 4 MG IVPUSH ×3 (05:21→15:17)
[2021-05-06 07:23] LABS: Glucose, Whole Blood 180 mg/dL (60-115)
[2021-05-06] MEDS: Insulin Lispro 100 UNIT/ML 3 ML VIAL SUBCUT ×2 (08:16→12:59)
[2021-05-06] MEDS: Morphine Sulfate ER 15 MG TABLET.ER PO ×2 (08:16→20:32)
[2021-05-06] MEDS: Tamsulosin HCL 0.4 MG CAPSULE PO (08:16)
[2021-05-06] MEDS: dilTIAZem HCL 60 MG TABLET PO ×2 (08:16→20:32)
[2021-05-06] MEDS: Ascorbic Acid 500 MG TABLET PO (08:16)
[2021-05-06] MEDS: Ferrous Sulfate 324 MG TABLET.DR PO ×3 (08:16→20:31)
[2021-05-06] MEDS: 0.9 % Sodium Chloride Flush 3 ML SYRINGE IVFLUSH ×2 (08:17→15:18)
[2021-05-06 08:30] LABS: Hematocrit 31.5 % (37-47); Hemoglobin 9.6 g/dl (12.0-16.0); Mean Corpuscular HGB Conc 30.5 g/dl (31.0-35.0); Mean Corpuscular Hemoglobin 28.1 pg (27.0-33.0); Mean Corpuscular Volume 92.1 fL (80-98); Mean Platelet Volume 9.8 fL (9.4-12.3); Platelet Count 324 X10*3/uL (160-400); Red Blood Count 3.42 X10*6/uL (4.20-5.50); Red Cell Distribution Width 14.9 % (11.0-16.0); White Blood Count 8.5 X10*3/uL (4.8-10.8)
[2021-05-06 09:24] LABS: Anion Gap 10 (12-20); Blood Urea Nitrogen 45 mg/dL (9-16); Calcium 7.8 mg/dL (8.4-10.2); Carbon Dioxide 24 mmol/L (22-29); Chloride 110 mmol/L (96-108); Estimated Glomerular Filt Rate 30; Glucose Random 171 mg/dL (60-115); Potassium 3.8 mmol/L (3.3-5.1); Sodium 140 mmol/L (135-145)
--- NOTE | 2021-05-06 09:36 | P.PNNP_ITS ---
Subjective Subjective Date of Service: 05/06/21 Principal diagnosis: kylah Interval history: seen and examined this am, persistent pain, but reasonably comfortable, H/H is better with transfusion. No new issues, Creat is improving, Vanco level 20 Physical Exam Vital Signs: Vital Signs: Last Vital Signs Temp 97.0 F 05/06/21 07:48 Pulse 73 05/06/21 08:16 Resp 18 05/06/21 07:48 BP 123/68 05/06/21 08:16 Pulse Ox 100 05/06/21 07:48 Body Mass Index 27.8 Const: Other: Frail looking but more communicative General: cooperative, healthy appearing, comfortable, no acute distress, alert, awake, anxious and ill appearing Nutritional Appearance: thin Orientation/consciousness: oriented to person, oriented to place and oriented to time Limitations: No language barrier HENMT: Head: Yes normal to inspection, Yes normocephalic and Yes atraumatic Mouth: Normal oral and palatal mucosa present Eyes: Sclerae: sclerae normal Pupils: Equal, round and reactive pupils p resent EOM: EOMs intact bilaterally Neck: Neck: Yes trachea midline and Yes supple Carotids: no bruits Chest: Chest palpation & inspection: normal inspection of the chest and normal palpation of entire chest wall Resp: Effort & Inspection: normal respiratory effort, able to speak in complete sentences and no respiratory distress Auscultation: clear to aus cultation bilaterally, breath sounds absent and vesicular breath sounds bilateral Cardio: Other: Bilateral lower extremity lymphedema, pedal pulses not palpable Rate: regular rate Rhythm: regular rhythm Heart sounds: S1 normal heart sound present and S2 normal heart sound present Peripheral pulses: Peripheral pulses 2+ throughout GI: Other: Soft, nondistended, nontender Inspection: Yes normal to inspection and No distended Palpation (GI): Soft to palpation, not firm, nontender and no guarding : Other: cheng present draining yellow urine Back/Spine/Pelvis: Other: Deep stage IV ulcers on the buttocks Skin: Other: bilateral stage IV buttock ulcers, heel ulcers--see picture for details General skin exam: dry skin Neuro: General: oriented to person, oriented to place and oriented to time Cranial nerves: Yes CN's II-XII intact bilaterally, Yes Equal, round and reactive pupils present and Yes Bilaterally intact EOM present Extrem: Other: Bilateral stage 3 ulcers on the heel General: Yes edema Right lower extremity: full ROM, normal capillary refill and edema Left lower extremity: full ROM, normal capillary refill and edema Psych: Mental Status: mental status grossly normal Affect: Anxious affect present Objective Data Labs CBC & Chem 7: 05/06/21 07:57 05/06/21 07:57 Labs: Laboratory Results - last 24 hr 04/29/21 05/05/21 05/05/21 06:07 09:02 09:39 WBC RBC Hgb Hct MCV MCH MCHC RDW Plt Count MPV Absolute Nucleated RBC Nucleated RBC % (auto) Sodium Potassium Chloride Carbon Dioxide Anion Gap BUN Creatinine Estim Creat Clear Calc Estimated GFR POC Glucose 96 Random Glucose Calcium Vancomycin Trough IgG Total 3005 H IgA Total 466 H IgM 68 GORDY Interpretation SEE NOTE Blood Type O Positive Antibody Screen NEGATIVE 05/05/21 05/05/21 05/05/21 13:09 16:04 19:44 WBC RBC Hgb Hct MCV MCH MCHC RDW Plt Count MPV Absolute Nucleated RBC Nucleated RBC % (auto) Sodium Potassium Chloride Carbon Dioxide Anion Gap BUN Creatinine Estim Creat Clear Calc Estimated GFR POC Glucose 101 106 154 H Random Glucose Calcium Vancomycin Trough IgG Total IgA Total IgM GORDY Interpretation Blood Type Antibody Screen 05/05/21 05/06/21 05/06/21 22:50 07:12 07:57 WBC 8.5 RBC 3.42 L Hgb 9.6 L Hct 31.5 L MCV 92.1 MCH 28.1 MCHC 30.5 L RDW 14.9 Plt Count 324 D MPV 9.8 Absolute Nucleated RBC 0.000 Nucleated RBC % (auto) 0.0 Sodium Potassium Chloride Carbon Dioxide Anion Gap BUN Creatinine Estim Creat Clear Calc Estimated GFR POC Glucose 180 H Random Glucose Calcium Vancomycin Trough 20.0 IgG Total IgA Total IgM GORDY Interpretation Blood Type Antibody Screen 05/06/21 07:57 WBC RBC Hgb Hct MCV MCH MCHC RDW Plt Count MPV Absolute Nucleated RBC Nucleated RBC % (auto) Sodium 140 Potassium 3.8 Chloride 110 H Carbon Dioxide 24 Anion Gap 10 L BUN 45 H Creatinine 1.76 H Estim Creat Clear Calc 39.0 Estimated GFR 30 POC Glucose Random Glucose 171 H D Calcium 7.8 L Vancomycin Trough IgG Total IgA Total IgM GORDY Interpretation Blood Type Antibody Screen Microbiology Microbiology Results: Microbiology 04/25/21 12:27 Blood - Venous Blood Culture - Final No growth after 5 days. 04/25/21 12:27 Blood - Venous Blood Culture - Final No growth after 5 days. 04/26/21 Unknown Decubitus Ulcer Gram Stain - Final 04/26/21 Unknown Decubitus Ulcer Routine Culture - Final Methicillin Res Staph Aureus 04/26/21 Unknown Decubitus Ulcer Anaerobic Culture - Final 04/25/21 00:00 Urine Catheterized - Straight Catheter Urine Culture - Final Proteus mirabilis Escherichia coli 04/25/21 10:21 Blood - Venous Blood Culture - Final 04/25/21 10:08 Blood - Venous Blood Culture - Final Procedures Date of Service Date of Service: 05/06/21 Assessment & Plan Assessment and plan (1) Acute kidney injury: Status: Acute Assessment and Plan: 1. 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 Anemia: Fe and epo def with cont dropping Hb 3. AMS: improved; related to pain meds 4. Proteinuria: c/w DN; r/o dysproteinemia 5. 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
[2021-05-06 10:11] LABS: Iron 21 mcg/dL (30-160); Percent Iron Saturation 30 % (15-50); Total Iron Binding Capacity 70 mcg/dL (228-428); Unsaturated Iron Binding 49 ug/dL
--- NOTE | 2021-05-06 11:10 | HO.POSTANES ---
Post Anesthesia Evaluation Post Anesthesia Evaluation Vital Signs: Vital Signs Temp Pulse Resp BP Pulse Ox 05/06/21 10:57 97.0 F 68 18 110/64 100 05/06/21 09:51 96 05/06/21 08:16 73 123/68 05/06/21 07:48 97.0 F 73 18 123/68 100 05/06/21 04:00 98.2 F 80 20 143/74 H 100 05/05/21 23:31 97.6 F 83 18 140/72 H 100 Anesthesia: General Endotracheal-GETA Mental Status: Awake Pain Control: Satisfactory Nausea/Vomiting: None Hydration: Adequate Anesthesia-Related Issues: No Anes. Related Issues
[2021-05-06 11:12] LABS: Ferritin 3197 ng/mL (10-250)
[2021-05-06 11:23] LABS: Glucose, Whole Blood 166 mg/dL (60-115)
--- NOTE | 2021-05-06 12:44 | HO.PM.IMPN ---
Subjective Subjective Date of Service: 05/06/21 Interval History: seen and examined this am, persistent pain, but reasonably comfortable, H/H is better with transfusion. Succesful diverting colostomy yesterday Physical Exam Vital Signs: Vital Signs: Last Vital Signs Temp 97.0 F 05/06/21 10:57 Pulse 68 05/06/21 10:57 Resp 18 05/06/21 10:57 BP 110/64 05/06/21 10:57 Pulse Ox 100 05/06/21 10:57 Body Mass Index 27.8 Const: Other: General: AO X 3, no acute distress Resp: CTA bilateral CVS: S1,S2,RRR GI: +BS, NT, no distention Skin: Deep stage IV ulcers on the buttocks Bilateral stage 3 ulcers on the heel Neuro: alert, oriented to self and place Objective Data Current Medications Generic Name Dose Route Start Last Admin Trade Name Freq PRN Reason Stop Dose Admin Ascorbic Acid 500 mg 04/26/21 09:00 05/06/21 08:16 Ascorbic Acid 500 Mg Tablet PO 500 mg DAILY SYLWIA Administration Bisacodyl 10 mg 04/25/21 16:27 Bisacodyl 10 Mg Supp.Rect [place] DAILY PRN Constipation Diltiazem HCl 60 mg 04/25/21 21:00 05/06/21 08:16 Diltiazem Hcl 60 Mg Tablet PO 60 mg BID SYLWIA Administration Protocol Docusate Sodium 50 mg 04/25/21 16:27 Docusate Sodium 100 Mg/10 Ml Liquid PO BEDTIME PRN Constipation Enoxaparin Sodium 30 mg 04/25/21 18:00 05/05/21 17:15 Enoxaparin Sodium 30 Mg/0.3 Ml Syringe SUBCUT 30 mg Q24H SYLWIA Administration Ferrous Sulfate 324 mg 04/25/21 21:00 05/06/21 08:16 Ferrous Sulfate 324 Mg Tablet.Dr PO 324 mg TID SYLWIA Administration Vancomycin HCl 1,250 mg/ 250 mls @ 270 mls/hr 05/07/21 12:00 Sodium Chloride IV Q48H [facility] Insulin Human Lispro 0 unit 04/25/21 16:30 05/06/21 08:16 Insulin Lispro 100 Unit/Ml 3 Ml Vial SUBCUT 2 unit QIDACHS [facility] Administration Protocol Lactulose 20 gm 04/25/21 16:27 Lactulose 20 Gm/30 Ml Solution PO BID PRN Constipation Mirtazapine 30 mg 04/25/21 21:00 05/05/21 21:57 Mirtazapine 30 Mg Tablet PO 30 mg BEDTIME SYLWIA Administration Morphine Sulfate 4 mg 05/02/21 11:16 05/06/21 11:00 Morphine Sulfate 2 Mg/Ml Cartridge IVPUSH 4 mg Q4H PRN Administration Pain, Severe (Pain Scale 7-10) Morphine Sulfate 15 mg 05/02/21 21:00 05/06/21 08:16 Morphine Sulfate Er 15 Mg Tablet.Er PO 15 mg BID SYLWIA Administration Ondansetron HCl 4 mg 04/25/21 16:27 05/02/21 12:14 Ondansetron Hcl 4 Mg/2 Ml Vial IVPUSH 4 mg Q8H PRN Administration Nausea and Vomiting Oxycodone HCl 5 mg 05/01/21 21:59 05/05/21 15:34 Oxycodone Hcl Immed Release 5 Mg Tablet PO 5 mg Q6H PRN Administration [facility] Consult 1 each 04/25/21 11:48 Consult Rx Perform Med Rec MISCELLANE ONCE PRN Consult order Pharmacy Consult 1 each 05/01/21 00:31 Consult Rx Vancomycin Dosing MISCELLANE DAILY PRN Consult order Polyethylene Glycol 17 gm 04/25/21 16:27 Polyethylene Glycol 3350 17 Gm Powd.Pack PO DAILY PRN Constipation Senna 17.2 mg 04/26/21 21:00 05/05/21 21:57 Sennosides 8.6 Mg Tablet PO 17.2 mg BEDTIME SYLWIA Administration Sodium Chloride 3 ml 04/25/21 16:27 05/06/21 08:17 0.9 % Sodium Chloride Flush 3 Ml Syringe IVFLUSH 3 ml QSHIFT SYLWIA Administration Sodium Hypochlorite 1 appl 04/25/21 21:00 04/26/21 10:07 Sodium Hypochlorite 0.125% 473 Ml Solution TOPICAL Not Given BID SYLWIA Tamsulosin HCl 0.4 mg 04/26/21 09:00 05/06/21 08:16 Tamsulosin Hcl 0.4 Mg Capsule PO 0.4 mg DAILY SYLWIA Administration Labs CBC & Chem 7: 05/06/21 07:57 05/06/21 07:57 Labs: Laboratory Results - last 24 hr 05/05/21 05/05/21 05/05/21 13:09 16:04 19:44 MCV MCH MCHC RDW Plt Count MPV Absolute Nucleated RBC Nucleated RBC % (auto) Anion Gap Estim Creat Clear Calc Estimated GFR POC Glucose 101 106 154 H Random Glucose Calcium Iron TIBC % Saturation Unsat Iron Binding Ferritin Vancomycin Trough 05/05/21 05/06/21 05/06/21 22:50 07:12 07:57 MCV 92.1 MCH 28.1 MCHC 30.5 L RDW 14.9 Plt Count 324 D MPV 9.8 Absolute Nucleated RBC 0.000 Nucleated RBC % (auto) 0.0 Anion Gap Estim Creat Clear Calc Estimated GFR POC Glucose 180 H Random Glucose Calcium Iron TIBC % Saturation Unsat Iron Binding Ferritin Vancomycin Trough 20.0 05/06/21 05/06/21 07:57 10:56 MCV MCH MCHC RDW Plt Count MPV Absolute Nucleated RBC Nucleated RBC % (auto) Anion Gap 10 L Estim Creat Clear Calc 39.0 Estimated GFR 30 POC Glucose 166 H Random Glucose 171 H D Calcium 7.8 L Iron 21 L TIBC 70 L % Saturation 30 Unsat Iron Binding 49 Ferritin 3197 H Vancomycin Trough Assessment and Plan (1) Protein-calorie malnutrition, severe: Status: Acute (2) Decubitus ulcer: Status: Acute (3) Wet gangrene: Status: Acute Assessment and Plan: 55-year-old female with history of vulvar cancer status post chemo radiation, chronic lymphadenopathy currently bedbound, hypertension, diabetes anxiety, depression, chronic decubitus ulcers of buttocks and bilateral heels sent from [facility] for altered mental status found to have sepsis and LEIGH Sepsis.poa--related to underlying buttock/heel wounds, culture growing MRSA leukocytosis has trended down slowly -continue vancomycin, ID recommends 6 weeks therapy -Blood cultures negative to date -Has midline Chronic wounds to buttock and bilateral heels. poa Osteomyelitis confirmed by outpatient MRI s/p debridement of wounds 04/26 -surgery following -continue vanco (started on 04/25)--MRSA from wound culture -airloss bed, frequent repositioning -pain control. continue home ms claudia, will continue morphine for severe pain -continue local wound care -Diverting colostomy done on 05/05 UTII--completed course of Ceftriaxone LEIGH on CDK--stable Metabolic acidosis SCr trending down slightly to 1.68 (no baseline labs since 03/2020) -nephrology following -follow renal function Anemia s/p 1Unit rbc on 04/26, hemoglobin is 6.8 today, transfuse 2 units on 05/01, Hgb 8.5 today, check H/H Wednesday Mood, seems depressed -care team consult -continue ativan, remeron Metabolic encephalopathy d/t sepsis Resolved, seems at baseline DM -Lantus on hold -SSI, POCs -ada diet HTN -continue diltiazem Moderate protein calorie malnutrition albumin 2.0 -Nutrition following, -Supplement Quality Stroke Does the patient have a stroke diagnosis?: No VTE Prior VTE?: No VTE Risk Level:: Medical - moderate - high VTE Device Contraindication: N/A - Device Ordered VTE Drug Contraindication: N/A - Med Ordered
--- NOTE | 2021-05-06 14:19 | PM.PNGS ---
Subjective Subjective Date of Service: 05/06/21 Interval history: States she feels ?okay? Tolerating diet Postop Pain seems controlled Physical Exam Vital Signs: Vital Signs: Last Vital Signs Temp 97.0 F 05/06/21 10:57 Pulse 68 05/06/21 10:57 Resp 18 05/06/21 10:57 BP 110/64 05/06/21 10:57 Pulse Ox 100 05/06/21 10:57 Body Mass Index 27.8 Const: Other: Chemistry 05/04/21 05/06/21 07:48 07:57 Sodium 140 Potassium 3.8 Carbon Dioxide 24 BUN 45 H Creatinine 1.68 H 1.76 H Calcium 7.8 L Hematology 05/06/21 07:57 WBC 8.5 Hgb 9.6 L Plt Count 324 D General: comfortable and no acute distress GI: Other: Soft, no guarding, stoma viable, scanty output, dressings dry Procedures Date of Service Date of Service: 05/06/21 Progress Note: A&P Assessment and plan (1) Decubitus ulcer: Status: Acute Assessment and Plan: Status post diverting loop colostomy for perineal care Looks comfortable Push p.o. intake Stoma viable Wound care Continue ulcer precautions Fall Risk Details Current Medications: Current Medications Generic Name Dose Route Start Last Admin Trade Name Freq PRN Reason Stop Dose Admin Ascorbic Acid 500 mg 04/26/21 09:00 05/06/21 08:16 Ascorbic Acid 500 Mg Tablet PO 500 mg DAILY SYLWIA Administration Bisacodyl 10 mg 04/25/21 16:27 Bisacodyl 10 Mg Supp.Rect [place] DAILY PRN Constipation Diltiazem HCl 60 mg 04/25/21 21:00 05/06/21 08:16 Diltiazem Hcl 60 Mg Tablet PO 60 mg BID SYLWIA Administration Protocol Docusate Sodium 50 mg 04/25/21 16:27 Docusate Sodium 100 Mg/10 Ml Liquid PO BEDTIME PRN Constipation Enoxaparin Sodium 30 mg 04/25/21 18:00 05/05/21 17:15 Enoxaparin Sodium 30 Mg/0.3 Ml Syringe SUBCUT 30 mg Q24H SYLWIA Administration Ferrous Sulfate 324 mg 04/25/21 21:00 05/06/21 08:16 Ferrous Sulfate 324 Mg Tablet.Dr PO 324 mg TID SYLWIA Administration Vancomycin HCl 1,250 mg/ 250 mls @ 270 mls/hr 05/07/21 12:00 Sodium Chloride IV Q48H SYLWIA Insulin Human Lispro 0 unit 04/25/21 16:30 05/06/21 12:59 Insulin Lispro 100 Unit/Ml 3 Ml Vial SUBCUT 2 unit QIDACHS SYLWIA Administration Protocol Lactulose 20 gm 04/25/21 16:27 Lactulose 20 Gm/30 Ml Solution PO BID PRN Constipation Mirtazapine 30 mg 04/25/21 21:00 05/05/21 21:57 Mirtazapine 30 Mg Tablet PO 30 mg BEDTIME SYLWIA Administration Morphine Sulfate 4 mg 05/02/21 11:16 05/06/21 11:00 Morphine Sulfate 2 Mg/Ml Cartridge IVPUSH 4 mg Q4H PRN Administration Pain, Severe (Pain Scale 7-10) Morphine Sulfate 15 mg 05/02/21 21:00 05/06/21 08:16 Morphine Sulfate Er 15 Mg Tablet.Er PO 15 mg BID SYLWIA Administration Ondansetron HCl 4 mg 04/25/21 16:27 05/02/21 12:14 Ondansetron Hcl 4 Mg/2 Ml Vial IVPUSH 4 mg Q8H PRN Administration Nausea and Vomiting Oxycodone HCl 5 mg 05/01/21 21:59 05/05/21 15:34 Oxycodone Hcl Immed Release 5 Mg Tablet PO 5 mg Q6H PRN Administration [facility] Consult 1 each 04/25/21 11:48 Consult Rx Perform Med Rec MISCELLANE ONCE PRN Consult order Pharmacy Consult 1 each 05/01/21 00:31 Consult Rx Vancomycin Dosing MISCELLANE DAILY PRN Consult order Polyethylene Glycol 17 gm 04/25/21 16:27 Polyethylene Glycol 3350 17 Gm Powd.Pack PO DAILY PRN Constipation Senna 17.2 mg 04/26/21 21:00 05/05/21 21:57 Sennosides 8.6 Mg Tablet PO 17.2 mg BEDTIME SYLWIA Administration Sodium Chloride 3 ml 04/25/21 16:27 05/06/21 08:17 0.9 % Sodium Chloride Flush 3 Ml Syringe IVFLUSH 3 ml QSHIFT SYLWIA Administration Sodium Hypochlorite 1 appl 04/25/21 21:00 04/26/21 10:07 Sodium Hypochlorite 0.125% 473 Ml Solution TOPICAL Not Given BID [facility] Tamsulosin HCl 0.4 mg 04/26/21 09:00 05/06/21 08:16 Tamsulosin Hcl 0.4 Mg Capsule PO 0.4 mg DAILY SYLWIA Administration Time Spent With Patient Time: Total time spent is greater than 50% in coordination of care (as documented) at patient's floor/unit and/or counseling patient: Time with patient: 15 - 24 minutes Quality Stroke Does the patient have a stroke diagnosis?: No VTE Prior VTE?: No VTE Risk Level:: Medical - moderate - high VTE Device Contraindication: N/A - Device Ordered VTE Drug Contraindication: N/A - Med Ordered
[2021-05-06] MEDS: oxyCODONE HCl Immed Release 5 MG TABLET PO (16:07)
[2021-05-06 16:14] LABS: Glucose, Whole Blood 148 mg/dL (60-115)
[2021-05-06] MEDS: Enoxaparin Sodium 30 MG/0.3 ML SYRINGE SUBCUT (16:19)
[2021-05-06 20:04] LABS: Glucose, Whole Blood 136 mg/dL (60-115)
[2021-05-06] MEDS: Mirtazapine 30 MG TABLET PO (20:31)
[2021-05-06] MEDS: Sennosides 8.6 MG TABLET 17.2 MG PO (20:31)
[2021-05-07] VITALS (11 sets, daily range): BP systolic 128–168; BP diastolic 73–88; PULSE 67–99; RESP 12–19; TEMP 35.9–36.6; O2SAT 97–100
[2021-05-07] MEDS: 0.9 % Sodium Chloride Flush 3 ML SYRINGE IVFLUSH ×4 (00:09→20:25)
[2021-05-07] MEDS: Morphine Sulfate 2 MG/ML CARTRIDGE 4 MG IVPUSH (00:09)
[2021-05-07 07:18] LABS: Glucose, Whole Blood 182 mg/dL (60-115)
[2021-05-07] MEDS: Insulin Lispro 100 UNIT/ML 3 ML VIAL SUBCUT ×2 (07:54→11:58)
[2021-05-07] MEDS: dilTIAZem HCL 60 MG TABLET PO ×2 (07:55→20:23)
[2021-05-07] MEDS: Ascorbic Acid 500 MG TABLET PO (07:55)
[2021-05-07] MEDS: Ferrous Sulfate 324 MG TABLET.DR PO ×3 (07:55→20:24)
[2021-05-07] MEDS: Tamsulosin HCL 0.4 MG CAPSULE PO (07:55)
[2021-05-07] MEDS: Morphine Sulfate ER 15 MG TABLET.ER PO ×2 (07:56→20:24)
--- NOTE | 2021-05-07 08:23 | PM.PNNEP ---
Subjective Subjective Date of Service: 05/07/21 Principal diagnosis: kylah Interval history: seen and examined this am, persistent pain, but reasonably comfortable, H/H is better with transfusion. Succesful diverting colostomy yesterday Physical Exam Vital Signs: Vital Signs: Last Vital Signs Temp 97.4 F 05/07/21 08:00 Pulse 67 05/07/21 08:00 Resp 18 05/07/21 08:00 BP 168/88 H 05/07/21 08:00 Pulse Ox 97 05/07/21 08:00 Body Mass Index 27.8 Const: Other: Chemistry 05/04/21 05/06/21 07:48 07:57 Sodium 140 Potassium 3.8 Carbon Dioxide 24 BUN 45 H Creatinine 1.68 H 1.76 H Calcium 7.8 L Hematology 05/06/21 07:57 WBC 8.5 Hgb 9.6 L Plt Count 324 D General: cooperative, healthy appearing, comfortable, no acute distress, alert, awake, anxious and ill appearing Nutritional Appearance: thin Orientation/consciousness: oriented to person, oriented to place and oriented to time Limitations: No language barrier HENMT: Head: Yes normal to inspection, Yes normocephalic and Yes atraumatic Mouth: Normal oral and palatal mucosa present Eyes: Sclerae: sclerae normal Pupils: Equal, round and reactive pupils present EOM: EOMs intact bilaterally Neck: Neck: Yes trachea midline and Yes supple Carotids: no bruits Chest: Chest palpation & inspection: normal inspection of the chest and normal palpation of entire chest wall Resp: Effort & Inspection: normal respiratory effort, able to speak in complete sentences and no respiratory distress Auscultation: clear to auscultation bilaterally, breath sounds absent and vesicular breath sounds bilateral Cardio: Other: Bilateral lower extremity lymphedema, pedal pulses not palpable Rate: regular rate Rhythm: regular rhythm Heart sounds: S1 normal heart sound present and S2 normal heart sound present Peripheral pulses: Peripheral pulses 2+ throughout GI: Other: Soft, no guarding, stoma viable, scanty output, dressings dry Inspection: Yes normal to inspection and No distended Palpation (GI): Soft to palpation, not firm, nontender and no guarding : Other: cheng present draining yellow urine Back/Spine/Pelvis: Other: Deep stage IV ulcers on the buttocks Skin: Other: bilateral stage IV buttock ulcers, heel ulcers--see picture for details General skin exam: dry skin Neuro: General: oriented to person, oriented to place and oriented to time Cranial nerves: Yes CN's II-XII intact bilaterally, Yes Equal, round and reactive pupils present and Yes Bilaterally intact EOM present Extrem: Other: Bilateral stage 3 ulcers on the heel General: Yes edema Right lower extremity: full ROM, normal capillary refill and edema Left lower extremity: full ROM, normal capillary refill and edema Psych: Mental Status: mental status grossly normal Affect: Anxious affect present Objective Data Labs CBC & Chem 7: 05/06/21 07:57 05/06/21 07:57 Labs: Laboratory Results - last 24 hr 05/06/21 05/06/21 05/06/21 07:57 07:57 10:56 WBC 8.5 RBC 3.42 L Hgb 9.6 L Hct 31.5 L MCV 92.1 MCH 28.1 MCHC 30.5 L RDW 14.9 Plt Count 324 D MPV 9.8 Absolute Nucleated RBC 0.000 Nucleated RBC % (auto) 0.0 Sodium 140 Potassium 3.8 Chloride 110 H Carbon Dioxide 24 Anion Gap 10 L BUN 45 H Creatinine 1.76 H Estim Creat Clear Calc 39.0 Estimated GFR 30 POC Glucose 166 H Random Glucose 171 H D Calcium 7.8 L Iron 21 L TIBC 70 L % Saturation 30 Unsat Iron Binding 49 Ferritin 3197 H 05/06/21 05/06/21 05/07/21 16:09 19:58 07:06 WBC RBC Hgb Hct MCV MCH MCHC RDW Plt Count MPV Absolute Nucleated RBC Nucleated RBC % (auto) Sodium Potassium Chloride Carbon Dioxide Anion Gap BUN Creatinine Estim Creat Clear Calc Estimated GFR POC Glucose 148 H 136 H 182 H Random Glucose Calcium Iron TIBC % Saturation Unsat Iron Binding Ferritin Microbiology Microbiology Results: Microbiology 04/25/21 12:27 Blood - Venous Blood Culture - Final No growth after 5 days. 04/25/21 12:27 Blood - Venous Blood Culture - Final No growth after 5 days. 04/26/21 Unknown Decubitus Ulcer Gram Stain - Final 04/26/21 Unknown Decubitus Ulcer Routine Culture - Final Methicillin Res Staph Aureus 04/26/21 Unknown Decubitus Ulcer Anaerobic Culture - Final 04/25/21 00:00 Urine Catheterized - Straight Catheter Urine Culture - Final Proteus mirabilis Escherichia coli 04/25/21 10:21 Blood - Venous Blood Culture - Final 04/25/21 10:08 Blood - Venous Blood Culture - Final Procedures Date of Service Date of Service: 05/07/21 Assessment & Plan Assessment and plan (1) Decubitus ulcer: Status: Acute Assessment and Plan: (1) Acute kidney injury: ?Status:?Acute ?Assessment and Plan: 1. 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 Anemia: Fe and epo def with cont dropping Hb 3. AMS: improved; related to pain meds 4. Proteinuria: c/w DN; r/o dysproteinemia 5. 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 tx pc as needed and cont? epo; Fe stores ok please use an alternative to vanco Time Spent With Patient Time: Total time spent is greater than 50% in coordination of care (as documented) at patient's floor/unit and/or counseling patient: Progress Note: Quality Stroke Does the patient have a stroke diagnosis?: No
--- NOTE | 2021-05-07 10:14 | P.PNGS_ITS ---
Subjective Subjective Date of Service: 05/07/21 Interval history: Tolerating diet Pain level okay Says appetite is not good Physical Exam Vital Signs: Vital Signs: Last Vital Signs Temp 97.4 F 05/07/21 08:00 Pulse 67 05/07/21 08:00 Resp 18 05/07/21 08:00 BP 168/88 H 05/07/21 08:00 Pulse Ox 99 05/07/21 09:00 Body Mass Index 27.8 Const: General: comfortable and no acute distress GI: Other: Incisions dry, stoma viable, bridge in place, some stool output Palpation (GI): Soft to palpation and not firm Procedures Date of Service Date of Service: 05/07/21 Progress Note: A&P Assessment and plan (1) Decubitus ulcer: Status: Acute Assessment and Plan: Status post diverting loop colostomy for perineal care Abdomen soft Stoma functioning, viable Push p.o. intake [place]ore precautions Fall Risk Details Current Medications: Current Medications Generic Name Dose Route Start Last Admin Trade Name Freq PRN Reason Stop Dose Admin Ascorbic Acid 500 mg 04/26/21 09:00 05/07/21 07:55 Ascorbic Acid 500 Mg Tablet PO 500 mg DAILY SYLWIA Administration Bisacodyl 10 mg 04/25/21 16:27 Bisacodyl 10 Mg Supp.Rect ND DAILY PRN Constipation Diltiazem HCl 60 mg 04/25/21 21:00 05/07/21 07:55 Diltiazem Hcl 60 Mg Tablet PO 60 mg BID [facility] Administration Protocol Docusate Sodium 50 mg 04/25/21 16:27 Docusate Sodium 100 Mg/10 Ml Liquid PO BEDTIME PRN Constipation Enoxaparin Sodium 30 mg 04/25/21 18:00 05/06/21 16:19 Enoxaparin Sodium 30 Mg/0.3 Ml Syringe SUBCUT 30 mg Q24H SYLWIA Administration Ferrous Sulfate 324 mg 04/25/21 21:00 05/07/21 07:55 Ferrous Sulfate 324 Mg Tablet.Dr PO 324 mg TID [facility] Administration Vancomycin HCl 1,250 mg/ 250 mls @ 270 mls/hr 05/07/21 12:00 Sodium Chloride IV Q48H [facility] Insulin Human Lispro 0 unit 04/25/21 16:30 05/07/21 07:54 Insulin Lispro 100 Unit/Ml 3 Ml Vial SUBCUT 2 unit QIDACHS [facility] Administration Protocol Lactulose 20 gm 04/25/21 16:27 Lactulose 20 Gm/30 Ml Solution PO BID PRN Constipation Mirtazapine 30 mg 04/25/21 21:00 05/06/21 20:31 Mirtazapine 30 Mg Tablet PO 30 mg BEDTIME SYLWIA Administration Morphine Sulfate 4 mg 05/02/21 11:16 05/07/21 00:09 Morphine Sulfate 2 Mg/Ml Cartridge IVPUSH 4 mg Q4H PRN Administration Pain, Severe (Pain Scale 7-10) Morphine Sulfate 15 mg 05/02/21 21:00 05/07/21 07:56 Morphine Sulfate Er 15 Mg Tablet.Er PO 15 mg BID SYLWIA Administration Ondansetron HCl 4 mg 04/25/21 16:27 05/02/21 12:14 Ondansetron Hcl 4 Mg/2 Ml Vial IVPUSH 4 mg Q8H PRN Administration Nausea and Vomiting Pharmacy Consult 1 each 04/25/21 11:48 Consult Rx Perform Med Rec MISCELLANE ONCE PRN Consult order Pharmacy Consult 1 each 05/01/21 00:31 Consult Rx Vancomycin Dosing MISCELLANE DAILY PRN Consult order Polyethylene Glycol 17 gm 04/25/21 16:27 Polyethylene Glycol 3350 17 Gm Powd.Pack PO DAILY PRN Constipation Senna 17.2 mg 04/26/21 21:00 05/06/21 20:31 Sennosides 8.6 Mg Tablet PO 17.2 mg BEDTIME SYLWIA Administration Sodium Chloride 3 ml 04/25/21 16:27 05/07/21 07:55 0.9 % Sodium Chloride Flush 3 Ml Syringe IVFLUSH 3 ml QSHIFT SYLWIA Administration Sodium Hypochlorite 1 appl 04/25/21 21:00 04/26/21 10:07 Sodium Hypochlorite 0.125% 473 Ml Solution TOPICAL Not Given BID SYLWIA Tamsulosin HCl 0.4 mg 04/26/21 09:00 05/07/21 07:55 Tamsulosin Hcl 0.4 Mg Capsule PO 0.4 mg DAILY SYLWIA Administration Time Spent With Patient Time: Total time spent is greater than 50% in coordination of care (as documented) at patient's floor/unit and/or counseling patient: Time with patient: 15 - 24 minutes Quality Stroke Does the patient have a stroke diagnosis?: No VTE Prior VTE?: No VTE Risk Level:: Medical - moderate - high VTE Device Contraindication: N/A - Device Ordered VTE Drug Contraindication: N/A - Med Ordered
--- NOTE | 2021-05-07 10:24 | P.DS_ITS ---
DS: Providers Provider Date of Service: 05/09/21 Date of admission: 04/25/21 13:57 Primary care physician: Mora Denton MD Consults: 04/25/21 13:57 Consult to General Surgery Routine Consulting Provider: Nohelia Louie Reason for consultation: multiple chronic wounds Has provider been notified: No Consult to Infectious Diseases Routine Consulting Provider: Odilia Tran Reason for consultation: large chronic wounds; b/l heels/buttock Has provider been notified: No 04/26/21 08:58 Consult to Care Team Routine Comment: Reason for consultation: depression 04/27/21 07:46 Consult to Nephrology Routine Consulting Provider: Aparna Simental Reason for consultation: leigh Has provider been notified: No 04/28/21 06:25 Consult to Vascular Surgery Routine Consulting Provider: Kt Parish Reason for consultation: Bilat nonhealing calcaneal ulcers, DM, PAD Has provider been notified: No DS: Diagnosis Discharge Diagnosis (1) Decubitus ulcer: Status: Acute DS: Summary Hospital Course Hospital Course: Date of Service: 04/25/21 Chief Complaint: altered mental status This is a 55-year-old female with history lymphedema sent from [facility] due to altered mental status.? Patient has a history vulvar cancer status post total abdominal hysterectomy and chemoradiation with resulting chronic bilateral lower extremity lymphedema currently bed-bound with chronic decubitus ulcers of bilateral heels and buttocks? She has been followed by wound care and has had recent admission at [facility].? MRI done on 04/17 confirmed osteomyelitis.? Documents from facility indicate lack of cooperation with wound care as well as multiple allergies making pain control difficult.? She was reportedly sent in from the facility today because she is not acting at her baseline and appears ?off.?? Workup in the emergency department revealed leukocytosis of 23, H/H 7.7/26.1.? Patient was tachycardic but afebrile, lactic acid was within normal limits.? Creatinine was elevated at 2.55. Imaging showed bilateral buttock decubitus ulcers extending to the periosteum.? Patient was emotional, intermittently crying, reporting significant pain.? She received multiple doses of morphine in the emergency department as well as IV antibiotics and IV fluid.? She was evaluated by General surgery who recommended that the patient be admitted to the hospitalist service. Hospital course: Sepsis.poa--related to underlying buttock/heel wounds, culture grew MRSA. She has been on Vancomycin and IV is recommmending IV Vancomycin for 6 weeks (ending June 05). Leukocytosis has trended down and she is no longer septic. Her Vancomycin level is around 20, and renal function has been OK. Blood cultures have been negative. She has a midline in place since and can reamin in place for 8 weeks Chronic wounds to buttock and bilateral heels--All present on admission. 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 s/p debridement of wounds 04/26. She is on Vancomycin as above started on 04/25 and to continue for 6 weeks. She has been using Airloss bed/mattress to minimize impact on wounds. Because of the extensive nature of the wounds and chronically being soiled by stool, she agreed to having a diverting colostomy and this was performed on 05/[address] Knott without complication. Her chronic pain is been treated with Oxycodone. UTII--completed course of Ceftriaxone LEIGH on CDK-- Creatinine on admission wa 2.55 and presently 1.76 which is likely baseline and has been stable around theref for the last 5 days. Nephrology was following closely Anemia--She has anemia of chronic disease with likely bleed from the wounds. She presented with hemoglobin of 7.7 on 04/25 and was transfused 1 unit of 04/26 and 2 units on 05/01 when hemoglobin dropped to 6.8. Most recent hemoglobin as of 05/06 was 9.6 Depressed mood--to continue Ativan and Remron Metabolic encephalopathy d/t sepsis Resolved, seems at baseline DM--She was on Lantus but this has been on hold due to blood sugar in 90s to 180s, so recommend SSI only at this time, Diabetic diet. 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 Time Spent with Patient Time attestation: Total time spent providing and/or coordinating discharge services: Discharge coordination time: Greater than 30 minutes Quality: Stroke Does the patient have a stroke diagnosis?: No Physical Exam Vital Signs: Vital Signs: Selected Entries 05/09/21 07:22 Temperature 97.4 F Pulse Rate 83 Respiratory Rate 18 Blood Pressure 141/66 H Pulse Oximetry 99 Oxygen Delivery Me thod Room Air Const: General: alert, awake and anxious Orientation/consciousness: oriented to person, oriented to place and oriented to time Eyes: Pupils: Equal, round and reactive pupils present Chest: Chest palpation & inspection: normal inspection of the chest and normal palpation of entire chest wall Resp: Effort & Inspection: normal respiratory effort, able to speak in complete sentences and no respiratory distress Auscultation: clear to auscultation bilaterally, breath sounds absent and vesicular breath sounds bilateral Cardio: Other: Bilateral lower extremity lymphedema, pedal pulses not palpable Rate: regular rate Rhythm: regular rhythm Heart sounds: S1 normal heart sound present and S2 normal heart sound present Peripheral pulses: Peripheral pulses 2+ throughout GI: Other: Soft, nondistended, nontender Palpation (GI): Soft to palpation and nontender : Other: cheng present draining yellow urine Skin: Other: bilateral stage IV buttock ulcers, heel ulcers--see picture for details General skin exam: dry skin Neuro: General: oriented to person, oriented to place and oriented to time Cranial nerves: Yes CN's II-XII intact bilaterally, Yes Equal, round and reactive pupils present and Yes Bilaterally intact EOM present Psych: Mental Status: mental status grossly normal Affect: Anxious affect present DS: Data Data Completed and Pending Labs on day of discharge: Laboratory Results - last 24 hr 05/06/21 05/06/21 05/06/21 07:57 10:56 16:09 POC Glucose 166 H 148 H Ferritin 3197 H 05/06/21 05/07/21 19:58 07:06 POC Glucose 136 H 182 H Ferritin Discharge Plan Discharge Anticipated Discharge Date/Time: 05/09/21 09:37 Patient Disposition: Xfer SNF Discharge Diagnosis: Sepsis due Referrals: [facility] [Outside] - 1 Week Mike Knott MD [Physician] - 1 Week Mora Olsen MD [Primary Care Provider] - 1 Week Discharge Medications: New insulin lispro [Humalog U-100 Insulin] 100 unit/mL Solution See Protocol sliding scale dose subcut QIDACHS MDD 30 Qty: 10 RF: 0 vancomycin 500 mg recon soln 500 mg IV DAILY 27 Days RF: 0 Continued acetaminophen 325 mg Tablet 650 mg PO Q6H PRN (Reason: Pain) RF: 0 polyethylene glycol 3350 [Miralax] 17 gram Powder In Packet 17 g PO DAILY PRN (Reason: Constipation) RF: 0 docusate sodium 50 mg Capsule 50 mg PO BEDTIME PRN (Reason: Constipation) RF: 0 ascorbic acid (vitamin C) 500 mg Tablet 500 mg PO DAILY RF: 0 tamsulosin [Flomax] 0.4 mg Capsule 0.4 mg PO DAILY RF: 0 bisacodyl 10 mg Suppository 10 mg MI DAILY PRN (Reason: Constipation) RF: 0 ferrous sulfate 325 mg (65 mg iron) Tablet 325 mg PO TID RF: 0 magnesium citrate [Citrate of Magnesia] Solution 150 ml PO DAILY PRN (Reason: Constipation) RF: 0 ammonium lactate 12 % Cream 1 appl TOPICAL BID RF: 0 diltiazem HCl 60 mg Tablet 60 mg PO BID RF: 0 lactulose 10 gram/15 mL Solution 20 g PO BID PRN (Reason: Constipation) RF: 0 Dakin's Solution 0.125 % Solution 1 appl TOPICAL DAILY RF: 0 mirtazapine 30 mg Tablet 30 mg PO BEDTIME RF: 0 sennosides [senna] 8.6 mg Tablet 17.2 mg PO BEDTIME PRN (Reason: Constipation) RF: 0 lorazepam 0.5 mg Tablet 0.5 mg PO Q6H PRN (Reason: Anxiety) Qty: 20 RF: 0 morphine [MS Contin] 15 mg tablet extended release 1 tab PO BID Qty: 20 RF: 0 oxycodone 5 mg tablet 1 tab PO Q6H PRN (Reason: pain) Qty: 20 RF: 0 Discontinued insulin glargine 100 unit/mL Solution 3 unit SUBCUT QPM RF: 0 Discharge Orders: Discharge Order (Routine); Ordered 05/09/21 Ordered By: Monty De La Torre Diet: advance to usual diet and diabetic diet Activity on Discharge: As tolerated Stand Alone Forms: Patient Portal Discharge page Care Plan Goals: Healing of pressure ulcers Health Concerns: extensive decub ulcers Plan of Treatment: Wound dresing changes (Wet to dry Q shift), for the heel, dry steril dressing with Kerlix wrap, Air boot to the heels, proper mattress, frequent turning per pressure ulcer protocol (every 2 housr). Interdry to flaquito and groin areas to absorb moisture Check CBC, BMP, LTs weekly and Random Vancomycin level ( twice wekkly while vancomycin) goal of 15 to 20 Assessment: as above Discharge Date/Time: 05/09/21 11:31
[2021-05-07 11:10] LABS: Glucose, Whole Blood 161 mg/dL (60-115)
--- NOTE | 2021-05-07 11:11 | MHC.CM.PN ---
CM left a detailed message for HCP/Elizabeth at [phone] and then received word from CM Correspondence Specialist/Radha, that Elizabeth had returned CM call, explaining that it is difficult for her to talk at work and to contact Patient's Aunt Morris @ [phone]. CM spoke with Morris who has indicated that family does not want Patient returning to [facility]. Per Morris's request, a broad snf search was initiated and CM will continue to follow, pending snf bed acceptance at an alternate snf, other than [facility].
--- NOTE | 2021-05-07 11:23 | P.PNIM_ITS ---
Subjective Subjective Date of Service: 05/07/21 Interval History: seen and examined this am, persistent pain, but reasonably comfortable, H/H is better with transfusion. comofortable no new issues Physical Exam Vital Signs: Vital Signs: Last Vital Signs Temp 97.4 F 05/07/21 11:09 Pulse 82 05/07/21 11:09 Resp 18 05/07/21 11:09 BP 128/81 05/07/21 11:09 Pulse Ox 100 05/07/21 11:09 Body Mass Index 27.8 Const: Other: General: AO X 3, no acute distress Resp:? CTA bilateral CVS: S1,S2,RRR GI: +BS, NT, no distention Skin:? Deep stage IV ulcers on the buttocks Bilateral stage 3 ulcers on the heel Neuro: alert, oriented to self and place Objective Data Current Medications Generic Name Dose Route Start Last Admin Trade Name Freq PRN Reason Stop Dose Admin Ascorbic Acid 500 mg 04/26/21 09:00 05/07/21 07:55 Ascorbic Acid 500 Mg Tablet PO 500 mg DAILY SYLWIA Administration Bisacodyl 10 mg 04/25/21 16:27 Bisacodyl 10 Mg Supp.Rect DC DAILY PRN Constipation Diltiazem HCl 60 mg 04/25/21 21:00 05/07/21 07:55 Diltiazem Hcl 60 Mg Tablet PO 60 mg BID SYLWIA Administration Protocol Docusate Sodium 50 mg 04/25/21 16:27 Docusate Sodium 100 Mg/10 Ml Liquid PO BEDTIME PRN Constipation Enoxaparin Sodium 30 mg 04/25/21 18:00 05/06/21 16:19 Enoxaparin Sodium 30 Mg/0.3 Ml Syringe SUBCUT 30 mg Q24H SYLWIA Administration Ferrous Sulfate 324 mg 04/25/21 21:00 05/07/21 07:55 Ferrous Sulfate 324 Mg Tablet.Dr PO 324 mg TID SYLWIA Administration Vancomycin HCl 1,250 mg/ 250 mls @ 270 mls/hr 05/07/21 12:00 Sodium Chloride IV Q48H [facility] Insulin Human Lispro 0 unit 04/25/21 16:30 05/07/21 07:54 Insulin Lispro 100 Unit/Ml 3 Ml Vial SUBCUT 2 unit QIDACHS [facility] Administration Protocol Lactulose 20 gm 04/25/21 16:27 Lactulose 20 Gm/30 Ml Solution PO BID PRN Constipation Mirtazapine 30 mg 04/25/21 21:00 05/06/21 20:31 Mirtazapine 30 Mg Tablet PO 30 mg BEDTIME SYLWIA Administration Morphine Sulfate 15 mg 05/02/21 21:00 05/07/21 07:56 Morphine Sulfate Er 15 Mg Tablet.Er PO 15 mg BID SYLWIA Administration Ondansetron HCl 4 mg 04/25/21 16:27 05/02/21 12:14 Ondansetron Hcl 4 Mg/2 Ml Vial IVPUSH 4 mg Q8H PRN Administration Nausea and Vomiting Pharmacy Consult 1 each 04/25/21 11:48 Consult Rx Perform Med Rec MISCELLANE ONCE PRN Consult order Pharmacy Consult 1 each 05/01/21 00:31 Consult Rx Vancomycin Dosing MISCELLANE DAILY PRN Consult order Polyethylene Glycol 17 gm 04/25/21 16:27 Polyethylene Glycol 3350 17 Gm Powd.Pack PO DAILY PRN Constipation Senna 17.2 mg 04/26/21 21:00 05/06/21 20:31 Sennosides 8.6 Mg Tablet PO 17.2 mg BEDTIME SYLWIA Administration Sodium Chloride 3 ml 04/25/21 16:27 05/07/21 07:55 0.9 % Sodium Chloride Flush 3 Ml Syringe IVFLUSH 3 ml QSHIFT SYLWIA Administration Sodium Hypochlorite 1 appl 04/25/21 21:00 04/26/21 10:07 Sodium Hypochlorite 0.125% 473 Ml Solution TOPICAL Not Given BID SYLWIA Tamsulosin HCl 0.4 mg 04/26/21 09:00 05/07/21 07:55 Tamsulosin Hcl 0.4 Mg Capsule PO 0.4 mg DAILY SYLWIA Administration Labs CBC & Chem 7: 05/06/21 07:57 05/06/21 07:57 Labs: Laboratory Results - last 24 hr 05/06/21 05/06/21 05/06/21 10:56 16:09 19:58 POC Glucose 166 H 148 H 136 H 05/07/21 05/07/21 07:06 10:59 POC Glucose 182 H 161 H Assessment and Plan (1) Protein-calorie malnutrition, severe: Status: Acute (2) Decubitus ulcer: Status: Acute (3) Wet gangrene: Status: Acute Assessment and Plan: Sepsis.poa--related to underlying buttock/heel wounds, culture grew MRSA. She has been on Vancomycin and IV is recommmending IV Vancomycin for 6 weeks (ending June 05). Leukocytosis has trended down and she is no longer septic. Her Vancomycin level is around 20, and renal function has been OK. Blood cultures have been negative. 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 s/p debridement of wounds 04/26. She is on Vancomycin as above started on 04/25 and to continue for 6 weeks. She has been using? Airloss bed/mattress to minimize impact on wounds.? Because of the extensive nature of the wounds and chronically being soiled by stool, she agreed to having a diverting colostomy and this was performed on 05/[address] Knott without complication.? Her chronic pain is been treated with Oxycodone. UTII--completed course of Ceftriaxone LEIGH on CDK-- Creatinine on admission wa 2.55 and presently 1.76 which is likely baseline and has been stable around theref for the last 5 days. Nephrology was following closely Anemia--She has anemia of chronic disease with likely bleed from the wounds. She presented with hemoglobin of 7.7 on 04/25 and was transfused 1 unit of 04/26 and 2 units on? 05/01 when hemoglobin dropped to 6.8. Most recent hemoglobin as of 05/06 was 9.6 Depressed mood--to continue Ativan and Remron Metabolic encephalopathy d/t sepsis Resolved, seems at baseline DM--She was on Lantus but this has been on hold due to blood sugar in 90s to 180s, so recommend SSI only at this time, Diabetic diet. 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
[2021-05-07] MEDS: vancomycin HCL 1,250 MG in 0.9 % Sodium Chloride 250 ML 270 MG IV (11:59)
--- NOTE | 2021-05-07 12:11 | MHC.CLN ---
F/U DIET RX: 1800DM-RECOMMEND 2000DM DIET TO PROMOTE WOUND HEALING PO INTAKE HX REMAINS VARIABLE 25-50% RECOMMEND RE-STARTING GLUCERNA TID AND RICARDO TO INCREASE PO AND PROMOTE WOUND HEALING SUPPLEMENTS TO PROVIDE 871KCALS (45% EST KCAL NEEDS), 35G PROTEIN (36% EST PROTEIN NEEDS) CONTINUE TO MONITOR PO INTAKE CLOSELY
--- NOTE | 2021-05-07 15:08 | MHC.CM.PN ---
CM left a very detailed message for HCP/Elizabeth At [phone], explaining that the outcome of the broad SNF search is that only [facility] is considering a bed offer (presently no female beds available there).CM informed Elizabeth that dc will likely be tomorrow and CM needs to know if HCP wishes for Patient to go to [facility] or return to [facility] [place](after possibly meeting with the DON at [facility] to discuss concerns). CM awaits a response from Elizabeth).
[2021-05-07] MEDS: Morphine Sulfate 4 MG/ML CARTRIDGE 3 MG IVPUSH ×2 (16:28→22:15)
[2021-05-07 16:34] LABS: Glucose, Whole Blood 98 mg/dL (60-115)
[2021-05-07] MEDS: Enoxaparin Sodium 30 MG/0.3 ML SYRINGE SUBCUT (17:38)
[2021-05-07] MEDS: Sennosides 8.6 MG TABLET 17.2 MG PO (20:24)
[2021-05-07] MEDS: Mirtazapine 30 MG TABLET PO (20:24)
[2021-05-07 20:44] LABS: Glucose, Whole Blood 95 mg/dL (60-115)
[2021-05-08] VITALS (9 sets, daily range): BP systolic 121–159; BP diastolic 71–88; PULSE 82–97; RESP 17–20; TEMP 36–36.5; O2SAT 99–100
[2021-05-08] MEDS: Morphine Sulfate 4 MG/ML CARTRIDGE 3 MG IVPUSH ×3 (05:06→22:28)
[2021-05-08 07:24] LABS: Glucose, Whole Blood 93 mg/dL (60-115)
--- NOTE | 2021-05-08 08:35 | MHC.CM.PN ---
CM spoke with Patient's Aunt CHANTEL @ [phone] and met with Patient at bedside regarding her 3 accepting SNFs. Patient is hesitant but agreeable to go to [facility] and CM has requested that this facility begin the insurance authorization process. CM will follow.
[2021-05-08] MEDS: dilTIAZem HCL 60 MG TABLET PO ×2 (09:10→20:42)
[2021-05-08] MEDS: 0.9 % Sodium Chloride Flush 3 ML SYRINGE IVFLUSH ×3 (09:11→20:43)
--- NOTE | 2021-05-08 09:14 | HO.PM.IMPN ---
Subjective Subjective Date of Service: 05/08/21 Interval History: seen and examined this am, persistent pain, but reasonably comfortable, H/H is better with transfusion. comofortable no new issues Review of Systems No fever, pain in buttocks area that is chronic Physical Exam Vital Signs: Vital Signs: Last Vital Signs Temp 96.8 F 05/08/21 07:18 Pulse 97 05/08/21 07:18 Resp 20 05/08/21 07:18 BP 156/86 H 05/08/21 07:18 Pulse Ox 99 05/08/21 07:18 Body Mass Index 27.8 Const: Other: General: AO X 3, no acute distress Resp:? CTA bilateral CVS: S1,S2,RRR GI: +BS, NT, no distention Skin:? Deep stage IV ulcers on the buttocks Bilateral stage 3 ulcers on the heel Neuro: alert, oriented to self and place Objective Data Current Medications Generic Name Dose Route Start Last Admin Trade Name Freq PRN Reason Stop Dose Admin Ascorbic Acid 500 mg 04/26/21 09:00 05/08/21 09:13 Ascorbic Acid 500 Mg Tablet PO Not Given DAILY SYLWIA Bisacodyl 10 mg 04/25/21 16:27 Bisacodyl 10 Mg Supp.Rect [place] DAILY PRN Constipation Diltiazem HCl 60 mg 04/25/21 21:00 05/08/21 09:10 Diltiazem Hcl 60 Mg Tablet PO 60 mg BID SYLWIA Administration Protocol Docusate Sodium 50 mg 04/25/21 16:27 Docusate Sodium 100 Mg/10 Ml Liquid PO BEDTIME PRN Constipation Enoxaparin Sodium 30 mg 04/25/21 18:00 05/07/21 17:38 Enoxaparin Sodium 30 Mg/0.3 Ml Syringe SUBCUT 30 mg Q24H SYLWIA Administration Ferrous Sulfate 324 mg 04/25/21 21:00 05/08/21 09:13 Ferrous Sulfate 324 Mg Tablet.Dr PO Not Given TID COUNTS INCLUDE 234 BEDS AT THE [facility] Vancomycin HCl 1,250 mg/ 250 mls @ 270 mls/hr 05/07/21 12:00 05/07/21 13:52 Sodium Chloride IV Infused Q48H SYLWIA Infusion Insulin Human Lispro 0 unit 04/25/21 16:30 05/08/21 07:49 Insulin Lispro 100 Unit/Ml 3 Ml Vial SUBCUT Not Given QIDACHS COUNTS INCLUDE 234 BEDS AT THE [facility] Protocol Lactulose 20 gm 04/25/21 16:27 Lactulose 20 Gm/30 Ml Solution PO BID PRN Constipation Mirtazapine 30 mg 04/25/21 21:00 05/07/21 20:24 Mirtazapine 30 Mg Tablet PO 30 mg BEDTIME SYLWIA Administration Morphine Sulfate 3 mg 05/07/21 16:05 05/08/21 05:06 Morphine Sulfate 4 Mg/Ml Cartridge IVPUSH 3 mg Q6H PRN Administration Pain, Severe (Pain Scale 7-10) Protocol Ondansetron HCl 4 mg 04/25/21 16:27 05/02/21 12:14 Ondansetron Hcl 4 Mg/2 Ml Vial IVPUSH 4 mg Q8H PRN Administration Nausea and Vomiting Pharmacy Consult 1 each 04/25/21 11:48 Consult Rx Perform Med Rec MISCELLANE ONCE PRN Consult order Polyethylene Glycol 17 gm 04/25/21 16:27 Polyethylene Glycol 3350 17 Gm Powd.Pack PO DAILY PRN Constipation Senna 17.2 mg 04/26/21 21:00 05/07/21 20:24 Sennosides 8.6 Mg Tablet PO 17.2 mg BEDTIME COUNTS INCLUDE 234 BEDS AT THE [facility] Administration Sodium Chloride 3 ml 04/25/21 16:27 05/08/21 09:11 0.9 % Sodium Chloride Flush 3 Ml Syringe IVFLUSH 3 ml QSHIFT COUNTS INCLUDE 234 BEDS AT THE [facility] Administration Sodium Hypochlorite 1 appl 04/25/21 21:00 04/26/21 10:07 Sodium Hypochlorite 0.125% 473 Ml Solution TOPICAL Not Given BID COUNTS INCLUDE 234 BEDS AT THE [facility] Tamsulosin HCl 0.4 mg 04/26/21 09:00 05/08/21 09:13 Tamsulosin Hcl 0.4 Mg Capsule PO Not Given DAILY COUNTS INCLUDE 234 BEDS AT THE [facility] Labs CBC & Chem 7: 05/06/21 07:57 05/06/21 07:57 Labs: Laboratory Results - last 24 hr 05/07/21 05/07/21 05/07/21 10:59 16:03 20:34 POC Glucose 161 H 98 95 05/08/21 07:03 POC Glucose 93 Assessment and Plan (1) Protein-calorie malnutrition, severe: Status: Acute (2) Decubitus ulcer: Status: Acute (3) Wet gangrene: Status: Acute Assessment and Plan: Sepsis.poa--related to underlying buttock/heel wounds, culture grew MRSA. She has been on Vancomycin and IV is recommmending IV Vancomycin for 6 weeks (ending June 05). Leukocytosis has trended down and she is no longer septic. Her Vancomycin level is around 20, and renal function has been OK. Blood cultures have been negative. 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 s/p debridement of wounds 04/26. She is on Vancomycin as above started on 04/25 and to continue for 6 weeks. She has been using? Airloss bed/mattress to minimize impact on wounds.? Because of the extensive nature of the wounds and chronically being soiled by stool, she agreed to having a diverting colostomy and this was performed on 05/[address] Knott without complication.? Her chronic pain is been treated with Oxycodone/Oxycontine UTII--completed course of Ceftriaxone LEIGH on CDK-- Creatinine on admission wa 2.55 and presently 1.76 which is likely baseline and has been stable around theref for the last 5 days. Nephrology was following closely, check labs today Anemia--She has anemia of chronic disease with likely bleed from the wounds. She presented with hemoglobin of 7.7 on 04/25 and was transfused 1 unit of 04/26 and 2 units on? 05/01 when hemoglobin dropped to 6.8. Most recent hemoglobin as of 05/06 was 9.6 Depressed mood--to continue Ativan and Remron Metabolic encephalopathy d/t sepsis, at baseline mental status DM--She was on Lantus but this has been on hold due to blood sugar in 90s to 180s, so recommend SSI only at this time, Diabetic diet. HTN-continue diltiazem Moderate protein calorie malnutrition---Ensure supplement History of Vulvar canner to follow up with [facility] on outpatient basis Discharge today if insurance authorization is obtained Quality Stroke Does the patient have a stroke diagnosis?: No VTE Prior VTE?: No VTE Risk Level:: Medical - moderate - high VTE Device Contraindication: N/A - Device Ordered VTE Drug Contraindication: N/A - Med Ordered
[2021-05-08 09:30] LABS: Anion Gap 11 (12-20); Blood Urea Nitrogen 41 mg/dL (9-16); Calcium 7.7 mg/dL (8.4-10.2); Carbon Dioxide 21 mmol/L (22-29); Chloride 113 mmol/L (96-108); Creatinine Clr Calc Pharmacy 45.5; Estimated Glomerular Filt Rate 36; Glucose Random 90 mg/dL (60-115); Potassium 3.6 mmol/L (3.3-5.1); Sodium 141 mmol/L (135-145)
[2021-05-08 10:51] LABS: Glucose, Whole Blood 85 mg/dL (60-115)
[2021-05-08 13:08] LABS: Influenza A PCR NEGATIVE (Negative); Influenza B PCR NEGATIVE (Negative); Resp Syncy Virus RNA Qual PCR NEGATIVE (Negative); SARS COV2 PCR INHOUSE NEGATIVE (Negative)
--- NOTE | 2021-05-08 14:46 | PM.PNGS ---
Subjective Subjective Date of Service: 05/08/21 Interval history: No new complaints Tolerating diet but has poor appetite Stoma with stool Physical Exam Vital Signs: Vital Signs: Last Vital Signs Temp 97.3 F 05/08/21 11:26 Pulse 82 05/08/21 11:26 Resp 20 05/08/21 11:26 BP 121/71 05/08/21 11:26 Pulse Ox 99 05/08/21 11:26 Body Mass Index 27.8 Const: Other: Very frail looking General: no acute distress Resp: Effort & Inspection: normal respiratory effort GI: Other: Stoma with some stool, viable, incision clean Palpation (GI): Soft to palpation and not firm Procedures Date of Service Date of Service: 05/08/21 Progress Note: A&P Assessment and plan (1) Decubitus ulcer: Status: Acute Assessment and Plan: Status post loop colostomy for diversion -very dense adhesions in the pelvis so end-colostomy not done Push p.o. intake Stoma viable and functioning Plan to remove stoma bridge tomorrow Bedsore precautions Fall Risk Details Current Medications: Current Medications Generic Name Dose Route Start Last Admin Trade Name Freq PRN Reason Stop Dose Admin Ascorbic Acid 500 mg 04/26/21 09:00 05/08/21 09:13 Ascorbic Acid 500 Mg Tablet PO Not Given DAILY SYLWIA Bisacodyl 10 mg 04/25/21 16:27 Bisacodyl 10 Mg Supp.Rect [place] DAILY PRN Constipation Diltiazem HCl 60 mg 04/25/21 21:00 05/08/21 09:10 Diltiazem Hcl 60 Mg Tablet PO 60 mg BID [facility] Administration Protocol Docusate Sodium 50 mg 04/25/21 16:27 Docusate Sodium 100 Mg/10 Ml Liquid PO BEDTIME PRN Constipation Enoxaparin Sodium 30 mg 04/25/21 18:00 05/07/21 17:38 Enoxaparin Sodium 30 Mg/0.3 Ml Syringe SUBCUT 30 mg Q24H [facility] Administration Ferrous Sulfate 324 mg 04/25/21 21:00 05/08/21 09:13 Ferrous Sulfate 324 Mg Tablet.Dr PO Not Given TID [facility] Vancomycin HCl 1,250 mg/ 250 mls @ 270 mls/hr 05/07/21 12:00 05/07/21 13:52 Sodium Chloride IV Infused Q48H [facility] Infusion Insulin Human Lispro 0 unit 04/25/21 16:30 05/08/21 11:27 Insulin Lispro 100 Unit/Ml 3 Ml Vial SUBCUT Not Given QIDACHS SYLWIA Protocol Lactulose 20 gm 04/25/21 16:27 Lactulose 20 Gm/30 Ml Solution PO BID PRN Constipation Mirtazapine 30 mg 04/25/21 21:00 05/07/21 20:24 Mirtazapine 30 Mg Tablet PO 30 mg BEDTIME SYLWIA Administration Morphine Sulfate 3 mg 05/07/21 16:05 05/08/21 05:06 Morphine Sulfate 4 Mg/Ml Cartridge IVPUSH 3 mg Q6H PRN Administration Pain, Severe (Pain Scale 7-10) Protocol Ondansetron HCl 4 mg 04/25/21 16:27 05/02/21 12:14 Ondansetron Hcl 4 Mg/2 Ml Vial IVPUSH 4 mg Q8H PRN Administration Nausea and Vomiting Pharmacy Consult 1 each 04/25/21 11:48 Consult Rx Perform Med Rec MISCELLANE ONCE PRN Consult order Polyethylene Glycol 17 gm 04/25/21 16:27 Polyethylene Glycol 3350 17 Gm Powd.Pack PO DAILY PRN Constipation Senna 17.2 mg 04/26/21 21:00 05/07/21 20:24 Sennosides 8.6 Mg Tablet PO 17.2 mg BEDTIME SYLWIA Administration Sodium Chloride 3 ml 04/25/21 16:27 05/08/21 09:11 0.9 % Sodium Chloride Flush 3 Ml Syringe IVFLUSH 3 ml QSHIFT SYLWIA Administration Sodium Hypochlorite 1 appl 04/25/21 21:00 04/26/21 10:07 Sodium Hypochlorite 0.125% 473 Ml Solution TOPICAL Not Given BID SYLWIA Tamsulosin HCl 0.4 mg 04/26/21 09:00 05/08/21 09:13 Tamsulosin Hcl 0.4 Mg Capsule PO Not Given DAILY SYLWIA Time Spent With Patient Time: Total time spent is greater than 50% in coordination of care (as documented) at patient's floor/unit and/or counseling patient: Time with patient: 15 - 24 minutes Quality Stroke Does the patient have a stroke diagnosis?: No VTE Prior VTE?: No VTE Risk Level:: Medical - moderate - high VTE Device Contraindication: N/A - Device Ordered VTE Drug Contraindication: N/A - Med Ordered
[2021-05-08] MEDS: Ferrous Sulfate 324 MG TABLET.DR PO ×2 (16:16→20:42)
[2021-05-08 16:42] LABS: Glucose, Whole Blood 108 mg/dL (60-115)
[2021-05-08] MEDS: Enoxaparin Sodium 30 MG/0.3 ML SYRINGE SUBCUT (18:41)
[2021-05-08 20:35] LABS: Glucose, Whole Blood 94 mg/dL (60-115)
[2021-05-08] MEDS: Sennosides 8.6 MG TABLET 17.2 MG PO (20:41)
[2021-05-08] MEDS: Mirtazapine 30 MG TABLET PO (20:42)
[2021-05-09 03:28] VITALS: BP 140/67; PULSE 80; RESP 17; TEMP 36.4; O2SAT 99
[2021-05-09 05:13] VITALS: RESP 18
[2021-05-09] MEDS: Morphine Sulfate 4 MG/ML CARTRIDGE 3 MG IVPUSH ×2 (05:13→11:15)
[2021-05-09 07:22] VITALS: BP 141/66; PULSE 83; RESP 18; TEMP 36.3; O2SAT 99
[2021-05-09 07:36] LABS: Glucose, Whole Blood 76 mg/dL (60-115)
--- NOTE | 2021-05-09 07:40 | PC.NURSE ---
Patient refused all offers to reposition overnight, she became teary eyed and stated it's too uncomfortable and she wants to remain supine. Patient refused wound dressing change this morning, stating its too early . Patient was educated on skin breakdown and wound healing. This RN explained to the patient that she needs dressing changes Qshift and her last change was yesterday at 1800. Patient is on an air mattress, with pillow under legs to float heels. Will continue to encourage patient to participate in her care.
--- NOTE | 2021-05-09 08:11 | PM.PNGS ---
Subjective Subjective Date of Service: 05/09/21 Interval history: no new complaints tolerating diet appetite poor Physical Exam Vital Signs: Vital Signs: Last Vital Signs Temp 97.4 F 05/09/21 07:22 Pulse 83 05/09/21 07:22 Resp 18 05/09/21 07:22 BP 141/66 H 05/09/21 07:22 Pulse Ox 99 05/09/21 07:22 Body Mass Index 27.8 Const: Other: frail looking General: no acute distress GI: Other: soft, nondistended, stoma functioning well, viable Procedures Date of Service Date of Service: 05/09/21 Progress Note: A&P Assessment and plan (1) Decubitus ulcer: Status: Acute Assessment and Plan: S/P diverting colostomy stoma with good function stoma bridge removed push PO intake stoma care bedsore precautions - change positions Q2H Fall Risk Details Current Medications: Current Medications Generic Name Dose Route Start Last Admin Trade Name Freq PRN Reason Stop Dose Admin Ascorbic Acid 500 mg 04/26/21 09:00 05/08/21 09:13 Ascorbic Acid 500 Mg Tablet PO Not Given DAILY SYLWIA Bisacodyl 10 mg 04/25/21 16:27 Bisacodyl 10 Mg Supp.Rect [place] DAILY PRN Constipation Diltiazem HCl 60 mg 04/25/21 21:00 05/08/21 20:42 Diltiazem Hcl 60 Mg Tablet PO 60 mg BID SYLWIA Administration Protocol Docusate Sodium 50 mg 04/25/21 16:27 Docusate Sodium 100 Mg/10 Ml Liquid PO BEDTIME PRN Constipation Enoxaparin Sodium 30 mg 04/25/21 18:00 05/08/21 18:41 Enoxaparin Sodium 30 Mg/0.3 Ml Syringe SUBCUT 30 mg Q24H SYLWIA Administration Ferrous Sulfate 324 mg 04/25/21 21:00 05/08/21 20:42 Ferrous Sulfate 324 Mg Tablet.Dr PO 324 mg TID SYLWIA Administration Vancomycin HCl 1,250 mg/ 250 mls @ 270 mls/hr 05/07/21 12:00 05/07/21 13:52 Sodium Chloride IV Infused Q48H SYLWIA Infusion Insulin Human Lispro 0 unit 04/25/21 16:30 05/08/21 20:44 Insulin Lispro 100 Unit/Ml 3 Ml Vial SUBCUT Not Given QIDACHS [facility] Protocol Lactulose 20 gm 04/25/21 16:27 Lactulose 20 Gm/30 Ml Solution PO BID PRN Constipation Mirtazapine 30 mg 04/25/21 21:00 05/08/21 20:42 Mirtazapine 30 Mg Tablet PO 30 mg BEDTIME SYLWIA Administration Morphine Sulfate 3 mg 05/07/21 16:05 05/09/21 05:13 Morphine Sulfate 4 Mg/Ml Cartridge IVPUSH 3 mg Q6H PRN Administration Pain, Severe (Pain Scale 7-10) Protocol Ondansetron HCl 4 mg 04/25/21 16:27 05/02/21 12:14 Ondansetron Hcl 4 Mg/2 Ml Vial IVPUSH 4 mg Q8H PRN Administration Nausea and Vomiting Pharmacy Consult 1 each 04/25/21 11:48 Consult Rx Perform Med Rec MISCELLANE ONCE PRN Consult order Polyethylene Glycol 17 gm 04/25/21 16:27 Polyethylene Glycol 3350 17 Gm Powd.Pack PO DAILY PRN Constipation Senna 17.2 mg 04/26/21 21:00 05/08/21 20:41 Sennosides 8.6 Mg Tablet PO 17.2 mg BEDTIME SYLWIA Administration Sodium Chloride 3 ml 04/25/21 16:27 05/08/21 20:43 0.9 % Sodium Chloride Flush 3 Ml Syringe IVFLUSH 3 ml QSHIFT SYLWIA Administration Sodium Hypochlorite 1 appl 04/25/21 21:00 04/26/21 10:07 Sodium Hypochlorite 0.125% 473 Ml Solution TOPICAL Not Given BID SYLWIA Tamsulosin HCl 0.4 mg 04/26/21 09:00 05/08/21 09:13 Tamsulosin Hcl 0.4 Mg Capsule PO Not Given DAILY [facility] Time Spent With Patient Time: Total time spent is greater than 50% in coordination of care (as documented) at patient's floor/unit and/or counseling patient: Time with patient: 15 - 24 minutes Quality Stroke Does the patient have a stroke diagnosis?: No VTE Prior VTE?: No VTE Risk Level:: Medical - moderate - high VTE Device Contraindication: N/A - Device Ordered VTE Drug Contraindication: N/A - Med Ordered
[2021-05-09 09:00] VITALS: O2SAT 99
--- NOTE | 2021-05-09 09:00 | P.PNNP_ITS ---
Subjective Subjective Date of Service: 05/09/21 Principal diagnosis: leigh Interval history: seen and examined this am, persistent pain, but reasonably comfortable, H/H is better with transfusion. comofortable no new issues Physical Exam Vital Signs: Vital Signs: Last Vital Signs Temp 97.4 F 05/09/21 07:22 Pulse 83 05/09/21 07:22 Resp 18 05/09/21 07:22 BP 141/66 H 05/09/21 07:22 Pulse Ox 99 05/09/21 07:22 Body Mass Index 27.8 Const: Other: frail looking General: cooperative, healthy appearing, co mfortable, no acute distress, alert, awake, anxious and ill appearing Nutritional Appearance: thin Orientation/consciousness: oriented to person, oriented to place and oriented to time Limitations: No language barrier HENMT: Head: Yes normal to inspection, Yes normocephalic and Yes atraumatic Mouth: Normal oral and palatal mucosa present Eyes: Sclerae: sclerae normal Pupils: Equal, round and reactive pupils present EOM: EOMs intact bilaterally Neck: Neck: Yes trachea midline and Yes supple Carotids: no bruits Chest: Chest palpation & inspection: normal inspection of the chest and normal palpation of entire chest wall Resp: Effort & Inspection: normal respiratory effort, able to speak in complete sentences and no respiratory distress Auscultation: clear to auscultation bilaterally, breath sounds absent and vesicular breath sounds bilateral Cardio: Other: Bilateral lower extremity lymphedema, pedal pulses not palpable Rate: regular rate Rhythm: regular rhythm Heart sounds: S1 normal heart sound present and S2 normal heart sound present Peripheral pulses: Peripheral pulses 2+ throughout GI: Other: soft, nondistended, stoma functioning well, viable Inspection: Yes normal to inspection and No distended Palpation (GI): Soft to palpation, not firm, nontender and no guarding : Other: cheng present draining yellow urine Back/Spine/Pelvis: Other: Deep stage IV ulcers on the buttocks Skin: Other: bilateral stage IV buttock ulcers, heel ulcers--see picture for details General skin exam: dry skin Neuro: General: oriented to person, oriented to place and oriented to time Cranial nerves: Yes CN's II-XII intact bilaterally, Yes Equal, round and react deuce pupils present and Yes Bilaterally intact EOM present Extrem: Other: Bilateral stage 3 ulcers on the heel General: Yes edema Right lower extremity: full ROM, normal capillary refill and edema Left lower extremity: full ROM, normal capillary refill and edema Psych: Mental Status: mental status grossly normal Affect: Anxious affect present Objective Data Labs CBC & Chem 7: 05/06/21 07:57 05/08/21 08:20 Labs: Laboratory Results - last 24 hr 05/08/21 05/08/21 05/08/21 08:20 10:41 12:05 Sodium 141 Potassium 3.6 Chloride 113 H Carbon Dioxide 21 L Anion Gap 11 L BUN 41 H Creatinine 1.51 H Estim Creat Clear Calc 45.5 Estimated GFR 36 POC Glucose 85 Random Glucose 90 D Calcium 7.7 L Coronavirus (PCR) NEGATIVE Influenza Type A (PCR) NEGATIVE Influenza Type B (PCR) NEGATIVE RSV RNA Qual (PCR) NEGATIVE 05/08/21 05/08/21 05/09/21 16:19 20:07 07:21 Sodium Potassium Chloride Carbon Dioxide Anion Gap BUN Creatinine Estim Creat Clear Calc Estimated GFR POC Glucose 108 94 76 Random Glucose Calcium Coronavirus (PCR) Influenza Type A (PCR) Influenza Type B (PCR) RSV RNA Qual (PCR) Microbiology Microbiology Results: Microbiology 04/25/21 12:27 Blood - Venous Blood Culture - Final No growth after 5 days. 04/25/21 12:27 Blood - Venous Blood Culture - Final No growth after 5 days. 04/26/21 Unknown Decubitus Ulcer Gram Stain - Final 04/26/21 Unknown Decubitus Ulcer Routine Culture - Final Methicillin Res Staph Aureus 04/26/21 Unknown Decubitus Ulcer Anaerobic Culture - Final 04/25/21 00:00 Urine Catheterized - Straight Catheter Urine Culture - Final Proteus mirabilis Escherichia coli 04/25/21 10:21 Blood - Venous Blood Culture - Final 04/25/21 10:08 Blood - Venous Blood Culture - Final Procedures Date of Service Date of Service: 05/09/21 Assessment & Plan Assessment and plan (1) Acute kidney injury: Status: Acute Assessment and Plan: resolving LEIGH we will f/u as OP Time Spent With Patient Time: Total time spent is greater than 50% in coordination of care (as documented) at patient's floor/unit and/or counseling patient: Progress Note: Quality Stroke Does the patient have a stroke diagnosis?: No
--- NOTE | 2021-05-09 09:24 | MHC.CM.PN ---
Addendum entered by Kayleigh Lares 05/09/21 13:41: CM RECEIVED A MESSAGE THAT THE SNF WAS MISSING ORDERS/RX. CM CALLED [facility] ([phone]) AND SPOKE TO FINN WHO REQUESTED THE UPDATED DC SUMMARY AND PRESCRIPTIONS BE FAXED TO [phone]. ITEMS FAXED AT 1341 HOURS. Original Note: [facility] HAS RECEIVED AUTHORIZATION FROM [facility] FOR PT TO STEP DOWN TO SNF. SEVERO MET WITH PT AND INFORMED HER OF AUTHORIZATION AND PLAN TO TRANSFER TODAY VIA BLS. CM LEFT A VM MESSAGE FOR PTS HCP, DANIAL ([phone]) INFORMING HER OF DC PLAN AND TIME. PT WILL DISCHARGE TO [facility] TODAY AT 1100 HOURS VIA [facility]
[2021-05-09 11:00] LABS: Glucose, Whole Blood 80 mg/dL (60-115)
[2021-05-09 13:42] LABS: Vancomycin Trough 21.6 mcg/mL (10.0-20.0)
--- NOTE | 2021-05-09 15:39 | PC.NURSE ---
Addendum entered by Marilyn Li RN 05/09/21 15:46: this RN witnessed waste on 0.25 ml IV morphine for Lesly Darden RN Original Note: Late entry. Patient discharge and removed from pyxis. At time of discharge, 11:15 am patient reporting 7/10 pain to bilateral buttocks and coccyx from wounds. Medicated patient with PRN morphine. No nurse available to witness medication waste and then patient removed from pyxis. At nurses station Marilyn Connors RN witnessed physical waste of 0.25ml or 1 mg of IV morphine. Called and spoke to eduardo in pharmacy recommend to email Tamra Cramer of above issue. Email sent.
== END 2021-05-09 11:31 | disposition skilled nursing facility (03) | DRG 710 ==
LOC: HO.ED 11:51 → HO.IMC 14:18
PROVIDERS: Hospitalist; Internal Medicine; Internal Medicine Nephrology; Surgery; Admitting Provider Physician Assistant Medical; Emergency Provider Emergency Medicine; PCP Internal Medicine; Visit Provider Internal Medicine
PROC: 0DTE0ZZ Resection of Large Intestine, Open Approach (ICD-10-PCS; principal; 2021-05-05 10:00)
DX: A41.9 Sepsis, unspecified organism (principal); N17.0 Acute kidney failure with tubular necrosis; L89.153 Pressure ulcer of sacral region, stage 3; L89.314 Pressure ulcer of right buttock, stage 4; I96 Gangrene, not elsewhere classified; E44.0 Moderate protein-calorie malnutrition; E87.2 Acidosis; L89.324 Pressure ulcer of left buttock, stage 4; E11.22 Type 2 diabetes mellitus with diabetic chronic kidney disease; E11.69 Type 2 diabetes mellitus with other specified complication; L89.610 Pressure ulcer of right heel, unstageable; M86.9 Osteomyelitis, unspecified; N39.0 Urinary tract infection, site not specified; Z68.27 Body mass index [BMI] 27.0-27.9, adult; Z20.822 Contact with and (suspected) exposure to COVID-19; L03.312 Cellulitis of back [any part except buttock and flank]; D64.9 Anemia, unspecified; L89.620 Pressure ulcer of left heel, unstageable; N25.0 Renal osteodystrophy; Z85.44 Personal history of malignant neoplasm of other female genital organs; N18.4 Chronic kidney disease, stage 4 (severe); Z96.0 Presence of urogenital implants; B96.20 Unspecified Escherichia coli [E. coli] as the cause of diseases classified elsewhere; B95.62 Methicillin resistant Staphylococcus aureus infection as the cause of diseases classified elsewhere; E11.52 Type 2 diabetes mellitus with diabetic peripheral angiopathy with gangrene; I12.9 Hypertensive chronic kidney disease with stage 1 through stage 4 chronic kidney disease, or unspecified chronic kidney disease; Z79.4 Long term (current) use of insulin; Z88.0 Allergy status to penicillin; Z88.5 Allergy status to narcotic agent; Z88.6 Allergy status to analgesic agent; Z79.899 Other long term (current) drug therapy
CPT/HCPCS: 0241U; 36410; 36415; 71045; 74176; 80048; 80076; 80202; 81001; 82565; 82728; 82784; 82947; 83540; 83605; 83690; 83970; 85007; 85025; 85027; 85610; 85652; 86140; 86334; 86850; 86900; 86901; 86923; 87040; 87071; 87073; 87077; 87086; 87088; 87186; 87205; 87635; 93925; 96374; 96375; 96376; 99024; 99285; 99291; J0696; J0885; J1100; J1650; J2250; J2270; J2370; J2405; J3010; J3370; P9016

== ENCOUNTER → 2021-05-29 16:06 | Outpatient (BNVA) | payer OTHER, SELFPAY | PROVIDERS: PCP Internal Medicine; Visit Provider Surgery | DX: Z48.815 Encounter for surgical aftercare following surgery on the digestive system (principal); Z87.19 Personal history of other diseases of the digestive system | CPT/HCPCS: 99212 ==